=== PATIENT | male | born 1970 | race Caucasian/White ===

== ENCOUNTER 2018-02-09 10:01 | Emergency (ER) | payer OTHER, SELFPAY | END 2018-02-09 12:03 | disposition home or self-care (01) | PROVIDERS: Emergency Provider Emergency Medicine; Visit Provider Emergency Medicine | DX: H81.11 Benign paroxysmal vertigo, right ear (principal) | CPT/HCPCS: 36415; 80053; 85025; 93005; 93010; 99058; 99284 ==

== ENCOUNTER 2019-08-28 23:37 | Emergency (ER) | payer OTHER, SELFPAY ==
[2019-08-28 23:45] VITALS: BP 186/101; PULSE 84; RESP 19; TEMP 36.8; O2SAT 96; BMI 38.0
[2019-08-28] MEDS: PROPARACAINE 0.5% OPHTH SOL 1 DROPS EYE-BOTH (23:58)
--- NOTE | 2019-08-29 00:07 | ED.EYEPROB ---
HPI - Eye Problem General Chief complaint: Eye Problems Stated complaint: right eye swollen shut, left eye almost Time Seen by Provider: 08/28/19 23:43 Source: patient Mode of arrival: Ambulatory Limitations: no limitations History of Present Illness HPI Narrative: 49-year-old male here for evaluation of swelling to his right eye and redness and irritation to his left eye. Patient states that he woke up just prior to arrival with the symptoms. He states he went to bed with some swelling around his right eye. He states that he thought that he was bit by a bug above his right eye. He has no prior eye issues. No history of PRK or LASIK. Does not were contacts. No fevers. Has had some upper respiratory symptoms over the past couple days. Related Data Previous Rx's Medication Instructions Recorded erythromycin 0.5 inch EYE-BOTH TID 4 Days #3.5 08/29/19 gram polyvinyl alcohol-povidon(PF) 1 drop EYE-BOTH .as needed #30 each 08/29/19 [Refresh Classic (PF)] Allergies Allergy/AdvReac Type Severity Reaction Status Date / Time No Known Drug Allergies Allergy Verified 05/31/19 15:49 Review of Systems Constitutional Constitutional: Denies fever(s) Eyes Eyes: Reports blurry vision, Denies change in vision, Denies diplopia, Reports eye discharge, Denies floaters, Reports irritation, Reports itchy eyes, Denies loss of vision, Reports eye pain, Denies requires corrective lenses, Denies seeing flashes, Reports photophobia and Denies spots in vision ENT Ears, Nose, Mouth, and Throat: Reports nasal congestion, Denies sinus pressure, Denies sore throat and Denies throat swelling Respiratory Respiratory: Denies cough Integumentary/Breasts Comments: Redness around bilateral eyes Neurologic Neurologic: Denies behavioral changes and Denies loss of vision Psychiatric Psychiatric: Denies behavioral changes Hematologic/Lymphatic Hematologic/Lymphatic: Denies easy bleeding and Denies easy bruising Allergic/Immunologic Allergic/Immunologic: Reports itchy eyes and Denies throat swelling Patient History Medical History Foot pain (Chronic) Morbid obesity with body mass index (BMI) of 40.0 to 44.9 in adult (Resolved 11/21/17) Venous stasis ulcers of both lower extremities (Resolved 11/21/17) Social History Smoking Status: Current some day smoker alcohol intake frequency: a few times a week Alcohol type: beer and hard liquor Substance Use Type: does not use Exam Initial Vital Signs Initial Vital Signs: Vital Signs Temperature 98.2 F 08/28/19 23:45 Pulse Rate 84 08/28/19 23:45 Respiratory Rate 19 08/28/19 23:45 Blood Pressure 186/101 H 08/28/19 23:45 Pulse Oximetry 96 08/28/19 23:45 Const General: cooperative and healthy appearing Orientation: alert and awake HENMT Head: normal to inspection and normocephalic Ears: TM's normal bilaterally Nose: external nose normal Face and sinus: normal facial exam Mouth: oral mucosae normal Eyes Alignment and Position: alignment normal Eyelids: eyelid abnormality right upper eyelid swelling and tenderness Conjunctivae: conjunctival abnormality bilaterally discharge purulent; without subconjunctival hemorrhages Sclera: scleral abnormality bilaterally scleral injection Cornea: corneas normal and fluorescein used Pupils: PERRL EOM: EOM intact bilaterally Resp Effort & Inspection: normal respiratory effort Auscultation: clear to auscultation bilaterally Skin Other: Redness above the right upper eye Extrem General: normal to inspection and capillary refill normal Psych Appearance: grossly normal and well kempt Course Orders Ordered: Discontinued Medications Erythromycin (Erythromycin Ophth Oint) 1 applic EYE-RIGHT NOW ONE Stop: 08/29/19 00:09 Last Admin: 08/29/19 00:15 Dose: 1 applic Documented by: HFJOSHUA Proparacaine HCl (Parcaine 0.5% Ophth Nerissa) 1 drops EYE-BOTH NOW ONE Stop: 08/28/19 23:56 Last Admin: 08/28/19 23:58 Dose: 1 drop Documented by: HGJESSICA Vital Signs Vital signs: Vital Signs - 8 hr 08/28/19 23:45 08/29/19 00:20 Temperature 98.2 F Pulse Rate 84 87 Respiratory Rate 19 15 Blood Pressure 186/101 H 156/90 H Pulse Oximetry 96 96 MDM - Eye Problem MDM Narrative Medical decision making narrative: No foreign bodies noted on the exam. There is no uptake of the cornea is with the fluorescein stain. Patient had almost complete resolution of symptoms after the topical proparacaine. Does have some redness above the right thigh however I feel that this is inflammation and not infection. Does not appear to be preseptal cellulitis. He does have purulent drainage from bilateral eyes with the right being worse than the left. The rest of his HEENT exam is unremarkable. His symptoms most fit conjunctivitis. He was given erythromycin ointment here in the emergency department was sent home with a prescription for this. We discussed the expected course of treatment. We discussed return precautions and follow-up instructions. With he and his at bedside expressed understanding and agreement plan. Discharge Plan Departure Patient Disposition: Home Clinical Impression: Conjunctivitis Qualifiers: Conjunctivitis type: acute Acute conjunctivitis type: unspecified Laterality: bilateral Qualified Code(s): H10.33 - Unspecified acute conjunctivitis, bilateral Discharge Date/Time: 08/29/19 00:21 Instructions: Conjunctivitis Activity Restrictions/Additional Instructions: Be sure to wash your hands frequently. Do not share your towels. You can use a warm washcloth if your eyes become matted shut. Use the antibiotic ointment as directed. Return to the emergency department for any new or worsening symptoms Prescriptions: New erythromycin 5 mg/gram (0.5 %) ointment 0.5 inch EYE-BOTH TID 4 Days Qty: 3.5 RF: 1 Refresh Classic (PF) 1.4-0.6 % dropperette 1 drop EYE-BOTH .as needed Qty: 30 RF: 0 Referrals: Renato Garces MD [Primary Care Provider] -
[2019-08-29] MEDS: ERYTHROMYCIN OPHTH 1 GM OINT 1 APPLIC EYE-RIGHT (00:15)
[2019-08-29 00:20] VITALS: BP 156/90; PULSE 87; RESP 15; O2SAT 96
== END 2019-08-29 00:21 | disposition home or self-care (01) ==
PROVIDERS: Emergency Provider Emergency Medicine; PCP Internal Medicine
DX: H10.33 Unspecified acute conjunctivitis, bilateral (principal)
CPT/HCPCS: 99282; 99283

== ENCOUNTER 2020-03-10 05:57 | Emergency (ER) | payer OTHER, SELFPAY ==
--- NOTE | 2020-03-10 05:59 | ED_ITS ---
HPI - Back Pain/Injury General Chief Complaint: Back Pain/Injury Stated Complaint: thinks pinched nerve in back/sciatica x 1 week Time Seen by Provider: 03/10/20 05:59 Source: patient Mode of arrival: Wheelchair Limitations: no limitations History of Present Illness HPI Narrative: 49-year-old male smoker with history of chronic back trouble presents with a chief complaint of severe back pain over the past week. He states that it starts in his mid back and radiates down both legs. It is much worse with motion and improves with rest. He has got some associated numbness but denies any weakness or footdrop. He denies any loss of control of bowel or bladder. He denies any trauma, direct impact or heavy lifting, bending or twisting. He does not remember specific event that started this episode. He denies any fever chills. Denies any history of IV drug abuse MD Complaint: back pain and back injury Onset (ago): day(s) Duration: constant Similar Symptoms Previously: Yes Location: lumbar spine, right lower back and left lower back Severity: severe Quality: burning and sharp Radiation: left leg and right leg Severity scale (1-10): 9 Relieving factors: immobilization Exacerbating factors: movement Associated symptoms: numbness Related Data Previous Rx's Medication Instructions Recorded erythromycin 0.5 inch EYE-BOTH TID 4 Days #3.5 08/29/19 gram polyvinyl alcohol-povidon(PF) 1 drop EYE-BOTH .as needed #30 each 08/29/19 [Refresh Classic (PF)] diazepam [Valium] 5 mg PO BID-QID PRN #10 tab 03/10/20 hydrocodone-acetaminophen 1 tab PO Q4-6H PRN #10 tab 03/10/20 ketorolac 10 mg PO Q6H PRN #14 tab 03/10/20 lidocaine [Lidoderm] 1 patch TOP DAILY #15 each 03/10/20 prednisone 20 mg PO DAILY #5 tab 03/10/20 Allergies Allergy/AdvReac Type Severity Reaction Status Date / Time No Known Drug Allergies Allergy Verified 05/31/19 15:49 Review of Systems Constitutional Constitutional: Denies chills, Denies fatigue, Denies fever(s), Denies frequent falls, Denies lethargy and Denies weakness Eyes Eyes: Denies change in vision, Denies eye discharge, Denies irritation and Denies loss of vision ENT Ears, Nose, Mouth, and Throat: Denies change in voice, Denies dizziness, Denies neck pain, Denies sore throat and Denies throat swelling Cardiovascular Cardiovascular: Denies chest pain, Denies irregular heart rhythm, Denies lightheadedness, Denies palpitations, Denies dyspnea, Denies dyspnea on exertion and Denies orthopnea Respiratory Respiratory: Denies cough, Denies dyspnea, Denies dyspnea on exertion and Denies wheezing Gastrointestinal Gastrointestinal: Denies abdominal pain, Denies change in bowel habits, Denies diarrhea, Denies nausea and Denies vomiting Genitourinary Genitourinary: Denies hematuria, Denies flank pain, Denies urinary incontinence and Denies urinary urgency Musculoskeletal Musculoskeletal: Reports back pain, Denies muscle weakness, Denies neck pain, Denies numbness, Reports radiating pain into limb and Denies tingling Integumentary/Breasts Skin/Breast: Denies pruritus, Denies erythema, Denies rash and Denies wounds Neurologic Neurologic: Denies behavioral changes, Denies confusion, Denies dizziness, Denies frequent falls, Denies loss of vision, Denies numbness, Denies tingling and Denies weakness Psychiatric Psychiatric: Denies anxiety, Denies behavioral changes, Denies confusion, Denies depression, Denies homicidal ideation and Denies suicidal ideation Endocrine Endocrine: Denies fatigue, Denies flushing and Denies palpitations Hematologic/Lymphatic Hematologic/Lymphatic: Denies easy bruising Allergic/Immunologic Allergic/Immunologic: Denies urticaria, Denies throat swelling and Denies wheezing Patient History Medical History Foot pain (Chronic) Morbid obesity with body mass index (BMI) of 40.0 to 44.9 in adult (Resolved 11/21/17) Venous stasis ulcers of both lower extremities (Resolved 11/21/17) Family History Mother Cancer Lung cancer Social History Smoking Status: Current some day smoker Smoking Status: Current some day smoker alcohol intake frequency: a few times a week Alcohol type: beer and hard liquor Substance Use Type: does not use Exam Narrative Exam Narrative: GENERAL: [49] year old patient appears stated age. Well- nourished, well-developed patient, in obvious distress, rubbing his back, sitting in a wheelchair HEAD: Atraumatic. Normocephalic. EYES: Pupils equal round and reactive. Extraocular motions intact. No scleral icterus. No injection or drainage. ENT: Nose without bleeding, purulent drainage. Throat without erythema, tonsillar hypertrophy or exudate. Airway patent. NECK: Trachea midline. Non tender CARDIOVASCULAR: Regular rate and rhythm without murmurs, gallops, or rubs. RESPIRATORY: Clear to auscultation. Breath sounds equal bilaterally. No wheezes, rales, or rhonchi. GASTROINTESTINAL: Abdomen soft, non-tender, nondistended. EXTREMITIES: No edema or joint tenderness. BACK: filter press tender head but free of any obvious external abnormalities. Patient exam notes decreased range of motion and muscle spasm, but no CVA tenderness, or vertebral point tenderness. There are no symptoms of cauda equina such as saddle anesthesia, and decreased reflexes, decreased sensation or strength. NEURO: AOx3. SKIN: No rash or erythema of visible areas Initial Vital Signs Initial Vital Signs: Vital Signs Temperature 98.0 F 03/10/20 06:10 Pulse Rate 78 03/10/20 06:10 Respiratory Rate 22 03/10/20 06:10 Blood Pressure 168/68 H 03/10/20 06:10 Pulse Oximetry 96 03/10/20 06:10 Course Course Course Narrative: Patient feeling improvement after above-stated therapies. He is still having some pain with radiation but able to ambulate out under his own power. Return precautions given and questions answered to his apparent satisfaction. Multiple etiologies of back pain considered including; Epidural abscess, cauda equina, mass occupying lesion, and other considered Orders Ordered: Discontinued Medications Diazepam (Valium) 5 mg PO NOW ONE Stop: 03/10/20 06:21 Last Admin: 03/10/20 07:18 Dose: 5 mg Documented by: VALERIA Hydromorphone HCl (Dilaudid) 1 mg IM NOW ONE Stop: 03/10/20 06:21 Last Admin: 03/10/20 06:29 Dose: 1 mg Documented by: MERLENE Ibuprofen (Advil) 800 mg PO NOW ONE Stop: 03/10/20 06:21 Last Admin: 05/18/20 06:28 Dose: 800 mg Documented by: MERLENE Prednisone (Deltasone) 40 mg PO NOW ONE Stop: 03/10/20 06:22 Last Admin: 03/10/20 06:28 Dose: 40 mg Documented by: MERLENE Vital Signs Vital signs: Vital Signs - 8 hr 03/10/20 06:10 03/10/20 07:30 Temperature 98.0 F Pulse Rate 78 81 Respiratory Rate 22 19 Blood Pressure 168/68 H Blood Pressure [Right Arm] 152/89 H Pulse Oximetry 96 95 Discharge Plan Departure Patient Disposition: Home Clinical Impression: Bilateral lumbar radiculopathy Strain of lumbar region Qualifiers: Encounter type: initial encounter Qualified Code(s): S39.012A - Strain of muscle, fascia and tendon of lower back, initial encounter Discharge Date/Time: 03/10/20 07:35 Instructions: DI for Low Back Pain Activity Restrictions/Additional Instructions: *You have been diagnosed with [ acute on chronic lumbar pain with bilateral radiculopathy ] *What to do: *Take medications as directed *Follow up with your primary care provider in 2-3 days, call for an appointment. Let them know you were seen in the Emergency Department and that we ask that you be seen in follow up *Return to ER if you should have any new, worsening or concerning symptoms Prescriptions: New hydrocodone-acetaminophen 5-325 mg tablet 1 tab PO Q4-6H PRN (Reason: pain) Qty: 10 RF: 0 ketorolac 10 mg tablet 10 mg PO Q6H PRN (Reason: pain) Qty: 14 RF: 0 lidocaine [Lidoderm] 5 % adhesive patch,medicated 1 patch TOP DAILY Qty: 15 RF: 0 prednisone 20 mg tablet 20 mg PO DAILY Qty: 5 RF: 0 diazepam [Valium] 5 mg tablet 5 mg PO BID-QID PRN (Reason: muscle spasm) Qty: 10 RF: 0 No Action erythromycin 5 mg/gram (0.5 %) ointment 0.5 inch EYE-BOTH TID 4 Days Qty: 3.5 RF: 1 Refresh Classic (PF) 1.4-0.6 % dropperette 1 drop EYE-BOTH .as needed Qty: 30 RF: 0 Referrals: Renato Garces MD [Primary Care Provider] -
[2020-03-10 06:10] VITALS: BP 168/68; PULSE 78; RESP 22; TEMP 36.7; O2SAT 96; BMI 79.9
--- NOTE | 2020-03-10 06:18 | PC.NURSE ---
reports previous injury reoocured with no source. he states his back just started hurting like it did before. States he had to be carried off his boat. Patient drove self to ED. Denies loss of bowel or bladder. Denies trauma or injury to the area. States his will come and pick him up.
[2020-03-10] MEDS: IBUPROFEN 400 MG TABLET 800 MG PO (06:28)
[2020-03-10] MEDS: predniSONE 20 MG TABLET 40 MG PO (06:28)
[2020-03-10] MEDS: HYDROMORPHONE 1 MG INJ IM (06:29)
[2020-03-10] MEDS: diazePAM 5 MG TABLET PO (07:18)
[2020-03-10 07:30] VITALS: BP 152/89; PULSE 81; RESP 19; O2SAT 95
== END 2020-03-10 07:35 | disposition home or self-care (01) ==
LOC: ED 07:01
PROVIDERS: Emergency Provider Emergency Medicine; PCP Internal Medicine
DX: M54.16 Radiculopathy, lumbar region (principal); S39.012A Strain of muscle, fascia and tendon of lower back, initial encounter
CPT/HCPCS: 96372; 99283; J1170

== ENCOUNTER 2020-03-14 06:26 | Emergency (ER) | payer OTHER, SELFPAY ==
[2020-03-14 06:33] VITALS: BP 124/86; PULSE 111; RESP 25; TEMP 36.6; O2SAT 97; BMI 39.3
--- NOTE | 2020-03-14 06:35 | ED.BACK ---
HPI - Back Pain/Injury <Oswaldo Mayers, DO - Last Filed: 03/17/20 08:20> General Chief Complaint: Back Pain/Injury Stated Complaint: Lower Back pain. Time Seen by Provider: 03/14/20 06:30 Source: patient Mode of arrival: Ambulatory Limitations: no limitations History of Present Illness HPI Narrative: 49-year-old male smoker with history of chronic back pain presents for the 2nd time in as many days a chief complaint of significantly worsening lumbar pain with radiation into both legs. He describes a very intense sharp and stabbing pain which is much worse with any motion and extends into both legs with some tingling. He denies any weakness. He denies any trouble controlling bowel or bladder. He denies any fever or chills. He denies any numbness in his groin or foot drop. He denies any specifically heavy lifting, bending or twisting. He denies any history of IV drug abuse. When seen a few days ago he refused an IV and states the prescription medications have not helped. He denies access to a PCP. MD Complaint: back pain Onset (ago): day(s) Duration: constant Similar Symptoms Previously: Yes Location: lumbar spine Severity: severe Quality: burning and sharp Radiation: left leg and right leg Severity scale (1-10): 9 Relieving factors: none Exacerbating factors: movement Associated symptoms: numbness and difficulty walking Treatments prior to arrival: prescription analgesics Related Data Previous Rx's Medication Instructions Recorded erythromycin 0.5 inch EYE-BOTH TID 4 Days #3.5 08/29/19 gram polyvinyl alcohol-povidon(PF) 1 drop EYE-BOTH .as needed #30 each 08/29/19 [Refresh Classic (PF)] diazepam [Valium] 5 mg PO BID-QID PRN #10 tab 03/10/20 hydrocodone-acetaminophen 1 tab PO Q4-6H PRN #10 tab 03/10/20 ketorolac 10 mg PO Q6H PRN #14 tab 03/10/20 lidocaine [Lidoderm] 1 patch TOP DAILY #15 each 03/10/20 prednisone 20 mg PO DAILY #5 tab 03/10/20 cyclobenzaprine 10 mg PO TID PRN #21 tab 03/14/20 ketorolac 10 mg PO QID PRN 5 Days tab 03/14/20 oxycodone-acetaminophen 1 tab PO Q6H PRN #12 tab 03/14/20 prednisone 60 mg PO DAILY #15 tab 03/14/20 Allergies Allergy/AdvReac Type Severity Reaction Status Date / Time No Known Drug Allergies Allergy Verified 05/31/19 15:49 Review of Systems <Oswaldo Mayers DO - Last Filed: 03/17/20 08:20> Constitutional Constitutional: Denies chills, Denies fatigue, Denies fever(s), Denies frequent falls, Denies lethargy and Denies weakness Eyes Eyes: Denies change in vision, Denies eye discharge, Denies irritation and Denies loss of vision ENT Ears, Nose, Mouth, and Throat: Denies change in voice, Denies dizziness, Denies neck pain, Denies sore throat and Denies throat swelling Cardiovascular Cardiovascular: Denies chest pain, Denies irregular heart rhythm, Denies lightheadedness, Denies palpitations, Denies dyspnea, Denies dyspnea on exertion and Denies orthopnea Respiratory Respiratory: Denies cough, Denies dyspnea, Denies dyspnea on exertion and Denies wheezing Gastrointestinal Gastrointestinal: Denies abdominal pain, Denies change in bowel habits, Denies diarrhea, Denies nausea and Denies vomiting Genitourinary Genitourinary: Denies hematuria, Denies flank pain, Denies urinary incontinence and Denies urinary urgency Musculoskeletal Musculoskeletal: Reports back pain, Denies muscle weakness, Denies neck pain, Denies numbness and Reports tingling Integumentary/Breasts Skin/Breast: Denies pruritus, Denies erythema, Denies rash and Denies wounds Neurologic Neurologic: Denies behavioral changes, Denies confusion, Denies dizziness, Denies frequent falls, Denies loss of vision, Denies numbness, Reports tingling and Denies weakness Psychiatric Psychiatric: Denies anxiety, Denies behavioral changes, Denies confusion, Denies depression, Denies homicidal ideation and Denies suicidal ideation Endocrine Endocrine: Denies fatigue, Denies flushing and Denies palpitations Hematologic/Lymphatic Hematologic/Lymphatic: Denies easy bruising Allergic/Immunologic Allergic/Immunologic: Denies urticaria, Denies throat swelling and Denies wheezing <Renato Verdugo MD - Last Filed: 03/14/20 08:19> Constitutional Constitutional: Denies chills, Denies fatigue, Denies fever(s), Denies frequent falls, Denies lethargy and Denies weakness Eyes Eyes: Denies change in vision, Denies eye discharge, Denies irritation and Denies loss of vision ENT Ears, Nose, Mouth, and Throat: Denies change in voice, Denies dizziness, Denies neck pain, Denies sore throat and Denies throat swelling Cardiovascular Cardiovascular: Denies chest pain, Denies irregular heart rhythm, Denies lightheadedness, Denies palpitations, Denies dyspnea, Denies dyspnea on exertion and Denies orthopnea Respiratory Respiratory: Denies cough, Denies dyspnea, Denies dyspnea on exertion and Denies wheezing Gastrointestinal Gastrointestinal: Denies abdominal pain, Denies change in bowel habits, Denies diarrhea, Denies nausea and Denies vomiting Genitourinary Genitourinary: Denies hematuria, Denies flank pain, Denies urinary incontinence and Denies urinary urgency Musculoskeletal Musculoskeletal: Denies back pain, Denies muscle weakness, Denies neck pain, Denies numbness and Denies tingling Integumentary/Breasts Skin/Breast: Denies pruritus, Denies erythema, Denies rash and Denies wounds Neurologic Neurologic: Denies behavioral changes, Denies confusion, Denies dizziness, Denies frequent falls, Denies loss of vision, Denies numbness, Denies tingling and Denies weakness Psychiatric Psychiatric: Denies anxiety, Denies behavioral changes, Denies confusion, Denies depression, Denies homicidal ideation and Denies suicidal ideation Endocrine Endocrine: Denies fatigue, Denies flushing and Denies palpitations Hematologic/Lymphatic Hematologic/Lymphatic: Denies easy bruising Allergic/Immunologic Allergic/Immunologic: Denies urticaria, Denies throat swelling and Denies wheezing Patient History <Oswaldo Mayers DO - Last Filed: 03/17/20 08:20> Medical History Foot pain (Chronic) Morbid obesity with body mass index (BMI) of 40.0 to 44.9 in adult (Resolved 11/21/17) Venous stasis ulcers of both lower extremities (Resolved 11/21/17) Family History Mother Cancer Lung cancer Social History Smoking Status: Current some day smoker Smoking Status: Current some day smoker alcohol intake frequency: a few times a week Alcohol type: beer and hard liquor Substance Use Type: does not use Exam <Oswaldo Mayers DO - Last Filed: 03/17/20 08:20> Narrative Exam Narrative: GENERAL: [49] year old patient appears stated age. Well-nourished, well-developed patient, in notable distress. Obviously in pain, anxious HEAD: Atraumatic. Normocephalic. EYES: Pupils equal round and reactive. Extraocular motions intact. No scleral icterus. No injection or drainage. ENT: Nose without bleeding, purulent drainage. Throat without erythema, tonsillar hypertrophy or exudate. Airway patent. NECK: Trachea midline. Non tender CARDIOVASCULAR: Regular rate and rhythm without murmurs, gallops, or rubs. RESPIRATORY: Clear to auscultation. Breath sounds equal bilaterally. No wheezes, rales, or rhonchi. GASTROINTESTINAL: Abdomen soft, non-tender, nondistended. EXTREMITIES: No edema or joint tenderness. 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 Patient exam notes decreased range of motion and muscle spasm, but no CVA tenderness, or vertebral point tenderness. There are no symptoms of cauda equina such as saddle anesthesia, and decreased reflexes, decreased sensation or strength. NEURO: AOx3. SKIN: No rash or erythema of visible areas Initial Vital Signs Initial Vital Signs: Vital Signs Temperature 97.9 F 03/14/20 06:33 Pulse Rate 111 H 03/14/20 06:33 Respiratory Rate 25 H 03/14/20 06:33 Blood Pressure 124/86 03/14/20 06:33 Pulse Oximetry 97 03/14/20 06:33 <Renato Verdugo MD - Last Filed: 03/14/20 08:19> Initial Vital Signs Initial Vital Signs: Vital Signs Temperature 97.9 F 03/14/20 06:33 Pulse Rate 111 H 03/14/20 06:33 Respiratory Rate 25 H 03/14/20 06:33 Blood Pressure 124/86 03/14/20 06:33 Pulse Oximetry 97 03/14/20 06:33 Const General: cooperative and well developed Nutritional Appearance: well nourished HENVT Head: normocephalic and atraumatic Ears: external ears normal and TM's normal bilaterally Nose: external nose normal and No nasal discharge Face and sinus: sinuses nontender, face symmetric, no sinus tenderness and No dry mucous membranes Mouth: oral mucosae normal and moist mucous membranes Teeth and gingiva: dentition normal Throat: tonsils normal and uvula midline Eyes General: appearance normal, both eyes and all related structures Eyelids: eyelids normal Conjunctivae: conjunctivae normal Sclera: sclerae normal Pupils: PERRL EOM: EOM intact bilaterally Neck Neck: normal visual inspection, trachea midline, No lymphadenopathy, No midline deformity and No JVD Lymphatic: No lymphedema Chest Chest: normal inspection of the chest Resp Effort & Inspection: normal respiratory effort, able to speak in complete sentences, no respiratory distress and no use of accessory muscles Auscultation: clear to auscultation bilaterally, no rales, no rhonchi and no wheezes Cardio Rate: regular rate Rhythm: regular rhythm Heart Sounds: no click, no gallops, no murmurs and no rubs Pulses: normal peripheral pulses GI Inspection: non-distended Palpation: soft, no hepatosplenomegaly, No guarding, No pulsatile mass and No tender Auscultation: normal bowel sounds Back/Spine/Pelvis Back: No CVA tenderness Cervical Spine: cervical ROM normal and No pain with cervical ROM Thoracic/Lumbar Spine: thoracic and lumbar spine normal to inspection Skin General: no rashes or lesions noted, No jaundice and No petechiae Neuro General: alert, oriented x3, gait normal and no focal motor deficits Speech: speech normal Extrem General: full ROM, no clubbing, cyanosis or edema, no pedal edema and no calf tenderness Psych Appearance: well kempt Mental Status: mental status grossly normal Attitude: cooperative Thought Content: normal and suicidality Judgment: judgment good Course <Oswaldo Mayers DO - Last Filed: 03/17/20 08:20> Course Course Narrative: patient agreeable to an IV this time. Given his significantly worsening symptoms and lack of access to primary care MRI without contrast ordered to evaluate for suspected nerve impingement an intervertebral disc problem Patient signed out to Dr. Verdugo at 0700 for completion of evaluation and final disposition Orders Ordered: Discontinued Medications Dexamethasone (Decadron) 10 mg IV NOW ONE Stop: 03/14/20 06:36 Last Admin: 03/14/20 06:44 Dose: 10 mg Documented by: MMCFARL Hydromorphone HCl (Dilaudid) 1 mg IV NOW ONE Stop: 03/14/20 06:36 Last Admin: 03/14/20 06:43 Dose: 1 mg Documented by: MARTIN Ketorolac Tromethamine (Toradol) 15 mg IV NOW ONE Stop: 03/14/20 06:36 Last Admin: 03/14/20 06:44 Dose: 15 mg Documented by: MARTIN Vital Signs Vital signs: Vital Signs - 8 hr 03/14/20 06:33 Temperature 97.9 F Pulse Rate 111 H Respiratory Rate 25 H Blood Pressure 124/86 Pulse Oximetry 97 <Renato Verdugo MD - Last Filed: 03/14/20 08:19> Orders Ordered: Discontinued Medications Dexamethasone (Decadron) 10 mg IV NOW ONE Stop: 03/14/20 06:36 Last Admin: 03/14/20 06:44 Dose: 10 mg Documented by: MARTIN Hydromorphone HCl (Dilaudid) 1 mg IV NOW ONE Stop: 03/14/20 06:36 Last Admin: 03/14/20 06:43 Dose: 1 mg Documented by: MARTIN Ketorolac Tromethamine (Toradol) 15 mg IV NOW ONE Stop: 03/14/20 06:36 Last Admin: 03/14/20 06:44 Dose: 15 mg Documented by: MARTIN Vital Signs Vital signs: Vital Signs - 8 hr 03/14/20 06:33 Temperature 97.9 F Pulse Rate 111 H Respiratory Rate 25 H Blood Pressure 124/86 Pulse Oximetry 97 MDM - Back Pain/Injury <Oswaldo Mayers DO - Last Filed: 03/17/20 08:20> Lab Data Result diagrams: 03/14/20 06:45 03/14/20 06:45 Labs: Lab Results 03/14/20 03/14/20 Range/Units 06:45 06:45 WBC 11.9 H (4.5-11.0) X10^3/uL RBC 5.13 (4.5-5.9) X10^6/uL Hgb 16.8 (13.5-17.5) g/dL Hct 47.8 (41-53) % MCV 93.2 (80-100) fL MCH 32.7 (26-34) PG MCHC 35.1 (30-36) % RDW 13.4 (11.6-14.8) % Plt Count 251 (150-400) X10^3/uL Neut % (Auto) 68.1 (50-75) % Lymph % (Auto) 22.3 L (25-40) % Bell % (Auto) 8.8 (3-14) % Eos % (Auto) 0.4 L (2-4) % Baso % (Auto) 0.4 (0-2) % Neut # (Auto) 8100 H (6054-5564) /uL Lymph # (Auto) 2700 (9424-3271) /uL Bell # (Auto) 1000 H (0-900) /uL Eos # (Auto) 0 (0-450) /uL Baso # (Auto) 0 (0-100) /uL Sodium 139 (137-145) mmol/L Potassium 4.2 (3.4-5.1) mmol/L Chloride 104 (98-107) mmol/L Carbon Dioxide 26 (22-32) mmol/L BUN 26 H (9-20) mg/dL Creatinine 0.62 L (0.66-1.25) mg/dL Estimated GFR > 60.0 (>60) mL/min BUN/Creatinine Ratio 41.9 H (6-22) Glucose 112 H (70-100) mg/dL Calcium 10.0 (8.4-10.2) mg/dL <Renato Verdugo MD - Last Filed: 03/14/20 08:19> Lab Data Labs: Lab Results 03/14/20 03/14/20 Range/Units 06:45 06:45 WBC 11.9 H (4.5-11.0) X10^3/uL RBC 5.13 (4.5-5.9) X10^6/uL Hgb 16.8 (13.5-17.5) g/dL Hct 47.8 (41-53) % MCV 93.2 (80-100) fL MCH 32.7 (26-34) PG MCHC 35.1 (30-36) % RDW 13.4 (11.6-14.8) % Plt Count 251 (150-400) X10^3/uL Neut % (Auto) 68.1 (50-75) % Lymph % (Auto) 22.3 L (25-40) % Bell % (Auto) 8.8 (3-14) % Eos % (Auto) 0.4 L (2-4) % Baso % (Auto) 0.4 (0-2) % Neut # (Auto) 8100 H (6940-9165) /uL Lymph # (Auto) 2700 (7970-6569) /uL Bell # (Auto) 1000 H (0-900) /uL Eos # (Auto) 0 (0-450) /uL Baso # (Auto) 0 (0-100) /uL Sodium 139 (137-145) mmol/L Potassium 4.2 (3.4-5.1) mmol/L Chloride 104 (98-107) mmol/L Carbon Dioxide 26 (22-32) mmol/L BUN 26 H (9-20) mg/dL Creatinine 0.62 L (0.66-1.25) mg/dL Estimated GFR > 60.0 (>60) mL/min BUN/Creatinine Ratio 41.9 H (6-22) Glucose 112 H (70-100) mg/dL Calcium 10.0 (8.4-10.2) mg/dL Discharge Plan Departure Patient Disposition: Home Clinical Impression: Acute lumbar radiculopathy Low back pain Qualifiers: Chronicity: chronic Back pain laterality: midline Sciatica presence: with sciatica Sciatica laterality: bilateral sciatica Qualified Code(s): M54.41 - Lumbago with sciatica, right side Discharge Date/Time: 03/14/20 08:25 Instructions: DI for Low Back Pain, DI for Back Pain With Sciatica, DI for Back Spasm, DI for Back Strain or Sprain Activity Restrictions/Additional Instructions: 1. Follow-up with the orthopedic surgeons at [facility] who evaluate back pain and lumbar radiculopathy. Call their office and schedule an appointment that you can keep. Informed them that you were seen in the emergency department at [facility] and referred to them. If they are unable to see you and evaluate you you can call and schedule an appointment with the neurosurgeons at [facility]. You need to schedule an appointment for follow-up that you can keep. 2. Call the [facility] inside sales coordinator at [phone] to schedule an appointment with a family doctor who can schedule you for physical therapy to evaluate and help your back pain. 3. Take your pain as prescribed for your pain management. 4. 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 Prescriptions: New prednisone 20 mg tablet 60 mg PO DAILY Qty: 15 RF: 0 cyclobenzaprine 10 mg tablet 10 mg PO TID PRN (Reason: muscle spasm) Qty: 21 RF: 0 ketorolac 10 mg tablet 10 mg PO QID PRN (Reason: pain) 5 Days RF: 0 oxycodone-acetaminophen 10-325 mg tablet 1 tab PO Q6H PRN (Reason: pain) Qty: 12 RF: 0 No Action erythromycin 5 mg/gram (0.5 %) ointment 0.5 inch EYE-BOTH TID 4 Days Qty: 3.5 RF: 1 Refresh Classic (PF) 1.4-0.6 % dropperette 1 drop EYE-BOTH .as needed Qty: 30 RF: 0 hydrocodone-acetaminophen 5-325 mg tablet 1 tab PO Q4-6H PRN (Reason: pain) Qty: 10 RF: 0 ketorolac 10 mg tablet 10 mg PO Q6H PRN (Reason: pain) Qty: 14 RF: 0 lidocaine [Lidoderm] 5 % adhesive patch,medicated 1 patch TOP DAILY Qty: 15 RF: 0 prednisone 20 mg tablet 20 mg PO DAILY Qty: 5 RF: 0 diazepam [Valium] 5 mg tablet 5 mg PO BID-QID PRN (Reason: muscle spasm) Qty: 10 RF: 0 Referrals: Renato Garces MD [Primary Care Provider] - <Renato Verdugo MD - Last Filed: 03/14/20 08:19> [facility] ED Attending [facility] Attestation: 0745: The patient went down to MRI and refused the MRI. He refused to get onto the table refuse to remove his jewelry bracelets and take his boots off for the MRI. The patient return to the emergency department. The patient stated that he wanted to talk to me so that he could get going. 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 He is upset because he cannot always make appointments. The patient will be referred to [facility] for and to the orthopedic surgeon who evaluates backs. The patient states he cannot go in the MRI tube. He is claustrophobic and too big into tight for the MRI. It will need to be scheduled as an outpatient. He wants to leave at this time. The patient will be prescribed prednisone 60 mg per day for the next 5 days, Toradol 10 mg Q 6 hours for 5 days., Flexeril 10 mg 3 times a day for muscle spasms and Percocet 07/26/2025 every 8 hours for severe pain and discomfort. He was advised that he cannot captain his ship, drive an automobile or operate any dangerous machinery while on these medications. 0805: The patient is awake alert oriented, coherent and ambulatory.
[2020-03-14] MEDS: HYDROMORPHONE 1 MG INJ IV (06:43)
[2020-03-14] MEDS: DEXAMETHASONE 10 MG/ML VIAL IV (06:44)
[2020-03-14] MEDS: KETOROLAC 60 MG/2 ML VIAL 15 MG IV (06:44)
[2020-03-14 06:57] LABS: Add Manual Diff / Slide Review NO; Basophils Absolute Auto 0 /uL (0-100); Basophils Percent Auto 0.4 % (0-2); Eosinophils Absolute Auto 0 /uL (0-450); Eosinophils Percent Auto 0.4 % (2-4); Hematocrit 47.8 % (41-53); Hemoglobin 16.8 g/dL (13.5-17.5); Lymphocytes Absolute Auto 2700 /uL (1100-4500); Lymphocytes Percent Auto 22.3 % (25-40); Mean Corpuscular HGB Conc 35.1 % (30-36); Mean Corpuscular Hemoglobin 32.7 PG (26-34); Mean Corpuscular Volume 93.2 fL (80-100); Monocytes Absolute Auto 1000 /uL (0-900); Monocytes Percent Auto 8.8 % (3-14); Neutrophils Absolute Auto 8100 /uL (1500-7000); Neutrophils Percent Auto 68.1 % (50-75); Platelet Count 251 X10^3/uL (150-400); Red Blood Cell Count 5.13 X10^6/uL (4.5-5.9); Red Cell Distribution Width 13.4 % (11.6-14.8); White Blood Cell Count 11.9 X10^3/uL (4.5-11.0)
[2020-03-14 07:13] LABS: BUN Creatinine Ratio 41.9 (6-22); Blood Urea Nitrogen 26 mg/dL (9-20); Carbon Dioxide 26 mmol/L (22-32); Chloride 104 mmol/L (98-107); Estimated Glomerular Filt Rate > 60.0 mL/min (>60); Glucose 112 mg/dL (70-100); HEMOLYSIS < 15 (0-50); Potassium 4.2 mmol/L (3.4-5.1); Sodium 139 mmol/L (137-145)
== END 2020-03-14 08:25 | disposition home or self-care (01) ==
PROVIDERS: Emergency Medicine; Emergency Provider Emergency Medicine; PCP Internal Medicine
DX: M54.42 Lumbago with sciatica, left side (principal); M54.41 Lumbago with sciatica, right side; R20.2 Paresthesia of skin
CPT/HCPCS: 36415; 80048; 85025; 96374; 96375; 99284; J1100; J1170; J1885

== ENCOUNTER 2020-05-13 08:11 | Emergency (ER) | payer OTHER, SELFPAY ==
[2020-05-13 08:19] VITALS: BP 147/82; PULSE 88; RESP 20; TEMP 36.6; O2SAT 93
--- NOTE | 2020-05-13 08:31 | ED_ITS ---
HPI - Back Pain/Injury General Chief Complaint: Back Pain/Injury Stated Complaint: Back pain Time Seen by Provider: 05/13/20 08:29 Source: patient Mode of arrival: Ambulatory Limitations: no limitations History of Present Illness HPI Narrative: The patient arrives complaining of left mid back pain. The pain is there for 3-4 days, he is unsure. The pain is not located in the thoracic or lumbar spine. There is no radiation of pain to the abdomen. He denies dysuria or hematuria. He insisted there is no blood in his urine. He denies lumbar pain. He denies bowel or bladder incontinence. He has no pelvic anesthesia. He insists that there is numbness in his left leg. He is walking without deficits. He has prior visits to this ER with complaints of lumbar back pain. Upon prior visits he refused an IV. An MRI was arranged, he refused the MRI after arriving at the MRI suite. Since, he has apparently obtained the MRI elsewhere. He is unaware of any events that may have caused the pain. He is unaware of the MRI results. He is a poor historian, generally talking through my questions. He has been taking Tylenol and Vicodin. No further clinical details were obtained from the patient. Related Data Previous Rx's Medication Instructions Recorded erythromycin 0.5 inch EYE-BOTH TID 4 Days #3.5 08/29/19 gram polyvinyl alcohol-povidon(PF) 1 drop EYE-BOTH .as needed #30 each 08/29/19 [Refresh Classic (PF)] diazepam [Valium] 5 mg PO BID-QID PRN #10 tab 03/10/20 hydrocodone-acetaminophen 1 tab PO Q4-6H PRN #10 tab 03/10/20 ketorolac 10 mg PO Q6H PRN #14 tab 03/10/20 lidocaine [Lidoderm] 1 patch TOP DAILY #15 each 03/10/20 prednisone 20 mg PO DAILY #5 tab 03/10/20 cyclobenzaprine 10 mg PO TID PRN #21 tab 03/14/20 oxycodone-acetaminophen 1 tab PO Q6H PRN #12 tab 03/14/20 prednisone 60 mg PO DAILY #15 tab 03/14/20 Allergies Allergy/AdvReac Type Severity Reaction Status Date / Time No Known Drug Allergies Allergy Verified 05/31/19 15:49 Review of Systems Constitutional Constitutional: Denies fever(s) Cardiovascular Cardiovascular: Denies chest pain Respiratory Respiratory: Denies cough Gastrointestinal Gastrointestinal: Denies abdominal pain Comments: No GI incontinence Genitourinary Genitourinary: Denies hematuria and Denies dysuria Genitourinary: Denies hematuria and Denies dysuria Comments: No urinary incontinence Musculoskeletal Musculoskeletal: Reports as per HPI and Reports back pain Integumentary/Breasts Skin/Breast: Denies pruritus, Denies erythema, Denies rash and Denies wounds Neurologic Comments: Left leg numbness. Patient History Medical History (Updated 05/13/20 @ 09:06 by French Galdamez MD) Foot pain (Chronic) Morbid obesity with body mass index (BMI) of 40.0 to 44.9 in adult (Resolved 11/21/17) Recurrent low back pain (Acute) Venous stasis ulcers of both lower extremities (Resolved 11/21/17) Family History Mother Cancer Lung cancer Social History Smoking Status: Current some day smoker Smoking Status: Current some day smoker alcohol intake frequency: a few times a week Alcohol type: beer and hard liquor Substance Use Type: does not use Exam Initial Vital Signs Initial Vital Signs: Vital Signs Temperature 97.9 F 05/13/20 08:19 Pulse Rate 88 05/13/20 08:19 Respiratory Rate 20 05/13/20 08:19 Blood Pressure 147/82 H 05/13/20 08:19 Pulse Oximetry 93 05/13/20 08:19 Const General: healthy appearing and disheveled Nutritional Appearance: obese and other Other: Agitated. Difficult to communicate with, constantly talking through my questions with his complaint and not answering my questions. [facility] Head: normocephalic and atraumatic GI Other: Obese. Nontender. Back/Spine/Pelvis Other: No tenderness over the thoracic or lumbar spine. No sacral tenderness. No SI tenderness. Tenderness in the left lower thoracic area, perhaps over the left kidney. Slight increase in pain with pressure. Skin General: no rashes or lesions noted and No petechiae Neuro General: patient alert and patient oriented x3 Speech: speech normal Other: No motor sensory deficits of the lower extremities on exam. He walked out the door, concluding the exam. His gait was normal. Extrem General: full ROM (In both lower extremities), no pedal edema and no calf tenderness Course Course Course Narrative: The patient was not a cooperative historian, a limited exam was obtained. He has thoracic/mid back tenderness. There is no lumbosacral tenderness. One hundred 6:00 a.m. lower extremities is normal. He had normal my explanation why the left back pain should be evaluated separate from his complaints of left leg numbness. Toradol was offered. A UA was requested. He was anxious, not answering questions, and seemingly agitated at onset. With minutes he indicated he had other things to do, expressed his intent to depart immediately. Other than the exam, no care was given. Vital Signs Vital signs: Vital Signs - 8 hr 05/13/ 08:19 Temperature 97.9 F Pulse Rate 88 Respiratory Rate 20 Blood Pressure 147/82 H Pulse Oximetry 93 Discharge Plan Departure Patient Disposition: Left Against Medical Advice Clinical Impression: Agitation Back pain Qualifiers: Back pain location: back pain in other location Chronicity: unspecified Qualified Code(s): M54.89 - Other dorsalgia Prescriptions: No Action prednisone 20 mg tablet 60 mg PO DAILY Qty: 15 RF: 0 cyclobenzaprine 10 mg tablet 10 mg PO TID PRN (Reason: muscle spasm) Qty: 21 RF: 0 oxycodone-acetaminophen 10-325 mg tablet 1 tab PO Q6H PRN (Reason: pain) Qty: 12 RF: 0 erythromycin 5 mg/gram (0.5 %) ointment 0.5 inch EYE-BOTH TID 4 Days Qty: 3.5 RF: 1 Refresh Classic (PF) 1.4-0.6 % dropperette 1 drop EYE-BOTH .as needed Qty: 30 RF: 0 hydrocodone-acetaminophen 5-325 mg tablet 1 tab PO Q4-6H PRN (Reason: pain) Qty: 10 RF: 0 ketorolac 10 mg tablet 10 mg PO Q6H PRN (Reason: pain) Qty: 14 RF: 0 lidocaine [Lidoderm] 5 % adhesive patch,medicated 1 patch TOP DAILY Qty: 15 RF: 0 prednisone 20 mg tablet 20 mg PO DAILY Qty: 5 RF: 0 diazepam [Valium] 5 mg tablet 5 mg PO BID-QID PRN (Reason: muscle spasm) Qty: 10 RF: 0 Referrals: Renato Garces MD [Primary Care Provider] - Stand Alone Forms: Against Medical Advice
== END 2020-05-13 08:50 | disposition left against medical advice (07) ==
PROVIDERS: Emergency Provider Emergency Medicine; PCP Internal Medicine
DX: M54.89 Other dorsalgia (principal); R45.1 Restlessness and agitation; R20.0 Anesthesia of skin
CPT/HCPCS: 99281

== ENCOUNTER 2020-05-19 06:45 | Emergency (ER) | payer OTHER, SELFPAY ==
[2020-05-19 06:53] VITALS: BP 158/101; PULSE 95; RESP 24; TEMP 37; O2SAT 97; BMI 38.2
--- NOTE | 2020-05-19 07:25 | ED_ITS ---
HPI - Back Pain/Injury General Chief Complaint: Back Pain/Injury Stated Complaint: BACK PAIN Time Seen by Provider: 05/19/20 06:52 Source: patient Limitations: no limitations History of Present Illness HPI Narrative: Patient is a 49-year-old male who presents with left-sided back pain acute on chronic. He says he has had back pain for long time however over last 2 weeks it has gotten worse and especially over last few days. He thinks t hat he lifted something heavy and wrong. He says he does have considered for which he takes gabapentin for he also has Vicodin and lidocaine patches. He has been trying heat and ice last night he took a hot bath which he said did not help. He denies any changes in bowel or bladder he denies any fever. He has pain in his left thoracic area. He states none of his medications that he takes help MD Complaint: back pain Onset (ago): day(s) Duration: constant Similar Symptoms Previously: Yes Location: thoracic spine Severity: severe Quality: aching and spasming Associated symptoms: denies other symptoms Related Data Previous Rx's Medication Instructions Recorded erythromycin 0.5 inch EYE-BOTH TID 4 Days #3.5 08/29/19 gram polyvinyl alcohol-povidon(PF) 1 drop EYE-BOTH .as needed #30 each 08/29/19 [Refresh Classic (PF)] diazepam [Valium] 5 mg PO BID-QID PRN #10 tab 03/10/20 hydrocodone-acetaminophen 1 tab PO Q4-6H PRN #10 tab 03/10/20 ketorolac 10 mg PO Q6H PRN #14 tab 03/10/20 lidocaine [Lidoderm] 1 patch TOP DAILY #15 each 03/10/20 prednisone 20 mg PO DAILY #5 tab 03/10/20 cyclobenzaprine 10 mg PO TID PRN #21 tab 03/14/20 oxycodone-acetaminophen 1 tab PO Q6H PRN #12 tab 03/14/20 prednisone 60 mg PO DAILY #15 tab 03/14/20 Allergies Allergy/AdvReac Type Severity Reaction Status Date / Time No Known Drug Allergies Allergy Verified 05/19/20 06:52 Review of Systems Review of Systems Narrative: GENERAL: Denies chills, fatigue, malaise, fever, sweats, travel HEENT: Denies sinus pain, ear pain, sore throat, difficulty swallowing, neck pain RESPIRATORY: Denies dyspnea, cough, wheezing, hemoptysis, sputum. CARDIOVASCULAR: Denies chest pain, palpitations, orthopnea, edema GASTROINTESTINAL: Denies nausea, vomiting, abdominal pain, diarrhea, constipation, melena. : Denies dysuria, frequency, incontinence, hematuria, urinary retention, flank pain. MUSCULOSKELETAL: see HPI SKIN: No rash, no erythema, no pruritus NEUROLOGIC: Denies weakness, dizziness, headache, numbness, change in speech, confusion PSYCHIATRIC: No concerning psychosocial issues. 12 point review of systems is negative except for those stated above and HPI Patient History Medical History Foot pain (Chronic) Morbid obesity with body mass index (BMI) of 40.0 to 44.9 in adult (Resolved 11/21/17) Recurrent low back pain (Acute) Venous stasis ulcers of both lower extremities (Resolved 11/21/17) Family History Mother Cancer Lung cancer Social History Smoking Status: Current some day smoker Smoking Status: Current some day smoker alcohol intake frequency: a few times a week Alcohol type: beer and hard liquor Substance Use Type: does not use Exam Initial Vital Signs Initial Vital Signs: Vital Signs Temperature 98.6 F 05/19/20 06:53 Pulse Rate 95 H 05/19/20 06:53 Respiratory Rate 24 05/19/20 06:53 Blood Pressure 158/101 H 05/19/20 06:53 Pulse Oximetry 97 05/19/20 06:53 GENERAL: Overweight male patient appears in pain CARDIOVASCULAR: peripheral pulses in tact, cap refill <2 sec RESPIRATORY: No respiratory distress, speaks in full sentences without difficulty BACK: No midline tenderness or step offs, significant muscle spasm felt on the left thoracic side tender to touch EXTREMITIES: Normal range of motion, no clubbing or edema. Neurovascularly intact NEUROLOGICAL: Cranial nerves II through XII grossly intact. Normal gait and speech. SKIN: Warm, dry, no petechiae, no rashes or lesions. Course Orders Ordered: Discontinued Medications Diazepam (Valium) 10 mg PO NOW ONE Stop: 05/19/20 07:25 Last Admin: 05/19/20 07:35 Dose: 10 mg Documented by: IRVING Ketorolac Tromethamine (Toradol) 30 mg IM NOW ONE Stop: 05/19/20 07:25 Last Admin: 05/19/20 07:35 Dose: 30 mg Documented by: IRVING Vital Signs Vital signs: Vital Signs - 8 hr 05/19/20 06:53 05/19/20 08:24 Temperature 98.6 F Pulse Rate 95 H 79 Respiratory Rate 24 17 Blood Pressure 158/101 H 153/95 H Pulse Oximetry 97 98 MDM - Back Pain/Injury MDM Narrative Medical decision making narrative: Patient is able to lie down after Valium and Toradol. He does have significant palpable muscle spasm on the left side. I have tried to relieve it with some gentle massage it does seem a little bit better. I recommend heating pad and gentle stretching Discharge Plan Departure Patient Disposition: Home Clinical Impression: Spasm of thoracic back muscle Discharge Date/Time: 05/19/20 08:25 Instructions: DI for Back Spasm Activity Restrictions/Additional Instructions: *You have been diagnosed with back muscle spasm *What to do: Recommend heating pad for 30 minutes at a time hot baths and light stretching and or gentle massage. Do not lift anything heavy. *Continue to take medications as directed *Follow up with your primary care provider in 2-3 days *Return to ER if you should have a weakness numbness tingling of extremities, changes in bowel or bladder habits, fever or any new, worsening or concerning symptoms Prescriptions: No Action prednisone 20 mg tablet 60 mg PO DAILY Qty: 15 RF: 0 cyclobenzaprine 10 mg tablet 10 mg PO TID PRN (Reason: muscle spasm) Qty: 21 RF: 0 oxycodone-acetaminophen 10-325 mg tablet 1 tab PO Q6H PRN (Reason: pain) Qty: 12 RF: 0 erythromycin 5 mg/gram (0.5 %) ointment 0.5 inch EYE-BOTH TID 4 Days Qty: 3.5 RF: 1 Refresh Classic (PF) 1.4-0.6 % dropperette 1 drop EYE-BOTH .as needed Qty: 30 RF: 0 hydrocodone-acetaminophen 5-325 mg tablet 1 tab PO Q4-6H PRN (Reason: pain) Qty: 10 RF: 0 ketorolac 10 mg tablet 10 mg PO Q6H PRN (Reason: pain) Qty: 14 RF: 0 lidocaine [Lidoderm] 5 % adhesive patch,medicated 1 patch TOP DAILY Qty: 15 RF: 0 prednisone 20 mg tablet 20 mg PO DAILY Qty: 5 RF: 0 diazepam [Valium] 5 mg tablet 5 mg PO BID-QID PRN (Reason: muscle spasm) Qty: 10 RF: 0 Referrals: Renato Garces MD [Primary Care Provider] -
[2020-05-19] MEDS: diazePAM 5 MG TABLET 10 MG PO (07:35)
[2020-05-19] MEDS: KETOROLAC 60 MG/2 ML VIAL 30 MG IM (07:35)
[2020-05-19 08:24] VITALS: BP 153/95; PULSE 79; RESP 17; O2SAT 98
== END 2020-05-19 08:25 | disposition home or self-care (01) ==
PROVIDERS: Emergency Provider Emergency Medicine; PCP Internal Medicine
DX: M62.830 Muscle spasm of back (principal)
CPT/HCPCS: 96372; 99283; J1885

== ENCOUNTER → 2020-09-29 10:01 | Outpatient (CLI) | payer OTHER, SELFPAY ==
[2020-09-29 11:31] LABS: Hematocrit 46.4 % (41-53); Hemoglobin 15.6 g/dL (13.5-17.5); Mean Corpuscular HGB Conc 33.7 % (30-36); Mean Corpuscular Hemoglobin 31.4 PG (26-34); Mean Corpuscular Volume 93.1 fL (80-100); Platelet Count 213 X10^3/uL (150-400); Red Blood Cell Count 4.98 X10^6/uL (4.5-5.9); Red Cell Distribution Width 13.2 % (11.6-14.8); White Blood Cell Count 8.6 X10^3/uL (4.5-11.0)
[2020-09-29 11:58] LABS: Neutrophils Absolute Manual 6106 /uL (3000-5900); Total Cells Counted 100
[2020-09-29 11:59] LABS: RBC Morphology Normal Morphology
[2020-09-29 12:09] LABS: NT-proBNP (BNP-Adult 18+) 27 pg/mL (<125)
== END ==
PROVIDERS: Referring Provider Physician Assistant; Visit Provider Physician Assistant
DX: L03.90 Cellulitis, unspecified (principal)
CPT/HCPCS: 36415; 83880; 85025

== ENCOUNTER 2021-04-28 19:09 | Emergency (ER) | payer OTHER, SELFPAY | END 2021-04-28 19:15 | disposition left against medical advice (07) | PROVIDERS: Emergency Provider Emergency Medicine; PCP Registered Nurse ==

== ENCOUNTER 2021-04-29 15:23 | Emergency (ER) | payer SELFPAY ==
[2021-04-29 15:29] VITALS: BP 150/79; PULSE 65; RESP 22; TEMP 36.5; O2SAT 100
== END 2021-04-29 17:17 | disposition left against medical advice (07) ==
PROVIDERS: Emergency Provider Emergency Medicine; PCP Registered Nurse
DX: M79.89 Other specified soft tissue disorders (principal)
CPT/HCPCS: 99281

== ENCOUNTER 2021-05-01 13:47 | Emergency (ER) | payer BC, SELFPAY ==
[2021-05-01] VITALS (13 sets, daily range): BP systolic 120–160; BP diastolic 59–74; PULSE 70–89; RESP 10–28; TEMP 36.6; O2SAT 94–99; BMI 40.6
--- NOTE | 2021-05-01 14:03 | DI.RAD.S_ITS ---
PROCEDURE: XR CHEST 1V INDICATIONS: chest pain TECHNIQUE: One view of the chest was acquired. COMPARISON: None. FINDINGS: Surgical changes and devices: None. Lungs and pleura: Lungs are clear. No pleural effusions or pneumothorax. Mediastinum: Mediastinal contours appear normal. Heart size is normal. Bones and chest wall: No suspicious bony lesions. Overlying soft tissues appear unremarkable. IMPRESSION: No acute cardiopulmonary abnormality identified. Dictated by: Wil Rene M.D. on 05/01/2021 at 14:51 Approved by: Wil Rene M.D. on 05/01/2021 at 14:53
[2021-05-01 14:46] LABS: Magnesium 1.7 mg/dL (1.6-2.3)
[2021-05-01 14:47] LABS: Alanine Aminotransferase 91 IU/L (<50); Albumin 3.8 g/dL (3.5-5.0); Albumin Globulin Ratio 1.2 (1.0-2.8); Alkaline Phosphatase 83 U/L (38-126); Aspartate Aminotransferase 63 IU/L (17-59); BUN Creatinine Ratio 25.9 (6-22); Bilirubin Total 0.4 mg/dL (0.2-1.3); Blood Urea Nitrogen 15 mg/dL (9-20); Calcium 9.2 mg/dL (8.4-10.2); Carbon Dioxide 33 mmol/L (22-32); Chloride 101 mmol/L (98-107); Creatine Kinase 61 U/L (55-170); Estimated Glomerular Filt Rate > 60.0 mL/min (>60); Globulin 3.2 g/dL (1.7-4.1); Glucose 154 mg/dL (70-100); HEMOLYSIS < 15 (0-50); Lipase 29 U/L (23-300); Potassium 4.4 mmol/L (3.4-5.1); Sodium 138 mmol/L (137-145)
[2021-05-01 14:53] LABS: Add Manual Diff / Slide Review NO; Basophils Absolute Auto 0 /uL (0-100); Basophils Percent Auto 0.3 % (0-2); Eosinophils Absolute Auto 100 /uL (0-450); Eosinophils Percent Auto 0.6 % (2-4); Hematocrit 41.4 % (41-53); Hemoglobin 14.1 g/dL (13.5-17.5); Lymphocytes Absolute Auto 1500 /uL (1100-4500); Lymphocytes Percent Auto 17.8 % (25-40); Mean Corpuscular Hemoglobin 31.2 PG (26-34); Mean Corpuscular Volume 91.9 fL (80-100); Monocytes Absolute Auto 1000 /uL (0-900); Monocytes Percent Auto 11.5 % (3-14); Neutrophils Absolute Auto 6000 /uL (1500-7000); Neutrophils Percent Auto 69.8 % (50-75); Platelet Count 165 X10^3/uL (150-400); Red Cell Distribution Width 13.3 % (11.6-14.8); White Blood Cell Count 8.6 X10^3/uL (4.5-11.0)
[2021-05-01 14:55] LABS: NT-proBNP (BNP-Adult 18+) 155 pg/mL (<125)
[2021-05-01 14:59] LABS: Troponin I 0.016 ng/mL (0.01-0.034)
--- NOTE | 2021-05-01 15:47 | ED_ITS ---
HPI - Chest Pain General Chief Complaint: Chest Pain Stated Complaint: Sob, Chest Pain, Swollen/Red Feet Time Seen by Provider: 05/01/21 15:47 Source: patient and family Mode of arrival: Ambulatory Limitations: no limitations History of Present Illness HPI narrative: Patient is a 50-year-old male history of lower extremity swelling wrist bleeding worse over the last 2 weeks. He is having increasing shortness of breath with orthopnea as well. He says that he has a 2-3 pack-a-day smoker. He has occasional chest pain. Positive right leg is slightly erythematous this morning when warm to touch. He denies fever chills or weakness. Related Data Previous Rx's Medication Instructions Recorded cephalexin 500 mg capsule 500 mg PO TID 7 Days #21 cap 05/01/21 furosemide 20 mg tablet (Lasix) 20 mg PO DAILY #4 tab 05/01/21 Allergies Allergy/AdvReac Type Severity Reaction Status Date / Time No Known Drug Allergies Allergy Verified 05/01/21 14:13 Review of Systems Review of Systems ROS Unobtainable: All systems reviewed & are unremarkable except as noted in HPI and below Constitutional Constitutional: Denies body ache(s), Denies chills and Denies weakness Eyes Eyes: Denies blurry vision ENT Ears, Nose, Mouth, and Throat: Denies halitosis, Denies vertigo, Denies dizziness and Denies nasal congestion Cardiovascular Cardiovascular: Reports chest pain, Denies irregular heart rhythm, Reports leg ulcers, Reports leg edema, Denies lightheadedness, Reports orthopnea and Denies slow heart rate Respiratory Respiratory: Reports cough Gastrointestinal Gastrointestinal: Denies abdominal pain, Denies nausea and Denies vomiting Genitourinary Genitourinary: Denies urinary frequency and Denies urinary hesitancy Integumentary/Breasts Skin/Breast: Reports as per HPI Neurologic Neurologic: Denies confusion, Denies vertigo, Denies dizziness and Denies weakness Psychiatric Psychiatric: Denies confusion Patient History Medical History (Updated 05/01/21 @ 18:23 by Anna Echeverria DO) Foot pain Morbid obesity with body mass index (BMI) of 40.0 to 44.9 in adult (11/21/17) Recurrent low back pain Venous stasis ulcers of both lower extremities (11/21/17) Family History Mother Cancer Lung cancer Social History Smoking Status: Current every day smoker Smoking Status: Current every day smoker alcohol intake frequency: a few times a month Alcohol type: beer and hard liquor Substance Use Type: does not use Exam Initial Vital Signs Initial Vital Signs: Vital Signs Temperature 97.9 F 05/01/21 13:50 Pulse Rate 85 05/01/21 13:50 Respiratory Rate 20 05/01/21 13:50 Blood Pressure 141/69 H 05/01/21 13:50 Pulse Oximetry 94 05/01/21 13:50 GENERAL: Alert well-appearing male with BMI of 40 HEENT: Head atraumatic,EOMI, pupils reactive, face symmetric, [moist] mucous membrane CARDIOVASCULAR: Regular rate and rhythm without murmurs, rubs or gallops. RESPIRATORY: Breath sounds equal bilaterally, no wheezes rales or rhonchi. ABDOMEN: Soft, nontender. Normoactive bowel sounds all 4 quadrants. No guardin g or rebound. EXTREMITIES: Normal range of motion, no clubbing. +3 pitting edema. Neurovascularly intact NEUROLOGICAL: Alert and oriented x4.Normal gait and speech. SKIN: Chronic wounds noted on the right lower leg with mild erythema that is blanchable Course Orders Ordered: ED Orders 05/01/21 13:59 EKG-12 Lead Routine 05/01/21 14:03 XR chest 1V Stat 05/01/21 14:10 BNP [NT-proBNP (BNP-Adult 18+)] Stat Complete Blood Count AUTO DIFF Stat Comprehensive Metabolic Panel Stat Lipase Stat Magnesium Stat NT-proBNP (BNP-Adult 18+) Stat Procalcitonin Stat Troponin & CK Cardiac Panel Stat Discontinued Medications Furosemide (Furosemide 40 Mg/4 Ml Vial) 40 mg IV NOW ONE Stop: 05/01/21 15:54 Last Admin: 05/01/21 17:09 Dose: 40 mg Documented by: MAYRA Vital Signs Vital signs: Vital Signs - 8 hr 05/01/21 13:50 05/01/21 14:37 05/01/21 14:39 Temperature 97.9 F Pulse Rate 85 74 73 Respiratory Rate 20 15 16 Blood Pressure 141/69 H 122/59 L Pulse Oximetry 94 96 96 05/01/21 14:41 05/01/21 15:00 05/01/21 15:30 Temperature Pulse Rate 76 70 Respiratory Rate 19 13 Blood Pressure 122/59 L 120/70 133/63 Pulse Oximetry 99 94 05/01/21 16:00 05/01/21 16:01 05/01/21 16:30 Temperature Pulse Rate 82 79 76 Respiratory Rate 28 H 18 10 L Blood Pressure 160/72 H Pulse Oximetry 98 98 99 MDM - Chest Pain Lab Data Attestation: I reviewed the patient's lab results. Result diagrams: 05/01/21 14:10 05/01/21 14:10 Labs: Lab Results 05/01/21 05/01/21 05/01/21 Range/Units 14:10 14:10 14:10 WBC 8.6 (4.5-11.0) X10^3/uL RBC 4.50 (4.5-5.9) X10^6/uL Hgb 14.1 (13.5-17.5) g/dL Hct 41.4 (41-53) % MCV 91.9 (80-100) fL MCH 31.2 (26-34) PG MCHC 34.0 (30-36) % RDW 13.3 (11.6-14.8) % Plt Count 165 (150-400) X10^3/uL Neut % (Auto) 69.8 (50-75) % Lymph % (Auto) 17.8 L (25-40) % [place] % (Auto) 11.5 (3-14) % Eos % (Auto) 0.6 L (2-4) % Baso % (Auto) 0.3 (0-2) % Neut # (Auto) 6000 (7019-9516) /uL Lymph # (Auto) 1500 (3553-0304) /uL [place] # (Auto) 1000 H (0-900) /uL Eos # (Auto) 100 (0-450) /uL Baso # (Auto) 0 (0-100) /uL Sodium 138 (137-145) mmol/L Potassium 4.4 (3.4-5.1) mmol/L Chloride 101 (98-107) mmol/L Carbon Dioxide 33 H (22-32) mmol/L BUN 15 (9-20) mg/dL Creatinine 0.58 L (0.66-1.25) mg/dL Estimated GFR > 60.0 (>60) mL/min BUN/Creatinine Ratio 25.9 H (6-22) Glucose 154 H (70-100) mg/dL Calcium 9.2 (8.4-10.2) mg/dL Magnesium 1.7 (1.6-2.3) mg/dL Total Bilirubin 0.4 (0.2-1.3) mg/dL AST 63 H (17-59) IU/L ALT 91 H (<50) IU/L Alkaline Phosphatase 83 (38-126) U/L Total Creatine Kinase 61 (55-170) U/L CK-MB (CK-2) TNP CK-MB (CK-2) Rel Index TNP Troponin I 0.016 (0.01-0.034) ng/mL NT-Pro-B Natriuret Pep 155 H (<125) pg/mL Total Protein 7.0 (6.3-8.2) g/dL Albumin 3.8 (3.5-5.0) g/dL Globulin 3.2 (1.7-4.1) g/dL Albumin/Globulin Ratio 1.2 (1.0-2.8) Lipase 29 (23-300) U/L Procalcitonin (<0.5) ng/mL 05/01/21 05/01/21 Range/Units 14:10 14:10 WBC (4.5-11.0) X10^3/uL RBC (4.5-5.9) X10^6/uL Hgb (13.5-17.5) g/dL Hct (41-53) % MCV (80-100) fL MCH (26-34) PG MCHC (30-36) % RDW (11.6-14.8) % Plt Count (150-400) X10^3/uL Neut % (Auto) (50-75) % Lymph % (Auto) (25-40) % [place] % (Auto) (3-14) % Eos % (Auto) (2-4) % Baso % (Auto) (0-2) % Neut # (Auto) (2982-7058) /uL Lymph # (Auto) (8355-2522) /uL [place] # (Auto) (0-900) /uL Eos # (Auto) (0-450) /uL Baso # (Auto) (0-100) /uL Sodium (137-145) mmol/L Potassium (3.4-5.1) mmol/L Chloride (98-107) mmol/L Carbon Dioxide (22-32) mmol/L BUN (9-20) mg/dL Creatinine (0.66-1.25) mg/dL Estimated GFR (>60) mL/min BUN/Creatinine Ratio (6-22) Glucose (70-100) mg/dL Calcium (8.4-10.2) mg/dL Magnesium (1.6-2.3) mg/dL Total Bilirubin (0.2-1.3) mg/dL AST (17-59) IU/L ALT (<50) IU/L Alkaline Phosphatase (38-126) U/L Total Creatine Kinase (55-170) U/L CK-MB (CK-2) CK-MB (CK-2) Rel Index Troponin I (0.01-0.034) ng/mL NT-Pro-B Natriuret Pep 155 H (<125) pg/mL Total Protein (6.3-8.2) g/dL Albumin (3.5-5.0) g/dL Globulin (1.7-4.1) g/dL Albumin/Globulin Ratio (1.0-2.8) Lipase (23-300) U/L Procalcitonin 0.08 (<0.5) ng/mL Imaging Data Chest x-ray: Radiologist's Impression: PROCEDURE: XR CHEST 1V INDICATIONS: chest pain TECHNIQUE: One view of the chest was acquired. COMPARISON: None. FINDINGS: Surgical changes and devices: None. Lungs and pleura: Lungs are clear. No pleural effusions or pneumothorax. Mediastinum: Mediastinal contours appear normal. Heart size is normal. Bones and chest wall: No suspicious bony lesions. Overlying soft tissues appear unremarkable. IMPRESSION: No acute cardiopulmonary abnormality identified. Dictated by: Wil Rene M.D. on 05/01/2021 at 14:51 ECG Data Attestation: I personally reviewed and interpreted this ECG as follows: Prior ECG tracings: available for review Interpretation: Normal sinus rhythm rate 83 p.r. interval 148 QRS [address] changes or T-wave inversions similar to previous EKG in 2018 MDM Narrative Medical decision making narrative: Patient is overweight with chronic lower extremity wounds. He has obvious bilateral pitting edema in the right leg is significantly more red. He overall did he has no. No prior history of congestive heart failure BMP is within normal limits chest x-ray is clear. At this time will put him on Lasix and antibiotics to see if he has improved Discharge Plan Departure Patient Disposition: Home Clinical Impression: Cellulitis of leg, right, Bilateral edema of lower extremity Instructions: DI for Cellulitis -- Adult, Edema Activity Restrictions/Additional Instructions: *You have been diagnosed with lower extremity edema and cellulitis *What to do: Recommend that you stop smoking. Blood work is overall reassuring. However your leg does look infected. Let us try a course of antibiotics to see if it helps. Will also put you on a water pill to see if it helps with the swelling. *Continue to take medications as directed--> SENT TO [facility] Lasix 20 mg once a day for 4 days Keflex 500 mg 3 times a day for 7 days *Follow up with your primary care provider in 2-3 days *Return to ER if you should have increasing confusion, increasing shortness of breath, chest pain or any new, worsening or concerning symptoms Prescriptions: New furosemide [Lasix] 20 mg tablet 20 mg PO DAILY Qty: 4 RF: 0 cephalexin 500 mg capsule 500 mg PO TID 7 Days Qty: 21 RF: 0 Referrals: Hayley Cochran ARNP [Primary Care Provider] -
[2021-05-01 16:16] LABS: NT-proBNP (BNP-Adult 18+) 155 pg/mL (<125)
[2021-05-01 16:25] LABS: Procalcitonin 0.08 ng/mL (<0.5)
[2021-05-01] MEDS: FUROSEMIDE 40 MG/4 ML VIAL IV (17:09)
== END 2021-05-01 18:47 | disposition home or self-care (01) ==
PROVIDERS: Emergency Provider Emergency Medicine; PCP Registered Nurse
DX: L03.115 Cellulitis of right lower limb (principal); R60.0 Localized edema; R06.01 Orthopnea; R06.02 Shortness of breath
CPT/HCPCS: 36415; 71045; 80053; 82550; 83690; 83735; 83880; 84145; 84484; 85025; 93005; 96374; 99284; J1940

== ENCOUNTER 2021-06-14 03:43 | Emergency (ER) | payer BC, SELFPAY ==
[2021-06-14] VITALS (7 sets, daily range): BP systolic 144–184; BP diastolic 67–86; PULSE 75–94; RESP 15–20; TEMP 36.8; O2SAT 87–97; BMI 40.6
--- NOTE | 2021-06-14 03:55 | DI.RAD.S_ITS ---
PROCEDURE: XR CHEST 1V INDICATIONS: Short of breath TECHNIQUE: One view of the chest was acquired. COMPARISON: [facility], CR, XR CHEST 1V, 05/01/2021, 14:22. FINDINGS: Surgical changes and devices: None. Lungs and pleura: On this semiupright portable chest examination, no large pneumothorax or large pleural effusions are seen. No focal infiltrates are seen. Mild generalized interstitial prominence can be seen. Mediastinum: The aorta is mildly prominent and tortuous. Heart size is mildly enlarged. Bones and chest wall: No suspicious bony lesions. Age-appropriate bony degenerative changes are seen. Overlying soft tissues appear unremarkable. IMPRESSION: Mild cardiomegaly and mild interstitial prominence. Please consider early CHF. Note: No significant discrepancy from the preliminary report. Dictated by: Rafa Alanis M.D. on 06/14/2021 at 8:04 Approved by: Rafa Alanis M.D. on 06/14/2021 at 8:05
--- NOTE | 2021-06-14 03:58 | ED.CHESTPAIN ---
HPI - Chest Pain General Chief Complaint: Chest Pain Stated Complaint: legs/arms swollen/pain x4 days Time Seen by Provider: 06/14/21 03:45 History of Present Illness HPI narrative: Patient is a 50-year-old male who presents with bilateral lower extremity swelling and upper extremity swelling along with chest pain. It has been ongoing for about 1 week progressively getting worse. Now states that his hands and arms are swollen as well. He denies any orthopnea or shortness of breath with exertion. He occasionally has chest pain which has sharp stabbing and non radiating. Episodes last for seconds at a time and then go away. He is most concerned today with the swelling in his arms. He denies any fever or cough. Previously seen for lower extremity cellulitis and was given Keflex and Lasix 81 states the Lasix did not seem to help much. Does not appear that he has had echocardiogram Related Data Previous Rx's Medication Instructions Recorded furosemide 40 mg tablet (Lasix) 40 mg PO BID #8 tab 06/14/21 Allergies Allergy/AdvReac Type Severity Reaction Status Date / Time No Known Drug Allergies Allergy Verified 05/01/21 14:13 Review of Systems Review of Systems Narrative: GENERAL: Denies chills, fatigue, malaise, fever, sweats, travel HEENT: Denies sinus pain, ear pain, sore throat, difficulty swallowing, neck pain RESPIRATORY: Denies dyspnea, cough, wheezing, hemoptysis, sputum. CARDIOVASCULAR: See HPI GASTROINTESTINAL: Denies nausea, vomiting, abdominal pain, diarrhea, constipation, melena. : Denies dysuria, frequency, incontinence, hematuria, urinary retention, flank pain. MUSCULOSKELETAL: All extremity edema SKIN: Chronic lower extremity wounds NEUROLOGIC: Denies weakness, dizziness, headache, numbness, change in speech, confusion PSYCHIATRIC: No concerning psychosocial issues. 12 point review of systems is negative except for those stated above and HPI Patient History Medical History (Updated 06/14/21 @ 06:05 by Anna Echeverria DO) Foot pain Morbid obesity with body mass index (BMI) of 40.0 to 44.9 in adult (11/21/17) Recurrent low back pain Venous stasis ulcers of both lower extremities (11/21/17) Family History Mother Cancer Lung cancer Social History (Reviewed 05/19/20 @ 07:30 by ALAINA Melchor Smoking Status: Current every day smoker Smoking Status: Current every day smoker alcohol intake frequency: a few times a month Alcohol type: beer and hard liquor Substance Use Type: does not use Exam Initial Vital Signs Initial Vital Signs: Vital Signs Temperature 98.3 F 06/14/21 03:50 Pulse Rate 94 H 06/14/21 03:50 Respiratory Rate 18 06/14/21 03:50 Blood Pressure 184/86 H 06/14/21 03:50 Pulse Oximetry 95 06/14/21 03:50 GENERAL: Well-appearing, well-nourished and in no acute distress. HEENT: Head atraumatic,EOMI, pupils reactive, face symmetric, moist mucous membranes CARDIOVASCULAR: Regular rate and rhythm without murmurs, rubs or gallops. RESPIRATORY: Breath sounds equal bilaterally, no wheezes rales or rhonchi. ABDOMEN: Soft, nontender. Normoactive bowel sounds all 4 quadrants. No guarding or rebound EXTREMITIES: Normal range of motion, no clubbing. Liver extremities are significantly tight and swollen, upper extremities also appears swollen mostly in the fingers. He has hard time with dexterity. Neurovascularly intact NEUROLOGICAL: Alert and oriented x4.Normal gait and speech. SKIN: Lower extremity wounds chronic no erythema Course Orders Ordered: ED Orders 06/14/21 03:55 XR chest 1V Stat EKG-12 Lead Stat 06/14/21 04:08 Complete Blood Count AUTO DIFF Stat Comprehensive Metabolic Panel Stat Lipase Stat NT-proBNP (BNP-Adult 18+) Stat Troponin & CK Cardiac Panel Stat Discontinued Medications Aspirin (Aspirin 81 Mg Chew Tab) 324 mg PO NOW ONE Stop: 06/14/21 03:56 Last Admin: 06/14/21 04:04 Dose: 324 mg Documented by: DOTTIE Furosemide (Furosemide 40 Mg/4 Ml Vial) 40 mg IV NOW ONE Stop: 06/14/21 04:55 Last Admin: 06/14/21 05:00 Dose: 40 mg Documented by: DOTTIE Vital Signs Vital signs: Vital Signs - 8 hr 06/14/21 03:50 06/14/21 04:07 06/14/21 04:25 Temperature 98.3 F Pulse Rate 94 H 87 Respiratory Rate 18 20 Blood Pressure 184/86 H 159/80 H Pulse Oximetry 95 94 87 L 06/14/21 04:30 08/22/21 05:00 06/14/21 05:30 Temperature Pulse Rate 82 79 75 Respiratory Rate 15 18 Blood Pressure 148/71 H 144/67 H 156/79 H Pulse Oximetry 95 96 97 06/14/21 06:00 Temperature Pulse Rate 78 Respiratory Rate Blood Pressure 156/79 H Pulse Oximetry 94 MDM - Chest Pain Lab Data Result diagrams: 06/14/21 04:08 06/14/21 04:08 Labs: Lab Results 06/14/21 06/14/21 Range/Units 04:08 04:08 WBC 8.7 (4.5-11.0) X10^3/uL RBC 4.65 (4.5-5.9) X10^6/uL Hgb 14.2 (13.5-17.5) g/dL Hct 41.9 (41-53) % MCV 90.2 (80-100) fL MCH 30.6 (26-34) PG MCHC 33.9 (30-36) % RDW 13.8 (11.6-14.8) % Plt Count 190 (150-400) X10^3/uL Neut % (Auto) 64.5 (50-75) % Lymph % (Auto) 25.4 (25-40) % [place] % (Auto) 6.9 (3-14) % Eos % (Auto) 3.0 (2-4) % Baso % (Auto) 0.2 (0-2) % Neut # (Auto) 5600 (5434-5877) /uL Lymph # (Auto) 2200 (1835-3436) /uL [place] # (Auto) 600 (0-900) /uL Eos # (Auto) 300 (0-450) /uL Baso # (Auto) 0 (0-100) /uL Sodium 137 (137-145) mmol/L Potassium 4.1 (3.4-5.1) mmol/L Chloride 101 (98-107) mmol/L Carbon Dioxide 34 H (22-32) mmol/L BUN 17 (9-20) mg/dL Creatinine 0.60 L (0.66-1.25) mg/dL Estimated GFR > 60.0 (>60) mL/min BUN/Creatinine Ratio 28.3 H (6-22) Glucose 126 H (70-100) mg/dL Calcium 9.1 (8.4-10.2) mg/dL Total Bilirubin 0.4 (0.2-1.3) mg/dL AST 29 (17-59) IU/L ALT 28 (<50) IU/L Alkaline Phosphatase 75 (38-126) U/L Total Creatine Kinase 91 (55-170) U/L CK-MB (CK-2) TNP CK-MB (CK-2) Rel Index TNP Troponin I < 0.012 (0.01-0.034) ng/mL NT-Pro-B Natriuret Pep 53 (<125) pg/mL Total Protein 7.4 (6.3-8.2) g/dL Albumin 4.1 (3.5-5.0) g/dL Globulin 3.3 (1.7-4.1) g/dL Albumin/Globulin Ratio 1.2 (1.0-2.8) Lipase 30 (23-300) U/L Imaging Data Chest x-ray: Radiologist's Impression: Preliminary report borderline cardiomegaly with vascular congestion ECG Data Interpretation: Sinus rhythm rate 85 WA interval 150 QRS 94 QTC 433 similar to previous EKG in April of 2021 MDM Narrative Medical decision making narrative: Patient does have some peripheral edema. He previously had lower extremity edema and was placed on Lasix he said the pills did not seem to help him much. He was followed up primary care provider no echocardiogram was ever. Patient does have BMI of 40 is he is found to have low oxygen levels while sleeping. He for that reason he is placed on 2 L of O2. He is given 40 mg of Lasix IV. BNP is low at 55, however his chest x-ray does show vascular congestion, possible diastolic failure. Patient is ambulatory in the ED without significant shortness of breath O2 remains well above 90%. I discussed with him limiting his water and salt intake and monitoring his daily weights at this time does not need admission to the hospital however definitely needs an outpatient echocardiogram. Discharge Plan Departure Patient Disposition: Home Clinical Impression: Peripheral edema Instructions: DI for Heart Failure Activity Restrictions/Additional Instructions: *You have been diagnosed with peripheral edema *What to do: You do need to follow-up with her primary care provider and have a echocardiogram scheduled to look at your heart. I am worried that it might not be functioning as it is supposed to causing your legs and arms to swell. I do recommend weighing yourself daily to see if you are retaining or losing weight Limit water intake to 2 L daily Eating a high salt diet will also make You retain water *Continue to take medications as directed Lasix 40 mg twice a day for 4 days, 1 in the morning and 1 in the early afternoon. --> sent to [facility] *Follow up with your primary care provider in 2-3 days *Return to ER if you should have increasing swelling, chest pain, shortness of breath or any new, worsening or concerning symptoms Prescriptions: New furosemide [Lasix] 40 mg tablet 40 mg PO BID Qty: 8 RF: 0 Referrals: Hayley Cochran ARNP [Primary Care Provider] -
[2021-06-14] MEDS: ASPIRIN 81 MG CHEW TAB 324 MG PO (04:04)
[2021-06-14 04:13] LABS: Add Manual Diff / Slide Review NO; Basophils Absolute Auto 0 /uL (0-100); Basophils Percent Auto 0.2 % (0-2); Eosinophils Absolute Auto 300 /uL (0-450); Hematocrit 41.9 % (41-53); Hemoglobin 14.2 g/dL (13.5-17.5); Lymphocytes Absolute Auto 2200 /uL (1100-4500); Lymphocytes Percent Auto 25.4 % (25-40); Mean Corpuscular HGB Conc 33.9 % (30-36); Mean Corpuscular Hemoglobin 30.6 PG (26-34); Mean Corpuscular Volume 90.2 fL (80-100); Monocytes Absolute Auto 600 /uL (0-900); Monocytes Percent Auto 6.9 % (3-14); Neutrophils Absolute Auto 5600 /uL (1500-7000); Neutrophils Percent Auto 64.5 % (50-75); Platelet Count 190 X10^3/uL (150-400); Red Blood Cell Count 4.65 X10^6/uL (4.5-5.9); Red Cell Distribution Width 13.8 % (11.6-14.8); White Blood Cell Count 8.7 X10^3/uL (4.5-11.0)
[2021-06-14 04:25] LABS: Alanine Aminotransferase 28 IU/L (<50); Albumin 4.1 g/dL (3.5-5.0); Albumin Globulin Ratio 1.2 (1.0-2.8); Alkaline Phosphatase 75 U/L (38-126); Aspartate Aminotransferase 29 IU/L (17-59); BUN Creatinine Ratio 28.3 (6-22); Bilirubin Total 0.4 mg/dL (0.2-1.3); Blood Urea Nitrogen 17 mg/dL (9-20); Calcium 9.1 mg/dL (8.4-10.2); Carbon Dioxide 34 mmol/L (22-32); Chloride 101 mmol/L (98-107); Creatine Kinase 91 U/L (55-170); Estimated Glomerular Filt Rate > 60.0 mL/min (>60); Globulin 3.3 g/dL (1.7-4.1); Glucose 126 mg/dL (70-100); HEMOLYSIS < 15 (0-50); Lipase 30 U/L (23-300); Potassium 4.1 mmol/L (3.4-5.1); Sodium 137 mmol/L (137-145); Total Protein 7.4 g/dL (6.3-8.2)
[2021-06-14 04:37] LABS: NT-proBNP (BNP-Adult 18+) 53 pg/mL (<125); Troponin I < 0.012 ng/mL (0.01-0.034)
[2021-06-14] MEDS: FUROSEMIDE 40 MG/4 ML VIAL IV (05:00)
== END 2021-06-14 06:16 | disposition home or self-care (01) ==
PROVIDERS: Emergency Provider Emergency Medicine; PCP Registered Nurse
DX: R60.9 Edema, unspecified (principal); R07.9 Chest pain, unspecified; R06.02 Shortness of breath
CPT/HCPCS: 36415; 71045; 80053; 82550; 83690; 83880; 84484; 85025; 93005; 93010; 96374; 99285; J1940

== ENCOUNTER 2021-06-22 04:00 | Emergency (ER) | payer BC, SELFPAY ==
[2021-06-22 04:05] VITALS: BP 145/78; PULSE 97; O2SAT 96
[2021-06-22 04:10] VITALS: BP 145/78; PULSE 96; RESP 21; TEMP 36.4; O2SAT 96; BMI 40.6
--- NOTE | 2021-06-22 04:16 | ED.EXTPRO ---
HPI - Extremity Problem General Chief complaint: Extremity Problem,Nontraumatic Stated complaint: LEGS ARE SWOLLEN Time Seen by Provider: 06/22/21 04:03 Source: patient Mode of arrival: Ambulatory Limitations: no limitations History of Present Illness HPI Narrative: 50-year-old male heavy smoker with history of obesity and bilateral lower extremity edema presents with a chief complaint of increased swelling in his legs, fatigue, shortness of breath with exertion and gaining a few lb of water weight over the past few days. He states that he has been seen under similar circumstances in the past and there is no significant finding diagnostically he seems to respond well to Lasix. He had been doing well after receiving Lasix last time until he stopped taking the medications at which point the symptoms started again. He is not dizzy or lightheaded. He denies any chest pain or palpitations. He has had no nausea, vomiting or diarrhea. He denies any history of blood clot. Related Data Previous Rx's Medication Instructions Recorded furosemide 40 mg tablet (Lasix) 40 mg PO BID #8 tab 06/14/21 furosemide 40 mg tablet 40 mg PO BID #30 tab 06/22/21 Allergies Allergy/AdvReac Type Severity Reaction Status Date / Time No Known Drug Allergies Allergy Verified 05/01/21 14:13 Review of Systems Review of Systems Narrative: GENERAL: Denies chills, fatigue, malaise, fever, sweats. HEENT: Denies sinus pain, ear pain, sore throat, difficulty swallowing, dizziness. RESPIRATORY: See HPI CARDIOVASCULAR: See HPI GASTROINTESTINAL: Denies nausea, vomiting, abdominal pain, diarrhea, constipation, melena. : Denies dysuria, frequency, incontinence, hematuria, urinary retention. MUSCULOSKELETAL: denies weakness, joint pain, or bony pain SKIN: Denies rash, skin lesions, or other NEUROLOGIC: Denies weakness, headache, numbness, change in speech, confusion, seizures, incoordination. PSYCHIATRIC: No concerning psychosocial issues. 12 point review of systems is negative except for those stated above Patient History Medical History (Updated 06/22/21 @ 05:03 by Oswaldo Mayers DO) Foot pain Morbid obesity with body mass index (BMI) of 40.0 to 44.9 in adult (11/21/17) Recurrent low back pain Venous stasis ulcers of both lower extremities (11/21/17) Family History Mother Cancer Lung cancer Social History Smoking Status: Current every day smoker Smoking Status: Current every day smoker alcohol intake frequency: a few times a week Alcohol type: beer and hard liquor Substance Use Type: does not use Exam Narrative Exam Narrative: GENERAL: [50] year old patient appears stated age. Well-developed patient, in mild distress. HEAD: Atraumatic. Normocephalic. EYES: Pupils equal round and reactive. Extraocular motions intact. No scleral icterus. No injection or drainage. ENT: Nose without bleeding, purulent drainage. Throat without erythema, tonsillar hypertrophy or exudate. Airway patent. NECK: Trachea midline. Non tender CARDIOVASCULAR: Regular rate and rhythm without murmurs, gallops, or rubs. RESPIRATORY: Decreased breath sounds bilaterally with prolonged expiratory phase. No rales or rhonchi GASTROINTESTINAL: Abdomen soft, non-tender, nondistended. EXTREMITIES: Bilateral lower extremity edema with minimal erythema BACK: Nontender without deformity or crepitance. No flank tenderness. NEURO: AOx3. SKIN: No rash or erythema of visible areas Initial Vital Signs Initial Vital Signs: Vital Signs Pulse Rate 97 H 06/22/21 04:05 Blood Pressure 145/78 H 06/22/21 04:05 Pulse Oximetry 96 06/22/21 04:05 Scores PERC Score Age greater than or equal to 50 years: No Heart rate greater than or equal to 100 bpm: No Room Air O2 Sat less than 95%: No Unilateral leg swelling: No Recent trauma or surgery: No Hemoptysis: No Prior PE or DVT: No Hormone Use: No Total PERC Score: 0 Wells' Criteria for PE Clinical signs and symptoms of DVT: No PE is #1 Dx or equally likely: No Heart rate > 100: No Immobilization at least 3 days or surg in previous 4 weeks: No History of PE or DVT: No Hemoptysis: No Malignancy w/Treatment within 6 months or palliative: No Wells' PE Score total: 0 Course Orders Ordered: ED Orders 06/22/21 04:25 Complete Blood Count AUTO DIFF Stat Comprehensive Metabolic Panel Stat Magnesium Stat NT-proBNP (BNP-Adult 18+) Stat Troponin & CK Cardiac Panel Stat Discontinued Medications Furosemide (Furosemide 40 Mg/4 Ml Vial) 40 mg IV NOW ONE Stop: 06/22/21 04:13 Last Admin: 06/22/21 04:24 Dose: 40 mg Documented by: Vital Signs Vital signs: Vital Signs - 8 hr 06/22/21 04:05 06/22/21 04:10 06/22/21 04:32 Temperature 97.6 F Pulse Rate 97 H 96 H 92 H Respiratory Rate 21 Blood Pressure 145/78 H 145/78 H Pulse Oximetry 96 96 95 06/22/21 05:00 06/22/21 05:16 06/22/21 05:17 Temperature Pulse Rate 88 88 Respiratory Rate Blood Pressure 125/73 Pulse Oximetry 96 96 MDM - Extremity (Nontraumatic) Lab Data Result diagrams: 06/22/21 04:25 06/22/21 04:25 Labs: Lab Results 06/22/21 06/22/21 Range/Units 04:25 04:25 WBC 7.6 (4.5-11.0) X10^3/uL RBC 4.61 (4.5-5.9) X10^6/uL Hgb 13.9 (13.5-17.5) g/dL Hct 42.2 (41-53) % MCV 91.4 (80-100) fL MCH 30.2 (26-34) PG MCHC 33.1 (30-36) % RDW 14.3 (11.6-14.8) % Plt Count 192 (150-400) X10^3/uL Neut % (Auto) 59.7 (50-75) % Lymph % (Auto) 29.0 (25-40) % [place] % (Auto) 8.0 (3-14) % Eos % (Auto) 2.9 (2-4) % Baso % (Auto) 0.4 (0-2) % Neut # (Auto) 4500 (6881-8465) /uL Lymph # (Auto) 2200 (5903-4670) /uL [place] # (Auto) 600 (0-900) /uL Eos # (Auto) 200 (0-450) /uL Baso # (Auto) 0 (0-100) /uL Sodium 139 (137-145) mmol/L Potassium 4.1 (3.4-5.1) mmol/L Chloride 103 (98-107) mmol/L Carbon Dioxide 32 (22-32) mmol/L BUN 21 H (9-20) mg/dL Creatinine 0.60 L (0.66-1.25) mg/dL Estimated GFR > 60.0 (>60) mL/min BUN/Creatinine Ratio 35.0 H (6-22) Glucose 108 H (70-100) mg/dL Calcium 9.4 (8.4-10.2) mg/dL Magnesium 1.7 (1.6-2.3) mg/dL Total Bilirubin 0.4 (0.2-1.3) mg/dL AST 31 (17-59) IU/L ALT 29 (<50) IU/L Alkaline Phosphatase 80 (38-126) U/L Total Creatine Kinase 154 (55-170) U/L CK-MB (CK-2) 2.18 (<2.37) ng/mL CK-MB (CK-2) Rel Index 1.4 L (1.5-5.0) % Troponin I < 0.012 (0.01-0.034) ng/mL NT-Pro-B Natriuret Pep 53 (<125) pg/mL Total Protein 7.3 (6.3-8.2) g/dL Albumin 4.0 (3.5-5.0) g/dL Globulin 3.3 (1.7-4.1) g/dL Albumin/Globulin Ratio 1.2 (1.0-2.8) MDM Narrative Medical decision making narrative: Patient with a recurrence of bilateral lower extremity edema and the feeling of fatigue but no signs of significant respiratory distress or need for supplemental oxygen. Labs are very reassuring. No indication for hospitalization. Return precautions given questions answered to his apparent satisfaction Discharge Plan Departure Patient Disposition: Home Clinical Impression: Peripheral edema Instructions: Edema Activity Restrictions/Additional Instructions: *You have been diagnosed with [lower extremity edema] *What to do: *Please continue to take your regular medications as directed. [x ] New medication prescriptions sent to your pharmacy: [[facility] ] [ ] New medication written as a paper prescription [ ] No new medications given *Please follow up with your primary care provider in 2-3 days, call for an appointment. Let them know you were seen in the Emergency Department and that we ask that you be seen in follow up. We will electronically transmit a record of today's note if your PCP is in our system *If you do not have a primary care provider please contact the [facility] Resource line at [phone]. They will ask some questions about your medical history and help get you set up with a doctor in the community. *Return to Emergency Department if you should have any new, worsening or concerning symptoms, such as [fever greater than 101 F, shaking chills, worsening pain, persistent vomiting or other bothersome symptoms] Prescriptions: New furosemide 40 mg tablet 40 mg PO BID Qty: 30 RF: 0 No Action furosemide [Lasix] 40 mg tablet 40 mg PO BID Qty: 8 RF: 0 Referrals: Hayley Cochran ARNP [Primary Care Provider] -
[2021-06-22] MEDS: FUROSEMIDE 40 MG/4 ML VIAL IV (04:24)
[2021-06-22 04:32] VITALS: PULSE 92; O2SAT 95
[2021-06-22 04:40] LABS: Add Manual Diff / Slide Review NO; Basophils Absolute Auto 0 /uL (0-100); Basophils Percent Auto 0.4 % (0-2); Eosinophils Absolute Auto 200 /uL (0-450); Eosinophils Percent Auto 2.9 % (2-4); Hematocrit 42.2 % (41-53); Hemoglobin 13.9 g/dL (13.5-17.5); Lymphocytes Absolute Auto 2200 /uL (1100-4500); Mean Corpuscular HGB Conc 33.1 % (30-36); Mean Corpuscular Hemoglobin 30.2 PG (26-34); Mean Corpuscular Volume 91.4 fL (80-100); Monocytes Absolute Auto 600 /uL (0-900); Neutrophils Absolute Auto 4500 /uL (1500-7000); Neutrophils Percent Auto 59.7 % (50-75); Platelet Count 192 X10^3/uL (150-400); Red Blood Cell Count 4.61 X10^6/uL (4.5-5.9); Red Cell Distribution Width 14.3 % (11.6-14.8); White Blood Cell Count 7.6 X10^3/uL (4.5-11.0)
[2021-06-22 04:56] LABS: Alanine Aminotransferase 29 IU/L (<50); Albumin Globulin Ratio 1.2 (1.0-2.8); Alkaline Phosphatase 80 U/L (38-126); Aspartate Aminotransferase 31 IU/L (17-59); Bilirubin Total 0.4 mg/dL (0.2-1.3); Blood Urea Nitrogen 21 mg/dL (9-20); Calcium 9.4 mg/dL (8.4-10.2); Carbon Dioxide 32 mmol/L (22-32); Chloride 103 mmol/L (98-107); Creatine Kinase 154 U/L (55-170); Estimated Glomerular Filt Rate > 60.0 mL/min (>60); Globulin 3.3 g/dL (1.7-4.1); Glucose 108 mg/dL (70-100); HEMOLYSIS < 15 (0-50); Magnesium 1.7 mg/dL (1.6-2.3); Potassium 4.1 mmol/L (3.4-5.1); Sodium 139 mmol/L (137-145); Total Protein 7.3 g/dL (6.3-8.2)
[2021-06-22 05:00] VITALS: PULSE 88; O2SAT 96
[2021-06-22 05:06] LABS: NT-proBNP (BNP-Adult 18+) 53 pg/mL (<125); Troponin I < 0.012 ng/mL (0.01-0.034)
[2021-06-22 05:11] LABS: CKMB % Relative Index 1.4 % (1.5-5.0); Creatine Kinase MB 2.18 ng/mL (<2.37)
[2021-06-22 05:16] VITALS: PULSE 88; O2SAT 96
[2021-06-22 05:17] VITALS: BP 125/73
== END 2021-06-22 05:20 | disposition home or self-care (01) ==
PROVIDERS: Emergency Provider Emergency Medicine; PCP Registered Nurse
DX: R60.9 Edema, unspecified (principal)
CPT/HCPCS: 36415; 80053; 82550; 82553; 83735; 83880; 84484; 85025; 96374; 99284; J1940

== ENCOUNTER 2021-07-03 01:27 | Emergency (ER) | payer BC, SELFPAY ==
[2021-07-03] VITALS (17 sets, daily range): BP systolic 76–167; BP diastolic 51–114; PULSE 80–99; RESP 11–26; TEMP 36.3; O2SAT 92–99; BMI 39.5
--- NOTE | 2021-07-03 02:23 | DI.US.S_ITS ---
PROCEDURE: US PERIPH VENOUS LOW EXTREM BI INDICATIONS: PAIN AND SWELLING TECHNIQUE: Real-time imaging, as well as color and pulse Doppler interrogation, were performed of the deep veins of both legs from the inguinal ligament to the popliteal fossa. COMPARISON: None. FINDINGS: Right: The common femoral, femoral and popliteal veins are normally compressible, and free of intraluminal thrombus. Color and pulse Doppler demonstrate normal phasic intravascular flow. There is normal augmentation response to distal compression maneuver. Left: The common femoral, femoral and popliteal veins are normally compressible, and free of intraluminal thrombus. Color and pulse Doppler demonstrate normal phasic intravascular flow. There is normal augmentation response to distal compression maneuver. IMPRESSION: No deep venous thrombosis. Dictated by: Rachel Caceres M.D. on 07/03/2021 at 7:50 Approved by: Rachel Caceres M.D. on 07/03/2021 at 7:50
--- NOTE | 2021-07-03 02:24 | ED.EXTPRO ---
HPI - Extremity Problem General Chief complaint: Extremity Problem,Nontraumatic Stated complaint: swelling of legs Time Seen by Provider: 07/03/21 02:09 Source: patient and family Mode of arrival: Ambulatory Limitations: no limitations History of Present Illness HPI Narrative: Patient complains of bilateral leg and swelling. No chest pain. Continues to have complaint of dyspnea. However not requiring supplemental oxygen. 95% room air. Patient seen here 9 days ago for the same complaint. Also 2 prior visits well for the same complaint. Has appointment with his family doctor today at 1:00 p.m.. Patient was prescribed Lasix 40 mg daily from this department 9 days ago. No chest pain. No recent illness. Had EKG heart enzymes and blood work last visit here. No prior history of blood clots in legs or lungs. Does not recall having Dopplers of the legs in the past. Related Data Previous Rx's Medication Instructions Recorded furosemide 20 mg tablet (Lasix) 20 mg PO DAILY #30 tab 07/03/21 losartan 25 mg tablet 25 mg PO DAILY #30 tab 07/03/21 Allergies Allergy/AdvReac Type Severity Reaction Status Date / Time No Known Drug Allergies Allergy Verified 07/03/21 13:39 Review of Systems Review of Systems Narrative: GENERAL: Denies chills, fatigue, malaise, fever, sweats. HEENT: Denies sinus pain, ear pain, sore throat RESPIRATORY: Complaint dyspnea, cough CARDIOVASCULAR: Denies chest pain, palpitations GASTROINTESTINAL: Denies nausea, vomiting, abdominal pain : Denies dysuria, frequency, hematuria MUSCULOSKELETAL: denies muscle or bony pain, complaints of extremity edema SKIN: Denies rash, skin lesions NEUROLOGIC: Denies weakness, numbness ROS Unobtainable: All systems reviewed & are unremarkable except as noted in HPI and below Patient History Medical History Foot pain Morbid obesity with body mass index (BMI) of 40.0 to 44.9 in adult (11/21/17) Recurrent low back pain Venous stasis ulcers of both lower extremities (11/21/17) Family History Mother Cancer Lung cancer Social History Smoking Status: Current every day smoker Smoking Status: Current every day smoker alcohol intake frequency: a few times a week Alcohol type: beer and hard liquor Substance Use Type: does not use Exam Narrative Exam Narrative: GENERAL: in no distress, not toxic not dyspneic HEAD: Normocephalic. CARDIOVASCULAR: Regular rate and rhythm without murmurs RESPIRATORY: Clear to auscultation. Breath sounds equal bilaterally. No wheezes, rales, or rhonchi. Speaks full sentences. No distress. Not distended. GASTROINTESTINAL: Abdomen soft, non-tender EXTREMITIES: No gross deformities.. Circumferential symmetric bilateral peripheral edema of the calves ankles and feet. Feet are warm soft and pink. Strong pedal pulses. No cellulitis. Pants removed NEURO: AOx4. SKIN: Warm and dry PSYCH: Not anxious, is cooperative Initial Vital Signs Initial Vital Signs: Vital Signs Temperature 97.3 F L 07/03/21 01:43 Pulse Rate 99 H 07/03/21 01:43 Respiratory Rate 20 07/03/21 01:43 Blood Pressure 134/64 07/03/21 01:43 Pulse Oximetry 95 07/03/21 01:43 Course Course Course Narrative: No new issues during course of stay. No hypoxia. No tachypnea Orders Ordered: Discontinued Medications Furosemide (Furosemide 40 Mg/4 Ml Vial) 40 mg IV NOW ONE Stop: 07/03/21 02:28 Last Admin: 07/03/21 02:44 Dose: 40 mg Documented by: DEMETRICE Reevaluation(s) Reevaluation #1: Patient had 1.6 L of urine voided after Lasix given here. Reviewed results with patient. Labs at baseline. He understands to be careful with salt in his diet. It will cause fluid retention. He does have office appointment today at 1:00 p.m. with his family doctor. Time: 05:06 Vital Signs Vital signs: Vital Signs - 8 hr 07/03/21 01:43 Temperature 97.3 F L Pulse Rate 99 H Respiratory Rate 20 Blood Pressure 134/64 Pulse Oximetry 95 MDM - Extremity (Nontraumatic) Differential Diagnosis Differential diagnosis: Likely cellulitis, superficial thrombophlebitis, lower extremity edema, deep vein thrombosis of lower extremity and other (Chronic edema) Lab Data Result diagrams: 07/03/21 02:35 07/03/21 02:35 Labs: Lab Results 07/03/21 07/03/21 Range/Units 02:35 02:35 WBC 9.1 (4.5-11.0) X10^3/uL RBC 4.60 (4.5-5.9) X10^6/uL Hgb 14.0 (13.5-17.5) g/dL Hct 41.9 (41-53) % MCV 91.2 (80-100) fL MCH 30.4 (26-34) PG MCHC 33.3 (30-36) % RDW 14.1 (11.6-14.8) % Plt Count 169 (150-400) X10^3/uL Neut % (Auto) 60.8 (50-75) % Lymph % (Auto) 28.0 (25-40) % [place] % (Auto) 8.6 (3-14) % Eos % (Auto) 2.4 (2-4) % Baso % (Auto) 0.2 (0-2) % Neut # (Auto) 5500 (7632-3038) /uL Lymph # (Auto) 2600 (2028-3308) /uL [place] # (Auto) 800 (0-900) /uL Eos # (Auto) 200 (0-450) /uL Baso # (Auto) 0 (0-100) /uL Sodium 139 (137-145) mmol/L Potassium 4.4 (3.4-5.1) mmol/L Chloride 100 (98-107) mmol/L Carbon Dioxide 36 H (22-32) mmol/L BUN 22 H (9-20) mg/dL Creatinine 0.64 L (0.66-1.25) mg/dL Estimated GFR > 60.0 (>60) mL/min BUN/Creatinine Ratio 34.4 H (6-22) Glucose 128 H (70-100) mg/dL Calcium 9.0 (8.4-10.2) mg/dL Total Bilirubin 0.4 (0.2-1.3) mg/dL AST 40 (17-59) IU/L ALT 67 H (<50) IU/L Alkaline Phosphatase 76 (38-126) U/L Total Protein 7.3 (6.3-8.2) g/dL Albumin 4.0 (3.5-5.0) g/dL Globulin 3.3 (1.7-4.1) g/dL Albumin/Globulin Ratio 1.2 (1.0-2.8) Imaging Data US - DVT: Radiologist's Impression: Negative for bilateral lower extremity deep vein thrombosis MDM Narrative Medical decision making narrative: Appropriate for discharge home. Laboratory studies reassuring. 95% room air. No required supplemental oxygen. Patient has appointment with his primary care at 1:00 p.m. today. Discharge Plan Departure Patient Disposition: Home Clinical Impression: Lower extremity edema Instructions: Edema Activity Restrictions/Additional Instructions: See family doctor today at 1:00 p.m. as scheduled. Be sure to be careful about your salt content in food and drinks as it will cause water retention in your body. Continue home medications. Return if worse if any questions or concerns. Prescriptions: No Action furosemide [Lasix] 20 mg tablet 20 mg PO DAILY Qty: 30 RF: 0 losartan 25 mg tablet 25 mg PO DAILY Qty: 30 RF: 3 Referrals: Hayley Cochran ARNP [Primary Care Provider] -
[2021-07-03] MEDS: FUROSEMIDE 40 MG/4 ML VIAL IV (02:44)
[2021-07-03 02:58] LABS: Alanine Aminotransferase 67 IU/L (<50); Albumin Globulin Ratio 1.2 (1.0-2.8); Alkaline Phosphatase 76 U/L (38-126); Aspartate Aminotransferase 40 IU/L (17-59); BUN Creatinine Ratio 34.4 (6-22); Bilirubin Total 0.4 mg/dL (0.2-1.3); Blood Urea Nitrogen 22 mg/dL (9-20); Carbon Dioxide 36 mmol/L (22-32); Chloride 100 mmol/L (98-107); Estimated Glomerular Filt Rate > 60.0 mL/min (>60); Globulin 3.3 g/dL (1.7-4.1); Glucose 128 mg/dL (70-100); HEMOLYSIS < 15 (0-50); Potassium 4.4 mmol/L (3.4-5.1); Sodium 139 mmol/L (137-145); Total Protein 7.3 g/dL (6.3-8.2)
[2021-07-03 03:09] LABS: Add Manual Diff / Slide Review NO; Basophils Absolute Auto 0 /uL (0-100); Basophils Percent Auto 0.2 % (0-2); Eosinophils Absolute Auto 200 /uL (0-450); Eosinophils Percent Auto 2.4 % (2-4); Hematocrit 41.9 % (41-53); Lymphocytes Absolute Auto 2600 /uL (1100-4500); Mean Corpuscular HGB Conc 33.3 % (30-36); Mean Corpuscular Hemoglobin 30.4 PG (26-34); Mean Corpuscular Volume 91.2 fL (80-100); Monocytes Absolute Auto 800 /uL (0-900); Monocytes Percent Auto 8.6 % (3-14); Neutrophils Absolute Auto 5500 /uL (1500-7000); Neutrophils Percent Auto 60.8 % (50-75); Platelet Count 169 X10^3/uL (150-400); Red Cell Distribution Width 14.1 % (11.6-14.8); White Blood Cell Count 9.1 X10^3/uL (4.5-11.0)
== END 2021-07-03 05:17 | disposition home or self-care (01) ==
PROVIDERS: Emergency Provider Emergency Medicine; PCP Registered Nurse
DX: R60.0 Localized edema (principal); R06.00 Dyspnea, unspecified
CPT/HCPCS: 36415; 80053; 85025; 93970; 99284; J1940

== ENCOUNTER 2021-08-13 02:32 | Inpatient (IN) | payer BC, SELFPAY ==
[2021-08-13] VITALS (33 sets, daily range): BP systolic 119–155; BP diastolic 56–106; PULSE 81–103; RESP 6–29; TEMP 31–38.3; O2SAT 80–99; BMI 47.7
--- NOTE | 2021-08-13 02:43 | ED.GENADULT ---
HPI - General Adult <Meryl Castaneda MD - Last Filed: 08/13/21 23:40> General Chief complaint: Chest Pain Stated complaint: chest pain/sob Time Seen by Provider: 08/13/21 02:42 History of Present Illness HPI narrative: 51-year-old [employer] with a history of hypertension and congestive heart failure comes in with anasarca and significant dyspnea. He states he has been taking his Lasix but ran out of the losartan and had not refilled it. He complains of dyspnea but no orthopnea. Increasing swelling all the way of his torso. He complains of cough productive of clear phlegm, no fevers, headaches, abdominal pain. It does note some constipation no diarrhea. He does not have any scrotal edema and simply complains that he can not breathe. On further questioning regarding recreational drug use he denies alcohol and stimulants states that he is regularly drug tested. Eventually notes that he is significantly addicted to opioids and will smoke 30-50 of the ?perc 30s? which are fentanyl. Fentanyl does not show up on routine opioid drug screen unless specifically tested for. He notes that he has 0s of thousands of dollars in debt. He states that he did use just prior to arrival in the ER to prevent himself from going into withdrawal during his ER evaluation. He states that he is willing to stay participate in treatment and repeatedly asks for help in dealing with his opioid addiction. At this time he has nobody who is aware of his addiction. Related Data Previous Rx's Medication Instructions Recorded losartan 25 mg tablet 25 mg PO DAILY #30 tab 07/03/21 furosemide 40 mg tablet 40 mg PO BID #60 tab 08/10/21 Allergies Allergy/AdvReac Type Severity Reaction Status Date / Time No Known Drug Allergies Allergy Verified 07/03/21 13:39 Review of Systems <Meryl Castaneda MD - Last Filed: 08/13/21 23:40> Review of Systems Narrative: Remainder of complete review of systems is otherwise unremarkable except for that included in the HPI. Patient History <Meryl Castaneda MD - Last Filed: 08/13/21 23:40> Medical History Cardiomegaly Congestive heart failure Foot pain Morbid obesity with body mass index (BMI) of 40.0 to 44.9 in adult (11/21/17) Opioid use disorder Recurrent low back pain Venous stasis ulcers of both lower extremities (11/21/17) Family History Mother Cancer Lung cancer Social History household members: spouse Smoking Status: Current every day smoker Smoking Status: Current every day smoker alcohol intake frequency: a few times a week Alcohol type: beer and hard liquor Substance Use Type: does not use Exam <Meryl Castaneda MD - Last Filed: 08/13/21 23:40> Narrative Exam Narrative: General: Chronically ill-appearing, morbidly obese gentleman with anasarca, course, tachypnea HEENT: Moist mucous membranes, normal sclera with reactive pupils, Neck: + JVD, supple Respiratory: Lungs with diminished air movement due to body habitus, decreased lung noise is due to dermal edema/anasarca crackles in all lung chaudhari without rhonchi. Minimal scattered wheeze Cardiac: Tachycardic with Regular rate and rhythm no murmurs no bruits Abdomen: Obese, Soft, nontender, dermal edema no flank pain Skin: Anasarca to the level of the shoulder blades. Chronic venous stasis changes of lower extremities. Neurologic: Globally weak, Grossly neurologically intact with no obvious asymmetries or abnormalities Extremities: No trauma, difficult to assess perfusion due to edema. Psych: Cooperative, anxious and tearful Initial Vital Signs Initial Vital Signs: Vital Signs Temperature 98.3 F 08/13/21 02:40 Pulse Rate 85 08/13/21 02:40 Respiratory Rate 27 H 08/13/21 02:40 Blood Pressure 135/104 H 08/13/21 02:40 Pulse Oximetry 95 08/13/21 02:40 <Brant Roman MD - Last Filed: 08/13/21 18:24> Initial Vital Signs Initial Vital Signs: Vital Signs Temperature 98.3 F 08/13/21 02:40 Pulse Rate 85 08/13/21 02:40 Respiratory Rate 27 H 08/13/21 02:40 Blood Pressure 135/104 H 08/13/21 02:40 Pulse Oximetry 95 08/13/21 02:40 Course <Meryl Castaneda MD - Last Filed: 08/13/21 23:40> Orders Ordered: Acetaminophen (Acetaminophen 325 Mg Tablet) 650 mg PO Q6HR PRN PRN Reason: Fever/Mild Pain (1-3) Last Admin: 08/13/21 14:48 Dose: 650 mg Documented by: MAGNUS Baclofen (Baclofen 10 Mg Tablet) 5 mg PO TID PRN PRN Reason: Muscle Spasm Clonidine HCl (Clonidine 0.1 Mg Tablet) 0.1 mg PO Q4H PRN PRN Reason: COWS 8-12 Last Admin: 08/13/21 14:42 Dose: 0.1 mg Documented by: MAGNUS Clonidine HCl (Clonidine 0.1 Mg Tablet) 0.2 mg PO Q4H PRN PRN Reason: COWS >12 Last Admin: 08/13/21 19:47 Dose: 0.2 mg Documented by: BO Dicyclomine HCl (Dicyclomine 10 Mg Capsule) 10 mg PO Q6HR PRN PRN Reason: Cramping Enoxaparin Sodium (Enoxaparin 40 Mg/0.4 Ml Syringe) 40 mg SUBCUT BID [facility] Last Admin: 08/13/21 20:58 Dose: 40 mg Documented by: BO Furosemide (Furosemide 40 Mg/4 Ml Vial) 40 mg IV DAILY [facility] Ceftriaxone Sodium 1,000 mg/ (Sodium Chloride) 100 mls @ 200 mls/hr IV Q24H [facility] Last Infusion: 08/13/21 19:00 Dose: 0 mls/hr Documented by: Admin: 08/13/21 16:20 Dose: 200 mls/hr Documented by: BO Azithromycin 500 mg/ Dextrose 250 mls @ 250 mls/hr IV Q24H [facility] Last Infusion: 08/13/21 22:23 Dose: 0 mls/hr Documented by: Admin: 08/13/21 18:44 Dose: 250 mls/hr Documented by: BO Loperamide HCl (Loperamide 2 Mg Capsule) 2 mg PO QID PRN PRN Reason: Diarrhea Lorazepam (Lorazepam 1 Mg Tablet) 1 mg PO Q4HR PRN PRN Reason: Anxiety Last Admin: 08/13/21 14:42 Dose: 1 mg Documented by: Admin: 08/13/21 10:28 Dose: 1 mg Documented by: MAGNUS Lorazepam (Lorazepam 2 Mg/Ml Inj) 1 mg IV Q4HR PRN PRN Reason: Anxiety Last Admin: 08/13/21 19:47 Dose: 1 mg Documented by: BO Naloxone HCl (Naloxone 0.4 Mg/Ml Vial) 0.2 mg IV Q2MIN PRN PRN Reason: Opiate Reversal Ondansetron HCl (Ondansetron 4 Mg/2 Ml Inj) 4 mg IV Q8HR PRN PRN Reason: Nausea And Vomiting Oxycodone HCl (Oxycodone Ir 5 Mg Tablet) 5 mg PO Q6HR PRN PRN Reason: Pain, Moderate (4-6) Trazodone HCl (Trazodone 50 Mg Tablet) 25 mg PO BEDTIME PRN PRN Reason: insomnia Last Admin: 08/13/21 20:55 Dose: 25 mg Documented by: BO Discontinued Medications Clonidine HCl (Clonidine 0.1 Mg Tablet) 0.1 mg PO NOW ONE Stop: 08/13/21 10:16 Last Admin: 08/13/21 10:28 Dose: 0.1 mg Documented by: MAGNUS Clonidine HCl (Clonidine 0.1 Mg Tablet) 0.1 mg PO NOW ONE Stop: 08/13/21 16:46 Last Admin: 08/13/21 17:01 Dose: 0.1 mg Documented by: BO Furosemide (Furosemide 40 Mg/4 Ml Vial) 40 mg IV Q12H [facility] Last Admin: 08/13/21 11:47 Dose: 40 mg Documented by: MAGNUS Furosemide 120 mg/ Sodium (Chloride) 62 mls @ 124 mls/hr IV NOW ONE Stop: 08/13/21 04:06 Last Infusion: 08/13/21 04:48 Dose: 0 mls/hr Documented by: Admin: 08/13/21 04:14 Dose: 124 mls/hr Documented by: DEMETRICE Lorazepam (Lorazepam 2 Mg/Ml Inj) 1 mg IV NOW ONE Stop: 08/13/21 04:32 Last Admin: 08/13/21 04:35 Dose: 1 mg Documented by: DEMETRICE Lorazepam (Lorazepam 2 Mg/Ml Inj) 1 mg IV NOW ONE Stop: 08/13/21 09:03 Last Admin: 08/13/21 09:07 Dose: 1 mg Documented by: RICHARD Lorazepam (Lorazepam 2 Mg/Ml Inj) 0.5 mg IV NOW ONE Stop: 08/13/21 16:46 Last Admin: 08/13/21 16:59 Dose: 0.5 mg Documented by: BO Nitroglycerin (Nitroglycerin Oint 1 Inch/Gm Oint...G.) 1 inch TOP NOW ONE Stop: 08/13/21 04:20 Last Admin: 08/13/21 04:26 Dose: 1 inch Documented by: DEMETRICE Oxycodone HCl (Oxycodone Ir 5 Mg Tablet) 5 mg PO Q3HR PRN PRN Reason: Pain, Moderate (4-6) Vital Signs Vital signs: Vital Signs - 8 hr 08/13/21 02:40 08/13/21 03:17 08/13/21 03:30 Temperature 98.3 F Pulse Rate 85 82 81 Respiratory Rate 27 H 17 14 Blood Pressure 135/104 H 123/56 L Pulse Oximetry 95 80 L 93 08/13/21 04:00 08/13/21 04:04 08/13/21 04:06 Temperature Pulse Rate 97 H 95 H Respiratory Rate 19 12 Blood Pressure 134/72 134/72 Pulse Oximetry 98 98 08/13/21 04:26 08/13/21 04:30 08/13/21 04:31 Temperature Pulse Rate 96 H 90 91 H Respiratory Rate 29 H 22 Blood Pressure 134/72 131/72 Pulse Oximetry 97 98 08/13/21 05:00 08/13/21 05:30 08/13/21 06:00 Temperature Pulse Rate 95 H 90 96 H Respiratory Rate 14 19 19 Blood Pressure 138/97 H 146/88 H Pulse Oximetry 96 95 96 08/13/21 06:01 08/13/21 06:12 08/13/21 06:30 Temperature Pulse Rate 93 H 95 H Respiratory Rate 18 16 Blood Pressure 145/67 H 145/67 H 153/68 H Pulse Oximetry 95 94 08/13/21 07:00 08/13/21 07:30 08/13/21 07:31 Temperature Pulse Rate 91 H 97 H 92 H Respiratory Rate 17 17 15 Blood Pressure 149/89 H 153/106 H Pulse Oximetry 92 93 98 <Brant Roman MD - Last Filed: 08/13/21 18:24> Course Course Narrative: Sign out at 7:[address] Castaneda. Awaiting echocardiogram has been ordered for this department. Waiting for ICU bed as patient is on BiPAP. Has been doing well. 2 L urine output. Is being diuresed. Patient does have history of opiate abuse Percocet/fentanyl combination. However would not likely do right now very well with methadone given cardiac status. Would likely need to wean for withdrawals with oxycodone and then eventually taper to Suboxone. We may have ICU bed here at this facility otherwise will need transfer. I saw patient. Doing well at this time on BiPAP. Understands awaiting for bed placement. Review of labs imaging as well. Orders Ordered: Acetaminophen (Acetaminophen 325 Mg Tablet) 650 mg PO Q6HR PRN PRN Reason: Fever/Mild Pain (1-3) Last Admin: 08/13/21 14:48 Dose: 650 mg Documented by: MAGNUS Baclofen (Baclofen 10 Mg Tablet) 5 mg PO TID PRN PRN Reason: Muscle Spasm Clonidine HCl (Clonidine 0.1 Mg Tablet) 0.1 mg PO Q4H PRN PRN Reason: COWS 8-12 Last Admin: 08/13/21 14:42 Dose: 0.1 mg Documented by: MAGNUS Clonidine HCl (Clonidine 0.1 Mg Tablet) 0.2 mg PO Q4H PRN PRN Reason: COWS >12 Last Admin: 08/13/21 19:47 Dose: 0.2 mg Documented by: BO Dicyclomine HCl (Dicyclomine 10 Mg Capsule) 10 mg PO Q6HR PRN PRN Reason: Cramping Enoxaparin Sodium (Enoxaparin 40 Mg/0.4 Ml Syringe) 40 mg SUBCUT BID [facility] Last Admin: 08/13/21 20:58 Dose: 40 mg Documented by: BO Furosemide (Furosemide 40 Mg/4 Ml Vial) 40 mg IV DAILY [facility] Ceftriaxone Sodium 1,000 mg/ (Sodium Chloride) 100 mls @ 200 mls/hr IV Q24H [facility] Last Infusion: 08/13/21 19:00 Dose: 0 mls/hr Documented by: Admin: 08/13/21 16:20 Dose: 200 mls/hr Documented by: BO Azithromycin 500 mg/ Dextrose 250 mls @ 250 mls/hr IV Q24H [facility] Last Infusion: 08/13/21 22:23 Dose: 0 mls/hr Documented by: Admin: 08/13/21 18:44 Dose: 250 mls/hr Documented by: BO Loperamide HCl (Loperamide 2 Mg Capsule) 2 mg PO QID PRN PRN Reason: Diarrhea Lorazepam (Lorazepam 1 Mg Tablet) 1 mg PO Q4HR PRN PRN Reason: Anxiety Last Admin: 08/13/21 14:42 Dose: 1 mg Documented by: Admin: 08/13/21 10:28 Dose: 1 mg Documented by: MAGNUS Lorazepam (Lorazepam 2 Mg/Ml Inj) 1 mg IV Q4HR PRN PRN Reason: Anxiety Last Admin: 08/13/21 19:47 Dose: 1 mg Documented by: BO Naloxone HCl (Naloxone 0.4 Mg/Ml Vial) 0.2 mg IV Q2MIN PRN PRN Reason: Opiate Reversal Ondansetron HCl (Ondansetron 4 Mg/2 Ml Inj) 4 mg IV Q8HR PRN PRN Reason: Nausea And Vomiting Oxycodone HCl (Oxycodone Ir 5 Mg Tablet) 5 mg PO Q6HR PRN PRN Reason: Pain, Moderate (4-6) Trazodone HCl (Trazodone 50 Mg Tablet) 25 mg PO BEDTIME PRN PRN Reason: insomnia Last Admin: 08/13/21 20:55 Dose: 25 mg Documented by: BO Discontinued Medications Clonidine HCl (Clonidine 0.1 Mg Tablet) 0.1 mg PO NOW ONE Stop: 08/13/21 10:16 Last Admin: 08/13/21 10:28 Dose: 0.1 mg Documented by: MAGNUS Clonidine HCl (Clonidine 0.1 Mg Tablet) 0.1 mg PO NOW ONE Stop: 08/13/21 16:46 Last Admin: 08/13/21 17:01 Dose: 0.1 mg Documented by: BO Furosemide (Furosemide 40 Mg/4 Ml Vial) 40 mg IV Q12H [facility] Last Admin: 08/13/21 11:47 Dose: 40 mg Documented by: MAGNUS Furosemide 120 mg/ Sodium (Chloride) 62 mls @ 124 mls/hr IV NOW ONE Stop: 08/13/21 04:06 Last Infusion: 08/13/21 04:48 Dose: 0 mls/hr Documented by: Admin: 08/13/21 04:14 Dose: 124 mls/hr Documented by: DEMETRICE Lorazepam (Lorazepam 2 Mg/Ml Inj) 1 mg IV NOW ONE Stop: 08/13/21 04:32 Last Admin: 08/13/21 04:35 Dose: 1 mg Documented by: DEMETRICE Lorazepam (Lorazepam 2 Mg/Ml Inj) 1 mg IV NOW ONE Stop: 08/13/21 09:03 Last Admin: 08/13/21 09:07 Dose: 1 mg Documented by: RICHARD Lorazepam (Lorazepam 2 Mg/Ml Inj) 0.5 mg IV NOW ONE Stop: 08/13/21 16:46 Last Admin: 08/13/21 16:59 Dose: 0.5 mg Documented by: BO Nitroglycerin (Nitroglycerin Oint 1 Inch/Gm Oint...G.) 1 inch TOP NOW ONE Stop: 08/13/21 04:20 Last Admin: 08/13/21 04:26 Dose: 1 inch Documented by: DEMETRICE Oxycodone HCl (Oxycodone Ir 5 Mg Tablet) 5 mg PO Q3HR PRN PRN Reason: Pain, Moderate (4-6) Reevaluation(s) Reevaluation #1: Patient has been able to be removed off of BiPAP. On room air. No respiratory distress. No hypoxia. No tachypnea. Time: 08:05 Consultations Consultation #1: Spoke with hospitalist Dr Gregory, patient will be able to go to non ICU bed. Not requiring BiPAP at this time. Medications withdrawals can be managed outside the ICU. We do have ICU bed available if need to transition over. Vital Signs Vital signs: Vital Signs - 8 hr 08/13/21 02:40 08/13/21 03:17 08/13/21 03:30 Temperature 98.3 F Pulse Rate 85 82 81 Respiratory Rate 27 H 17 14 Blood Pressure 135/104 H 123/56 L Pulse Oximetry 95 80 L 93 08/13/21 04:00 08/13/21 04:04 08/13/21 04:06 Temperature Pulse Rate 97 H 95 H Respiratory Rate 19 12 Blood Pressure 134/72 134/72 Pulse Oximetry 98 98 08/13/21 04:26 08/13/21 04:30 08/13/21 04:31 Temperature Pulse Rate 96 H 90 91 H Respiratory Rate 29 H 22 Blood Pressure 134/72 131/72 Pulse Oximetry 97 98 08/13/21 05:00 08/13/21 05:30 08/13/21 06:00 Temperature Pulse Rate 95 H 90 96 H Respiratory Rate 14 19 19 Blood Pressure 138/97 H 146/88 H Pulse Oximetry 96 95 96 08/13/21 06:01 08/13/21 06:12 08/13/21 06:30 Temperature Pulse Rate 93 H 95 H Respiratory Rate 18 16 Blood Pressure 145/67 H 145/67 H 153/68 H Pulse Oximetry 95 94 08/13/21 07:00 08/13/21 07:30 08/13/21 07:31 Temperature Pulse Rate 91 H 97 H 92 H Respiratory Rate 17 17 15 Blood Pressure 149/89 H 153/106 H Pulse Oximetry 92 93 98 Medical Decision Making <Meryl Castaneda MD - Last Filed: 08/13/21 23:40> Lab Data Result diagrams: 08/13/21 03:07 08/13/21 15:10 Labs: Lab Results 08/13/21 08/13/21 08/13/21 Range/Units 02:45 03:07 03:07 WBC 8.9 (4.5-11.0) X10^3/uL RBC 4.41 L (4.5-5.9) X10^6/uL Hgb 13.2 L (13.5-17.5) g/dL Hct 40.1 L (41-53) % MCV 90.8 (80-100) fL MCH 30.0 (26-34) PG MCHC 33.0 (30-36) % RDW 13.9 (11.6-14.8) % Plt Count 189 (150-400) X10^3/uL Neut % (Auto) 67.9 (50-75) % Lymph % (Auto) 21.9 L (25-40) % [place] % (Auto) 7.5 (3-14) % Eos % (Auto) 2.4 (2-4) % Baso % (Auto) 0.3 (0-2) % Neut # (Auto) 6100 (7124-8711) /uL Lymph # (Auto) 2000 (5634-5136) /uL [place] # (Auto) 700 (0-900) /uL Eos # (Auto) 200 (0-450) /uL Baso # (Auto) 0 (0-100) /uL D-Dimer 369 H (<230) ng/mL Sodium (137-145) mmol/L Potassium (3.4-5.1) mmol/L Chloride (98-107) mmol/L Carbon Dioxide (22-32) mmol/L BUN (9-20) mg/dL Creatinine (0.66-1.25) mg/dL Estimated GFR (>60) mL/min BUN/Creatinine Ratio (6-22) Glucose (70-100) mg/dL Calcium (8.4-10.2) mg/dL Magnesium (1.6-2.3) mg/dL Total Bilirubin (0.2-1.3) mg/dL AST (17-59) IU/L ALT (<50) IU/L Alkaline Phosphatase (38-126) U/L Troponin I (0.01-0.034) ng/mL NT-Pro-B Natriuret Pep (<125) pg/mL Total Protein (6.3-8.2) g/dL Albumin (3.5-5.0) g/dL Globulin (1.7-4.1) g/dL Albumin/Globulin Ratio (1.0-2.8) Lipase (23-300) U/L Urine Color Urine Appearance Urine pH (4.5-8.0) Ur Specific [place] (1.000-1.035) Urine Protein (Negative) Urine Glucose (UA) (Negative) g/dL Urine Ketones (NEGATIVE) Urine Occult Blood (Negative) Urine Nitrate (Negative) Urine Bilirubin (NEGATIVE) Urine Urobilinogen (0.2) E.U./dL Ur Leukocyte Esterase (NEGATIVE) Urine RBC (0-5/HPF) Urine WBC (0-5/HPF) Urine Bacteria (None) Ur Culture Indicated? Micro UA Comment Chlamy pneumoniae PCR (Not Detect) Adenovirus (PCR) (Not Detect) B. pertussis DNA (PCR) (Not Detecte) B.parapertussis DNA PCR Coronavirus OC43 (PCR) (Not Detect) Coronavirus HKU1 (PCR) (Not Detect) Coronavirus 229E (PCR) (Not Detect) SARS-CoV-2 (PCR) Negative (Negative) Coronavirus NL63 (PCR) (Not Detect) Human Metapneumovir PCR (Not Detect) Influenza Type A (PCR) (Not Detect) Influenza Type B (PCR) (Not Detect) M. pneumoniae (PCR) (Not Detect) Parainfluenza 1 (PCR) (Not Detect) Parainfluenza 2 (PCR) (Not Detect) Parainfluenza 3 (PCR) (Not Detect) Parainfluenza 4 (PCR) (Not Detect) RSV (PCR) (Not Detect) Entero/Rhino (PCR) (Not Detect) 08/13/21 08/13/21 08/13/21 Range/Units 03:07 03:55 03:55 WBC (4.5-11.0) X10^3/uL RBC (4.5-5.9) X10^6/uL Hgb (13.5-17.5) g/dL Hct (41-53) % MCV (80-100) fL MCH (26-34) PG MCHC (30-36) % RDW (11.6-14.8) % Plt Count (150-400) X10^3/uL Neut % (Auto) (50-75) % Lymph % (Auto) (25-40) % [place] % (Auto) (3-14) % Eos % (Auto) (2-4) % Baso % (Auto) (0-2) % Neut # (Auto) (2508-5901) /uL Lymph # (Auto) (4789-4394) /uL [place] # (Auto) (0-900) /uL Eos # (Auto) (0-450) /uL Baso # (Auto) (0-100) /uL D-Dimer (<230) ng/mL Sodium 137 (137-145) mmol/L Potassium 4.1 (3.4-5.1) mmol/L Chloride 98 (98-107) mmol/L Carbon Dioxide 32 (22-32) mmol/L BUN 21 H (9-20) mg/dL Creatinine 0.67 (0.66-1.25) mg/dL Estimated GFR > 60.0 (>60) mL/min BUN/Creatinine Ratio 31.3 H (6-22) Glucose 214 H (70-100) mg/dL Calcium 9.0 (8.4-10.2) mg/dL Magnesium 1.6 (1.6-2.3) mg/dL Total Bilirubin 0.4 (0.2-1.3) mg/dL AST 24 (17-59) IU/L ALT 24 (<50) IU/L Alkaline Phosphatase 72 (38-126) U/L Troponin I < 0.012 (0.01-0.034) ng/mL NT-Pro-B Natriuret Pep 25 (<125) pg/mL Total Protein 7.0 (6.3-8.2) g/dL Albumin 3.8 (3.5-5.0) g/dL Globulin 3.2 (1.7-4.1) g/dL Albumin/Globulin Ratio 1.2 (1.0-2.8) Lipase 28 (23-300) U/L Urine Color Urine Appearance Urine pH (4.5-8.0) Ur Specific [place] (1.000-1.035) Urine Protein (Negative) Urine Glucose (UA) (Negative) g/dL Urine Ketones (NEGATIVE) Urine Occult Blood (Negative) Urine Nitrate (Negative) Urine Bilirubin (NEGATIVE) Urine Urobilinogen (0.2) E.U./dL Ur Leukocyte Esterase (NEGATIVE) Urine RBC (0-5/HPF) Urine WBC (0-5/HPF) Urine Bacteria (None) Ur Culture Indicated? Micro UA Comment Chlamy pneumoniae PCR Not detected (Not Detect) Adenovirus (PCR) Not detected (Not Detect) B. pertussis DNA (PCR) Not detected (Not Detecte) B.parapertussis DNA PCR Not Reportable Coronavirus OC43 (PCR) Not detected (Not Detect) Coronavirus HKU1 (PCR) Not detected (Not Detect) Coronavirus 229E (PCR) Not detected (Not Detect) SARS-CoV-2 (PCR) Negative Not Reportable (Negative) Coronavirus NL63 (PCR) Not detected (Not Detect) Human Metapneumovir PCR Not detected (Not Detect) Influenza Type A (PCR) Not detected (Not Detect) Influenza Type B (PCR) Not detected (Not Detect) M. pneumoniae (PCR) Not detected (Not Detect) Parainfluenza 1 (PCR) Not detected (Not Detect) Parainfluenza 2 (PCR) Not detected (Not Detect) Parainfluenza 3 (PCR) Not detected (Not Detect) Parainfluenza 4 (PCR) Not detected (Not Detect) RSV (PCR) Not detected (Not Detect) Entero/Rhino (PCR) Not detected (Not Detect) 08/13/21 Range/Units 05:04 WBC (4.5-11.0) X10^3/uL RBC (4.5-5.9) X10^6/uL Hgb (13.5-17.5) g/dL Hct (41-53) % MCV (80-100) fL MCH (26-34) PG MCHC (30-36) % RDW (11.6-14.8) % Plt Count (150-400) X10^3/uL Neut % (Auto) (50-75) % Lymph % (Auto) (25-40) % [place] % (Auto) (3-14) % Eos % (Auto) (2-4) % Baso % (Auto) (0-2) % Neut # (Auto) (0377-6986) /uL Lymph # (Auto) (1027-8855) /uL [place] # (Auto) (0-900) /uL Eos # (Auto) (0-450) /uL Baso # (Auto) (0-100) /uL D-Dimer (<230) ng/mL Sodium (137-145) mmol/L Potassium (3.4-5.1) mmol/L Chloride (98-107) mmol/L Carbon Dioxide (22-32) mmol/L BUN (9-20) mg/dL Creatinine (0.66-1.25) mg/dL Estimated GFR (>60) mL/min BUN/Creatinine Ratio (6-22) Glucose (70-100) mg/dL Calcium (8.4-10.2) mg/dL Magnesium (1.6-2.3) mg/dL Total Bilirubin (0.2-1.3) mg/dL AST (17-59) IU/L ALT (<50) IU/L Alkaline Phosphatase (38-126) U/L Troponin I (0.01-0.034) ng/mL NT-Pro-B Natriuret Pep (<125) pg/mL Total Protein (6.3-8.2) g/dL Albumin (3.5-5.0) g/dL Globulin (1.7-4.1) g/dL Albumin/Globulin Ratio (1.0-2.8) Lipase (23-300) U/L Urine Color Yellow Urine Appearance Clear Urine pH 7.0 (4.5-8.0) Ur Specific [place] 1.015 (1.000-1.035) Urine Protein Negative (Negative) Urine Glucose (UA) Negative (Negative) g/dL Urine Ketones Negative (NEGATIVE) Urine Occult Blood Negative (Negative) Urine Nitrate Negative (Negative) Urine Bilirubin Negative (NEGATIVE) Urine Urobilinogen 0.2 (0.2) E.U./dL Ur Leukocyte Esterase Negative (NEGATIVE) Urine RBC None seen (0-5/HPF) Urine WBC None seen (0-5/HPF) Urine Bacteria None seen (None) Ur Culture Indicated? Cult not indicated Micro UA Comment Microscopic normal Chlamy pneumoniae PCR (Not Detect) Adenovirus (PCR) (Not Detect) B. pertussis DNA (PCR) (Not Detecte) B.parapertussis DNA PCR Coronavirus OC43 (PCR) (Not Detect) Coronavirus HKU1 (PCR) (Not Detect) Coronavirus 229E (PCR) (Not Detect) SARS-CoV-2 (PCR) (Negative) Coronavirus NL63 (PCR) (Not Detect) Human Metapneumovir PCR (Not Detect) Influenza Type A (PCR) (Not Detect) Influenza Type B (PCR) (Not Detect) M. pneumoniae (PCR) (Not Detect) Parainfluenza 1 (PCR) (Not Detect) Parainfluenza 2 (PCR) (Not Detect) Parainfluenza 3 (PCR) (Not Detect) Parainfluenza 4 (PCR) (Not Detect) RSV (PCR) (Not Detect) Entero/Rhino (PCR) (Not Detect) Imaging Data Chest x-ray: Radiologist's Impression: The heart is enlarged. Vascular pulmonary congestion without pulmonary edema, patchy airspace dizziness in the right lung base, no pleural effusion. CT scan - chest: Radiologist's Impression: No pulmonary embolus Heart size within normal limits with RV/LV ratio normal No focal consolidation or pleural effusion 5 mm ground-glass opacity nodule right lower lobe No acute intrathoracic abnormality Minh Guillaume ECG Data Interpretation: . Sinus rhythm at a rate of 98 Normal axis, normal intervals No acute ischemic changes MDM Narrative Medical decision making narrative: 51-year-old gentleman with recurrent presentation of increasing edema now to the point of anasarca, dyspnea on and signs consistent with congestive heart failure. He has been taking Lasix has not been taking his losartan is scheduled for an outpatient echocardiogram in the next couple of weeks. He finally admits today that he is addicted to fentanyl and has been using very large doses smoked. He has significant withdrawal symptoms typically starting with abdominal cramping. He has been hiding this from friends family and physicians. Clearly is contributing to all of his overall symptoms. He is started on BiPAP and given IV Lasix. D-dimer slightly elevated so a CT PE study is ordered. Labs do not suggest infection, significant anemia, no renal failure or liver failure. Blood sugar is elevated today. Troponin is within normal limits as is proBNP. 540am patient is doing well with BiPAP in place and 1 in of nitro paste on. Blood pressure is stable he has put out 2 L of fluid is breathing a bit more comfortably. Currently working on bed availability of [facility] in [facility]. Deborah escalante [phone], please update with changes Recommendations for dealing with his narcotic withdrawal: Given his very high dose fentanyl use he is going to need relatively high doses of narcotics to avoid withdrawal. Methadone might actually be an ideal option but is not going to be safe for appropriate with his congestive heart failure and cardiac issues. May do well with scheduled oxycodone until his heart failure is improved and then allow him a brief period of withdrawal (12 hours likely would be adequate) and then begin Suboxone. And fentanyl washout period with oxycodone replacement or a couple of days will likely be very beneficial getting him transitioned to Suboxone and succeeding in post hospital rehabilitation care. <Brant Roman MD - Last Filed: 08/13/21 18:24> Lab Data Labs: Lab Results 08/13/21 08/13/21 08/13/21 Range/Units 02:45 03:07 03:07 WBC 8.9 (4.5-11.0) X10^3/uL RBC 4.41 L (4.5-5.9) X10^6/uL Hgb 13.2 L (13.5-17.5) g/dL Hct 40.1 L (41-53) % MCV 90.8 (80-100) fL MCH 30.0 (26-34) PG MCHC 33.0 (30-36) % RDW 13.9 (11.6-14.8) % Plt Count 189 (150-400) X10^3/uL Neut % (Auto) 67.9 (50-75) % Lymph % (Auto) 21.9 L (25-40) % [place] % (Auto) 7.5 (3-14) % Eos % (Auto) 2.4 (2-4) % Baso % (Auto) 0.3 (0-2) % Neut # (Auto) 6100 (7402-0786) /uL Lymph # (Auto) 2000 (1888-8834) /uL [place] # (Auto) 700 (0-900) /uL Eos # (Auto) 200 (0-450) /uL Baso # (Auto) 0 (0-100) /uL D-Dimer 369 H (<230) ng/mL Sodium (137-145) mmol/L Potassium (3.4-5.1) mmol/L Chloride (98-107) mmol/L Carbon Dioxide (22-32) mmol/L BUN (9-20) mg/dL Creatinine (0.66-1.25) mg/dL Estimated GFR (>60) mL/min BUN/Creatinine Ratio (6-22) Glucose (70-100) mg/dL Calcium (8.4-10.2) mg/dL Magnesium (1.6-2.3) mg/dL Total Bilirubin (0.2-1.3) mg/dL AST (17-59) IU/L ALT (<50) IU/L Alkaline Phosphatase (38-126) U/L Troponin I (0.01-0.034) ng/mL NT-Pro-B Natriuret Pep (<125) pg/mL Total Protein (6.3-8.2) g/dL Albumin (3.5-5.0) g/dL Globulin (1.7-4.1) g/dL Albumin/Globulin Ratio (1.0-2.8) Lipase (23-300) U/L Urine Color Urine Appearance Urine pH (4.5-8.0) Ur Specific [place] (1.000-1.035) Urine Protein (Negative) Urine Glucose (UA) (Negative) g/dL Urine Ketones (NEGATIVE) Urine Occult Blood (Negative) Urine Nitrate (Negative) Urine Bilirubin (NEGATIVE) Urine Urobilinogen (0.2) E.U./dL Ur Leukocyte Esterase (NEGATIVE) Urine RBC (0-5/HPF) Urine WBC (0-5/HPF) Urine Bacteria (None) Ur Culture Indicated? Micro UA Comment Chlamy pneumoniae PCR (Not Detect) Adenovirus (PCR) (Not Detect) B. pertussis DNA (PCR) (Not Detecte) B.parapertussis DNA PCR Coronavirus OC43 (PCR) (Not Detect) Coronavirus HKU1 (PCR) (Not Detect) Coronavirus 229E (PCR) (Not Detect) SARS-CoV-2 (PCR) Negative (Negative) Coronavirus NL63 (PCR) (Not Detect) Human Metapneumovir PCR (Not Detect) Influenza Type A (PCR) (Not Detect) Influenza Type B (PCR) (Not Detect) M. pneumoniae (PCR) (Not Detect) Parainfluenza 1 (PCR) (Not Detect) Parainfluenza 2 (PCR) (Not Detect) Parainfluenza 3 (PCR) (Not Detect) Parainfluenza 4 (PCR) (Not Detect) RSV (PCR) (Not Detect) Entero/Rhino (PCR) (Not Detect) 08/13/21 08/13/21 08/13/21 Range/Units 03:07 03:55 03:55 WBC (4.5-11.0) X10^3/uL RBC (4.5-5.9) X10^6/uL Hgb (13.5-17.5) g/dL Hct (41-53) % MCV (80-100) fL MCH (26-34) PG MCHC (30-36) % RDW (11.6-14.8) % Plt Count (150-400) X10^3/uL Neut % (Auto) (50-75) % Lymph % (Auto) (25-40) % [place] % (Auto) (3-14) % Eos % (Auto) (2-4) % Baso % (Auto) (0-2) % Neut # (Auto) (7183-4726) /uL Lymph # (Auto) (6066-7322) /uL [place] # (Auto) (0-900) /uL Eos # (Auto) (0-450) /uL Baso # (Auto) (0-100) /uL D-Dimer (<230) ng/mL Sodium 137 (137-145) mmol/L Potassium 4.1 (3.4-5.1) mmol/L Chloride 98 (98-107) mmol/L Carbon Dioxide 32 (22-32) mmol/L BUN 21 H (9-20) mg/dL Creatinine 0.67 (0.66-1.25) mg/dL Estimated GFR > 60.0 (>60) mL/min BUN/Creatinine Ratio 31.3 H (6-22) Glucose 214 H (70-100) mg/dL Calcium 9.0 (8.4-10.2) mg/dL Magnesium 1.6 (1.6-2.3) mg/dL Total Bilirubin 0.4 (0.2-1.3) mg/dL AST 24 (17-59) IU/L ALT 24 (<50) IU/L Alkaline Phosphatase 72 (38-126) U/L Troponin I < 0.012 (0.01-0.034) ng/mL NT-Pro-B Natriuret Pep 25 (<125) pg/mL Total Protein 7.0 (6.3-8.2) g/dL Albumin 3.8 (3.5-5.0) g/dL Globulin 3.2 (1.7-4.1) g/dL Albumin/Globulin Ratio 1.2 (1.0-2.8) Lipase 28 (23-300) U/L Urine Color Urine Appearance Urine pH (4.5-8.0) Ur Specific [place] (1.000-1.035) Urine Protein (Negative) Urine Glucose (UA) (Negative) g/dL Urine Ketones (NEGATIVE) Urine Occult Blood (Negative) Urine Nitrate (Negative) Urine Bilirubin (NEGATIVE) Urine Urobilinogen (0.2) E.U./dL Ur Leukocyte Esterase (NEGATIVE) Urine RBC (0-5/HPF) Urine WBC (0-5/HPF) Urine Bacteria (None) Ur Culture Indicated? Micro UA Comment Chlamy pneumoniae PCR Not detected (Not Detect) Adenovirus (PCR) Not detected (Not Detect) B. pertussis DNA (PCR) Not detected (Not Detecte) B.parapertussis DNA PCR Not Reportable Coronavirus OC43 (PCR) Not detected (Not Detect) Coronavirus HKU1 (PCR) Not detected (Not Detect) Coronavirus 229E (PCR) Not detected (Not Detect) SARS-CoV-2 (PCR) Negative Not Reportable (Negative) Coronavirus NL63 (PCR) Not detected (Not Detect) Human Metapneumovir PCR Not detected (Not Detect) Influenza Type A (PCR) Not detected (Not Detect) Influenza Type B (PCR) Not detected (Not Detect) M. pneumoniae (PCR) Not detected (Not Detect) Parainfluenza 1 (PCR) Not detected (Not Detect) Parainfluenza 2 (PCR) Not detected (Not Detect) Parainfluenza 3 (PCR) Not detected (Not Detect) Parainfluenza 4 (PCR) Not detected (Not Detect) RSV (PCR) Not detected (Not Detect) Entero/Rhino (PCR) Not detected (Not Detect) 08/13/21 Range/Units 05:04 WBC (4.5-11.0) X10^3/uL RBC (4.5-5.9) X10^6/uL Hgb (13.5-17.5) g/dL Hct (41-53) % MCV (80-100) fL MCH (26-34) PG MCHC (30-36) % RDW (11.6-14.8) % Plt Count (150-400) X10^3/uL Neut % (Auto) (50-75) % Lymph % (Auto) (25-40) % [place] % (Auto) (3-14) % Eos % (Auto) (2-4) % Baso % (Auto) (0-2) % Neut # (Auto) (2564-4586) /uL Lymph # (Auto) (1818-7514) /uL [place] # (Auto) (0-900) /uL Eos # (Auto) (0-450) /uL Baso # (Auto) (0-100) /uL D-Dimer (<230) ng/mL Sodium (137-145) mmol/L Potassium (3.4-5.1) mmol/L Chloride (98-107) mmol/L Carbon Dioxide (22-32) mmol/L BUN (9-20) mg/dL Creatinine (0.66-1.25) mg/dL Estimated GFR (>60) mL/min BUN/Creatinine Ratio (6-22) Glucose (70-100) mg/dL Calcium (8.4-10.2) mg/dL Magnesium (1.6-2.3) mg/dL Total Bilirubin (0.2-1.3) mg/dL AST (17-59) IU/L ALT (<50) IU/L Alkaline Phosphatase (38-126) U/L Troponin I (0.01-0.034) ng/mL NT-Pro-B Natriuret Pep (<125) pg/mL Total Protein (6.3-8.2) g/dL Albumin (3.5-5.0) g/dL Globulin (1.7-4.1) g/dL Albumin/Globulin Ratio (1.0-2.8) Lipase (23-300) U/L Urine Color Yellow Urine Appearance Clear Urine pH 7.0 (4.5-8.0) Ur Specific [place] 1.015 (1.000-1.035) Urine Protein Negative (Negative) Urine Glucose (UA) Negative (Negative) g/dL Urine Ketones Negative (NEGATIVE) Urine Occult Blood Negative (Negative) Urine Nitrate Negative (Negative) Urine Bilirubin Negative (NEGATIVE) Urine Urobilinogen 0.2 (0.2) E.U./dL Ur Leukocyte Esterase Negative (NEGATIVE) Urine RBC None seen (0-5/HPF) Urine WBC None seen (0-5/HPF) Urine Bacteria None seen (None) Ur Culture Indicated? Cult not indicated Micro UA Comment Microscopic normal Chlamy pneumoniae PCR (Not Detect) Adenovirus (PCR) (Not Detect) B. pertussis DNA (PCR) (Not Detecte) B.parapertussis DNA PCR Coronavirus OC43 (PCR) (Not Detect) Coronavirus HKU1 (PCR) (Not Detect) Coronavirus 229E (PCR) (Not Detect) SARS-CoV-2 (PCR) (Negative) Coronavirus NL63 (PCR) (Not Detect) Human Metapneumovir PCR (Not Detect) Influenza Type A (PCR) (Not Detect) Influenza Type B (PCR) (Not Detect) M. pneumoniae (PCR) (Not Detect) Parainfluenza 1 (PCR) (Not Detect) Parainfluenza 2 (PCR) (Not Detect) Parainfluenza 3 (PCR) (Not Detect) Parainfluenza 4 (PCR) (Not Detect) RSV (PCR) (Not Detect) Entero/Rhino (PCR) (Not Detect) Critical Care Time <Meryl Castaneda MD - Last Filed: 08/13/21 23:40> Critical Care Time Critical Care Time: Yes Total Critical Care Time: 33 Attestation: Critical care time is separate from other billable procedures. There is a high probability of a significant, sudden or life-threatening deterioration that requires my full and direct attention, intervention and personal management. This critical care time includes consultation with family and other consulting doctors, review of records, and interpretation of data from labs, EKGs and imaging as well as managements of acute congestive heart failure with respiratory distress and significant volume overload. Discharge Plan Departure Patient Disposition: Admitted As Inpatient Clinical Impression: Opioid use disorder, Anasarca Congestive heart failure Qualifiers: Heart failure type: unspecified Heart failure chronicity: acute Qualified Code(s): I50.9 - Heart failure, unspecified Admit Date/Time: 08/13/21 08:15 Admit Provider: Robert Gregory
--- NOTE | 2021-08-13 02:45 | DI.RAD.S_ITS ---
PROCEDURE: XR CHEST 1V INDICATIONS: dyspnea TECHNIQUE: One view of the chest was acquired. COMPARISON: [facility], CR, XR CHEST 1V, 06/14/2021, 3:57. FINDINGS: Surgical changes and devices: None. Lungs and pleura: There is pulmonary vascular prominence suggestive of edema. No focal consolidation. No pleural effusions or pneumothorax. Mediastinum: Mediastinal contours appear normal. Heart size is enlarged. Bones and chest wall: No suspicious bony lesions. Overlying soft tissues appear unremarkable. IMPRESSION: 1. Pulmonary vascular prominence suggestive of edema with cardiomegaly suggestive of congestive heart failure. Dictated by: Brandon Llanos M.D. on 08/13/2021 at 8:03 Approved by: Brandon Llanos M.D. on 08/13/2021 at 8:05
[2021-08-13 03:04] LABS: COVID19 -Nasal RAPID Negative (Negative)
[2021-08-13 03:24] LABS: Add Manual Diff / Slide Review NO; Basophils Absolute Auto 0 /uL (0-100); Basophils Percent Auto 0.3 % (0-2); Eosinophils Absolute Auto 200 /uL (0-450); Eosinophils Percent Auto 2.4 % (2-4); Hematocrit 40.1 % (41-53); Hemoglobin 13.2 g/dL (13.5-17.5); Lymphocytes Absolute Auto 2000 /uL (1100-4500); Lymphocytes Percent Auto 21.9 % (25-40); Mean Corpuscular Volume 90.8 fL (80-100); Monocytes Absolute Auto 700 /uL (0-900); Monocytes Percent Auto 7.5 % (3-14); Neutrophils Absolute Auto 6100 /uL (1500-7000); Neutrophils Percent Auto 67.9 % (50-75); Platelet Count 189 X10^3/uL (150-400); Red Blood Cell Count 4.41 X10^6/uL (4.5-5.9); Red Cell Distribution Width 13.9 % (11.6-14.8); White Blood Cell Count 8.9 X10^3/uL (4.5-11.0)
[2021-08-13 03:30] LABS: Alanine Aminotransferase 24 IU/L (<50); Albumin 3.8 g/dL (3.5-5.0); Albumin Globulin Ratio 1.2 (1.0-2.8); Alkaline Phosphatase 72 U/L (38-126); Aspartate Aminotransferase 24 IU/L (17-59); BUN Creatinine Ratio 31.3 (6-22); Bilirubin Total 0.4 mg/dL (0.2-1.3); Blood Urea Nitrogen 21 mg/dL (9-20); Carbon Dioxide 32 mmol/L (22-32); Chloride 98 mmol/L (98-107); Estimated Glomerular Filt Rate > 60.0 mL/min (>60); Globulin 3.2 g/dL (1.7-4.1); Glucose 214 mg/dL (70-100); HEMOLYSIS < 15 (0-50); Lipase 28 U/L (23-300); Magnesium 1.6 mg/dL (1.6-2.3); Potassium 4.1 mmol/L (3.4-5.1); Sodium 137 mmol/L (137-145)
[2021-08-13 03:32] LABS: D Dimer 369 ng/mL (<230)
[2021-08-13 03:42] LABS: NT-proBNP (BNP-Adult 18+) 25 pg/mL (<125); Troponin I < 0.012 ng/mL (0.01-0.034)
--- NOTE | 2021-08-13 04:04 | DI.CT.S_ITS ---
PROCEDURE: CT ANGIO CHEST PE PROTOCOL INDICATIONS: dyspnea, elevated d dimer TECHNIQUE: After the administration of intravenous contrast, 2 mm thick sections acquired from the pulmonary apices to the posterior costophrenic angles. 3-dimensional maximum intensity projection (MIP) coronal and sagittal reformats were then acquired through the thorax. For radiation dose reduction, the following was used: automated exposure control, adjustment of mA and/or kV according to patient size. COMPARISON: None. FINDINGS: Image quality: Excellent. Pulmonary arteries: Pulmonary arteries are normal in size, and demonstrate no intraluminal filling defects to suggest central pulmonary embolism. Lungs and pleura: Lungs are clear. 5 mm subsolid pulmonary nodule, image 167/5, right lower lobe. No other nodular opacities. No pleural effusions or pneumothorax. Central and peripheral airways are patent. Mediastinum: Heart size is normal, without pericardial effusion. No mediastinal or hilar adenopathy. Thoracic aorta is normal in caliber and enhancement. Esophagus is normal in caliber, without hiatal hernia. Bones and chest wall: No suspicious bony lesions. Incomplete bony ankylosis of the thoracic spine. Mild chronic anterior vertebral body height loss of multiple contiguous midthoracic vertebral bodies results in increased thoracic kyphosis. Ribs and thoracic spine appear intact throughout. Thyroid gland is unremarkable as visualized. No axillary or supraclavicular adenopathy. Abdomen: Visualized upper abdominal solid organs appear normal in the early arterial phase of enhancement. IMPRESSION: 1. No evidence of acute pulmonary emboli. 2. No evidence of acute pulmonary process. 3. 5 mm subsolid pulmonary nodule, right lower lobe. As per chart below, there is no required follow-up. Comment: Final report is concordant with preliminary interpretation provided by [facility]. Fleischner Society criteria for SOLID lung nodule followup. Nodule size (mm)Low-risk patientHigh-risk patient<6 (single or multiple)No routine followup.Optional CT at 12 months. 6-8 (single or multiple)CT at 6-12 months, then optional CT at 18-24 mo.CT at 6-12 months, then CT at 18-24 months. >8 (single)CT at 3 months, PET-CT, or biopsy. Same as for low-risk pts. >8 (multiple)CT at 3-6 months, then optional CT at 18-24 mo.CT at 3-6 months, then CT at 18-24 months. Fleischner Society criteria for SUB-SOLID lung nodule followup. Solitary pure ground-glass nodules<6 mm (ground glass or part solid)No followup needed. 6 mm or larger (ground glass)CT at 6-12 months to confirm persistence, then CT every 2 years until 5 years.6 mm or larger (part solid)CT at 3-6 months to confirm persistence, then annual CT until 5 years if unchanged and solid component remains <6 mm. Multiple sub-solid nodules<6 mmCT at 3-6 months, then CT consider at 2 & 4 years for high risk patients. [address] at 3-6 months. Subsequent management based on most suspicious lesions. Recommendations do not apply to lung cancer screening, patients with immunosuppression, or patients with known primary cancer. Dictated by: Ramy Mccann M.D. on 08/13/2021 at 7:16 Approved by: Ramy Mccann M.D. on 08/13/2021 at 7:21
[2021-08-13] MEDS: FUROSEMIDE 120 MG in SODIUM CHLORIDE 0.9% 50 ML 124 ML IV (04:14)
[2021-08-13] MEDS: NITROGLYCERIN OINT 1 INCH/GM OINT...G. TOP (04:26)
[2021-08-13] MEDS: LORazepam 2 MG/ML INJ 1 MG IV ×3 (04:35→19:47)
[2021-08-13 04:52] LABS: COVID19 - ADMIT (NP swab/PCR) Negative (Negative)
[2021-08-13 05:06] LABS: Appearance Urine UA CLEAR; Bilirubin Urine UA NEGATIVE (NEGATIVE); Color Urine UA YELLOW; Glucose Urine UA NEGATIVE (Negative); Ketones Urine UA NEGATIVE (NEGATIVE); Leukocyte Esterase Urine UA NEGATIVE (NEGATIVE); Nitrite Urine UA NEGATIVE (Negative); Occult Blood Urine UA NEGATIVE (Negative); Protein Urine UA NEGATIVE (Negative); Specific Gravity Urine UA 1.015 (1.000-1.035); Urobilinogen Urine UA 0.2 E.U./dL (0.2)
[2021-08-13 05:12] LABS: Bacteria Urine None Seen; RBC Urine None Seen (0-5/HPF); Urine Comments Microscopic Normal; WBC Urine None Seen (0-5/HPF)
[2021-08-13 05:13] LABS: Culture Indicated Urine Cult Not Indicated
--- NOTE | 2021-08-13 05:47 | PC.NURSE ---
Patients , Deborah Mason has requested that she be notified/updated with any changes, she is unable to remain with patient. Her cell phone number is [phone], she states that this is the best number to use when reaching her.
--- NOTE | 2021-08-13 06:20 | DI.ECHO.S_ITS ---
[facility]---------+ [facility] +---------+ : : [address] [place] : : : : [id number] : : : : Phone: [phone]---------+ Echocardiogram Report + + :Name: MARIKA ABREU Study Date: 08/14/2021 Height: 73 in : :[facility] ReadingLocation: Weight: 362 lb: : Gender: Male BSA: 2.8 m2 : :: 1970 Age: 51 yrs : :Reason For Study: Chest pain, SOB : : Performed By: SEVEN ALANIS : :Referring: MORGAN JOHNSON L : + + Interpretation Summary This is a technically difficult study enhanced with definity echocontrast Normal sinus rhythm. Normal LV size and wall thickness. Low normal EF estimated at 50-55%. The caveat is that it is a technically difficult study. Subtle wall motion abnormalities may not be readily apparent despite Definity echocontrast. Grossly normal chamber sizes. No significant valvular abnormalities. No prior study available for comparison. Procedure: A two-dimensional transthoracic echocardiogram with color flow and Doppler was performed. The study quality was technically difficult. Images from the parasternal window were difficult to obtain and are suboptimal in quality. There is no prior echocardiogram noted for this patient. A contrast injection of Definity was performed to improve assessment of LV function. Patient being uncooperative, body habitus and breathing made the exam very difficult. The patient was in normal sinus rhythm during the exam. Left Ventricle: Left ventricular systolic function visually appears normal. Right Ventricle: The right ventricle is mildly dilated. The right ventricular systolic function is normal. Atria: The left atrium is not well visualized. Right atrium not well visualized secondary to technical limitations. Mitral Valve: The mitral valve is grossly normal. Aortic Valve: The aortic valve is trileaflet. The aortic valve opens well. Tricuspid Valve: The tricuspid valve is not well visualized, but is grossly normal. There is a trace or physiologic amount of tricuspid regurgitation. Pulmonary artery pressures cannot be estimated because of the lack of a measurable TR jet velocity. Pulmonic Valve: The pulmonic valve is not well visualized. Great Vessels: The aortic root is not well visualized. The ascending aorta could not be visualized. The aortic arch could not be visualized. The inferior vena cava was not well visualized. Pericardium/ Pleura There is no pericardial effusion. There is no pleural effusion. MMode/2D Measurements & Calculations LA A2 area: 27.8 cm2 RA long axis: 4.9 cm LA A4 area: 19.2 cm2 RA area: 20.6 cm2 LA length (vol): 5.7 cm RA vol: 73.6 ml LA vol: 79.4 ml RA : 26.6 ml/m2 LA vol index: 28.7 ml/m2 RVD1 (basal): 5.2 cm TAPSE: 2.6 cm Doppler Measurements & Calculations Ao V2 max: 118.5 cm/sec LVOT Max Robert: 110.8 cm/sec Ao V2 mean: 82.5 cm/sec LV V1 max P.9 mmHg Ao max P.6 mmHg LV V1 VTI: 18.8 cm Ao mean P.0 mmHg sev ratio: 1.1 Ao V2 VTI: 17.8 cm MV E max robert: 53.9 cm/sec MV A max robert: 80.0 cm/sec MV E/A: 0.67 Med Peak E' Robert: 8.1 cm/sec E/E' med: 6.7 Lat Peak E' Robert: 14.3 cm/sec E/E' lat: 3.8 E/e' average: 5.2 MV dec time: 0.22 sec Electronically signed by: Kirsten Forman M.D. on Reading Physician:08/14/2021 01:13 PM
--- NOTE | 2021-08-13 07:15 | PC.NURSE ---
Assumed care of pt at shift change. He is sleeping on his back with HOB elevated and BiPap on. Appears comfortable, with deep, even, unlabored respirations. Muscle tone is relaxed and still. Hypertensive and tachy, though stable. Call light and urinal within reach. Per nightshift report, pt has eliminated 2 liters since initiating BiPap and after lasix.
--- NOTE | 2021-08-13 08:16 | PC.NURSE ---
BiPap DC'd by RT. Pt tolerating well thus far.
--- NOTE | 2021-08-13 09:21 | PC.NURSE ---
Deborah updated with admit details and room.
[2021-08-13] MEDS: cloNIDine 0.1 MG TABLET PO ×3 (10:28→17:01)
[2021-08-13] MEDS: LORazepam 1 MG TABLET PO ×2 (10:28→14:42)
--- NOTE | 2021-08-13 11:24 | PC.NURSE ---
Addendum entered by Ciarra Ramirez R.N. 08/13/21 15:41: Patient anxious around 1430, given clonidine 0.1mg with 1mg of po ativan. This has helped patient stay comfortable and calm for a few hours at a time. He does have a temperature of 100.9, given tylenol and for comfort. Blood Pressure with dyastolic of 170s. Dr. Gregory aware. Patient also had a bowel movement and is voiding per urinal. Original Note: Patient is alert and oriented x3, he is anxious and worried that he is going to go through withdrawal from his fentanyl use and he is afraid that he is going to pass away. Reassured that we are going to take good care of him and give him the proper medications for this. Patient given ativan 1mg for anxiety and this has been helpful to him, he has been able to rest. Patient has some skin issues that can be seen under skin assessment. He states that he smokes fentanyl and his is aware of this, patient is a [employer] and states that he also works with [employer]. He will get iv lasix soon, lung sounds are clear and heart rate regular. Patient resting on his right side. He also has a rotund abdomen that is red and warm to touch, lower extremities bilaterally are red with 3+ pitting edema. Blood pressure is 140s/105, with temp of 100.0. Dr. Gregory is aware.
[2021-08-13] MEDS: FUROSEMIDE 40 MG/4 ML VIAL IV (11:47)
[2021-08-13] MEDS: ACETAMINOPHEN 325 MG TABLET 650 MG PO (14:48)
[2021-08-13 15:40] LABS: BUN Creatinine Ratio 28.8 (6-22); Blood Urea Nitrogen 17 mg/dL (9-20); Calcium 9.6 mg/dL (8.4-10.2); Carbon Dioxide 35 mmol/L (22-32); Chloride 97 mmol/L (98-107); Estimated Glomerular Filt Rate > 60.0 mL/min (>60); Glucose 119 mg/dL (70-100); HEMOLYSIS < 15 (0-50); Potassium 3.7 mmol/L (3.4-5.1); Sodium 137 mmol/L (137-145)
[2021-08-13 15:56] LABS: Magnesium 1.6 mg/dL (1.6-2.3)
[2021-08-13 16:13] LABS: Procalcitonin 0.05 ng/mL (<0.5)
[2021-08-13] MEDS: cefTRIAXone 1,000 MG in SODIUM CHLORIDE 0.9% 100 ML 200 ML IV (16:20)
[2021-08-13] MEDS: LORazepam 2 MG/ML INJ 0.5 MG IV (16:59)
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
[2021-08-13 18:05] LABS: Troponin I < 0.012 ng/mL (0.01-0.034)
[2021-08-13] MEDS: AZITHROMYCIN 500 MG in DEXTROSE 5% IN WATER 250 ML IV (18:44)
[2021-08-13] MEDS: cloNIDine 0.1 MG TABLET 0.2 MG PO (19:47)
[2021-08-13] MEDS: TRAZODONE 50 MG TABLET 25 MG PO (20:55)
[2021-08-13] MEDS: ENOXAPARIN 40 MG/0.4 ML SYRINGE SUBCUT (20:58)
[2021-08-13 21:59] LABS: Coronavirus 229E Not Detected (Not Detect); Coronavirus HKU1 Not Detected (Not Detect); Coronavirus NL 63 Not Detected (Not Detect)
[2021-08-13 22:00] LABS: Adenovirus Not Detected (Not Detect); Bordetella pertussis Not Detected (Not Detecte); Chlamydophila pneumoniae Not Detected (Not Detect); Coronavirus OC43 Not Detected (Not Detect); Human Metapneumovirus Not Detected (Not Detect); Human Rhinovirus/Enterovirus Not Detected (Not Detect); Influenza A Not Detected (Not Detect); Influenza B Not Detected (Not Detect); Mycoplasma pneumoniae Not Detected (Not Detect); Parainfluenza Virus 1 Not Detected (Not Detect); Parainfluenza Virus 2 Not Detected (Not Detect); Parainfluenza Virus 3 Not Detected (Not Detect); Parainfluenza Virus 4 Not Detected (Not Detect); Respiratory Syncytial Virus Not Detected (Not Detect)
[2021-08-14] VITALS (8 sets, daily range): BP systolic 130–167; BP diastolic 63–106; PULSE 90–94; RESP 16–24; TEMP 36.9–37; O2SAT 93–98
[2021-08-14] MEDS: cloNIDine 0.1 MG TABLET PO (01:18)
[2021-08-14] MEDS: LORazepam 2 MG/ML INJ 1 MG IV ×4 (02:56→15:53)
[2021-08-14 07:25] LABS: Add Manual Diff / Slide Review NO; Basophils Absolute Auto 0 /uL (0-100); Basophils Percent Auto 0.2 % (0-2); Eosinophils Absolute Auto 100 /uL (0-450); Eosinophils Percent Auto 0.9 % (2-4); Lymphocytes Absolute Auto 1600 /uL (1100-4500); Lymphocytes Percent Auto 13.9 % (25-40); Mean Corpuscular HGB Conc 33.4 % (30-36); Mean Corpuscular Volume 89.6 fL (80-100); Monocytes Absolute Auto 700 /uL (0-900); Monocytes Percent Auto 6.1 % (3-14); Neutrophils Absolute Auto 8900 /uL (1500-7000); Neutrophils Percent Auto 78.9 % (50-75); Platelet Count 209 X10^3/uL (150-400); Red Blood Cell Count 4.69 X10^6/uL (4.5-5.9); White Blood Cell Count 11.3 X10^3/uL (4.5-11.0)
[2021-08-14 07:32] LABS: Blood Urea Nitrogen 14 mg/dL (9-20); Calcium 9.5 mg/dL (8.4-10.2); Carbon Dioxide 32 mmol/L (22-32); Chloride 101 mmol/L (98-107); Estimated Glomerular Filt Rate > 60.0 mL/min (>60); Glucose 134 mg/dL (70-100); HEMOLYSIS < 15 (0-50); Potassium 3.7 mmol/L (3.4-5.1); Sodium 138 mmol/L (137-145)
--- NOTE | 2021-08-14 08:20 | PC.NURSE ---
Addendum entered by Ciarra Ramirez R.N. 08/14/21 12:47: At 1125, patient had a clinical opiate withdrawal scale of 4. BP remains high but has been running consistant since yesterday at 167/105, p94. Addendum entered by Ciarra Ramirez R.N. 08/14/21 11:46: Patient started on suboxone, he has tolerated thus far. He is restless at times but doing decent after ativan given. Addendum entered by Ciarra Ramirez R.N. 08/14/21 10:46: Patient is in mild withdrawal, given 1mg of iv ativan around 1000. This has been effective for this, patient had a resting pulse rate in the 90s. He is sweating, restless, pupils are mildly dilated, and he does have some anxiety. He has calmed after iv ativan given, patient is getting his echo now. Original Note: Patient is eating his breakfast now. He denies pain and is calm. Patient needs to shower and we have encouraged this. His is rubbing lotion on his feet now and has agreed to help him shower when she gets off of work. Patients edema to his lower legs is 2+, although his ankles and feet and lower calfs are less swollen. He is getting ativan and clonidine for his withdrawal from Fentanyl. This has been helpful for him. Patient has multiple skin issues that can be seen under physical assessment.
[2021-08-14 09:55] LABS: Magnesium 1.8 mg/dL (1.6-2.3)
[2021-08-14] MEDS: FUROSEMIDE 40 MG/4 ML VIAL IV (09:57)
[2021-08-14] MEDS: ENOXAPARIN 40 MG/0.4 ML SYRINGE SUBCUT (09:57)
--- NOTE | 2021-08-14 10:07 | P.DS_ITS ---
History of Present Illness History of Present Illness Chief complaint: chest pain/sob Narrative: Mr. Mason is a 51M with PMH CHF, morbid obesity, substance abuse of opiates who presents with shortness of breath. Patient states that he has noted increased lower extremity swelling. He has a cough that has mild clear phlegm. No fevers/chills. No chest pain. He does not he has a significant opiate use disorder where he will smoke 30-50 of fentanyl perc 30s daily. He states he has been using for approximately two years. Last used yesterday per the patient prior to coming to the ED. Never been to a facility for substance abuse. He states he is hundreds of thousands of dollars in debt due to his addiction. When talking to him he states he feels terrible, he is anxious, withdrawing, diaphoretic, nausea, and states he feels like he is going to . In the ED workup was done, vitals were notable for temp of 98.3, hr 85, rr 27, he did desat to 80% on room air. He was in respiratory distress and placed on B IPAP. Labs notable for WBC 8.9, hgb 13.2, creatinine 0.67, troponin negative. Urine negative. He was ordered for lasix, ativan, and admitted for further treatment. 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 Acute hypoxemic respiratory failure from acute diastolic CHF exacerbation 2. Acute opiate withdrawal 3. Morbid obesity 4. Hypertension 5. Fever, resolved Hospital Course: Mr. Mason came in to the hospital with respiratory failure with acute CHF exacerbation. ECHO showed EF 50-55%. He was diuresed and began to feel improve. He has a significant opiate abuse history. He began withdrawing in the hospital. He was given suboxone, along with symptomatic relief. He was recommended to continue to stay in the hospital but left against medical advice. Exam Vital Signs (past 8 hours): Fraction of Inspired Oxygen 30 Oxygen Delivery Method Room Air Oxygen Flow Rate 0 Narrative Exam Narrative: General:? Anxious appearing male with elevated respiratory rate Lungs:? Clear to auscultation Heart:? Regular rhythm Abdomen:? Obese, nontender Extremities:? Chronic venous stasis changes with nonpitting edema Neurological:? Anxious, cooperative and not confused Objective Labs Result Diagrams: 08/14/21 06:53 08/14/21 06:53 [facility] Medical History Cardiomegaly Congestive heart failure Foot pain Morbid obesity with body mass index (BMI) of 40.0 to 44.9 in adult (11/21/17) Opioid use disorder Recurrent low back pain Venous stasis ulcers of both lower extremities (11/21/17) Family History Mother Cancer Lung cancer Social History household members: spouse Smoking Status: Current every day smoker Discharge Plan Discharge Plan Patient Disposition: Left Against Medical Advice Discharge orders & Medications Prescriptions: Continued furosemide 40 mg tablet 40 mg PO BID Qty: 60 RF: 0 losartan 25 mg tablet 25 mg PO DAILY Qty: 30 RF: 3 Follow up/Referrals: Hayley Cochran ARNP [Primary Care Provider] - Discharge Data Primary Care Provider: Hayley Cochran Quality VTE Deep Vein Thrombosis/Pulmonary Embolism Present on Admission: No
--- NOTE | 2021-08-14 10:47 | P.PN_ITS ---
Subjective Subjective Date Patient Seen: 08/14/21 Time Patient Seen: 10:00 Interval history: 51M [employer] with PMH CHF, morbid obesity, substance abuse of opiates?presented with dyspnea and increased swelling in lower extremities. He is being treated for CHF exacerbation. He notes some improvement in dyspnea and lower extremity swelling although still feels out of breath. He feels very weak as well. Additionally he appears anxious and going through significant opioid withdrawal. Exam Vital Signs (past 8 hours): - 08/14/21 02:50 08/14/21 03:00 08/14/21 04:45 Temperature 98.5 F Pulse Rate 91 H 90 Respiratory Rate 19 Blood Pressure 130/70 149/63 H Pulse Oximetry 95 97 98 08/14/21 06:46 08/14/21 08:57 Temperature 98.6 F Pulse Rate 90 94 H Respiratory Rate 24 20 Blood Pressure 139/99 H 155/106 H Pulse Oximetry 95 93 Fraction of Inspired Oxygen 30 Oxygen Delivery Method Room Air Oxygen Flow Rate 0 Narrative Exam Narrative: General: Anxious appearing male with elevated respiratory rate Lungs: Clear to auscultation Heart: Regular rhythm Abdomen: Obese, nontender Extremities: Chronic venous stasis changes with nonpitting edema Neurological: Anxious, cooperative and not confused Objective Labs Result Diagrams: 08/14/21 06:53 08/14/21 06:53 Labs: Laboratory Results - last 24 hr 08/13/21 08/13/21 08/13/21 03:55 15:10 15:10 WBC RBC Hgb Hct MCV MCH MCHC RDW Plt Count Neut % (Auto) Lymph % (Auto) [place] % (Auto) Eos % (Auto) Baso % (Auto) Neut # (Auto) Lymph # (Auto) [place] # (Auto) Eos # (Auto) Baso # (Auto) Sodium 137 Potassium 3.7 Chloride 97 L Carbon Dioxide 35 H BUN 17 Creatinine 0.59 L Estimated GFR > 60.0 BUN/Creatinine Ratio 28.8 H Glucose 119 H Calcium 9.6 Magnesium Troponin I Procalcitonin 0.05 Nasal Screen MRSA (PCR) Chlamy pneumoniae PCR Not detected Adenovirus (PCR) Not detected B. pertussis DNA (PCR) Not detected B.parapertussis DNA PCR Not Reportable Coronavirus OC43 (PCR) Not detected Coronavirus HKU1 (PCR) Not detected Coronavirus 229E (PCR) Not detected SARS-CoV-2 (PCR) Not Reportable Coronavirus NL63 (PCR) Not detected Human Metapneumovir PCR Not detected Influenza Type A (PCR) Not detected Influenza Type B (PCR) Not detected M. pneumoniae (PCR) Not detected Parainfluenza 1 (PCR) Not detected Parainfluenza 2 (PCR) Not detected Parainfluenza 3 (PCR) Not detected Parainfluenza 4 (PCR) Not detected RSV (PCR) Not detected Entero/Rhino (PCR) Not detected 08/13/21 08/13/21 08/13/21 15:10 15:10 20:00 WBC RBC Hgb Hct MCV MCH MCHC RDW Plt Count Neut % (Auto) Lymph % (Auto) [place] % (Auto) Eos % (Auto) Baso % (Auto) Neut # (Auto) Lymph # (Auto) [place] # (Auto) Eos # (Auto) Baso # (Auto) Sodium Potassium Chloride Carbon Dioxide BUN Creatinine Estimated GFR BUN/Creatinine Ratio Glucose Calcium Magnesium 1.6 Troponin I < 0.012 Procalcitonin Nasal Screen MRSA (PCR) Negative for mrsa Chlamy pneumoniae PCR Adenovirus (PCR) B. pertussis DNA (PCR) B.parapertussis DNA PCR Coronavirus OC43 (PCR) Coronavirus HKU1 (PCR) Coronavirus 229E (PCR) SARS-CoV-2 (PCR) Coronavirus NL63 (PCR) Human Metapneumovir PCR Influenza Type A (PCR) Influenza Type B (PCR) M. pneumoniae (PCR) Parainfluenza 1 (PCR) Parainfluenza 2 (PCR) Parainfluenza 3 (PCR) Parainfluenza 4 (PCR) RSV (PCR) Entero/Rhino (PCR) 08/14/21 08/14/21 08/14/21 06:53 06:53 06:53 WBC 11.3 H RBC 4.69 Hgb 14.0 Hct 42.0 MCV 89.6 MCH 30.0 MCHC 33.4 RDW 14.0 Plt Count 209 Neut % (Auto) 78.9 H Lymph % (Auto) 13.9 L [place] % (Auto) 6.1 Eos % (Auto) 0.9 L Baso % (Auto) 0.2 Neut # (Auto) 8900 H Lymph # (Auto) 1600 [place] # (Auto) 700 Eos # (Auto) 100 Baso # (Auto) 0 Sodium 138 Potassium 3.7 Chloride 101 Carbon Dioxide 32 BUN 14 Creatinine 0.56 L Estimated GFR > 60.0 BUN/Creatinine Ratio 25.0 H Glucose 134 H Calcium 9.5 Magnesium 1.8 Troponin I Procalcitonin Nasal Screen MRSA (PCR) Chlamy pneumoniae PCR Adenovirus (PCR) B. pertussis DNA (PCR) B.parapertussis DNA PCR Coronavirus OC43 (PCR) Coronavirus HKU1 (PCR) Coronavirus 229E (PCR) SARS-CoV-2 (PCR) Coronavirus NL63 (PCR) Human Metapneumovir PCR Influenza Type A (PCR) Influenza Type B (PCR) M. pneumoniae (PCR) Parainfluenza 1 (PCR) Parainfluenza 2 (PCR) Parainfluenza 3 (PCR) Parainfluenza 4 (PCR) RSV (PCR) Entero/Rhino (PCR) [facility] Medical History Cardiomegaly Congestive heart failure Foot pain Morbid obesity with body mass index (BMI) of 40.0 to 44.9 in adult (11/21/17) Opioid use disorder Recurrent low back pain Venous stasis ulcers of both lower extremities (11/21/17) Family History Mother Cancer Lung cancer Social History household members: spouse Smoking Status: Current every day smoker Assessment & Plan Assessment & Plan narrative: Mr. Mason is a 51M [employer] with H opiate abuse, CHF who presents with acute CHF exacerbation. 1. Acute hypoxemic respiratory failure from acute CHF exacerbation -he has noted volume overload with pulmonary edema on xray, initially sats in 80s -improved with lasix with good diuresis -continue with IV lasix 40 mg q.d. -KCL 40 mEq x 1 then 20 mEq b.i.d. cc while on IV Lasix -low salt diet, fluid restriction ordered -ECHO pending 2. Acute opiate withdrawal -treat symptomatically -clonidine per COWS is ordered, follow blood pressure closely -ordered ativan PRN for anxiety, dicyclomine prn for abdominal cramps, loperamide PRN for diarrhea, trazodone prn for insomnia, baclofen prn for muscle spasms -social work consult -Suboxone 8/2 mg q.a.m. for severe withdrawal 3. Morbid obesity -rec outpatient follow up with PCP -recommend outpatient sleep study rule out sleep apnea 4. Hypertension -hold losartan for now as will be giving clonidine for opiate withdrawal 5. Fever, resolved -probable from opiate withdrawal -WBC repeat slightly elevated but procalcitonin normal -UA negative, chest xray appears more likely to be fluid -lower extremities appear more like fluid overload than cellulitis -discontinued antibiotics on 08/14 CODE: Full Proxy: Deborah Canada, spouse Time Spent With Patient Critical Care time: I spent a total of [] minutes of critical care time on this patient's care today; this time is exclusive of procedural time. Quality VTE Deep Vein Thrombosis/Pulmonary Embolism Present on Admission: No
[2021-08-14] MEDS: BUPRENORPHINE/NALOXONE 8MG/2MG 1 TAB SL (11:25)
[2021-08-14] MEDS: POTASSIUM CHLORIDE 20 MEQ TAB 40 MEQ PO (11:25)
--- NOTE | 2021-08-14 13:13 | PC.NURSE ---
Addendum entered by Ciarra Ramirez R.N. 08/14/21 14:33: Patients in room, he is doing well at this time. His blood pressure is 140s/103. He is stable and voiding per urinal. Addendum entered by Ciarra Ramirez R.N. 08/14/21 13:19: Patient has a mild withdrawal after given suboxone, his blood pressure was 167/105 and this has been consistant for the last 24 hours. Patient also given iv lasix and he is putting out clear yellow urine. Addendum entered by Ciarra Ramirez R.N. 08/14/21 13:18: 1146- Patient started on suboxone, he has tolerated thus far. He is restless at times but has been naping after meds given. Addendum entered by Ciarra Ramirez R.N. 08/14/21 13:16: 1046- Patient is in mild withdrawal, given 1mg of iv ativan around 1000. This has been effective for patient, he has a resting pulse rate in the 90s. He is sweating, restless, pupils are mildly dilated, and he does have some anxiety. He has calmed after the 1mg of iv ativan given and is getting his echo now. Original Note: Updated note-[id number]- Patient is eating his breakfast now. He denies pain and is calm. Patient needs to shower and we have encouraged this. His is going to come this afternoon and help him shower. His is rubbing lotion on his feet now. Patient has edema to his bilateral lower legs and feet that is 2+ and his legs are calloused and hard. They do look better than yesterday. He is getting ativan and clonidine for his fentanyl withdrawal from fentanyl. This has been helpful for him. Patient has multipe skin issues that can be seen under physical assessment.
--- NOTE | 2021-08-14 15:36 | CM.SWNOTE ---
TISSUE SPECIALIST Note TISSUE SPECIALIST consult received to assess needs of this 51 yo male and complete KAL assessment d/t reported opiate dependence. ED TISSUE SPECIALIST Elsie Villagran kindly agreed to see this patient today to complete KAL assessment. 1535: according to Dr Gregory, patient wants to leave AMA Updated TISSUE SPECIALIST Elsie PUGH
--- NOTE | 2021-08-14 16:49 | PC.NURSE ---
Patient left AMA at 16:50, he was transported downstairs by wheelchair.
== END 2021-08-14 16:48 | disposition left against medical advice (07) | DRG 291 ==
LOC: ED 07:05 → AC 08:16
PROVIDERS: Emergency Medicine; Admitting Provider Internal Medicine; Emergency Provider Emergency Medicine; PCP Registered Nurse; Referring Provider Emergency Medicine; Visit Provider Internal Medicine
DX: I50.31 Acute diastolic (congestive) heart failure (principal); J96.01 Acute respiratory failure with hypoxia; Z68.42 Body mass index [BMI] 45.0-49.9, adult; F11.23 Opioid dependence with withdrawal; E66.01 Morbid (severe) obesity due to excess calories; R50.9 Fever, unspecified; I10 Essential (primary) hypertension; F17.210 Nicotine dependence, cigarettes, uncomplicated; Z20.822 Contact with and (suspected) exposure to COVID-19
CPT/HCPCS: 36415; 71045; 71275; 80048; 80053; 81001; 83690; 83735; 83880; 84145; 84484; 85025; 85379; 87633; 87635; 87797; 93005; 93010; 93306; 94660; 94760; 96365; 96375; 96376; 99284; 99291; 99406; C9803; J0696; J1650; J1940; J2060; Q9957; Q9967

== ENCOUNTER → 2021-09-04 11:28 | Outpatient (CLI) | payer BC, SELFPAY ==
[2021-08-13 06:12] VITALS: PULSE 98; RESP 14; O2SAT 97
[2021-08-13 09:34] VITALS: BMI 47.7
[2021-09-04 14:21] LABS: BUN Creatinine Ratio 24.3 (6-22); Blood Urea Nitrogen 18 mg/dL (9-20); Calcium 9.2 mg/dL (8.4-10.2); Carbon Dioxide 37 mmol/L (22-32); Chloride 92 mmol/L (98-107); Estimated Glomerular Filt Rate > 60.0 mL/min (>60); Glucose 135 mg/dL (70-100); HEMOLYSIS < 15 (0-50); Magnesium 1.6 mg/dL (1.6-2.3); Potassium 3.6 mmol/L (3.4-5.1); Sodium 139 mmol/L (137-145)
[2021-09-04 14:28] LABS: NT-proBNP (BNP-Adult 18+) 34 pg/mL (<125)
[2021-09-04 18:15] LABS: Creatinine Urine Random 85.9 mg/dL
[2021-09-04 18:21] LABS: Protein (Total) Urine Random < 5 mg/dL (0-12); Protein Creatinine Ratio Urine 0.05 GRAM/24H
== END ==
PROVIDERS: Internal Medicine; PCP Registered Nurse; Referring Provider Internal Medicine Cardiovascular Disease; Visit Provider Internal Medicine Cardiovascular Disease
DX: I50.9 Heart failure, unspecified (principal); I51.7 Cardiomegaly; E66.01 Morbid (severe) obesity due to excess calories
CPT/HCPCS: 36415; 80048; 82570; 83735; 83880; 84156

== ENCOUNTER → 2021-12-15 12:55 | Outpatient (CLI) | payer BC, SELFPAY ==
[2021-08-13 06:12] VITALS: PULSE 98; RESP 14; O2SAT 97
[2021-08-13 09:34] VITALS: BMI 47.7
[2021-12-15 14:10] LABS: Alanine Aminotransferase 26 IU/L (<50); Albumin 4.3 g/dL (3.5-5.0); Albumin Globulin Ratio 1.1 (1.0-2.8); Alkaline Phosphatase 85 U/L (38-126); Aspartate Aminotransferase 26 IU/L (17-59); BUN Creatinine Ratio 27.4 (6-22); Bilirubin Total 0.6 mg/dL (0.2-1.3); Blood Urea Nitrogen 17 mg/dL (9-20); Calcium 9.2 mg/dL (8.4-10.2); Chloride 95 mmol/L (98-107); Estimated Glomerular Filt Rate > 60.0 mL/min (>60); Globulin 3.9 g/dL (1.7-4.1); Glucose 128 mg/dL (70-100); HEMOLYSIS < 15 (0-50); Sodium 139 mmol/L (137-145); Total Protein 8.2 g/dL (6.3-8.2)
[2021-12-15 14:16] LABS: Carbon Dioxide 39 mmol/L (22-32)
== END ==
LOC: LAB 12:57
PROVIDERS: PCP Registered Nurse; Referring Provider Registered Nurse; Visit Provider Registered Nurse
DX: I50.9 Heart failure, unspecified (principal)
CPT/HCPCS: 36415; 80053

== ENCOUNTER 2022-04-02 06:32 | Emergency (ER) | payer BC, SELFPAY ==
[2021-08-13 06:12] VITALS: PULSE 98; RESP 14; O2SAT 97
[2021-08-13 09:34] VITALS: BMI 47.7
[2022-04-02] VITALS (23 sets, daily range): BP systolic 109–142; BP diastolic 58–101; PULSE 80–112; RESP 26; O2SAT 89–97; BMI 47.5
--- NOTE | 2022-04-02 07:06 | DI.RAD.S_ITS ---
PROCEDURE: XR CHEST 1V INDICATIONS: short of breath TECHNIQUE: One view of the chest was acquired. COMPARISON: [facility], CR, XR CHEST 1V, 08/13/2021, 2:46. FINDINGS: Surgical changes and devices: None. Lungs and pleura: Central pulmonary vascular prominence. Lungs are clear. No pleural effusions or pneumothorax. Mediastinum: Mediastinal contours appear normal. Heart is mildly enlarged Bones and chest wall: No suspicious bony lesions. Overlying soft tissues appear unremarkable. IMPRESSION: Mild cardiomegaly with central pulmonary vascular prominence concerning for CHF/fluid overload. Dictated by: Cristina Barry MD, PhD on 04/02/2022 at 7:38 Approved by: Cristina Barry MD, PhD on 04/02/2022 at 7:39
--- NOTE | 2022-04-02 07:07 | ED_ITS ---
HPI - SOB/Dyspnea General Chief Complaint: Shortness of Breath/Dyspnea Stated Complaint: whole body swollen/chest pain Time Seen by Provider: 04/02/22 06:56 Source: patient Mode of arrival: Ambulatory Limitations: no limitations History of Present Illness HPI Narrative: Patient is a 51-year-old male history of hypertension hyperlipidemia presenting today with increasing shortness of breath. He states that he has been her breath for while but probably more so over the last 1 week. His was sick and he feels like he may be sick as well. He denies fever or chills. He is having a productive cough. He is short of breath with exertion any also experiences chest pain with exertion but he feels like his chest pain may be constant as well. It is nonradiating. He admits to smoking fentanyl prior to arrival, something he does regularly. He says he has been taking Lasix but still cannot breathe. Related Data Previous Rx's Medication Instructions Recorded albuterol sulfate 90 mcg/actuation 2 puff inhalation Q4-6H PRN 12/03/21 aerosol inhaler shortness of breath or wheezing #8.5 grams losartan 25 mg tablet 25 mg PO DAILY CHF #60 tabs 12/15/21 furosemide 80 mg tablet See Rx Instructions .Route 02/23/22 .COMPLEX #90 tabs furosemide 80 mg tablet 80 mg PO BID #60 tabs 04/02/22 Allergies Allergy/AdvReac Type Severity Reaction Status Date / Time No Known Drug Allergies Allergy Verified 12/03/21 08:05 Review of Systems Review of Systems Narrative: GENERAL: Denies chills, fatigue, malaise, fever, sweats, travel HEENT: Denies sinus pain, ear pain, sore throat, difficulty swallowing, neck pain RESPIRATORY: See HPI CARDIOVASCULAR: See HPI GASTROINTESTINAL: Denies nausea, vomiting, abdominal pain, diarrhea, constipation, melena. : Denies dysuria, frequency, incontinence, hematuria, urinary retention, flank pain. MUSCULOSKELETAL: Denies weakness, joint pain, or bony pain SKIN: No rash, no erythema, no pruritus NEUROLOGIC: Denies weakness, dizziness, headache, numbness, change in speech, confusion PSYCHIATRIC: No concerning psychosocial issues. 12 point review of systems is negative except for those stated above and HPI Patient History Medical History Cardiomegaly Congestive heart failure Foot pain Morbid obesity with body mass index (BMI) of 40.0 to 44.9 in adult (11/21/17) Obesity, morbid, BMI 40.0-49.9 Opioid use disorder Recreational drug use Recurrent low back pain SOB (shortness of breath) Venous stasis ulcers of both lower extremities (11/21/17) Family History Mother Cancer Lung cancer Social History household members: spouse Smoking Status: Current every day smoker Smoking Status: Current every day smoker alcohol intake frequency: a few times a week Alcohol type: beer and hard liquor Substance Use Type: painkillers Exam Initial Vital Signs Initial Vital Signs: Vital Signs Pulse Rate 106 H 04/02/22 06:35 Respiratory Rate 26 H 04/02/22 06:35 Blood Pressure 136/65 04/02/22 06:35 Pulse Oximetry 95 04/02/22 06:35 Oxygen Delivery Method 04/02/22 06:35 GENERAL: Sleepy but arousable 51-year-old male discharge goals and in no acute distress. HEENT: Head atraumatic,EOMI, pupils reactive, face symmetric, moist mucous me mbranes CARDIOVASCULAR: Regular rate and rhythm without murmurs, rubs or gallops. RESPIRATORY: Breath sounds equal bilaterally, no wheezes rales or rhonchi. ABDOMEN: Soft, nontender. Normoactive bowel sounds all 4 quadrants. No guarding or rebound. EXTREMITIES: Normal range of motion, no clubbing. +3 pitting edema Neurovascularly intact NEUROLOGICAL: Alert and oriented x4.Normal gait and speech. SKIN: Warm, dry, no laceration, no petechiae, no rashes or lesions. Course Orders Ordered: ED Orders 04/02/22 06:55 Complete Blood Count AUTO DIFF Stat Comprehensive Metabolic Panel Stat D Dimer Stat Lactate (Lactic Acid) Stat Lipase Stat NT-proBNP (BNP-Adult 18+) Stat Partial Thromboplastin Time Stat Procalcitonin Stat Prothrombin Time INR Stat Troponin & CK Cardiac Panel Stat 04/02/22 07:06 XR chest 1V Stat EKG-12 Lead Stat 04/02/22 07:46 COVID19 -Nasal RAPID/Pre-Proc Stat 04/02/22 08:10 Blood Culture Stat 04/02/22 08:31 CT angio chest PE protocol Stat 04/02/22 10:20 Urine Drug Screen, Rapid Stat 04/02/22 10:52 ABG [Arterial Blood Gas] Stat 04/02/22 11:48 Consult to OUT OF TOWN COLLECTION CLERK - Interior Design Professional Stat 04/02/22 11:55 Consult to [facility] [place] [facility] [place] Interior Design Professional Stat Discontinued Medications Clonidine HCl (Clonidine 0.1 Mg Tablet) 0.1 mg PO NOW ONE Stop: 04/02/22 10:39 Last Admin: 04/02/22 11:34 Dose: 0.1 mg Documented By: LANE Furosemide (Furosemide 100 Mg/10 Ml Vial) 80 mg IV NOW ONE Stop: 04/02/22 07:56 Last Admin: 04/02/22 08:11 Dose: 80 mg Documented By: ABBI Lorazepam (Lorazepam 2 Mg/Ml Inj) 1 mg IV NOW ONE Stop: 04/02/22 09:07 Last Admin: 04/02/22 09:31 Dose: 1 mg Documented By: LANE Vital Signs Vital signs: Vital Signs - 8 hr 04/02/22 07:08 04/02/22 07:00 04/02/22 07:01 Pulse Rate 101 H Blood Pressure 134/58 L Pulse Oximetry 93 90 L Oxygen Delivery Method Nasal Cannula Oxygen Flow Rate 2 04/02/22 07:01 04/02/22 07:30 04/02/22 07:30 Pulse Rate 102 H 93 H Blood Pressure 117/66 Pulse Oximetry 90 L 95 Oxygen Delivery Method Nasal Cannula Oxygen Flow Rate 3 04/02/22 08:00 04/02/22 08:02 04/02/22 08:02 Pulse Rate 93 H 91 H Blood Pressure 134/67 Pulse Oximetry 92 Oxygen Delivery Method Nasal Cannula Nasal Cannula Oxygen Flow Rate 3 3 04/02/22 08:30 04/02/22 08:31 04/02/22 08:31 Pulse Rate 84 89 Blood Pressure 142/101 H Pulse Oximetry Oxygen Delivery Method Oxygen Flow Rate 04/02/22 09:03 04/02/22 09:04 04/02/22 09:04 Pulse Rate 88 85 Blood Pressure 109/71 Pulse Oximetry 97 96 Oxygen Delivery Method Nasal Cannula Nasal Cannula Oxygen Flow Rate 3 3 04/02/22 09:30 04/02/22 10:00 04/02/22 10:30 Pulse Rate 86 83 86 Blood Pressure Pulse Oximetry 97 94 95 Oxygen Delivery Method Nasal Cannula Nasal Cannula Nasal Cannula Oxygen Flow Rate 3 3 3 04/02/22 11:00 04/02/22 11:30 04/02/22 11:54 Pulse Rate 84 80 97 H Blood Pressure Pulse Oximetry 93 93 89 L Oxygen Delivery Method Room Air Room Air Oxygen Flow Rate 04/02/22 12:00 04/02/22 12:30 04/02/22 13:00 Pulse Rate 86 89 87 Blood Pressure Pulse Oximetry 93 93 96 Oxygen Delivery Method Oxygen Flow Rate 04/02/22 13:27 04/02/22 13:27 Pulse Rate 86 Blood Pressure 109/63 Pulse Oximetry 95 Oxygen Delivery Method Oxygen Flow Rate MDM - SOB/Dyspnea Lab Data Result diagrams: 04/02/22 06:55 04/02/22 06:55 Labs: Lab Results 04/02/22 04/02/22 04/02/22 Range/Units 06:55 06:55 06:55 WBC 8.8 (4.5-11.0) X10^3/uL RBC 4.31 L (4.5-5.9) X10^6/uL Hgb 12.6 L (13.5-17.5) g/dL Hct 37.9 L (41-53) % MCV 87.9 (80-100) fL MCH 29.1 (26-34) PG MCHC 33.2 (30-36) % RDW 14.2 (11.6-14.8) % Plt Count 203 (150-400) X10^3/uL Neut % (Auto) 64.0 (50-75) % Lymph % (Auto) 26.3 (25-40) % [place] % (Auto) 7.0 (3-14) % Eos % (Auto) 2.5 (2-4) % Baso % (Auto) 0.2 (0-2) % Neut # (Auto) 5600 (4593-7193) /uL Lymph # (Auto) 2300 (9789-9884) /uL [place] # (Auto) 600 (0-900) /uL Eos # (Auto) 200 (0-450) /uL Baso # (Auto) 0 (0-100) /uL PT 12.1 (10.1-12.7) SECONDS INR 1.1 (0.9-1.3) APTT 35 (26.4-36.2) SECONDS D-Dimer (<230) ng/mL Sodium (137-145) mmol/L Potassium (3.4-5.1) mmol/L Chloride (98-107) mmol/L Carbon Dioxide (22-32) mmol/L BUN (9-20) mg/dL Creatinine (0.66-1.25) mg/dL Estimated GFR (>60) mL/min BUN/Creatinine Ratio (6-22) Glucose (70-100) mg/dL Lactate (0.7-2.1) mmol/L Calcium (8.4-10.2) mg/dL Total Bilirubin (0.2-1.3) mg/dL AST (17-59) IU/L ALT (<50) IU/L Alkaline Phosphatase (38-126) U/L Total Creatine Kinase (55-170) U/L CK-MB (CK-2) CK-MB (CK-2) Rel Index Troponin I (0.01-0.034) ng/mL NT-Pro-B Natriuret Pep 48 (<125) pg/mL Total Protein (6.3-8.2) g/dL Albumin (3.5-5.0) g/dL Globulin (1.7-4.1) g/dL Albumin/Globulin Ratio (1.0-2.8) Lipase (23-300) U/L Procalcitonin 0.05 (<0.5) ng/mL U Opiates 300ng/mL cut (Negative) Ur Oxycodone Screen (Negative) Urine Methadone Screen (Negative) Ur Barbiturates Screen (Negative) U Tricyclic Antidepress (Negative) Ur Phencyclidine Scrn (Negative) Ur Amphetamines Screen (Negative) U Methamphetamines Scrn (Negative) Ur MDMA Scrn (Ecstasy) (Negative) U Benzodiazepines Scrn (Negative) Urine Cocaine Screen (Negative) U Marijuana (THC) Screen (Negative) SARS-CoV-2 (PCR) (Negative) 04/02/22 04/02/22 04/02/22 Range/Units 06:55 06:55 06:55 WBC (4.5-11.0) X10^3/uL RBC (4.5-5.9) X10^6/uL Hgb (13.5-17.5) g/dL Hct (41-53) % MCV (80-100) fL MCH (26-34) PG MCHC (30-36) % RDW (11.6-14.8) % Plt Count (150-400) X10^3/uL Neut % (Auto) (50-75) % Lymph % (Auto) (25-40) % [place] % (Auto) (3-14) % Eos % (Auto) (2-4) % Baso % (Auto) (0-2) % Neut # (Auto) (2031-9859) /uL Lymph # (Auto) (6848-9999) /uL [place] # (Auto) (0-900) /uL Eos # (Auto) (0-450) /uL Baso # (Auto) (0-100) /uL PT (10.1-12.7) SECONDS INR (0.9-1.3) APTT (26.4-36.2) SECONDS D-Dimer 324 H (<230) ng/mL Sodium 139 (137-145) mmol/L Potassium 3.3 L (3.4-5.1) mmol/L Chloride 97 L (98-107) mmol/L Carbon Dioxide 35 H (22-32) mmol/L BUN 14 (9-20) mg/dL Creatinine 0.61 L (0.66-1.25) mg/dL Estimated GFR > 60 (>60) mL/min BUN/Creatinine Ratio 23.0 H (6-22) Glucose 214 H (70-100) mg/dL Lactate 2.2 H (0.7-2.1) mmol/L Calcium 8.5 (8.4-10.2) mg/dL Total Bilirubin 0.3 (0.2-1.3) mg/dL AST 24 (17-59) IU/L ALT 26 (<50) IU/L Alkaline Phosphatase 98 (38-126) U/L Total Creatine Kinase 64 (55-170) U/L CK-MB (CK-2) TNP CK-MB (CK-2) Rel Index TNP Troponin I < 0.012 (0.01-0.034) ng/mL NT-Pro-B Natriuret Pep (<125) pg/mL Total Protein 6.9 (6.3-8.2) g/dL Albumin 3.6 (3.5-5.0) g/dL Globulin 3.3 (1.7-4.1) g/dL Albumin/Globulin Ratio 1.1 (1.0-2.8) Lipase 23 (23-300) U/L Procalcitonin (<0.5) ng/mL U Opiates 300ng/mL cut (Negative) Ur Oxycodone Screen (Negative) Urine Methadone Screen (Negative) Ur Barbiturates Screen (Negative) U Tricyclic Antidepress (Negative) Ur Phencyclidine Scrn (Negative) Ur Amphetamines Screen (Negative) U Methamphetamines Scrn (Negative) Ur MDMA Scrn (Ecstasy) (Negative) U Benzodiazepines Scrn (Negative) Urine Cocaine Screen (Negative) U Marijuana (THC) Screen (Negative) SARS-CoV-2 (PCR) (Negative) 04/02/22 04/02/22 04/02/22 Range/Units 07:46 10:15 10:20 WBC (4.5-11.0) X10^3/uL RBC (4.5-5.9) X10^6/uL Hgb (13.5-17.5) g/dL Hct (41-53) % MCV (80-100) fL MCH (26-34) PG MCHC (30-36) % RDW (11.6-14.8) % Plt Count (150-400) X10^3/uL Neut % (Auto) (50-75) % Lymph % (Auto) (25-40) % [place] % (Auto) (3-14) % Eos % (Auto) (2-4) % Baso % (Auto) (0-2) % Neut # (Auto) (2458-7285) /uL Lymph # (Auto) (8779-4808) /uL [place] # (Auto) (0-900) /uL Eos # (Auto) (0-450) /uL Baso # (Auto) (0-100) /uL PT (10.1-12.7) SECONDS INR (0.9-1.3) APTT (26.4-36.2) SECONDS D-Dimer (<230) ng/mL Sodium (137-145) mmol/L Potassium (3.4-5.1) mmol/L Chloride (98-107) mmol/L Carbon Dioxide (22-32) mmol/L BUN (9-20) mg/dL Creatinine (0.66-1.25) mg/dL Estimated GFR (>60) mL/min BUN/Creatinine Ratio (6-22) Glucose (70-100) mg/dL Lactate 1.3 (0.7-2.1) mmol/L Calcium (8.4-10.2) mg/dL Total Bilirubin (0.2-1.3) mg/dL AST (17-59) IU/L ALT (<50) IU/L Alkaline Phosphatase (38-126) U/L Total Creatine Kinase (55-170) U/L CK-MB (CK-2) CK-MB (CK-2) Rel Index Troponin I (0.01-0.034) ng/mL NT-Pro-B Natriuret Pep (<125) pg/mL Total Protein (6.3-8.2) g/dL Albumin (3.5-5.0) g/dL Globulin (1.7-4.1) g/dL Albumin/Globulin Ratio (1.0-2.8) Lipase (23-300) U/L Procalcitonin (<0.5) ng/mL U Opiates 300ng/mL cut Positive H (Negative) Ur Oxycodone Screen Negative (Negative) Urine Methadone Screen Negative (Negative) Ur Barbiturates Screen Negative (Negative) U Tricyclic Antidepress Negative (Negative) Ur Phencyclidine Scrn Negative (Negative) Ur Amphetamines Screen Negative (Negative) U Methamphetamines Scrn Negative (Negative) Ur MDMA Scrn (Ecstasy) Negative (Negative) U Benzodiazepines Scrn Negative (Negative) Urine Cocaine Screen Negative (Negative) U Marijuana (THC) Screen Negative (Negative) SARS-CoV-2 (PCR) Negative (Negative) Imaging Data Chest x-ray: Radiologist's Impression: SUSAN [place] [id number] XRay Report Signed Patient: Amador Mason MR#: [id number] : 1970 Acct:[id number] Age/Sex: 51 / M Date of Service: 04/02/22 Loc: ED Accession Number: [id number] ?? Procedure: XR chest 1V Ordering Provider: Anna Echeverria D.O. PROCEDURE:? XR CHEST 1V ? INDICATIONS:? short of breath ? TECHNIQUE:? One view of the chest was acquired.? ? COMPARISON:? [facility], CR, XR CHEST 1V, 08/13/2021, 2:46. ? FINDINGS:? ? Surgical changes and devices:? None.? ? Lungs and pleura:? Central pulmonary vascular prominence.? Lungs are clear.? No pleural effusions or pneumothorax.? ? Mediastinum:? Mediastinal contours appear normal.? Heart is mildly enlarged ? Bones and chest wall:? No suspicious bony lesions.? Overlying soft tissues appear unremarkable.? ? IMPRESSION:? Mild cardiomegaly with central pulmonary vascular prominence concerning for CHF/fluid overload. ? ? Dictated by: Cristina Barry MD, PhD on 04/02/2022 at 7:38 ? ? CT scan - chest: Radiologist's Impression: SUSAN [place] [id number] CT Scan Report Signed Patient: Amador Mason MR#: [id number] : 1970 Acct:[id number] Age/Sex: 51 / M Date of Service: 04/02/22 Loc: ED Accession Number: [id number] ?? Procedure: CT angio chest PE protocol Ordering Provider: Anna Echeverria D.O. PROCEDURE:? CT ANGIO CHEST PE PROTOCOL ? INDICATIONS:? hypoxia ? TECHNIQUE:? After the administration of intravenous contrast, 2 mm thick sections acquired from the pulmonary apices to the posterior costophrenic angles.? 3-dimensional maximum in tensity projection (MIP) coronal and sagittal reformats were then acquired through the thorax.? For radiation dose reduction, the following was used:? automated exposure control, adjustment of mA and/or kV according to patient size.? ? COMPARISON:? [facility], CT, CT ANGIO CHEST PE PROTOCOL, 08/13/2021, 4:16.? [facility], CR, XR CHEST 1V, 04/02/2022, 7:15. ? FINDINGS:? Image quality:? Excellent.? ? Pulmonary arteries:? Pulmonary arteries are normal in size, and demonstrate no intraluminal filling defects to suggest central pulmonary embolism.? ? Lungs and pleura:? Within the right lower lobe, there is again seen a 5 mm pulmonary nodule, which is similar to the prior examination.? No focal infiltrates are seen.? No pleural effusions or pneumothorax.? Central and peripheral airways are patent.? ? Mediastinum:? Heart size is normal, without pericardial effusion.? No frankly enlarged mediastinal lymph nodes are seen, although several borderline prominent lymph nodes are seen.? At least moderate coronary artery calcification is seen.? Thoracic aorta is normal in caliber and enhancement.? Esophagus is normal in caliber, without hiatal hernia.? ? Bones and chest wall:? No suspicious bony lesions.? Ribs and thoracic spine appear intact throughout.? Accentuated thoracic kyphosis is seen.? Age-appropriate bony degenerative changes are seen. ? Thyroid gland demonstrates no significant abnormality.? No axillary or supraclavicular adenopathy.? ? Abdomen:? An enlarged, fatty liver can be seen.? Dense, benign-appearing calcification can be seen within the right posterior liver, as on series 4 image 137. The visualized portions of the upper abdominal structures are otherwise unremarkable for imaging technique. ? IMPRESSION:? Negative for pulmonary embolism. ? No focal infiltrates are seen. ? Stable 5 mm right lower lobe pulmonary nodule.? Although no specific imaging f ollow-up is recommended, attention should be paid to this focus on any future studies. ? ? ? Incidental note is made of: At least moderate coronary artery calcification Borderline prominent mediastinal lymph nodes Enlarged, fatty liver Benign appearing liver calcification ? Dictated by: Rafa Alanis M.D. on 04/02/2022 at 8:33 ? ? Approved by: Rafa Alanis M.D. on 04/02/2022 at 8:37 ? ECG Data Interpretation: Normal sinus rhythm rate 103 LA interval 170 QRS [address] changes Q- wave noted in lead 3 only similar to previous MDM Narrative Medical decision making narrative: Patient's O2 all fluctuates quite a bit slightly poor waveform at times. He does appear quite swollen with anasarca. However blood work is overall totally reassuring BNP is negative it was negative last time as well. Patient is given 80 mg of Lasix IV that is what he is on at home he urinated multiple times including all over the floor. Apparently he is not able to do his ADLs like his past to help him get dressed. He is very much wanting detox from fentanyl. Ambulation trial O2 goes from 89-91% he is not tachycardic he is not significantly short of breath. Discussed briefly with hospitalist admission however at this time does not meet admission criteria. Patient states that he is taking Lasix 80 mg 3 times a day he does not feel like it is helping. Social work has been in to evaluate him as well. He is given clonidine here in the em ergency department to help with some withdrawal symptoms. CT angio was negative for PE. Discharge Plan Departure Patient Disposition: Home Clinical Impression: Congestive heart failure, Opioid use disorder Instructions: Heart Failure, Opioid Use Disorder Activity Restrictions/Additional Instructions: *You have been diagnosed with CHF, opiate disorder *What to do: Please try to get in to detox. *Continue to take medications as directed--> SENT TO [facility] Lasix 80 mg twice a day as perscribed *Follow up with your primary care provider in 2-3 days or call [phone] *Return to ER if you should have increasing shortness of breath, chest pain or any new, worsening or concerning symptoms Prescriptions: New furosemide 80 mg tablet 80 mg PO BID Qty: 60 0RF No Action losartan 25 mg tablet 25 mg PO DAILY Qty: 60 3RF furosemide 80 mg tablet See Rx Instructions .ROUTE .COMPLEX Qty: 90 0RF Dose Instruction: TAKE 1 TABLET BY MOUTH TWICE DAILY Rx Instructions: TAKE 1 TABLET BY MOUTH TWICE DAILY albuterol sulfate 90 mcg/actuation HFA aerosol inhaler 2 puff inhalation Q4-6H PRN (Reason: shortness of breath or wheezing) Qty: 8.5 3RF Referrals: Hayley Cochran ARNP [Primary Care Provider] - Visit Report Forms: Patient Portal/API
--- NOTE | 2022-04-02 07:09 | PC.NURSE ---
Pt placed on 2L O2 via NC while lying back at 60 degrees HOB. Pt endorses having sleep apnea.
[2022-04-02 07:15] LABS: Add Manual Diff / Slide Review NO; Basophils Absolute Auto 0 /uL (0-100); Basophils Percent Auto 0.2 % (0-2); Eosinophils Absolute Auto 200 /uL (0-450); Eosinophils Percent Auto 2.5 % (2-4); Hematocrit 37.9 % (41-53); Hemoglobin 12.6 g/dL (13.5-17.5); Lymphocytes Absolute Auto 2300 /uL (1100-4500); Lymphocytes Percent Auto 26.3 % (25-40); Mean Corpuscular HGB Conc 33.2 % (30-36); Mean Corpuscular Hemoglobin 29.1 PG (26-34); Mean Corpuscular Volume 87.9 fL (80-100); Monocytes Absolute Auto 600 /uL (0-900); Neutrophils Absolute Auto 5600 /uL (1500-7000); Platelet Count 203 X10^3/uL (150-400); Red Blood Cell Count 4.31 X10^6/uL (4.5-5.9); Red Cell Distribution Width 14.2 % (11.6-14.8); White Blood Cell Count 8.8 X10^3/uL (4.5-11.0)
[2022-04-02 07:16] LABS: INR 1.1 (0.9-1.3); Prothrombin Time 12.1 SECONDS (10.1-12.7)
[2022-04-02 07:18] LABS: PTT Partial Thromboplastin Tim 35 SECONDS (26.4-36.2)
[2022-04-02 07:27] LABS: Alanine Aminotransferase 26 IU/L (<50); Albumin 3.6 g/dL (3.5-5.0); Albumin Globulin Ratio 1.1 (1.0-2.8); Alkaline Phosphatase 98 U/L (38-126); Aspartate Aminotransferase 24 IU/L (17-59); Bilirubin Total 0.3 mg/dL (0.2-1.3); Blood Urea Nitrogen 14 mg/dL (9-20); Calcium 8.5 mg/dL (8.4-10.2); Carbon Dioxide 35 mmol/L (22-32); Chloride 97 mmol/L (98-107); Creatine Kinase 64 U/L (55-170); Estimated Glomerular Filt Rate > 60 mL/min (>60); Globulin 3.3 g/dL (1.7-4.1); Glucose 214 mg/dL (70-100); HEMOLYSIS < 15 (0-50); Lactate (Lactic Acid) 2.2 mmol/L (0.7-2.1); Lipase 23 U/L (23-300); Potassium 3.3 mmol/L (3.4-5.1); Sodium 139 mmol/L (137-145); Total Protein 6.9 g/dL (6.3-8.2)
[2022-04-02 07:35] LABS: NT-proBNP (BNP-Adult 18+) 48 pg/mL (<125)
[2022-04-02 07:38] LABS: Troponin I < 0.012 ng/mL (0.01-0.034)
[2022-04-02 07:43] LABS: Procalcitonin 0.05 ng/mL (<0.5)
[2022-04-02 08:05] LABS: COVID19 -Nasal RAPID Negative (Negative)
[2022-04-02] MEDS: FUROSEMIDE 100 MG/10 ML VIAL 80 MG IV (08:11)
[2022-04-02 08:13] LABS: D Dimer 324 ng/mL (<230)
--- NOTE | 2022-04-02 08:31 | DI.CT.S_ITS ---
PROCEDURE: CT ANGIO CHEST PE PROTOCOL INDICATIONS: hypoxia TECHNIQUE: After the administration of intravenous contrast, 2 mm thick sections acquired from the pulmonary apices to the posterior costophrenic angles. 3-dimensional maximum intensity projection (MIP) coronal and sagittal reformats were then acquired through the thorax. For radiation dose reduction, the following was used: automated exposure control, adjustment of mA and/or kV according to patient size. COMPARISON: [facility], CT, CT ANGIO CHEST PE PROTOCOL, 08/13/2021, 4:16. [facility], CR, XR CHEST 1V, 04/02/2022, 7:15. FINDINGS: Image quality: Excellent. Pulmonary arteries: Pulmonary arteries are normal in size, and demonstrate no intraluminal filling defects to suggest central pulmonary embolism. Lungs and pleura: Within the right lower lobe, there is again seen a 5 mm pulmonary nodule, which is similar to the prior examination. No focal infiltrates are seen. No pleural effusions or pneumothorax. Central and peripheral airways are patent. Mediastinum: Heart size is normal, without pericardial effusion. No frankly enlarged mediastinal lymph nodes are seen, although several borderline prominent lymph nodes are seen. At least moderate coronary artery calcification is seen. Thoracic aorta is normal in caliber and enhancement. Esophagus is normal in caliber, without hiatal hernia. Bones and chest wall: No suspicious bony lesions. Ribs and thoracic spine appear intact throughout. Accentuated thoracic kyphosis is seen. Age-appropriate bony degenerative changes are seen. Thyroid gland demonstrates no significant abnormality. No axillary or supraclavicular adenopathy. Abdomen: An enlarged, fatty liver can be seen. Dense, benign-appearing calcification can be seen within the right posterior liver, as on series 4 image 137. The visualized portions of the upper abdominal structures are otherwise unremarkable for imaging technique. IMPRESSION: Negative for pulmonary embolism. No focal infiltrates are seen. Stable 5 mm right lower lobe pulmonary nodule. Although no specific imaging follow-up is recommended, attention should be paid to this focus on any future studies. Incidental note is made of: At least moderate coronary artery calcification Borderline prominent mediastinal lymph nodes Enlarged, fatty liver Benign appearing liver calcification Dictated by: Rafa Alanis M.D. on 04/02/2022 at 8:33 Approved by: Rafa Alanis M.D. on 04/02/2022 at 8:37
[2022-04-02 09:10] LABS: Reflexed Lactate in 2 Hours Y
[2022-04-02] MEDS: LORazepam 2 MG/ML INJ 1 MG IV (09:31)
[2022-04-02 10:39] LABS: Lactate 2HR (Lactic Acid Rflx) 1.3 mmol/L (0.7-2.1)
[2022-04-02 10:40] LABS: UR Morphine/Opiate cutoff 300 Positive (Negative); Ur Creatinine Normal (Normal); Ur Specific Gravity Normal (Normal); Urine Amphetamines Negative (Negative); Urine Barbiturates Negative (Negative); Urine Benzodiazepines Negative (Negative); Urine Cocaine Negative (Negative); Urine MDMA Negative (Negative); Urine Methadone Negative (Negative); Urine Methamphetamines Negative (Negative); Urine Oxycodone Negative (Negative); Urine Phencyclidine Negative (Negative); Urine Tetrahydrocannabinol Negative (Negative); Urine Tricyclic Antidepressant Negative (Negative); Urine pH Normal (Normal)
[2022-04-02] MEDS: cloNIDine 0.1 MG TABLET PO (11:34)
--- NOTE | 2022-04-02 12:02 | PC.NURSE ---
Patient ambulated with pulse oximetry and desatted to 89%. Provider notified.
--- NOTE | 2022-04-02 14:41 | CM.SWNOTE ---
WAD PRINTING MACHINE OPERATOR Assessment WAD PRINTING MACHINE OPERATOR - Bulk Plant Operator Assessment WAD PRINTING MACHINE OPERATOR/Bulk Plant Operator Assessment Time Spent with Patient Start date 04/02/22 Visit Start Time 12:15 End date 04/02/22 Visit End Time 12:40 Total time Care Management spent on 25 minutes patient visit-in minutes Substance Abuse Screening Include Onset, Duration, Intensity Presenting Problem Patient presents to the ED due to concern for respiratory distress and concerns for his whole body swelling. Patient endorses concern for his regular Fentanyl use and states that he wants to detox from the substance. Patient endorses concern that he is currently withdrawing, he states that he last used at 6 am this morning and typically smokes Fentanyl every 4 hours. Precipitating Event(s) Patient endorses his Fentanyl use started due to his back pain. Patient Strengths Patient endorses a supportive and coworkers. Current Behavioral Health Provider(s) None reported Include Facility, Provider, Ph. # Family Hx of Behavioral Abuse None reported Rehab Facilities? ((Date(s), Location(s) No hx reported ) History of Withdrawal? Seizures? Anxiety, diaphoretic, & nausea Longest Period of Sobriety 1 month Psychosocial information & Support Patient is 51 y/o male who Systems resides in [place] with . Patient endorses and coworkers as supports. 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 Legal Concerns Legal Matters - Outstanding Issues None reported Mental Status Orientation (Person/Place/Time) A/Ox4 Stated Mood starting to have withdrawals Affect (Congruent with Mood?) Anxious, tearful at times, congruent with mood, full range Thought Content - Specify/Describe None reported Obsessions, Delusions, Hallucinations Thought Processes (Wamqvme-Rkbytgem-Thea logical, repetitive Bclabgks-Favabnfs-Amqqqyhdvl- Shlsjyljllywjn-Htqkquh-Zxmvdiijwvta- Thought Blocking) Speech (Gsswor-Ibpw-Fkxedgg-Rapid-Soft- slurred/normal Loud-Pressured) Motor (Tcbecg-Xelvgqgnw-Wzyi-Other) slow, limited Insight (Imkt-Mqee-Ytew/Limited) fair Judgement (Rsdj-Dhld-Htjj/Limited) fair Impulse Control (Adequate-Impaired) adequate during assessment Memory (Frfgnvotr-Mqccmm-Vzmrlm, intact, not formally assessed Impaired-Intact) Concentration (Intact-Impaired) intact Attention (Intact-Impaired) intact Behavior (Appropriate-Inappropriate) appropriate Risk Assessment Comment Patient denies SI and HI at triage Intervention Intervention WAD PRINTING MACHINE OPERATOR enters room to meet with patient. Patient endorses concern with health due to ongoing Fentanyl use. Patient endorses he uses Fentanyl every 4 hours each day and would like to get off of the substance. WAD PRINTING MACHINE OPERATOR discusses going to detox, but patient explains that he is not independent with ADLs and relies on his to help him get dressed and meet his needs. Patient endorses that he has spend over $500,000 in the last few years on Fentanyl. Patient endorses he detoxed from the substance at in Fall 2020 during his last stay but recognizes that he left AMA. Patient endorses he started using Fentanyl shortly after his d/c. Patient endorses difficulty at work and concern that he will be able to take time off work. WAD PRINTING MACHINE OPERATOR discusses the importance of taking time to care for self to be able to function efficiently and get back to health. ED provider Dr. Echeverria speaks with hospitalist Dr. Montez and patient is not accepted to acute care. WAD PRINTING MACHINE OPERATOR prints out opioid detox resources to provide to patient but patient discharges prior to WAD PRINTING MACHINE OPERATOR's ability to provide hand outs to patient. Patient indicates he knows about [facility] detox center in [place]. WAD PRINTING MACHINE OPERATOR calls [facility] and it is reported that they are at capacity and confirms that patients need to be 100% independent with ADLs at facility. Patient is medically clear for d/c and it is the opinion of this WAD PRINTING MACHINE OPERATOR that patient is safe to d/c. Plan RA Plan Patient discharged to home when medically clear. JADON Pineda
== END 2022-04-02 13:37 | disposition home or self-care (01) ==
PROVIDERS: Emergency Provider Emergency Medicine; PCP Registered Nurse
DX: I50.9 Heart failure, unspecified (principal); R09.02 Hypoxemia; F11.90 Opioid use, unspecified, uncomplicated; R06.02 Shortness of breath; Z20.822 Contact with and (suspected) exposure to COVID-19
CPT/HCPCS: 36415; 71045; 71275; 80053; 80305; 82550; 83605; 83690; 83880; 84145; 84484; 85025; 85379; 85610; 85730; 87040; 87635; 93005; 93010; 96374; 96375; 99285; C9803; J1940; J2060; Q9967

== ENCOUNTER 2022-07-13 08:38 | Emergency (ER) | payer BC, SELFPAY ==
[2021-08-13 06:12] VITALS: PULSE 98; RESP 14; O2SAT 97
[2021-08-13 09:34] VITALS: BMI 47.7
[2022-07-13] VITALS (13 sets, daily range): BP systolic 129–191; BP diastolic 60–105; PULSE 79–107; RESP 12–30; TEMP 36.8; O2SAT 91–98; BMI 50.1
--- NOTE | 2022-07-13 08:51 | DI.RAD.S_ITS ---
PROCEDURE: XR CHEST 1V INDICATIONS: Chest pain TECHNIQUE: One view of the chest was acquired. COMPARISON: [facility], CR, XR CHEST 1V, 04/02/2022, 7:15. FINDINGS: Cardiomegaly with pulmonary vascular congestion and cephalization of pulmonary vessels as well as diffusely increased interstitial markings as well as some developing patchy airspace opacity. No pleural effusion or pneumothorax. IMPRESSION: Moderate cardiogenic pulmonary edema and cardiomegaly. Dictated by: Chung Reid M.D. on 07/13/2022 at 9:09 Approved by: Chung Reid M.D. on 07/13/2022 at 9:09
--- NOTE | 2022-07-13 08:51 | ED.SOB ---
HPI - SOB/Dyspnea General Chief Complaint: Chest Pain Stated Complaint: Sent from [facility], chest pain, swelling Time Seen by Provider: 07/13/22 08:51 History of Present Illness HPI Narrative: Patient is a 52-year-old male history of hypertension congestive heart failure, fentanyl abuse, presenting today with shortness of breath. States that he has had trouble breathing worsening over last 1 week. He is having some chest heaviness as well. He has positive orthopnea obesity in anasarca. He is quite anxious tearful stating that he does not want to . Denies fever or chills. He is now having a cough was not having cough previously. He is only taking a medication once a day he is not sure what it is. Record what he is supposed to take 80 mg twice a day. He is not sure who his doctor is. He had an echocardiogram July 2021 which did show an EF of 50-55%. Feels like abdomen is bloated and swollen Related Data Previous Rx's Medication Instructions Recorded losartan 25 mg tablet 25 mg PO DAILY CHF #60 tabs 12/15/21 Ventolin HFA 90 mcg/actuation 2 puff inhalation Q4-6H PRN 04/23/22 aerosol inhaler (albuterol sulfate) shortness of breath or wheezing #18 grams furosemide 80 mg tablet 80 mg PO BID #180 tabs 04/27/22 bumetanide 2 mg tablet 2 mg PO DAILY #60 tabs 07/13/22 Allergies Allergy/AdvReac Type Severity Reaction Status Date / Time No Known Drug Allergies Allergy Verified 07/13/22 10:19 Review of Systems Review of Systems Narrative: GENERAL: Denies chills, fatigue, malaise, fever, sweats, travel HEENT: Denies sinus pain, ear pain, sore throat, difficulty swallowing, neck pain RESPIRATORY: See HPI. CARDIOVASCULAR: See HPI GASTROINTESTINAL: Denies nausea, vomiting, abdominal pain, diarrhea, constipation, melena. : Denies dysuria, frequency, incontinence, hematuria, urinary retention, flank pain. MUSCULOSKELETAL: Denies weakness, joint pain, or bony pain SKIN: No rash, no erythema, no pruritus NEUROLOGIC: Denies weakness, dizziness, headache, numbness, change in speech, confusion PSYCHIATRIC: No concerning psychosocial issues. 12 point review of systems is negative except for those stated above and HPI Patient History Medical History Cardiomegaly Congestive heart failure Foot pain Morbid obesity with body mass index (BMI) of 40.0 to 44.9 in adult (11/21/17) Obesity, morbid, BMI 40.0-49.9 Opioid use disorder Recreational drug use Recurrent low back pain SOB (shortness of breath) Venous stasis ulcers of both lower extremities (11/21/17) Family History Mother Cancer Lung cancer Social History household members: spouse Smoking Status: Current every day smoker alcohol intake: former (Quit 2017) substance use type: other (fentanyl ) Smoking Status: Current every day smoker alcohol intake frequency: a few times a week Alcohol type: beer and hard liquor Substance Use Type: painkillers Exam Initial Vital Signs Initial Vital Signs: Vital Signs Temperature 98.3 F 07/13/22 08:40 Pulse Rate 99 H 07/13/22 08:40 Respiratory Rate 30 H 07/13/22 08:40 Blood Pressure 191/105 H 07/13/22 08:40 Pulse Oximetry 98 07/13/22 08:40 Oxygen Delivery Method 07/13/22 08:40 GENERAL: Anxious tearful tachypneic 52-year-old male with BMI of 50 HEENT: Head atraumatic,EOMI, pupils reactive, face symmetric, [moist] mucous membranes CARDIOVASCULAR: Regular rate and rhythm without murmurs, rubs or gallops. RESPIRATORY: Breath sounds equal bilaterally, no wheezes rales or rhonchi. ABDOMEN: Soft, nontender. Normoactive bowel sounds all 4 quadrants. No guarding or rebound. EXTREMITIES: Normal range of motion, no clubbing or edema. Neurovascularly intact NEUROLOGICAL: Alert and oriented x4. SKIN: Chronic venous stasis changes Course Orders Ordered: ED Orders 07/13/22 10:25 Urine Drug Screen, Rapid Stat 07/13/22 10:55 Trop I [Troponin I] Stat 07/13/22 11:04 CT angio chest PE protocol Stat Discontinued Medications Furosemide (Furosemide 40 Mg/4 Ml Vial) 40 mg IV NOW ONE Stop: 07/13/22 08:52 Last Admin: 07/13/22 09:50 Dose: 40 mg Documented By: [facility] Lorazepam (Lorazepam 2 Mg/Ml Inj) 1 mg IV NOW ONE Stop: 07/13/22 10:55 Last Admin: 07/13/22 11:08 Dose: 1 mg Documented By: [facility]U Vital Signs Vital signs: Vital Signs - 8 hr 07/13/22 11:57 07/13/22 11:30 07/13/22 11:30 Pulse Rate 102 H 81 Respiratory Rate 14 Blood Pressure 133/83 Pulse Oximetry 92 91 07/13/22 12:32 07/13/22 12:32 Pulse Rate 96 H Respiratory Rate Blood Pressure 169/82 H Pulse Oximetry 94 MDM - SOB/Dyspnea Lab Data Result diagrams: 07/13/22 08:45 07/13/22 08:45 Labs: Lab Results 07/13/22 07/13/22 07/13/22 Range/Units 08:45 08:45 08:45 WBC 9.3 (4.5-11.0) X10^3/uL RBC 4.70 (4.5-5.9) X10^6/uL Hgb 13.6 (13.5-17.5) g/dL Hct 40.3 L (41-53) % MCV 85.7 (80-100) fL MCH 29.0 (26-34) PG MCHC 33.8 (30-36) % RDW 14.8 (11.6-14.8) % Plt Count 200 (150-400) X10^3/uL Neut % (Auto) 74.5 (50-75) % Lymph % (Auto) 17.5 L (25-40) % [place] % (Auto) 6.5 (3-14) % Eos % (Auto) 1.4 L (2-4) % Baso % (Auto) 0.1 (0-2) % Neut # (Auto) 7000 (4229-6914) /uL Lymph # (Auto) 1600 (7174-6588) /uL [place] # (Auto) 600 (0-900) /uL Eos # (Auto) 100 (0-450) /uL Baso # (Auto) 0 (0-100) /uL PT 14.3 H (10.1-12.7) SECONDS INR 1.2 (0.9-1.3) APTT 37 H (26-36) SECONDS D-Dimer 761 H (<500) ng/ml Sodium 138 (137-145) mmol/L Potassium 4.1 (3.4-5.1) mmol/L Chloride 97 L (98-107) mmol/L Carbon Dioxide 36 H (22-32) mmol/L BUN 14 (9-20) mg/dL Creatinine 0.63 L (0.66-1.25) mg/dL Estimated GFR > 60 (>60) mL/min BUN/Creatinine Ratio 22.2 H (6-22) Glucose 135 H (70-100) mg/dL Calcium 9.1 (8.4-10.2) mg/dL Total Bilirubin 0.7 (0.2-1.3) mg/dL AST 25 (17-59) IU/L ALT 28 (<50) IU/L Alkaline Phosphatase 88 (38-126) U/L Total Creatine Kinase 80 (55-170) U/L CK-MB (CK-2) TNP CK-MB (CK-2) Rel Index TNP Troponin I < 0.012 (0.01-0.034) ng/mL NT-Pro-B Natriuret Pep (<125) pg/mL Total Protein 8.2 (6.3-8.2) g/dL Albumin 4.0 (3.5-5.0) g/dL Globulin 4.2 H (1.7-4.1) g/dL Albumin/Globulin Ratio 1.0 (1.0-2.8) Lipase 35 (23-300) U/L U Opiates 300ng/mL cut (Negative) Ur Oxycodone Screen (Negative) Urine Methadone Screen (Negative) Ur Barbiturates Screen (Negative) U Tricyclic Antidepress (Negative) Ur Phencyclidine Scrn (Negative) Ur Amphetamines Screen (Negative) U Methamphetamines Scrn (Negative) Ur MDMA Scrn (Ecstasy) (Negative) U Benzodiazepines Scrn (Negative) Urine Cocaine Screen (Negative) U Marijuana (THC) Screen (Negative) SARS-CoV-2 (PCR) (Negative) 07/13/22 07/13/22 07/13/22 Range/Units 08:45 08:48 10:25 WBC (4.5-11.0) X10^3/uL RBC (4.5-5.9) X10^6/uL Hgb (13.5-17.5) g/dL Hct (41-53) % MCV (80-100) fL MCH (26-34) PG MCHC (30-36) % RDW (11.6-14.8) % Plt Count (150-400) X10^3/uL Neut % (Auto) (50-75) % Lymph % (Auto) (25-40) % [place] % (Auto) (3-14) % Eos % (Auto) (2-4) % Baso % (Auto) (0-2) % Neut # (Auto) (9567-1523) /uL Lymph # (Auto) (8538-5451) /uL [place] # (Auto) (0-900) /uL Eos # (Auto) (0-450) /uL Baso # (Auto) (0-100) /uL PT (10.1-12.7) SECONDS INR (0.9-1.3) APTT (26-36) SECONDS D-Dimer (<500) ng/ml Sodium (137-145) mmol/L Potassium (3.4-5.1) mmol/L Chloride (98-107) mmol/L Carbon Dioxide (22-32) mmol/L BUN (9-20) mg/dL Creatinine (0.66-1.25) mg/dL Estimated GFR (>60) mL/min BUN/Creatinine Ratio (6-22) Glucose (70-100) mg/dL Calcium (8.4-10.2) mg/dL Total Bilirubin (0.2-1.3) mg/dL AST (17-59) IU/L ALT (<50) IU/L Alkaline Phosphatase (38-126) U/L Total Creatine Kinase (55-170) U/L CK-MB (CK-2) CK-MB (CK-2) Rel Index Troponin I (0.01-0.034) ng/mL NT-Pro-B Natriuret Pep 58 (<125) pg/mL Total Protein (6.3-8.2) g/dL Albumin (3.5-5.0) g/dL Globulin (1.7-4.1) g/dL Albumin/Globulin Ratio (1.0-2.8) Lipase (23-300) U/L U Opiates 300ng/mL cut Negative (Negative) Ur Oxycodone Screen Negative (Negative) Urine Methadone Screen Negative (Negative) Ur Barbiturates Screen Negative (Negative) U Tricyclic Antidepress Negative (Negative) Ur Phencyclidine Scrn Negative (Negative) Ur Amphetamines Screen Negative (Negative) U Methamphetamines Scrn Negative (Negative) Ur MDMA Scrn (Ecstasy) Negative (Negative) U Benzodiazepines Scrn Negative (Negative) Urine Cocaine Screen Negative (Negative) U Marijuana (THC) Screen Negative (Negative) SARS-CoV-2 (PCR) Negative (Negative) 07/13/22 Range/Units 10:55 WBC (4.5-11.0) X10^3/uL RBC (4.5-5.9) X10^6/uL Hgb (13.5-17.5) g/dL Hct (41-53) % MCV (80-100) fL MCH (26-34) PG MCHC (30-36) % RDW (11.6-14.8) % Plt Count (150-400) X10^3/uL Neut % (Auto) (50-75) % Lymph % (Auto) (25-40) % [place] % (Auto) (3-14) % Eos % (Auto) (2-4) % Baso % (Auto) (0-2) % Neut # (Auto) (9632-1098) /uL Lymph # (Auto) (7702-9357) /uL [place] # (Auto) (0-900) /uL Eos # (Auto) (0-450) /uL Baso # (Auto) (0-100) /uL PT (10.1-12.7) SECONDS INR (0.9-1.3) APTT (26-36) SECONDS D-Dimer (<500) ng/ml Sodium (137-145) mmol/L Potassium (3.4-5.1) mmol/L Chloride (98-107) mmol/L Carbon Dioxide (22-32) mmol/L BUN (9-20) mg/dL Creatinine (0.66-1.25) mg/dL Estimated GFR (>60) mL/min BUN/Creatinine Ratio (6-22) Glucose (70-100) mg/dL Calcium (8.4-10.2) mg/dL Total Bilirubin (0.2-1.3) mg/dL AST (17-59) IU/L ALT (<50) IU/L Alkaline Phosphatase (38-126) U/L Total Creatine Kinase (55-170) U/L CK-MB (CK-2) CK-MB (CK-2) Rel Index Troponin I < 0.012 (0.01-0.034) ng/mL NT-Pro-B Natriuret Pep (<125) pg/mL Total Protein (6.3-8.2) g/dL Albumin (3.5-5.0) g/dL Globulin (1.7-4.1) g/dL Albumin/Globulin Ratio (1.0-2.8) Lipase (23-300) U/L U Opiates 300ng/mL cut (Negative) Ur Oxycodone Screen (Negative) Urine Methadone Screen (Negative) Ur Barbiturates Screen (Negative) U Tricyclic Antidepress (Negative) Ur Phencyclidine Scrn (Negative) Ur Amphetamines Screen (Negative) U Methamphetamines Scrn (Negative) Ur MDMA Scrn (Ecstasy) (Negative) U Benzodiazepines Scrn (Negative) Urine Cocaine Screen (Negative) U Marijuana (THC) Screen (Negative) SARS-CoV-2 (PCR) (Negative) Imaging Data CT scan - chest: Radiologist's Impression: Amador tovar MR#: [id number] : 1970 Acct:[id number] Age/Sex: 52 / M Date of Service: 07/13/22 Loc: ED Accession Number: [id number] ?? Procedure: CT angio chest PE protocol Ordering Provider: Anna Echeverria D.O. PROCEDURE:? CT ANGIO CHEST PE PROTOCOL ? INDICATIONS:? hi dimer sob ? TECHNIQUE:? After the administration of intravenous contrast, 2 mm thick sections acquired from the pulmonary apices to the posterior costophrenic angles.? 3-dimensional maximum intensity projection (MIP) coronal and sagittal reformats were then acquired through the thorax.? For radiation dose reduction, the following was used:? automated exposure control, adjustment of mA and/or kV according to patient size.? ? COMPARISON:? None. ? FINDINGS:? Image quality:? Excellent.? ? Pulmonary arteries:? Pulmonary arterial opacification is suboptimal.? Only central/saddle and lobar pulmonary embolism can be excluded.? Segmental and subsegmental pulmonary emboli cannot be strictly excluded. ? Lungs and pleura:? No acute airspace opacity.? No significant pleural abnormality. ? Mediastinum:? Normal heart size.? No pericardial effusion.? Left main and left anterior descending coronary calcification.? Nonaneurysmal abdominal aorta.? No mediastinal lymphadenopathy. ? Bones and chest wall:? No acute or suspicious osseous chest wall lesion.? Normal thoracic vertebral body height and alignment. ? Abdomen:? No acute finding in the partially visualized upper abdomen. ? IMPRESSION:? No pulmonary embolism or other acute finding in the chest. ? ? Dictated by: Chung Reid M.D. on 07/13/2022 at 11:42 ? ? Approved by: Chung Reid M.D. on 07/13/2022 at 11:45 ? Chest x-ray: Radiologist's Impression: Signed Patient: Amador Mason MR#: [id number] : 1970 Acct:[id number] Age/Sex: 52 / M Date of Service: 07/13/22 Loc: ED Accession Number: [id number] ?? Procedure: XR chest 1V Ordering Provider: Anna Echeverria D.O. PROCEDURE:? XR CHEST 1V ? INDICATIONS:? Chest pain ? TECHNIQUE:? One view of the chest was acquired.? ? COMPARISON:? [facility], , XR CHEST 1V, 04/02/2022, 7:15. ? FINDINGS:? ? Cardiomegaly with pulmonary vascular congestion and cephalization of pulmonary vessels as well as diffusely increased interstitial markings as well as some developing patchy airspace opacity.? No pleural effusion or pneumothorax. ? IMPRESSION:? Moderate cardiogenic pulmonary edema and cardiomegaly. ? ? Dictated by: Chung Reid M.D. on 07/13/2022 at 9:09 ? ? ECG Data Interpretation: Sinus rhythm rate 104 MD interval 142 QRS 92 QTC 449 Q-wave noted lead [address] changes similar to previous EKG MDM Narrative Medical decision making narrative: Patient morbidly obese has known cardiomyopathy. He says that he is taking furosemide like 60 mg 3 times a day. He although he is not entirely sure what he is prescribed. Her records report that he has 80 mg twice daily. He says he is more short of breath with exertion. He was given Lasix 40 mg IV here and urinated and responded well. So I am not sure I believe of his compliance. 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 He ambulated in the ED no hypoxia overall feeling significantly better. EKG blood work overall reassuring. No need for admission at this time. Discharge Plan Departure Patient Disposition: Home Clinical Impression: Congestive heart failure Instructions: DI for Heart Failure Activity Restrictions/Additional Instructions: *You have been diagnosed with congestive heart failure *What to do: At this time less change your medication see if you start feeling better. I encourage you to seek out rehab for your fentanyl use *Continue to take medications as directed Stop furosemide/Lasix Start Bumex 2 mg twice a day for 3 days then Bumex 2 mg once daily --> SENT TO [facility] *Follow up with your primary care provider in 2-3 days or call [phone] You must follow-up with a primary care provider or licensed practical vocational nurse *Return to ER if you should have any chest pain shortness of breath or any new, worsening or concerning symptoms Prescriptions: New bumetanide 2 mg tablet 2 mg PO DAILY Qty: 60 0RF Rx Instructions: twice a day for 3 days then once daily No Action losartan 25 mg tablet 25 mg PO DAILY Qty: 60 3RF furosemide 80 mg tablet 80 mg PO BID Qty: 180 1RF albuterol sulfate [Ventolin HFA] 90 mcg/actuation HFA aerosol inhaler 2 puff inhalation Q4-6H PRN (Reason: shortness of breath or wheezing) Qty: 18 6RF Referrals: Con Shahid MD [Primary Care Provider] - Visit Report Forms: Patient Portal/API
[2022-07-13 09:00] LABS: Add Manual Diff / Slide Review NO; Basophils Absolute Auto 0 /uL (0-100); Basophils Percent Auto 0.1 % (0-2); Eosinophils Absolute Auto 100 /uL (0-450); Eosinophils Percent Auto 1.4 % (2-4); Hematocrit 40.3 % (41-53); Hemoglobin 13.6 g/dL (13.5-17.5); Lymphocytes Absolute Auto 1600 /uL (1100-4500); Lymphocytes Percent Auto 17.5 % (25-40); Mean Corpuscular HGB Conc 33.8 % (30-36); Mean Corpuscular Volume 85.7 fL (80-100); Monocytes Absolute Auto 600 /uL (0-900); Monocytes Percent Auto 6.5 % (3-14); Neutrophils Absolute Auto 7000 /uL (1500-7000); Neutrophils Percent Auto 74.5 % (50-75); Platelet Count 200 X10^3/uL (150-400); Red Cell Distribution Width 14.8 % (11.6-14.8); White Blood Cell Count 9.3 X10^3/uL (4.5-11.0)
[2022-07-13 09:06] LABS: INR 1.2 (0.9-1.3); Prothrombin Time 14.3 SECONDS (10.1-12.7)
[2022-07-13 09:08] LABS: D Dimer 761 ng/ml (<500)
[2022-07-13 09:09] LABS: PTT Partial Thromboplastin Tim 37 SECONDS (26-36)
[2022-07-13 09:15] LABS: Alanine Aminotransferase 28 IU/L (<50); Alkaline Phosphatase 88 U/L (38-126); Aspartate Aminotransferase 25 IU/L (17-59); BUN Creatinine Ratio 22.2 (6-22); Bilirubin Total 0.7 mg/dL (0.2-1.3); Blood Urea Nitrogen 14 mg/dL (9-20); Calcium 9.1 mg/dL (8.4-10.2); Carbon Dioxide 36 mmol/L (22-32); Chloride 97 mmol/L (98-107); Creatine Kinase 80 U/L (55-170); Estimated Glomerular Filt Rate > 60 mL/min (>60); Globulin 4.2 g/dL (1.7-4.1); Glucose 135 mg/dL (70-100); HEMOLYSIS < 15 (0-50); Lipase 35 U/L (23-300); Potassium 4.1 mmol/L (3.4-5.1); Sodium 138 mmol/L (137-145); Total Protein 8.2 g/dL (6.3-8.2)
[2022-07-13 09:24] LABS: NT-proBNP (BNP-Adult 18+) 58 pg/mL (<125)
[2022-07-13 09:27] LABS: Troponin I < 0.012 ng/mL (0.01-0.034)
[2022-07-13] MEDS: FUROSEMIDE 40 MG/4 ML VIAL IV (09:50)
[2022-07-13 10:56] LABS: Ur Creatinine Normal (Normal); Ur Specific Gravity Normal (Normal); Urine pH Normal (Normal)
[2022-07-13 10:57] LABS: UR Morphine/Opiate cutoff 300 Negative (Negative); Urine Amphetamines Negative (Negative); Urine Barbiturates Negative (Negative); Urine Benzodiazepines Negative (Negative); Urine Cocaine Negative (Negative); Urine MDMA Negative (Negative); Urine Methadone Negative (Negative); Urine Methamphetamines Negative (Negative); Urine Oxycodone Negative (Negative); Urine Phencyclidine Negative (Negative); Urine Tetrahydrocannabinol Negative (Negative); Urine Tricyclic Antidepressant Negative (Negative)
[2022-07-13 11:02] LABS: COVID19 -Nasal RAPID Negative (Negative)
--- NOTE | 2022-07-13 11:04 | DI.CT.S_ITS ---
PROCEDURE: CT ANGIO CHEST PE PROTOCOL INDICATIONS: hi dimer sob TECHNIQUE: After the administration of intravenous contrast, 2 mm thick sections acquired from the pulmonary apices to the posterior costophrenic angles. 3-dimensional maximum intensity projection (MIP) coronal and sagittal reformats were then acquired through the thorax. For radiation dose reduction, the following was used: automated exposure control, adjustment of mA and/or kV according to patient size. COMPARISON: None. FINDINGS: Image quality: Excellent. Pulmonary arteries: Pulmonary arterial opacification is suboptimal. Only central/saddle and lobar pulmonary embolism can be excluded. Segmental and subsegmental pulmonary emboli cannot be strictly excluded. Lungs and pleura: No acute airspace opacity. No significant pleural abnormality. Mediastinum: Normal heart size. No pericardial effusion. Left main and left anterior descending coronary calcification. Nonaneurysmal abdominal aorta. No mediastinal lymphadenopathy. Bones and chest wall: No acute or suspicious osseous chest wall lesion. Normal thoracic vertebral body height and alignment. Abdomen: No acute finding in the partially visualized upper abdomen. IMPRESSION: No pulmonary embolism or other acute finding in the chest. Dictated by: Chung Reid M.D. on 07/13/2022 at 11:42 Approved by: Chung Reid M.D. on 07/13/2022 at 11:45
[2022-07-13] MEDS: LORazepam 2 MG/ML INJ 1 MG IV (11:08)
[2022-07-13 11:28] LABS: Troponin I < 0.012 ng/mL (0.01-0.034)
== END 2022-07-13 13:00 | disposition home or self-care (01) ==
PROVIDERS: Emergency Provider Emergency Medicine; PCP Pediatrics
DX: I50.9 Heart failure, unspecified (principal); R06.02 Shortness of breath; Z20.822 Contact with and (suspected) exposure to COVID-19
CPT/HCPCS: 36415; 71045; 71275; 80053; 80305; 82550; 83690; 83880; 84484; 85025; 85379; 85610; 85730; 87635; 93005; 93010; 96374; 96375; 99284; C9803; J1940; J2060

== ENCOUNTER 2022-08-02 04:31 | Emergency (ER) | payer BC, SELFPAY ==
[2021-08-13 06:12] VITALS: PULSE 98; RESP 14; O2SAT 97
[2021-08-13 09:34] VITALS: BMI 47.7
--- NOTE | 2022-08-02 04:45 | PC.NURSE ---
EKG performed by RT - given to
[2022-08-02 04:46] VITALS: BP 157/79; PULSE 86; RESP 26; TEMP 37.1; O2SAT 95; BMI 50.1
--- NOTE | 2022-08-02 04:56 | DI.RAD.S_ITS ---
PROCEDURE: XR CHEST 1V INDICATIONS: dyspnea TECHNIQUE: One view of the chest was acquired. COMPARISON: [facility], CT, CT ANGIO CHEST PE PROTOCOL, 07/13/2022, 11:11. [facility], CR, XR CHEST 1V, 04/02/2022, 7:15. [facility], CR, XR CHEST 1V, 07/13/2022, 8:52. FINDINGS: There are respiratory motion artifacts. Surgical changes and devices: None. Lungs and pleura: Chronic distal prominent. No pleural effusions or pneumothorax. Mediastinum: Mediastinal contours appear normal. Heart size is normal. Bones and chest wall: No suspicious bony lesions. Overlying soft tissues appear unremarkable. IMPRESSION: Respiratory motion artifact and chronic interstitial prominence, not significant changed. No significant discrepancy with the maintenance supervisor 2nd shift radiology preliminary report. Dictated by: Rafa Gallo M.D. on 08/02/2022 at 8:19 Approved by: Rafa Gallo M.D. on 08/02/2022 at 8:21
--- NOTE | 2022-08-02 05:15 | PC.NURSE ---
MD at bedside to perform a digital block for his dental pain - tolerated well
[2022-08-02 05:16] VITALS: PULSE 88; O2SAT 93
[2022-08-02] MEDS: FUROSEMIDE 120 MG in SODIUM CHLORIDE 0.9% 50 ML 124 MG IV (05:20)
[2022-08-02] MEDS: KETOROLAC 30 MG/ML VIAL 15 MG IV (05:21)
--- NOTE | 2022-08-02 05:25 | PC.NURSE ---
COVID swab performed at this time - tolerated well
--- NOTE | 2022-08-02 05:26 | ED_ITS ---
HPI - General Adult General Chief complaint: Dental/Oral Stated complaint: congestive heart failure, toothache Time Seen by Provider: 08/02/22 04:40 Source: patient Mode of arrival: Ambulatory History of Present Illness HPI narrative: 52-year-old gentleman with a history of diastolic congestive heart failure, morbid obesity, mild asthma, opioid use disorder presents with severe dental pain with a broken left 1st molar and complaints that he has been retaining fluid and is acutely uncomfortable and short of breath. He has trouble even walking due to the fluid accumulation in his baseline morbid obesity. He states that he has been doing significantly better with his opioid use disorder as down from upwards of 20-30 blues (fentanyl) daily down to 1 if he is able to find some. 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 States that he saw at an interim doctor recently and medications are supposed to be filled however that reportedl y did not happen. He took his last pills yesterday. He is not entirely sure which those would be but likely Lasix potassium losartan possibly Bumex. He notes that his tooth has been increasingly tender he has been able unable to sleep for the last 24 hours was hoping to see a dentist today but between the dental pain and the dyspnea did not feel he could wait. He reports no chest pain or palpitations. No fevers. He has had a slight dry cough, significant weight increase, exertional dyspnea, orthopnea, increased lower extremity edema. No vomiting or diarrhea. Related Data Previous Rx's Medication Instructions Recorded Ventolin HFA 90 mcg/actuation 2 puff inhalation Q4-6H PRN 04/23/22 aerosol inhaler (albuterol sulfate) shortness of breath or wheezing #18 grams bumetanide 2 mg tablet 2 mg PO BID #60 tabs 07/26/22 losartan 50 mg tablet 50 mg PO DAILY #90 tabs 07/26/22 sertraline 50 mg tablet 50 mg PO DAILY #90 tabs 07/26/22 bumetanide 2 mg tablet 2 mg PO BID #37 tabs 08/02/22 losartan 50 mg tablet 50 mg PO DAILY #30 tabs 08/02/22 Allergies Allergy/AdvReac Type Severity Reaction Status Date / Time No Known Drug Allergies Allergy Verified 08/04/22 09:05 Review of Systems Review of Systems Narrative: Remainder of complete review of systems is otherwise unremarkable except for that included in the HPI. Patient History Medical History Cardiomegaly Congestive heart failure Depression, major Essential hypertension Foot pain Generalized anxiety disorder Morbid obesity with body mass index (BMI) of 40.0 to 44.9 in adult (11/21/17) Obesity, morbid, BMI 40.0-49.9 Opioid use disorder Recreational drug use Recurrent low back pain SOB (shortness of breath) Stasis dermatitis Venous (peripheral) insufficiency Venous stasis ulcers of both lower extremities (11/21/17) Family History Mother Cancer Lung cancer Social History household members: spouse Smoking Status: Current every day smoker alcohol intake: former (Quit 2016) substance use type: other (fentanyl ) Smoking Status: Current every day smoker alcohol intake frequency: a few times a week Alcohol type: beer and hard liquor Substance Use Type: painkillers Exam Initial Vital Signs Initial Vital Signs: Vital Signs Temperature 98.8 F 08/02/22 04:46 Pulse Rate 86 08/02/22 04:46 Respiratory Rate 26 H 08/02/22 04:46 Blood Pressure 157/79 H 08/02/22 04:46 Pulse Oximetry 95 08/02/22 04:46 Oxygen Delivery Method 08/02/22 04:46 General: Morbidly obese, chronically ill-appearing, acute dental pain but able to speak in full sentences. HEENT: Moist mucous membranes, normal sclera with reactive pupils, poor overall dentition and his only tooth in the left upper quadrant, the 1st molar has a large amalgam filling through the center and is cracked into the root without obvious abscess formation. Neck: JVD is difficult to assess due to body habitus Respiratory: Lung Sounds are difficult to hear through body habitus. He has some audible wheeze while talking but is able to speak in full sentences no accessory muscle use Cardiac: Regular rate and rhythm no murmurs with limitations secondary to size. Abdomen: Morbidly obese, significant dependent edema no tenderness on exam Skin: Warm and dry, fingers are hyperemic. Chronic venous stasis changes and lymphedema of the lower extremities without obvious cellulitis Neurologic: Grossly neurologically intact with no obvious asymmetries or abnormalities Extremities: No trauma, [place] edema to bilateral lower extremities and to hands as well Psych: Cooperative, poor overall inside Course Orders Ordered: Discontinued Medications Furosemide 120 mg/ Sodium (Chloride) 62 mls @ 124 mls/hr IV NOW ONE Stop: 08/02/22 04:53 Last Infusion: 08/02/22 06:06 Dose: 0 mls/hr Documented By: Admin: 08/02/22 05:20 Dose: 124 mls/hr Documented By: HARESH Ketorolac Tromethamine (Ketorolac 30 Mg/Ml Vial) 15 mg IV NOW ONE Stop: 08/02/22 04:53 Last Admin: 08/02/22 05:21 Dose: 15 mg Documented By: HARESH Vital Signs Vital signs: Vital Signs - 8 hr 08/02/22 04:46 08/02/22 05:16 08/02/22 05:30 Temperature 98.8 F Pulse Rate 86 88 Respiratory Rate 26 H Blood Pressure 157/79 H 126/67 Pulse Oximetry 95 93 Oxygen Delivery Method Room Air 08/02/22 05:30 08/02/22 06:00 08/02/22 06:00 Temperature Pulse Rate 82 94 H Respiratory Rate 16 14 Blood Pressure 130/80 Pulse Oximetry 90 L 93 Oxygen Delivery Method Medical Decision Making Medical Records Medical records narrative: 52-year-old gentleman with dental pain and a fractured left 1st molar. Increasing fluid retention in the setting of morbid obesity and known congestive heart failure uncertain use of his prescription medications as well as nonprescription medications. Last echocardiogram was July of 2021 with an ejection fraction in the 50-55% range and technically challenging due to his overall size. Lab work is pending, he is given 120 mg of Lasix IV and 3 mg of a 0.5% bu pivacaine with epinephrine injected in an alveolar block for the dental pain, left upper 1st molar. Lab Data Result diagrams: 08/02/22 05:15 08/02/22 05:15 Labs: Lab Results 08/02/22 08/02/22 08/02/22 Range/Units 05:15 05:15 05:25 WBC 11.5 H (4.5-11.0) X10^3/uL RBC 4.68 (4.5-5.9) X10^6/uL Hgb 13.2 L (13.5-17.5) g/dL Hct 40.1 L (41-53) % MCV 85.7 (80-100) fL MCH 28.3 (26-34) PG MCHC 33.0 (30-36) % RDW 14.7 (11.6-14.8) % Plt Count 222 (150-400) X10^3/uL Neut % (Auto) 78.4 H (50-75) % Lymph % (Auto) 12.7 L (25-40) % Glynn % (Auto) 7.3 (3-14) % Eos % (Auto) 1.4 L (2-4) % Baso % (Auto) 0.2 (0-2) % Neut # (Auto) 9000 H (5896-4196) /uL Lymph # (Auto) 1500 (0857-2962) /uL Glynn # (Auto) 800 (0-900) /uL Eos # (Auto) 200 (0-450) /uL Baso # (Auto) 0 (0-100) /uL Sodium 136 L (137-145) mmol/L Potassium 3.6 (3.4-5.1) mmol/L Chloride 89 L (98-107) mmol/L Carbon Dioxide 38 H (22-32) mmol/L BUN 21 H (9-20) mg/dL Creatinine 0.73 (0.66-1.25) mg/dL Estimated GFR > 60 (>60) mL/min BUN/Creatinine Ratio 28.8 H (6-22) Glucose 150 H (70-100) mg/dL Calcium 8.7 (8.4-10.2) mg/dL Total Bilirubin 0.6 (0.2-1.3) mg/dL AST 30 (17-59) IU/L ALT 28 (<50) IU/L Alkaline Phosphatase 86 (38-126) U/L Troponin I < 0.012 (0.01-0.034) ng/mL NT-Pro-B Natriuret Pep 39 (<125) pg/mL Total Protein 8.2 (6.3-8.2) g/dL Albumin 3.9 (3.5-5.0) g/dL Globulin 4.3 H (1.7-4.1) g/dL Albumin/Globulin Ratio 0.9 L (1.0-2.8) SARS-CoV-2 (PCR) Negative (Negative) Imaging Data Chest x-ray: My Impression: Mild cardiomegaly with vascular congestion and no obvious infiltrates or consolidated findings ECG Data Interpretation: Sinus rhythm at a rate of 91 Normal intervals, normal axis No acute ischemic changes MDM Narrative Medical decision making narrative: 52-year-old gentleman presents with acute dental pain and complaining of volume overload notes that he is out of medications with doses taken yesterday. Currently is on Bumex 2 mg b.i.d. and losartan 50 mg daily. Will go ahead and fill these for the next month. I have asked him to follow-up with his primary care doctor as well as see if he can get in to see a dentist within the next couple of days. I am not currently seeing any evidence of dental infection I do not think antibiotics are going to be required. Regarding his volume overload I suspect that there is more to his drug use history and social situation then he is allowing me to fully understand that is contributing to his fluid retention. Labs have been obtained as apparently his primary care physician wanted. Patient is very amenable to increasing his Bumex to 2 mg a total of 3 pills daily for the next number of days and then decreasing back to 2 pills daily to encourage additional diuresis. At this point there is no evidence of the infection, acute coronary syndrome, dramatically worsening congestive heart failure. He is safe for home discharge Discharge Plan Departure Patient Disposition: Home Clinical Impression: Body fluid retention, Chronic hypertension Fracture of tooth Qualifiers: Encounter type: initial encounter Chronic CHF (congestive heart failure) Qualifiers: Heart failure type: diastolic Qualified Code(s): I50.32 - Chronic diastolic (congestive) heart failure Instructions: DI for Heart Failure, DI for Dental Pain Activity Restrictions/Additional Instructions: Thank you for coming in today You did fracture your upper left 1st molar. This tooth is likely going to need to be pulled. There is not evidence of infection. I did anesthetize it and that anesthetic should last for a couple of hours. Please do your able to to get in to see a dentist today. Regarding your fluid retention, you definitely do have quite a bit of fluid overload however there is no evidence of severe worsening of congestive heart failure, pneumonia, heart attack or heart attack like syndrome, kidney failure or liver failure. You were given 120 mg of IV Lasix in the emergency department. I have refilled your prescription for 50 mg of losartan until your able to your primary care physician. I have refilled your bumetanide 2 mg tablets, this is the water pill. Your usual dose should be 1 pill in the morning and 1 pill in the afternoon. For the next week I want you to take 2 pills in the morning and 1 pill in the afternoon to encourage a bit of extra fluid loss. The blood work likely requested by your primary care physician has already been completed. After changes in diuretics like this it is important to follow-up with your primary care doctor. Please call the office later today to schedule an appointment for follow-up from your ER visit today. The prescriptions have been electronically transmitted to [facility] to be picked up later today If you find that you are getting worse or develop any new symptoms, please feel free to return to the emergency department for further evaluation. Prescriptions: New losartan 50 mg tablet 50 mg PO DAILY Qty: 30 1RF bumetanide 2 mg tablet 2 mg PO BID Qty: 37 0RF Rx Instructions: 4mg qam and 2mg late afternoon for 7 days then return to BID dosing No Action bumetanide 2 mg tablet 2 mg PO BID Qty: 60 2RF Rx Instructions: or as directed sertraline 50 mg tablet 50 mg PO DAILY Qty: 90 0RF losartan 50 mg tablet 50 mg PO DAILY Qty: 90 0RF albuterol sulfate [Ventolin HFA] 90 mcg/actuation HFA aerosol inhaler 2 puff inhalation Q4-6H PRN (Reason: shortness of breath or wheezing) Qty: 18 6RF Referrals: Yarelis Gallagher DO [Primary Care Provider] - Visit Report Forms: Patient Portal/API
[2022-08-02 05:30] VITALS: BP 126/67; PULSE 82; RESP 16; O2SAT 90
[2022-08-02 05:45] LABS: Add Manual Diff / Slide Review NO; Basophils Absolute Auto 0 /uL (0-100); Basophils Percent Auto 0.2 % (0-2); Eosinophils Absolute Auto 200 /uL (0-450); Eosinophils Percent Auto 1.4 % (2-4); Hematocrit 40.1 % (41-53); Hemoglobin 13.2 g/dL (13.5-17.5); Lymphocytes Absolute Auto 1500 /uL (1100-4500); Lymphocytes Percent Auto 12.7 % (25-40); Mean Corpuscular Hemoglobin 28.3 PG (26-34); Mean Corpuscular Volume 85.7 fL (80-100); Monocytes Absolute Auto 800 /uL (0-900); Monocytes Percent Auto 7.3 % (3-14); Neutrophils Absolute Auto 9000 /uL (1500-7000); Neutrophils Percent Auto 78.4 % (50-75); Platelet Count 222 X10^3/uL (150-400); Red Blood Cell Count 4.68 X10^6/uL (4.5-5.9); Red Cell Distribution Width 14.7 % (11.6-14.8); White Blood Cell Count 11.5 X10^3/uL (4.5-11.0)
[2022-08-02 05:46] LABS: Alanine Aminotransferase 28 IU/L (<50); Albumin 3.9 g/dL (3.5-5.0); Albumin Globulin Ratio 0.9 (1.0-2.8); Alkaline Phosphatase 86 U/L (38-126); Aspartate Aminotransferase 30 IU/L (17-59); BUN Creatinine Ratio 28.8 (6-22); Bilirubin Total 0.6 mg/dL (0.2-1.3); Blood Urea Nitrogen 21 mg/dL (9-20); Calcium 8.7 mg/dL (8.4-10.2); Chloride 89 mmol/L (98-107); Estimated Glomerular Filt Rate > 60 mL/min (>60); Globulin 4.3 g/dL (1.7-4.1); Glucose 150 mg/dL (70-100); HEMOLYSIS 37 (0-50); Potassium 3.6 mmol/L (3.4-5.1); Sodium 136 mmol/L (137-145); Total Protein 8.2 g/dL (6.3-8.2)
[2022-08-02 05:53] LABS: Carbon Dioxide 38 mmol/L (22-32)
[2022-08-02 05:57] LABS: NT-proBNP (BNP-Adult 18+) 39 pg/mL (<125); Troponin I < 0.012 ng/mL (0.01-0.034)
[2022-08-02 06:00] VITALS: BP 130/80; PULSE 94; RESP 14; O2SAT 93
[2022-08-02 06:01] LABS: COVID19 -Nasal RAPID Negative (Negative)
--- NOTE | 2022-08-02 06:26 | PC.NURSE ---
Using urinal at this time
[2022-08-02 06:30] VITALS: BP 112/70; PULSE 83; RESP 13; O2SAT 91
== END 2022-08-02 06:47 | disposition home or self-care (01) ==
PROVIDERS: Emergency Provider Emergency Medicine; PCP Family Medicine
DX: S02.5XXA Fracture of tooth (traumatic), initial encounter for closed fracture (principal); I50.9 Heart failure, unspecified; R06.02 Shortness of breath; R60.9 Edema, unspecified; I10 Essential (primary) hypertension; Z20.822 Contact with and (suspected) exposure to COVID-19
CPT/HCPCS: 36415; 71045; 80053; 83880; 84484; 85025; 87635; 93005; 93010; 96365; 96375; 99284; C9803; J1885; J1940

== ENCOUNTER → 2022-08-04 15:24 | Outpatient (CLI) | payer BC, SELFPAY ==
[2021-08-13 06:12] VITALS: PULSE 98; RESP 14; O2SAT 97
[2021-08-13 09:34] VITALS: BMI 47.7
--- NOTE | 2022-08-04 15:25 | DI.US.S_ITS ---
PROCEDURE: US SCROTUM INDICATIONS: Left scrotal swelling/ testicular pain TECHNIQUE: Real-time scanning was performed of the scrotum and testicles, with image documentation. Color and pulse Doppler interrogation was performed of both testicles. COMPARISON: None. FINDINGS: Right: Testicle is normal in size at 4.5 x 2.8 x 2.8 cm, and homogenous in echotexture. Epididymis is normal in overall size and morphology. No varicoceles. Overlying scrotal skin is normal in thickness. Small hydrocele present with debris. Left: Testicle is normal in size at 4.1 x 2.9 x 3.2 cm, and homogeneous in echotexture. Probable 7 mm appendix testis. Epididymis is normal in overall size and morphology. No varicoceles. Overlying scrotal skin appears thickened. moderate hydrocele is present. Doppler: Color and pulse Doppler demonstrate normal and symmetric arterial flow in both testicles. IMPRESSION: 1. No evidence of testicular torsion. 2. Left scrotal skin thickening is present, nonspecific. A moderate left hydrocele is also present. Findings raise the possibility of an acute non-specific infectious or inflammatory process. No definitive evidence of left epididymo-orchitis however. 3. Small right hydrocele containing debris, nonspecific. Dictated by: Davidson Sutton M.D. on 08/04/2022 at 16:34 Approved by: Davidson Sutton M.D. on 08/04/2022 at 16:41
== END ==
PROVIDERS: PCP Family Medicine; Referring Provider Registered Nurse; Visit Provider Registered Nurse
DX: N43.3 Hydrocele, unspecified (principal); N50.89 Other specified disorders of the male genital organs
CPT/HCPCS: 76870; 93976

== ENCOUNTER 2022-08-12 10:19 | Observation (INO) | payer BC, SELFPAY ==
[2021-08-13 06:12] VITALS: PULSE 98; RESP 14; O2SAT 97
[2021-08-13 09:34] VITALS: BMI 47.7
[2022-08-12] VITALS (21 sets, daily range): BP systolic 100–170; BP diastolic 55–91; PULSE 83–106; RESP 18–24; TEMP 36.5–36.6; O2SAT 91–97; BMI 46.1; BMI 51.5
--- NOTE | 2022-08-12 12:10 | DI.RAD.S_ITS ---
PROCEDURE: XR CHEST 1V INDICATIONS: chest pain TECHNIQUE: One view of the chest was acquired. COMPARISON: [facility], CR, XR CHEST 1V, 08/02/2022, 5:00. [facility], CR, XR CHEST 1V, 07/13/2022, 8:52. FINDINGS: Surgical changes and devices: None. Lungs and pleura: No consolidation. Lungs are unchanged. No pleural effusions or pneumothorax. Mediastinum: Mediastinal contours appear unchanged. Heart size is normal. Bones and chest wall: No suspicious bony lesions. Overlying soft tissues appear unremarkable. IMPRESSION: No acute cardiopulmonary abnormality identified. Dictated by: Wil Rene M.D. on 08/12/2022 at 13:45 Approved by: Wil Rene M.D. on 08/12/2022 at 13:47
[2022-08-12 12:24] LABS: Add Manual Diff / Slide Review NO; Basophils Absolute Auto 0 /uL (0-100); Basophils Percent Auto 0.4 % (0-2); Eosinophils Absolute Auto 200 /uL (0-450); Eosinophils Percent Auto 1.7 % (2-4); Hemoglobin 13.1 g/dL (13.5-17.5); Lymphocytes Absolute Auto 1600 /uL (1100-4500); Lymphocytes Percent Auto 15.8 % (25-40); Mean Corpuscular HGB Conc 32.8 % (30-36); Mean Corpuscular Hemoglobin 28.2 PG (26-34); Mean Corpuscular Volume 86.2 fL (80-100); Monocytes Absolute Auto 600 /uL (0-900); Monocytes Percent Auto 6.3 % (3-14); Neutrophils Absolute Auto 7600 /uL (1500-7000); Neutrophils Percent Auto 75.8 % (50-75); Platelet Count 237 X10^3/uL (150-400); Red Blood Cell Count 4.64 X10^6/uL (4.5-5.9)
[2022-08-12 12:30] LABS: Alanine Aminotransferase 30 IU/L (<50); Albumin Globulin Ratio 0.8 (1.0-2.8); Alkaline Phosphatase 95 U/L (38-126); Aspartate Aminotransferase 30 IU/L (17-59); BUN Creatinine Ratio 26.7 (6-22); Bilirubin Total 0.6 mg/dL (0.2-1.3); Blood Urea Nitrogen 16 mg/dL (9-20); Calcium 9.1 mg/dL (8.4-10.2); Chloride 91 mmol/L (98-107); Creatine Kinase 50 U/L (55-170); Estimated Glomerular Filt Rate > 60 mL/min (>60); Globulin 4.9 g/dL (1.7-4.1); Glucose 141 mg/dL (70-100); HEMOLYSIS 25 (0-50); Lactate (Lactic Acid) 1.4 mmol/L (0.7-2.1); Lipase 18 U/L (23-300); Potassium 3.7 mmol/L (3.4-5.1); Sodium 139 mmol/L (137-145); Total Protein 8.9 g/dL (6.3-8.2)
[2022-08-12 12:36] LABS: Carbon Dioxide 37 mmol/L (22-32)
[2022-08-12 12:39] LABS: NT-proBNP (BNP-Adult 18+) 32 pg/mL (<125)
[2022-08-12 12:41] LABS: Troponin I < 0.012 ng/mL (0.01-0.034)
--- NOTE | 2022-08-12 12:42 | ED_ITS ---
HPI - Male Genitourinary General Chief complaint: Urogenital-Male Stated complaint: gentials are swollen Time Seen by Provider: 08/12/22 12:03 Source: patient Mode of arrival: Ambulatory History of Present Illness HPI Narrative: Patient is a 52-year-old male with history of fentanyl abuse, diastolic congestive heart failure, morbid obesity, mild asthma presenting today with enlarged scrotum. He was seen and evaluated here on August 02 for dental pain him congestive heart failure. Today he presents with enlarged scrotum. He says it has been enlarged for about 1 week. He was actually seen at the walk-in clinic where he had an ultrasound on August 04 which showed moderate left hydrocele. In thickened skin possible on infectious versus inflammatory process. No evidence of testicular torsion. He states over last couple of days his scrotum has gotten much larger. He is still able to urinate no fever or chills. He denies any chest pain orthopnea shortness of breath with exertion fever chills. He states that he has been drinking a lot of fluid. He has been drinking vitamin water eats a full watermelon every night and last night he had 2, says he drinks a lot of juice as well. Related Data Previous Rx's Medication Instructions Recorded Ventolin HFA 90 mcg/actuation 2 puff inhalation Q4-6H PRN 04/23/22 aerosol inhaler (albuterol sulfate) shortness of breath or wheezing #18 grams sertraline 50 mg tablet 50 mg PO DAILY #90 tabs 07/26/22 bumetanide 2 mg tablet 2 mg PO BID #37 tabs 08/02/22 losartan 50 mg tablet 50 mg PO DAILY #30 tabs 08/02/22 Allergies Allergy/AdvReac Type Severity Reaction Status Date / Time No Known Drug Allergies Allergy Verified 08/12/22 10:34 Review of Systems Review of Systems Narrative: GENERAL: Denies chills, fatigue, malaise, fever, sweats, travel HEENT: Denies sinus pain, ear pain, sore throat, difficulty swallowing, neck pain RESPIRATORY: Denies dyspnea, cough, wheezing, hemoptysis, sputum. CARDIOVASCULAR: Denies chest pain, palpitations, orthopnea, edema GASTROINTESTINAL: Denies nausea, vomiting, abdominal pain, diarrhea, constipation, melena. : See HPI MUSCULOSKELETAL: Denies weakness, joint pain, or bony pain SKIN: No rash, no erythema, no pruritus NEUROLOGIC: Denies weakness, dizziness, headache, numbness, change in speech, confusion PSYCHIATRIC: No concerning psychosocial issues. 12 point review of systems is negative except for those stated above and HPI Patient History Medical History Cardiomegaly Congestive heart failure Depression, major Essential hypertension Foot pain Generalized anxiety disorder Morbid obesity with body mass index (BMI) of 40.0 to 44.9 in adult (11/21/17) Obesity, morbid, BMI 40.0-49.9 Opioid use disorder Recreational drug use Recurrent low back pain SOB (shortness of breath) Stasis dermatitis Venous (peripheral) insufficiency Venous stasis ulcers of both lower extremities (11/21/17) Family History Mother Cancer Lung cancer Social History household members: spouse Smoking Status: Current every day smoker alcohol intake: former substance use type: other (fentanyl ) Smoking Status: Current every day smoker alcohol intake frequency: holidays/special occasions only Alcohol type: beer and hard liquor Substance Use Type: painkillers Exam Initial Vital Signs Initial Vital Signs: Vital Signs Temperature 97.9 F 08/12/22 10:34 Pulse Rate 101 H 08/12/22 10:34 Respiratory Rate 20 08/12/22 10:34 Blood Pressure 170/81 H 08/12/22 10:34 Pulse Oximetry 92 08/12/22 10:34 Oxygen Delivery Method 08/12/22 10:34 Oxygen Flow Rate 97.9 08/12/22 10:34 GENERAL: Alert tearful 52-year-old male chronically ill morbidly obese HEENT: Head atraumatic,EOMI, pupils reactive, face symmetric, moist mucous membranes CARDIOVASCULAR: Regular rate and rhythm without murmurs, rubs or gallops. RESPIRATORY: Breath sounds equal bilaterally, no wheezes rales or rhonchi. ABDOMEN: Soft, nontender. Normoactive bowel sounds all 4 quadrants. No guarding or rebound. : Nurse Yeimy in room, Very large scrotum, mildly erythematous tender to touch EXTREMITIES: Normal range of motion, no clubbing. Bilateral swelling pitting edema SKIN: Chronic venous stasis chronic sore is no gross drainage Course Orders Ordered: ED Orders 08/12/22 11:52 Complete Blood Count AUTO DIFF Stat Comprehensive Metabolic Panel Stat Lactate (Lactic Acid) Stat Lipase Stat NT-proBNP (BNP-Adult 18+) Stat Procalcitonin Stat Troponin & CK Cardiac Panel Stat 08/12/22 12:10 XR chest 1V Stat 08/12/22 12:47 EKG-12 Lead Stat 08/12/22 13:00 Blood Culture Stat 08/12/22 13:15 US scrotum Stat 08/12/22 14:09 COVID19 -Nasal RAPID/Pre-Proc Stat Acetaminophen (Acetaminophen 325 Mg Tablet) 650 mg PO Q6H PRN PRN Reason: Fever/Mild Pain (1-3) Buprenorphine/Naloxone (Buprenorphine/Naloxone 8mg/2mg 1 Tab) 1 tab SL DAILY NNAMDI Clonidine HCl (Clonidine 0.1 Mg Tablet) 0.1 mg PO Q6H PRN PRN Reason: opiate withdrawal Enoxaparin Sodium (Enoxaparin 40 Mg/0.4 Ml Syringe) 40 mg SUBCUT DAILY NNAMDI Furosemide (Furosemide 100 Mg/10 Ml Vial) 80 mg IV Q12H NNAMDI Ondansetron HCl (Ondansetron 4 Mg/2 Ml Inj) 4 mg IV Q8HR PRN PRN Reason: Nausea And Vomiting Sodium Chloride (Sodium Chloride 0.9% Flush) 10 ml IV BID NNAMDI Sodium Chloride (Sodium Chloride 0.9% Flush) 10 ml IV PRN PRN PRN Reason: Flush Discontinued Medications Acetaminophen (Acetaminophen 325 Mg Tablet) 975 mg PO NOW ONE Stop: 08/12/22 15:10 Last Admin: 08/12/22 15:32 Dose: 975 mg Documented By: ABBI Bumetanide (Bumetanide 1 Mg/4 Ml Vial) 2 mg IV NOW ONE Stop: 08/12/22 13:16 Last Admin: 08/12/22 13:34 Dose: 2 mg Documented By: ABBI Lorazepam (Lorazepam 2 Mg/Ml Inj) 1 mg IV NOW ONE Stop: 08/12/22 13:25 Last Admin: 08/12/22 13:31 Dose: 1 mg Documented By: ABBI Lorazepam (Lorazepam 2 Mg/Ml Inj) 1 mg IV NOW ONE Stop: 08/12/22 15:11 Last Admin: 08/12/22 15:28 Dose: 1 mg Documented By: ABBI Lorazepam (Lorazepam 2 Mg/Ml Inj) 1 mg IV NOW ONE Stop: 08/12/22 15:20 Last Admin: 08/12/22 15:29 Dose: 1 mg Documented By: ABBI Vital Signs Vital signs: Vital Signs - 8 hr 08/12/22 11:54 08/12/22 11:56 08/12/22 11:56 Pulse Rate 92 H 94 H Respiratory Rate Blood Pressure 154/70 H Pulse Oximetry 94 95 08/12/22 12:00 08/12/22 12:00 08/12/22 12:20 Pulse Rate 92 H Respiratory Rate Blood Pressure 155/81 H 129/55 L Pulse Oximetry 95 08/12/22 12:20 08/12/22 12:30 08/12/22 12:40 Pulse Rate 91 H 91 H 86 Respiratory Rate Blood Pressure Pulse Oximetry 94 94 08/12/22 12:40 08/12/22 13:00 08/12/22 13:00 Pulse Rate 91 H Respiratory Rate Blood Pressure 100/57 L 102/67 Pulse Oximetry 08/12/22 13:20 08/12/22 13:20 08/12/22 13:30 Pulse Rate 88 91 H Respiratory Rate 22 21 Blood Pressure 112/55 L Pulse Oximetry 94 08/12/22 14:00 08/12/22 14:01 08/12/22 14:01 Pulse Rate 89 90 Respiratory Rate 20 Blood Pressure 145/66 H Pulse Oximetry 91 92 08/12/22 14:20 08/12/22 14:20 08/12/22 14:30 Pulse Rate 91 H 105 H Respiratory Rate Blood Pressure 128/61 Pulse Oximetry 94 92 08/12/22 15:00 Pulse Rate 95 H Respiratory Rate 18 Blood Pressure Pulse Oximetry 91 MDM - Male Genitourinary Lab Data Result diagrams: 08/12/22 11:52 08/12/22 11:52 Labs: Lab Results 08/12/22 08/12/22 08/12/22 Range/Units 11:52 11:52 11:52 WBC 10.0 (4.5-11.0) X10^3/uL RBC 4.64 (4.5-5.9) X10^6/uL Hgb 13.1 L (13.5-17.5) g/dL Hct 40.0 L (41-53) % MCV 86.2 (80-100) fL MCH 28.2 (26-34) PG MCHC 32.8 (30-36) % RDW 15.0 H (11.6-14.8) % Plt Count 237 (150-400) X10^3/uL Neut % (Auto) 75.8 H (50-75) % Lymph % (Auto) 15.8 L (25-40) % [place] % (Auto) 6.3 (3-14) % Eos % (Auto) 1.7 L (2-4) % Baso % (Auto) 0.4 (0-2) % Neut # (Auto) 7600 H (6771-5456) /uL Lymph # (Auto) 1600 (9418-9503) /uL [place] # (Auto) 600 (0-900) /uL Eos # (Auto) 200 (0-450) /uL Baso # (Auto) 0 (0-100) /uL Sodium (137-145) mmol/L Potassium (3.4-5.1) mmol/L Chloride (98-107) mmol/L Carbon Dioxide (22-32) mmol/L BUN (9-20) mg/dL Creatinine (0.66-1.25) mg/dL Estimated GFR (>60) mL/min BUN/Creatinine Ratio (6-22) Glucose (70-100) mg/dL Lactate 1.4 (0.7-2.1) mmol/L Calcium (8.4-10.2) mg/dL Total Bilirubin (0.2-1.3) mg/dL AST (17-59) IU/L ALT (<50) IU/L Alkaline Phosphatase (38-126) U/L Total Creatine Kinase (55-170) U/L CK-MB (CK-2) CK-MB (CK-2) Rel Index Troponin I (0.01-0.034) ng/mL NT-Pro-B Natriuret Pep (<125) pg/mL Total Protein (6.3-8.2) g/dL Albumin (3.5-5.0) g/dL Globulin (1.7-4.1) g/dL Albumin/Globulin Ratio (1.0-2.8) Lipase (23-300) U/L Procalcitonin 0.06 (<0.5) ng/mL SARS-CoV-2 (PCR) (Negative) 08/12/22 08/12/22 08/12/22 Range/Units 11:52 11:52 14:09 WBC (4.5-11.0) X10^3/uL RBC (4.5-5.9) X10^6/uL Hgb (13.5-17.5) g/dL Hct (41-53) % MCV (80-100) fL MCH (26-34) PG MCHC (30-36) % RDW (11.6-14.8) % Plt Count (150-400) X10^3/uL Neut % (Auto) (50-75) % Lymph % (Auto) (25-40) % [place] % (Auto) (3-14) % Eos % (Auto) (2-4) % Baso % (Auto) (0-2) % Neut # (Auto) (7830-7409) /uL Lymph # (Auto) (3748-8080) /uL [place] # (Auto) (0-900) /uL Eos # (Auto) (0-450) /uL Baso # (Auto) (0-100) /uL Sodium 139 (137-145) mmol/L Potassium 3.7 (3.4-5.1) mmol/L Chloride 91 L (98-107) mmol/L Carbon Dioxide 37 H (22-32) mmol/L BUN 16 (9-20) mg/dL Creatinine 0.60 L (0.66-1.25) mg/dL Estimated GFR > 60 (>60) mL/min BUN/Creatinine Ratio 26.7 H (6-22) Glucose 141 H (70-100) mg/dL Lactate (0.7-2.1) mmol/L Calcium 9.1 (8.4-10.2) mg/dL Total Bilirubin 0.6 (0.2-1.3) mg/dL AST 30 (17-59) IU/L ALT 30 (<50) IU/L Alkaline Phosphatase 95 (38-126) U/L Total Creatine Kinase 50 L (55-170) U/L CK-MB (CK-2) TNP CK-MB (CK-2) Rel Index TNP Troponin I < 0.012 (0.01-0.034) ng/mL NT-Pro-B Natriuret Pep 32 (<125) pg/mL Total Protein 8.9 H (6.3-8.2) g/dL Albumin 4.0 (3.5-5.0) g/dL Globulin 4.9 H (1.7-4.1) g/dL Albumin/Globulin Ratio 0.8 L (1.0-2.8) Lipase 18 L (23-300) U/L Procalcitonin (<0.5) ng/mL SARS-CoV-2 (PCR) Negative (Negative) Imaging Data US scrotum: Radiologist's Impression: Signed Patient: Amador Mason MR#: [id number] : 1970 Acct:[id number] Age/Sex: 52 / M Date of Service: 08/12/22 Loc: 214-1 Accession Number: [id number] ?? Procedure: US scrotum Ordering Provider: Anna Echeverria D.O. PROCEDURE:? US SCROTUM ? INDICATIONS:? ENLARGED SCROTUM ? TECHNIQUE:? Real-time scanning was performed of the scrotum and testicles, with image documentation.? Color and pulse Doppler interrogation was performed of both testicles.? ? COMPARISON:[facility], , US SCROTUM, 08/04/2022, 15:38. ? FINDINGS:? ? Right:? Testicle is normal in size at 4.2 x 2.9 x 2.8 cm, and homogenous in echotexture.? Epididymis is normal in overall size and morphology.? No varicoceles.? Small hydrocele.? Thickened scrotal wall with prominent blood flow.? No loculated fluid collection. ? Left:? Testicle is normal in size at 4.2 x 2.8 x 2.7 cm, and homogeneous in echotexture.? Epididymis is normal in overall size and morphology.? No varicoceles.? Small hydrocele.? Thickened scrotal wall with prominent blood flow.? No loculated fluid collection. ? Doppler:? Color and pulse Doppler demonstrate normal and symmetric arterial flow in both testicles.? ? IMPRESSION:? 1. Scrotal wall thickening is increased compared to 08/04/2022.? This could be due to cellulitis or other infectious/inflammatory etiology. ? 2. Blood flow in the testicles is within normal limits and similar. ? 3. Small bilateral hydroceles. ? ? Dictated by: Wil Rene M.D. on 08/12/2022 at 15:44 ? ? Approved by: Wil Rene M.D. on 08/12/2022 at 15:48 ? ECG Data Interpretation: Normal sinus rhythm rate 83 CT interval 156 QRS [address] changes similar to previous EKG MDM Narrative Medical decision making narrative: The patient is quite edematous. It is obvious that he is open is not fluid restricting. He has a very large scrotum and abdomen. He has no chest pain or shortness of breath. He does respond better to Bumex and Lasix. He will need to come in for obvious diuresis. His scrotum is quite large with small hydroceles. No sign of sepsis or infection at this time. His legs do appear chronic. Patient is very emotional. He is also worried about withdrawing from his fentanyl. But frequently asked when he can start his Suboxone which she has at home. He is given Ativan which does seem to help. He has not given any opiates here in the ED and Tylenol for pain. Dr. Hudson updated patient's symptoms test results accepts patient Discharge Plan Departure Patient Disposition: Admitted As Inpatient Clinical Impression: Ольга Admit Date/Time: 08/12/22 15:13 Admit Provider: Pennie Pham
[2022-08-12 12:47] LABS: Procalcitonin 0.06 ng/mL (<0.5)
--- NOTE | 2022-08-12 13:15 | DI.US.S_ITS ---
PROCEDURE: US SCROTUM INDICATIONS: ENLARGED SCROTUM TECHNIQUE: Real-time scanning was performed of the scrotum and testicles, with image documentation. Color and pulse Doppler interrogation was performed of both testicles. COMPARISON: [facility], US SCROTUM, 08/04/2022, 15:38. FINDINGS: Right: Testicle is normal in size at 4.2 x 2.9 x 2.8 cm, and homogenous in echotexture. Epididymis is normal in overall size and morphology. No varicoceles. Small hydrocele. Thickened scrotal wall with prominent blood flow. No loculated fluid collection. Left: Testicle is normal in size at 4.2 x 2.8 x 2.7 cm, and homogeneous in echotexture. Epididymis is normal in overall size and morphology. No varicoceles. Small hydrocele. Thickened scrotal wall with prominent blood flow. No loculated fluid collection. Doppler: Color and pulse Doppler demonstrate normal and symmetric arterial flow in both testicles. IMPRESSION: 1. Scrotal wall thickening is increased compared to 08/04/2022. This could be due to cellulitis or other infectious/inflammatory etiology. 2. Blood flow in the testicles is within normal limits and similar. 3. Small bilateral hydroceles. Dictated by: Wil Rene M.D. on 08/12/2022 at 15:44 Approved by: Wil Rene M.D. on 08/12/2022 at 15:48
[2022-08-12] MEDS: LORazepam 2 MG/ML INJ 1 MG IV ×4 (13:31→20:23)
[2022-08-12] MEDS: BUMETANIDE 1 MG/4 ML VIAL 2 MG IV (13:34)
--- NOTE | 2022-08-12 13:47 | PC.NURSE ---
Pt states he uses street fentanyl many times a day, states he smokes it and snorts it.
--- NOTE | 2022-08-12 14:15 | PC.NURSE ---
Pt has sleep apnea, O's drop when napping. On 2L when napping only.
[2022-08-12 14:25] LABS: COVID19 -Nasal RAPID Negative (Negative)
[2022-08-12] MEDS: ACETAMINOPHEN 325 MG TABLET 975 MG PO (15:32)
--- NOTE | 2022-08-12 19:49 | DI.ECHO.S_ITS ---
[place] [facility]---------+ [facility] +---------+ : : [address] : : : : [id number] : : : : Phone: [phone] Echocardiogram Report + + :Name: MARIKA ABREU Study Date: 08/13/2022 Height: 73 in : :[facility] ReadingLocation: Weight: 390 lb : : Gender: Male BSA: 2.9 m2 : :: 1970 Age: 52 yrs BP: 161/83 mmHg: :Reason For Study: Congestive Heart Failure : :Ordering Physician: WESLY, : :LUPE Performed By: Parag Ayers : :Referring: LUPE JARRELL : + + Interpretation Summary Hypertensive during exam The left ventricle is normal in size and wall thickness. The ejection fraction is estimated to be 55-60%. There are no focal wall motion abnormalities. Diastolic parameters suggest probable normal left ventricular diastolic function and normal filling pressures. The IVC is dilated (diameter is greater than 2.1 cm) and it collapses less than 50% with a sniff. This suggests a high right atrial pressure of 15 mm Hg. Similar to 08/14/2021 Procedure: A two-dimensional transthoracic echocardiogram with color flow and Doppler was performed. The study quality was technically difficult. Comparison is made with the echocardiogram of 08/14/2021. A contrast injection of Definity was performed to improve assessment of LV function. The patient was in normal sinus rhythm during the exam. Hypertensive during exam. Left Ventricle: The left ventricle is normal in size and wall thickness. Left ventricular systolic function is normal. The ejection fraction is estimated to be 55-60%. There are no focal wall motion abnormalities. Diastolic parameters suggest probable normal left ventricular diastolic function and normal filling pressures. Right Ventricle: The right ventricle grossly appears normal in size with probable normal systolic function. Atria: Both atria are normal in size. The interatrial septum grossly appears intact with no obvious evidence for an atrial septal defect. Mitral Valve: The mitral valve is normal in structure and function. There is no mitral regurgitation noted. Aortic Valve: The aortic valve is not well visualized. There is no aortic valve stenosis. No aortic regurgitation is present. Tricuspid Valve: The tricuspid valve is normal in structure and function. No tricuspid regurgitation. Pulmonary artery pressures cannot be estimated because of the lack of a measurable TR jet velocity. Pulmonic Valve: The pulmonic valve is not well visualized. Great Vessels: The aortic root is not well visualized. The ascending aorta could not be visualized. The IVC is dilated (diameter is greater than 2.1 cm) and it collapses less than 50% with a sniff. This suggests a high right atrial pressure of 15 mm Hg. Pericardium/ Pleura There is no pericardial effusion. There is no pleural effusion. MMode/2D Measurements & Calculations LVIDd: 5.4 cm LA A2 area: 24.1 cm2 LVIDs: 3.5 cm LA A4 area: 23.2 cm2 FS: 34.6 % LA length (vol): 5.3 cm IVSd: 1.0 cm LA vol: 89.0 ml LVPWd: 0.98 cm LA vol index: 31.2 ml/m2 LV tamez. diameter/BSA (cm/m^2): 1.9 LV sys. diameter/BSA (cm/m^2): 1.2 RA long axis: 4.9 cm RVD1 (basal): 3.9 cm RA area: 16.5 cm2 TAPSE: 3.6 cm RA vol: 47.3 ml RA : 16.5 ml/m2 IVC diam: 3.5 cm Doppler Measurements & Calculations Ao V2 max: 150.5 cm/sec LVOT Max Robert: 135.6 cm/sec Ao V2 mean: 102.5 cm/sec LV V1 max P.4 mmHg Ao max P.1 mmHg LV V1 VTI: 27.8 cm Ao mean P.7 mmHg sev ratio: 1.0 Ao V2 VTI: 26.7 cm MV E max robert: 82.8 cm/sec MV A max robert: 86.3 cm/sec MV E/A: 0.96 Med Peak E' Robert: 11.8 cm/sec E/E' med: 7.0 Lat Peak E' Robert: 11.4 cm/sec E/E' lat: 7.3 E/e' average: 7.2 MV dec time: 0.32 sec Reading Physician:SERGEI
[2022-08-12] MEDS: FUROSEMIDE 100 MG/10 ML VIAL 80 MG IV (20:09)
[2022-08-12] MEDS: SODIUM CHLORIDE 0.9% FLUSH 10 ML IV ×4 (20:10→21:59)
[2022-08-12] MEDS: BUPRENORPHINE/NALOXONE 8MG/2MG 1 TAB SL (20:10)
[2022-08-12 21:37] LABS: UR Morphine/Opiate cutoff 300 Negative (Negative); Ur Creatinine Normal (Normal); Ur Specific Gravity Normal (Normal); Urine Amphetamines Negative (Negative); Urine Barbiturates Negative (Negative); Urine Cocaine Negative (Negative); Urine MDMA Negative (Negative); Urine Methamphetamines Negative (Negative); Urine Phencyclidine Negative (Negative); Urine Tetrahydrocannabinol Negative (Negative); Urine pH Normal (Normal)
[2022-08-12 21:38] LABS: Urine Benzodiazepines Positive (Negative); Urine Methadone Negative (Negative); Urine Oxycodone Negative (Negative); Urine Tricyclic Antidepressant Negative (Negative)
[2022-08-12] MEDS: diphenhydrAMINE 50 MG/ML VIAL IV (21:52)
[2022-08-12] MEDS: ONDANSETRON 4 MG/2 ML INJ IV (21:59)
[2022-08-12] MEDS: cloNIDine 0.1 MG TABLET PO ×2 (22:08→23:29)
--- NOTE | 2022-08-12 22:14 | PC.NURSE ---
Pt. very anxious slept for a little while after medicated with 1 mg. Lorazepam IVP. Then he woke up more anxious, threatening to go AMA if not medicated with his anxiety. 50 mg. of Benadryl IVP admin. C/O nausea, states I'm sick in my stomach, spitting up white phlegm 4 mg. of Zofran IVP admin. Also medicated with 0.1 mg of PO Catapres as indicated for opiates withdrawal B/P 150/83 & HR 103. Will cont. POC & monitor.
--- NOTE | 2022-08-12 23:17 | PC.NURSE ---
Dr. Gregory notified that patient still very anxious, after medicated with all his anti anxiety medications. No new order receive, states i'll look into it. Will monitor & cont. POC.
--- NOTE | 2022-08-12 23:22 | P.HP_ITS ---
History of Present Illness History of Present Illness Date Patient Seen: 08/12/22 Time Patient Seen: 20:00 Chief complaint: gentials are swollen Narrative: Mr. Mason is a 51M with PMH CHF, morbid obesity, substance abuse of opiates who presents with anasarca. Patient notes he has a history of CHF. He is not adherent to low fluid intake. He ran out of his bumex a few days ago. He has no shortness of breath, no fevers/chills, no chest pain. He noted over the last week he has had significantly swollen genitals. He was seen in clinic where he had an ultrasound on August 04 which showed moderate left hydrocele. No evidence of torsion. He notes his scrotum has gotten larger since. He has a significant opiate abuse addiction. He uses significant amount of f entanyl pills and pure powder daily. He last used this morning and he states he is anxious and feeling in significant withdrawal. In the ED workup was done, vitals were notable for temp of 97.9, hr 101, rr 20, he did desat to low 90s% on room air. Labs notable for WBC 10.0, hgb 13.1, creatinine 0.60, troponin negative. Procal 0.06. Lactate 1.4. He was ordered for lasix, ativan, and admitted for further treatment. Patient History Medical History Cardiomegaly Congestive heart failure Depression, major Essential hypertension Foot pain Generalized anxiety disorder Morbid obesity with body mass index (BMI) of 40.0 to 44.9 in adult (11/21/17) Obesity, morbid, BMI 40.0-49.9 Opioid use disorder Recreational drug use Recurrent low back pain SOB (shortness of breath) Stasis dermatitis Venous (peripheral) insufficiency Venous stasis ulcers of both lower extremities (11/21/17) Family & Social History Family History Mother Cancer Lung cancer Social History: household members spouse Prior Living Arrangements Apartment/Condo Safety & Behavioral: Feels Safe in Current Yes Environment Been Physically Hurt or No Threatened By a Person Tobacco & Substance use: Tobacco type cigarettes Smoking Status Current every day smoker alcohol intake former alcohol intake frequency holiday/special occasion Substance Use Type opiates,painkillers,other Meds Home Medications and Allergies Home Medications Medication Instructions Recorded Confirmed Type Ventolin HFA 90 mcg/actuation 2 puff inhalation Q4-6H PRN 04/23/22 08/12/22 Rx aerosol inhaler (albuterol sulfate) shortness of breath or wheezing #18 grams sertraline 50 mg tablet 50 mg PO DAILY #90 tabs 07/26/22 08/12/22 Rx bumetanide 2 mg tablet 2 mg PO BID #37 tabs 08/02/22 08/12/22 Rx losartan 50 mg tablet 50 mg PO DAILY #30 tabs 08/02/22 08/12/22 Rx Allergies Allergy/AdvReac Type Severity Reaction Status Date / Time No Known Drug Allergies Allergy Verified 08/12/22 10:34 Review of Systems Review of Systems Narrative: 14 systems reviewed and negative aside from what is noted in HPI Exam Vital Signs (past 8 hours): - 08/12/22 15:30 08/12/22 15:30 08/12/22 15:40 Temperature Pulse Rate 90 86 Respiratory Rate 18 24 Blood Pressure 130/65 146/91 H Pulse Oximetry 91 92 Oxygen Delivery Method Nasal Cannula Oxygen Flow Rate 4 08/12/22 17:14 08/12/22 18:34 08/12/22 15:55 Temperature 97.7 F Pulse Rate 83 106 H Respiratory Rate 18 Blood Pressure 102/63 Pulse Oximetry 97 95 Oxygen Delivery Method High Flow Nasal Cannula High Flow Nasal Cannula Oxygen Flow Rate 4 08/12/22 22:08 Temperature Pulse Rate 103 H Respiratory Rate Blood Pressure 150/83 H Pulse Oximetry Oxygen Delivery Method Oxygen Flow Rate Oxygen Delivery Method High Flow Nasal Cannula Oxygen Flow Rate 4 Narrative Exam Narrative: GEN: anxious, emotionally labile HEENT: moist mucous membranes, PERRL NECK: trachea midline, no JVD PULM: clear bilaterally, no wheezes, rhonchi, rales ABD: distended, obese, soft, nontender, normal bowel sounds EXT: chronic venous stasis changes with brawny skin, significant bilaterally pitting edema : swollen scrotum, mildly erythematous, mildly tender, normal temperature to touch, no fluctuance NEURO: awake, alert, oriented, no focal deficits Objective Labs Result Diagrams: 08/12/22 11:52 08/12/22 11:52 Labs: Laboratory Results - last 24 hr 08/12/22 08/12/2208/12/22 11:52 11:52 11:52 WBC 10.0 RBC 4.64 Hgb 13.1 L Hct 40.0 L MCV 86.2 MCH 28.2 MCHC 32.8 RDW 15.0 H Plt Count 237 Neut % (Auto) 75.8 H Lymph % (Auto) 15.8 L [place] % (Auto) 6.3 Eos % (Auto) 1.7 L Baso % (Auto) 0.4 Neut # (Auto) 7600 H Lymph # (Auto) 1600 [place] # (Auto) 600 Eos # (Auto) 200 Baso # (Auto) 0 Sodium Potassium Chloride Carbon Dioxide BUN Creatinine Estimated GFR BUN/Creatinine Ratio Glucose Lactate 1.4 Calcium Total Bilirubin AST ALT Alkaline Phosphatase Total Creatine Kinase CK-MB (CK-2) CK-MB (CK-2) Rel Index Troponin I NT-Pro-B Natriuret Pep Total Protein Albumin Globulin Albumin/Globulin Ratio Lipase Procalcitonin 0.06 U Opiates 300ng/mL cut Ur Oxycodone Screen Urine Methadone Screen Ur Barbiturates Screen U Tricyclic Antidepress Ur Phencyclidine Scrn Ur Amphetamines Screen U Methamphetamines Scrn Ur MDMA Scrn (Ecstasy) U Benzodiazepines Scrn Urine Cocaine Screen U Marijuana (THC) Screen SARS-CoV-2 (PCR) 08/12/22 08/12/22 08/12/22 11:52 11:52 14:09 WBC RBC Hgb Hct MCV MCH MCHC RDW Plt Count Neut % (Auto) Lymph % (Auto) [place] % (Auto) Eos % (Auto) Baso % (Auto) Neut # (Auto) Lymph # (Auto) [place] # (Auto) Eos # (Auto) Baso # (Auto) Sodium 139 Potassium 3.7 Chloride 91 L Carbon Dioxide 37 H BUN 16 Creatinine 0.60 L Estimated GFR > 60 BUN/Creatinine Ratio 26.7 H Glucose 141 H Lactate Calcium 9.1 Total Bilirubin 0.6 AST 30 ALT 30 Alkaline Phosphatase 95 Total Creatine Kinase 50 L CK-MB (CK-2) TNP CK-MB (CK-2) Rel Index TNP Troponin I < 0.012 NT-Pro-B Natriuret Pep 32 Total Protein 8.9 H Albumin 4.0 Globulin 4.9 H Albumin/Globulin Ratio 0.8 L Lipase 18 L Procalcitonin U Opiates 300ng/mL cut Ur Oxycodone Screen Urine Methadone Screen Ur Barbiturates Screen U Tricyclic Antidepress Ur Phencyclidine Scrn Ur Amphetamines Screen U Methamphetamines Scrn Ur MDMA Scrn (Ecstasy) U Benzodiazepines Scrn Urine Cocaine Screen U Marijuana (THC) Screen SARS-CoV-2 (PCR) Negative 08/12/22 20:35 WBC RBC Hgb Hct MCV MCH MCHC RDW Plt Count Neut % (Auto) Lymph % (Auto) [place] % (Auto) Eos % (Auto) Baso % (Auto) Neut # (Auto) Lymph # (Auto) [place] # (Auto) Eos # (Auto) Baso # (Auto) Sodium Potassium Chloride Carbon Dioxide BUN Creatinine Estimated GFR BUN/Creatinine Ratio Glucose Lactate Calcium Total Bilirubin AST ALT Alkaline Phosphatase Total Creatine Kinase CK-MB (CK-2) CK-MB (CK-2) Rel Index Troponin I NT-Pro-B Natriuret Pep Total Protein Albumin Globulin Albumin/Globulin Ratio Lipase Procalcitonin U Opiates 300ng/mL cut Negative Ur Oxycodone Screen Negative Urine Methadone Screen Negative Ur Barbiturates Screen Negative U Tricyclic Antidepress Negative Ur Phencyclidine Scrn Negative Ur Amphetamines Screen Negative U Methamphetamines Scrn Negative Ur MDMA Scrn (Ecstasy) Negative U Benzodiazepines Scrn Positive H Urine Cocaine Screen Negative U Marijuana (THC) Screen Negative SARS-CoV-2 (PCR) Assessment & Plan Assessment & Plan narrative: 1. Anasarca with probable acute diastolic CHF excacerbation -presents with low O2 sats in low 90s -BNP normal, but can be falsely low in obese patients -patient clinically in significant volume overload, will order IV lasix, goal 2- 3L net negative daily, place on fluid restriction, low salt diet -normal LFTs -will order UA to check for proteinuria as cause of anasarca -order ECHO to evaluate EF and valvular function -suspect patient has component of NELSON contributing to overall picture, and substance abuse is certainly causing 2. Opiate abuse and opiate withdrawal -has significant abuse of perc 30s and powdered fentanyl -last used approximately 12 hours prior to presentation and in significant withdrawal -will start suboxone -for adjunctive treatment have ordered clonidine, ativan, benadryl, tylenol -check urine drug screen 3. Generalized anxiety disorder -continue sertraline 4. Hypertension -hold losartan while giving clonidine for now Mr. Mason presents in severe anasarca with weight dozens of kilos suspected above dry weight. In addition has significant swelling in his scrotum. Will need prolonged diuresis given dramatic volume overload. In addition given extremely high amounts of fentanyl used suspect he will have significant challenges with withdrawal and suspect length of stay greater than two midnights. CODE: Full Proxy: Proxy: Deborah [place], spouse I have utilized all available resources to review update, and confirm his current medications Time Spent With Patient Critical Care time: I spent a total of [] minutes of critical care time on this patient's care today; this time is exclusive of procedural time. Quality VTE Deep Vein Thrombosis/Pulmonary Embolism Present on Admission: No
[2022-08-12 23:26] LABS: Appearance Urine UA CLEAR; Bilirubin Urine UA NEGATIVE (NEGATIVE); Color Urine UA YELLOW; Glucose Urine UA NEGATIVE (Negative); Ketones Urine UA NEGATIVE (NEGATIVE); Leukocyte Esterase Urine UA NEGATIVE (NEGATIVE); Nitrite Urine UA NEGATIVE (Negative); Occult Blood Urine UA NEGATIVE (Negative); Protein Urine UA NEGATIVE (Negative); Urobilinogen Urine UA 0.2 E.U./dL (0.2); pH Urine UA 6.5 (4.5-8.0)
[2022-08-12 23:36] LABS: Bacteria Urine None Seen; Culture Indicated Urine Cult Not Indicated; RBC Urine None Seen (0-5/HPF); WBC Urine None Seen (0-5/HPF)
[2022-08-13] VITALS (7 sets, daily range): BP systolic 153–161; BP diastolic 83–96; PULSE 90–95; RESP 18–22; TEMP 36.6; O2SAT 92–96
[2022-08-13] MEDS: LORazepam 2 MG/ML INJ 1 MG IV ×5 (00:59→20:37)
[2022-08-13] MEDS: SODIUM CHLORIDE 0.9% FLUSH 10 ML IV ×4 (00:59→20:39)
--- NOTE | 2022-08-13 01:17 | PC.NURSE ---
Pt. got up OOB to the sink & was drinking some water from the faucet. Reminded he is on fluid restriction only 400 cc this shift. Still very anxious requesting something for sleep. 1 mg. of Lorazepam administered & he commented it does not helped, after medication was already administered. Will monitor.
--- NOTE | 2022-08-13 03:01 | PC.NURSE ---
C/O insomnia even after medicated with 1 mg. Ativan IV notified. Trazadone ordered awaiting for night Pharmacist verification.
[2022-08-13] MEDS: TRAZODONE 100 MG TABLET PO ×2 (03:11→20:37)
--- NOTE | 2022-08-13 05:53 | PC.NURSE ---
Patient was able to rest & sleep around 0440 this morning. Spouse was here & brought him underwear & shirt. Will cont. POC & monitor.
[2022-08-13] MEDS: SERTRALINE 50 MG TABLET PO (08:30)
[2022-08-13] MEDS: FUROSEMIDE 100 MG/10 ML VIAL 80 MG IV ×2 (08:31→19:41)
[2022-08-13] MEDS: ENOXAPARIN 40 MG/0.4 ML SYRINGE SUBCUT (08:34)
[2022-08-13] MEDS: BUPRENORPHINE/NALOXONE 8MG/2MG 1 TAB SL (08:41)
[2022-08-13 08:53] LABS: Add Manual Diff / Slide Review NO; Basophils Absolute Auto 0 /uL (0-100); Basophils Percent Auto 0.2 % (0-2); Eosinophils Absolute Auto 0 /uL (0-450); Hematocrit 36.6 % (41-53); Hemoglobin 12.2 g/dL (13.5-17.5); Lymphocytes Absolute Auto 1100 /uL (1100-4500); Lymphocytes Percent Auto 8.8 % (25-40); Mean Corpuscular HGB Conc 33.4 % (30-36); Mean Corpuscular Hemoglobin 28.3 PG (26-34); Monocytes Absolute Auto 400 /uL (0-900); Monocytes Percent Auto 3.1 % (3-14); Neutrophils Absolute Auto 10600 /uL (1500-7000); Neutrophils Percent Auto 87.9 % (50-75); Platelet Count 205 X10^3/uL (150-400); Red Cell Distribution Width 14.5 % (11.6-14.8)
[2022-08-13 09:21] LABS: BUN Creatinine Ratio 27.6 (6-22); Blood Urea Nitrogen 16 mg/dL (9-20); Calcium 8.9 mg/dL (8.4-10.2); Carbon Dioxide 37 mmol/L (22-32); Chloride 93 mmol/L (98-107); Estimated Glomerular Filt Rate > 60 mL/min (>60); Glucose 186 mg/dL (70-100); HEMOLYSIS < 15 (0-50); Magnesium 1.7 mg/dL (1.6-2.3); Potassium 3.6 mmol/L (3.4-5.1); Sodium 138 mmol/L (137-145)
--- NOTE | 2022-08-13 10:25 | CM.DANOTE ---
Patient is a 52 yo male who was admitted on 08/12/22 for Anascara. Pt has [employer] for insurance and his PCP is Yarelis Gallagher. EMR was reviewed. Per MD, pt has a hx of opiate abuse and CHF and admitted for fluid overload and will need aggressive diuresis and actively withdrawing from Fentanyl abuse and now on Suboxone and treated with withdrawal. Per RN, pt medicated and drowsy. Had difficult night due to anxiety from withdrawal but sleeping now. SW met bedside with pt and woke him up and spouse had been bedside briefly this morning but left and pt struggling to keep his eyes open but confirms he lives in [place] with spouse and is working some and denies any hx of KAL tx. SW inquired if he was interested in continuing Suboxone or Medication Assisted Tx (MAT) at d/c and pt states he feels one he is done with his withdrawals here in the hospital he will not need tx or MAT as I will just be done with using Fentanyl etc. Pt states he does not want to swap one med for another and SW briefly discussed the benefit to managed MAT treatment vs just using Fentanyl on his own as he smokes and snorts it. Pt agreeable with receiving the KAL tx resources sheet with local treatment facilities that provide MAT. Per Fitting Room Supervisor, to consult with pt due to high risk for diabetes and obesity during his admission. Plan: SW to follow up with pt tomorrow when more medically appropriate to discuss d/c planning needs. JADON Starr Discharge Planning/Care Management CM Discharge Assessment Start: 08/13/22 09:37 Freq: Status: Active Protocol: Document 08/13/22 09:37 BF (Rec: 08/13/22 09:39 [id number]) Discharge Planning Assessment Assigned Key Account Coordinator JADON Hassan DPOA/Assigned Designee Name informally spouse Deborah Contact Information [phone] Advance Directives? No Advance Directives on File No History Provided By Patient,Medical Record Has Patient been admitted in last 30 No days? Prior Living Arrangements Apartment/Condo Household Members spouse Type of transporation used prior to Drives own vehicle admit Independent with ADL's Yes Is patient alert and oriented? Yes Caregiver for Another No Comment Could benefit from KAL tx but declines at this time Barriers to Discharge No Comment Fentanyl abuse at baseline Discharge Plan Drug Rehabilitation Transportation Arrangement Spouse likely to provide transport at d/c Additional Comment Provided KAL/MAT tx resources to pt but currently he declines the need at d/c Whiteboard Updated in Patient Room with Yes name and ext. # of Key Account Coordinator Review Status In Process Please Provide Date Initial DC 08/13/22 Assessment Was Performed Next Review Type Continued Stay Review
[2022-08-13] MEDS: cloNIDine 0.1 MG TABLET PO ×2 (10:38→20:38)
[2022-08-13] MEDS: MAGNESIUM CHLORIDE 64 MG TABLET 128 MG PO (12:28)
[2022-08-13] MEDS: ONDANSETRON 4 MG/2 ML INJ IV (12:28)
[2022-08-13] MEDS: FUROSEMIDE 40 MG/4 ML VIAL IV (14:06)
[2022-08-13] MEDS: SPIRONOLACTONE 25 MG TABLET PO (14:10)
--- NOTE | 2022-08-13 16:42 | P.PN_ITS ---
Subjective Subjective Interval history: Mr. Mason is a 51M with PMH CHF, morbid obesity, substance abuse of opiates who presents with anasarca. Patient notes he has a history of CHF. He is not adherent to low fluid intake. He ran out of his bumex a few days ago. He has no shortness of breath, no fevers/chills, no chest pain. He noted over the last week he has had significantly swollen genitals. He was seen in clinic where he had an ultrasound on August 04 which showed moderate left hydrocele. No evidence of torsion. He notes his scrotum has gotten larger since. He has a significant opiate abuse addiction. He uses significant amount of fentanyl pills and pure powder daily. He last used this morning and he states he is anxious and feeling in significant withdrawal. Interestingly however his drug screen was only positive for benzodiazepines. Main complaint currently is not withdrawal symptoms but pain of his abdomen with distention. Not producing much gas and has what feels like to him significant gas in his intestines. Will assess with a portable x-ray to evaluate further. Exam Vital Signs (past 8 hours): - 08/13/22 10:15 08/13/22 10:38 Pulse Rate 90 Blood Pressure 153/96 H Pulse Oximetry 92 Oxygen Delivery Method Room Air Oxygen Delivery Method Room Air Oxygen Flow Rate 5 Narrative Exam Narrative: GEN: anxious, in apparent pain but does not appear in acute medical distress. HEENT: moist mucous membranes, PERRL NECK: trachea midline, no JVD PULM: clear bilaterally, no wheezes, rhonchi, rales ABD: distended, obese, soft, generalized tenderness, normal bowel sounds EXT: chronic venous stasis changes with brawny skin, significant bilaterally pitting edema : swollen scrotum, mildly erythematous, mildly tender, normal temperature to touch, no fluctuance NEURO: awake, alert, oriented, no focal deficits Objective Labs Result Diagrams: 08/13/22 08:35 08/13/22 08:35 Labs: Laboratory Results - last 24 hr 08/12/22 08/12/22 08/13/22 20:35 20:39 08:35 WBC 12.0 H RBC 4.30 L Hgb 12.2 L Hct 36.6 L MCV 85.0 MCH 28.3 MCHC 33.4 RDW 14.5 Plt Count 205 Neut % (Auto) 87.9 H Lymph % (Auto) 8.8 L [place] % (Auto) 3.1 Eos % (Auto) 0.0 L Baso % (Auto) 0.2 Neut # (Auto) 47660 H Lymph # (Auto) 1100 [place] # (Auto) 400 Eos # (Auto) 0 Baso # (Auto) 0 Sodium Potassium Chloride Carbon Dioxide BUN Creatinine Estimated GFR BUN/Creatinine Ratio Glucose Calcium Magnesium Urine Color Yellow Urine Appearance Clear Urine pH 6.5 Ur Specific [place] 1.010 Urine Protein Negative Urine Glucose (UA) Negative Urine Ketones Negative Urine Occult Blood Negative Urine Nitrate Negative Urine Bilirubin Negative Urine Urobilinogen 0.2 Ur Leukocyte Esterase Negative Urine RBC None seen Urine WBC None seen Urine Bacteria None seen Ur Culture Indicated? Cult not indicated U Opiates 300ng/mL cut Negative Ur Oxycodone Screen Negative Urine Methadone Screen Negative Ur Barbiturates Screen Negative U Tricyclic Antidepress Negative Ur Phencyclidine Scrn Negative Ur Amphetamines Screen Negative U Methamphetamines Scrn Negative Ur MDMA Scrn (Ecstasy) Negative U Benzodiazepines Scrn Positive H Urine Cocaine Screen Negative U Marijuana (THC) Screen Negative 08/13/22 08:35 WBC RBC Hgb Hct MCV MCH MCHC RDW Plt Count Neut % (Auto) Lymph % (Auto) [place] % (Auto) Eos % (Auto) Baso % (Auto) Neut # (Auto) Lymph # (Auto) [place] # (Auto) Eos # (Auto) Baso # (Auto) Sodium 138 Potassium 3.6 Chloride 93 L Carbon Dioxide 37 H BUN 16 Creatinine 0.58 L Estimated GFR > 60 BUN/Creatinine Ratio 27.6 H Glucose 186 H Calcium 8.9 Magnesium 1.7 Urine Color Urine Appearance Urine pH Ur Specific [place] Urine Protein Urine Glucose (UA) Urine Ketones Urine Occult Blood Urine Nitrate Urine Bilirubin Urine Urobilinogen Ur Leukocyte Esterase Urine RBC Urine WBC Urine Bacteria Ur Culture Indicated? U Opiates 300ng/mL cut Ur Oxycodone Screen Urine Methadone Screen Ur Barbiturates Screen U Tricyclic Antidepress Ur Phencyclidine Scrn Ur Amphetamines Screen U Methamphetamines Scrn Ur MDMA Scrn (Ecstasy) U Benzodiazepines Scrn Urine Cocaine Screen U Marijuana (THC) Screen PFSH Medical History Cardiomegaly Congestive heart failure Depression, major Essential hypertension Foot pain Generalized anxiety disorder Morbid obesity with body mass index (BMI) of 40.0 to 44.9 in adult (11/21/17) Obesity, morbid, BMI 40.0-49.9 Opioid use disorder Recreational drug use Recurrent low back pain SOB (shortness of breath) Stasis dermatitis Venous (peripheral) insufficiency Venous stasis ulcers of both lower extremities (11/21/17) Family History Mother Cancer Lung cancer Social History household members: spouse Smoking Status: Current every day smoker alcohol intake: former substance use type: other (fentanyl ) Assessment & Plan Assessment & Plan narrative: 1. Anasarca with probable acute diastolic CHF excacerbation -presents with low O2 sats in low 90s -BNP normal, but can be falsely low in obese patients -patient clinically in significant volume overload, will order IV lasix, goal 2- 3L net negative daily, place on fluid restriction, low salt diet -normal LFTs -urinalysis essentially normal -order ECHO to evaluate EF and valvular function -this was canceled today unclear why. -suspect patient has component of NELSON contributing to overall picture 2. Opiate abuse and opiate withdrawal -has significant abuse of perc 30s and powdered fentanyl -last used approximately 12 hours prior to presentation and in significant withdrawal -will start Suboxone, tolerating Suboxone and not complaining of withdrawal as his main complaint -for adjunctive treatment have ordered clonidine, ativan, benadryl, tylenol -check urine drug screen -interestingly only has benzodiazepines present 3. Generalized anxiety disorder -continue sertraline 4. Hypertension -hold losartan while giving clonidine for now 5. Distended abdomen. Most likely trapped intestinal gas. Main complaint is pain of the abdomen. Will do portable x-ray to assess and start ketorolac 30 mg IV every 6 hours for pain control. Hold enoxaparin while using ketorolac. Follow labs and clinically. CODE: Full Proxy: Proxy: Deborah [place], spouse Time Spent With Patient Critical Care time: I spent a total of [] minutes of critical care time on this patient's care today; this time is exclusive of procedural time. Quality VTE Deep Vein Thrombosis/Pulmonary Embolism Present on Admission: No
[2022-08-13] MEDS: KETOROLAC 30 MG/ML VIAL IV (16:44)
--- NOTE | 2022-08-13 16:49 | DI.RAD.S_ITS ---
PROCEDURE: XR ACUTE ABDOMEN SERIES INDICATIONS: Assess for ileus. TECHNIQUE: One view chest and two views of the abdomen were acquired. COMPARISON: [facility], MR, MR LUMBAR SPINE WITHOUT CONTRAST, 04/19/2020, 9:50. [facility], CT, CT ANGIO CHEST PE PROTOCOL, 07/13/2022, 11:11. FINDINGS: Surgical changes and devices: None. Chest: Lungs are clear. Heart size is normal. No pleural effusions. No pneumoperitoneum. Abdomen: Bowel gas pattern is normal. No suspicious calcifications. Visualized solid organ contours appear normal. Bones: No suspicious bony lesions. IMPRESSION: No dilated loops of bowel are seen to suggest ileus or small-bowel obstruction. If clinically appropriate, please consider a repeat plain film study or a dedicated CT of the abdomen and pelvis, if the patient's symptoms persist or worsen. Dictated by: Rafa Alanis M.D. on 08/13/2022 at 16:51 Approved by: Rafa Alanis M.D. on 08/13/2022 at 16:52
--- NOTE | 2022-08-13 18:43 | PC.NURSE ---
Pt report received at bedside. Pt is arousable but lethargic after receiving ativan from hotel night auditor RN. He awakens mid morning and complains of being anxious stating I dont want to and asking How long does this take? referring to withdraw symptoms. Echo completed at bedside this a.m. He states he should have delt with fluid problem before going through detox feeling like he should go home and get high to get out of this torture. He is given prn medications as able for withdrawl and anxiety. He gets out of bed to walk to the bathroom sometimes missing the toilet. He denies much appetite feeling nauseated today, PRN zofran given with some improvement. He is given magnesium replacement. He reports its painful to walk with +3 edema to scrotum and not making it to the bathroom this morning, resulting in incontinent stool on the floor. this afternoon through the evening he complains of increasing pain to his abdomen feeling tight, extremely painful and bloated + BS, +flatus. MD notified and given lasix as well as spiranolactone. He has a large amount of urine out put this shift. He reports no relief to abdomen, and is given toradol IV with good effect. Xray of abdomen completed without evidence of ileus. Continuous monitoring.
[2022-08-13] MEDS: ACETAMINOPHEN 325 MG TABLET 650 MG PO (18:53)
--- NOTE | 2022-08-13 19:36 | DI.CT.S_ITS ---
PROCEDURE: CT ABDOMEN PELVIS W CON INDICATIONS: abdominal pain TECHNIQUE: After the administration of intravenous contrast, axial sections acquired from the lung bases to the pubic symphysis. Coronal and sagittal reformats were performed. For radiation dose reduction, the following was used: automated exposure control, adjustment of mA and/or kV according to patient size. COMPARISON: [facility], CR, XR ACUTE ABDOMEN SERIES, 08/13/2022, 16:58. [facility], US, US SCROTUM, 08/12/2022, 14:37. FINDINGS: Image quality: Excellent. Lung bases: Mild bibasilar dependent atelectasis are seen posteriorly.. Heart: No significant findings. ABDOMEN: Liver: There is hepatomegaly and moderate hepatic steatosis, no discrete hepatic lesion is seen. Tiny calcified granuloma is noted in posterior segment of right hepatic lobe and measures 6 mm in size series 2, image 21. Gallbladder: Within normal limits. Biliary ducts: Unremarkable. Pancreas: Unremarkable. Spleen: Unremarkable. Adrenal Glands: Unremarkable. Kidneys and Ureters: No stones or hydronephrosis. No hydroureter. Stomach and Bowel: Stomach, small bowel loops, and colon are unremarkable. Appendix is visualized and is within normal limits. Moderate sigmoid diverticulosis is seen, no sigmoid colon wall thickening or mesenteric fat stranding is seen. No abscess collection. Peritoneum: No abnormal intraperitoneal fluid. No free air. Ventral Wall: Small umbilical hernia containing fat only. Abdominal Nodes: No mesenteric lymphadenopathy by size criteria. Mildly prominent left periaortic nodes are seen measures up to 1.2 cm in short axis diameter series 2, image 44. Vessels: Aorta and inferior vena cava are normal in size. PELVIS: Pelvic Organs: Unremarkable. Bladder: Unremarkable. Pelvic Nodes: Enlarged bilateral inguinal nodes are seen measures up to 1.9 x 2.8 cm in size in right inguinal region series 2, image 99 and 1.7 x 3.4 cm in size in left inguinal region series 2, image 99. Miscellaneous: No hernias are seen. Bones: No suspicious bony lesion. No acute vertebral body compression fracture IMPRESSION: 1. Mildly enlarged left periaortic lymph nodes and bilateral inguinal lymph nodes as described above likely represent reactive inflammatory nodes. 2. No bowel obstruction or abnormal bowel wall thickening. No abscess collection. No free fluid or free air. Sigmoid diverticulosis without evidence of acute diverticulitis. 3. Hepatomegaly and hepatic steatosis, no discrete hepatic lesion. Dictated by: Alexandru Jovel M.D. on 08/13/2022 at 20:41 Approved by: Alexandru Jovel M.D. on 08/13/2022 at 20:45
[2022-08-13] MEDS: diphenhydrAMINE 50 MG/ML VIAL IV (20:37)
[2022-08-13] MEDS: OXYCODONE IR 5 MG TABLET PO (20:38)
[2022-08-13 22:30] LABS: Enterococcus species Not Detected (Not Detect); Listeria monocytogenes Not Detected (Not Detect)
[2022-08-13 22:31] LABS: Acinetobacter baumannii Not Detected (Not Detect); Enterobacteriaceae species Not Detected (Not Detect); Staphylococcus species Not Detected (Not Detect); Streptococcus agalactiae (Gr B Not Detected (Not Detect); Streptococcus pneumonia Not Detected (Not Detect); Streptococcus pyogenes (Gr A) Not Detected (Not Detect)
[2022-08-13 22:32] LABS: Candida albicans Not Detected (Not Detect); Candida glabrata Not Detected (Not Detect); Candida krusei Not Detected (Not Detect); Candida parapsilosis Not Detected (Not Detect); Candida tropicalis Not Detected (Not Detect); E. coli Not Detected (Not Detect); Enterobacter cloacae complex Not Detected (Not Detect); Haemophilus influenzae Not Detected (Not Detect); Neisseria meningitidis Not Detected (Not Detect); Proteus species Not Detected (Not Detect); Pseudomonas aeruginosa Not Detected (Not Detect); Serratia marcescens Not Detected (Not Detect)
--- NOTE | 2022-08-13 23:15 | PC.NURSE ---
NOC Shift Note- Patient left AMA at 2114. Patient complaining of abdominal pain ands that you guys are doing nothing to help me. Patient had been given everything available that had been ordered. This RN also spoke with hospitalist about patients pain and did recieved new orders and an order for CT Scan. Patient took out his own IV line and got dressed and stated he was going where he had stuff to help the pain. Patient signed AMA paper work and walked out at 2114.
[2022-08-13 23:23] LABS: Streptococcus species Detected (Not Detect)
--- NOTE | 2022-08-14 08:01 | CM.DPC ---
DCP AMA Per MD and RN from last night 08/13/22 that pt left AMA around 2100 and signed AMA pwk. JADON Starr
== END 2022-08-13 21:15 | disposition left against medical advice (07) | DRG 291 ==
LOC: ED 15:09 → AC 08-13 07:30
PROVIDERS: Internal Medicine; Admitting Provider Neuromusculoskeletal Medicine, Sports Medicine; Emergency Provider Emergency Medicine; PCP Family Medicine; Referring Provider Emergency Medicine; Visit Provider Neuromusculoskeletal Medicine, Sports Medicine
DX: I11.0 Hypertensive heart disease with heart failure (principal); N43.3 Hydrocele, unspecified; F11.13 Opioid abuse with withdrawal; F41.1 Generalized anxiety disorder; Z68.43 Body mass index [BMI] 50.0-59.9, adult; E66.01 Morbid (severe) obesity due to excess calories; R14.0 Abdominal distension (gaseous); F17.210 Nicotine dependence, cigarettes, uncomplicated; Z20.822 Contact with and (suspected) exposure to COVID-19; Z53.29 Procedure and treatment not carried out because of patient's decision for other reasons
CPT/HCPCS: 36415; 71045; 74022; 74177; 76870; 80048; 80053; 80305; 81001; 82550; 83605; 83690; 83735; 83880; 84145; 84484; 85025; 87040; 87150; 87205; 87635; 93005; 93010; 96374; 96375; 96376; 99284; C9803; G0378; C8929; J1200; J1650; J1885; J1940; J2060; J2405; Q9957; Q9967

== ENCOUNTER → 2023-02-24 07:40 | Outpatient (CLI) | payer BC, SELFPAY ==
[2021-08-13 06:12] VITALS: PULSE 98; RESP 14; O2SAT 97
[2022-08-12 16:02] VITALS: BMI 51.5
--- NOTE | 2023-02-24 07:42 | DI.RAD.S_ITS ---
PROCEDURE: XR KNEE RT 3V INDICATIONS: right knee pain TECHNIQUE: 3 views of the knee were acquired. COMPARISON: None. FINDINGS: Bones: No fractures or dislocations. No suspicious bony lesions. Tricompartmental knee joint space narrowing with periarticular osteophyte formation, most notably and moderate involving the medial femorotibial joint. Soft tissues: Small joint effusion. No suspicious soft tissue calcifications. IMPRESSION: 1. Tricompartmental knee joint degeneration, most notably and moderate involving the medial femorotibial joint. Dictated by: Vinicio Ramirez [facility] Interpreted: Rachel Caceres MD on 02/24/2023 at 9:14 Transcribed by: VELIA on 02/24/2023 at 9:14 Approved by: Rachel Caceres M.D. on 02/24/2023 at 16:56
[2023-02-24 09:36] LABS: Hematocrit 41.6 % (41-53); Mean Corpuscular HGB Conc 33.8 % (30-36); Mean Corpuscular Hemoglobin 29.4 PG (26-34); Platelet Count 194 X10^3/uL (150-400); Red Blood Cell Count 4.78 X10^6/uL (4.5-5.9); Red Cell Distribution Width 15.1 % (11.6-14.8); White Blood Cell Count 6.5 X10^3/uL (4.5-11.0)
[2023-02-24 10:02] LABS: Blood Urea Nitrogen 14 mg/dL (9-20); Calcium 8.7 mg/dL (8.4-10.2); Carbon Dioxide 39 mmol/L (22-32); Chloride 92 mmol/L (98-107); Cholesterol 164 mg/dL (140-199); Estimated Glomerular Filt Rate > 60 mL/min (>60); Glucose 148 mg/dL (70-100); HDL Cholesterol 30 mg/dL (40-60); HEMOLYSIS < 15 (0-50); LDL Cholesterol Calculated 119 mg/dL (<100); Potassium 3.6 mmol/L (3.4-5.1); Sodium 137 mmol/L (137-145); Triglycerides 74 mg/dL (35-150)
[2023-02-24 10:07] LABS: NT-proBNP (BNP-Adult 18+) 30 pg/mL (<125)
[2023-02-25 05:14] LABS: x Labcorp Estim. Avg Glu (eAG) 154 mg/dL (.)
== END ==
PROVIDERS: PCP Family Medicine; Referring Provider Family Medicine; Visit Provider Family Medicine
DX: M25.561 Pain in right knee (principal); I50.9 Heart failure, unspecified; I11.0 Hypertensive heart disease with heart failure; I51.7 Cardiomegaly; M17.11 Unilateral primary osteoarthritis, right knee; I87.2 Venous insufficiency (chronic) (peripheral); R60.1 Generalized edema; R73.9 Hyperglycemia, unspecified
CPT/HCPCS: 36415; 73562; 80048; 80061; 83036; 83880; 85027

== ENCOUNTER 2023-07-10 14:09 | Emergency (ER) | payer SELFPAY ==
[2021-08-13 06:12] VITALS: PULSE 98; RESP 14; O2SAT 97
[2022-08-12 16:02] VITALS: BMI 51.5
[2023-07-10] VITALS (14 sets, daily range): BP systolic 131–160; BP diastolic 58–92; PULSE 86–101; RESP 16–26; TEMP 36.8; O2SAT 80–99; BMI 51.2
--- NOTE | 2023-07-10 14:32 | DI.RAD.S_ITS ---
PROCEDURE: XR CHEST 1V INDICATIONS: chest pain TECHNIQUE: One view of the chest was acquired. COMPARISON: [facility], CR, XR CHEST 1V, 08/12/2022, 12:09. FINDINGS: Surgical changes and devices: None. Lungs and pleura: Lungs are clear. No pleural effusions or pneumothorax. Mediastinum: Mediastinal contours appear normal. Heart size is normal. Bones and chest wall: No suspicious bony lesions. Overlying soft tissues appear unremarkable. IMPRESSION: No acute process. Dictated by: Johnson Bright M.D. on 07/10/2023 at 14:52 Approved by: Johnson Bright M.D. on 07/10/2023 at 14:52
[2023-07-10] MEDS: ONDANSETRON 4 MG/2 ML INJ IV (14:35)
[2023-07-10 14:45] LABS: INR 1.3 (0.9-1.3); Prothrombin Time 15.5 SECONDS (10.1-12.7)
[2023-07-10 14:48] LABS: Add Manual Diff / Slide Review NO; Basophils Absolute Auto 0 /uL (0-100); Basophils Percent Auto 0.4 % (0-2); Eosinophils Absolute Auto 0 /uL (0-450); Eosinophils Percent Auto 0.1 % (2-4); Hematocrit 43.5 % (41-53); Hemoglobin 14.9 g/dL (13.5-17.5); Lymphocytes Absolute Auto 1200 /uL (1100-4500); Lymphocytes Percent Auto 11.3 % (25-40); Mean Corpuscular HGB Conc 34.3 % (30-36); Mean Corpuscular Hemoglobin 29.4 PG (26-34); Mean Corpuscular Volume 85.8 fL (80-100); Monocytes Absolute Auto 400 /uL (0-900); Monocytes Percent Auto 3.9 % (3-14); Neutrophils Absolute Auto 9200 /uL (1500-7000); Neutrophils Percent Auto 84.3 % (50-75); PTT Partial Thromboplastin Tim 39 SECONDS (26-36); Platelet Count 244 X10^3/uL (150-400); Red Blood Cell Count 5.07 X10^6/uL (4.5-5.9); Red Cell Distribution Width 14.4 % (11.6-14.8); White Blood Cell Count 10.9 X10^3/uL (4.5-11.0)
[2023-07-10 14:49] LABS: Alanine Aminotransferase 31 IU/L (<50); Albumin 4.5 g/dL (3.5-5.0); Alkaline Phosphatase 94 U/L (38-126); Aspartate Aminotransferase 29 IU/L (17-59); BUN Creatinine Ratio 26.4 (6-22); Bilirubin Total 0.9 mg/dL (0.2-1.3); Blood Urea Nitrogen 14 mg/dL (9-20); Calcium 9.9 mg/dL (8.4-10.2); Carbon Dioxide 31 mmol/L (22-32); Chloride 95 mmol/L (98-107); Estimated Glomerular Filt Rate > 60 mL/min (>60); Globulin 4.4 g/dL (1.7-4.1); Glucose 148 mg/dL (70-100); HEMOLYSIS < 15 (0-50); Lipase 135 U/L (23-300); Potassium 3.5 mmol/L (3.4-5.1); Sodium 135 mmol/L (137-145); Total Protein 8.9 g/dL (6.3-8.2)
[2023-07-10 14:50] LABS: Creatine Kinase 55 U/L (55-170); Estimated Glomerular Filt Rate > 60 mL/min (>60); Magnesium 1.7 mg/dL (1.6-2.3)
--- NOTE | 2023-07-10 14:51 | PC.NURSE ---
last used Fentanyl today size of a needle and less than a quarter of a pill, I snorted. states he took 3 suboxone, yellow pills today.
--- NOTE | 2023-07-10 14:53 | PC.NURSE ---
states he took himself off Fentanyl 2 days ago. reports he has been awake for 3 days with some snacking
[2023-07-10 14:58] LABS: NT-proBNP (BNP-Adult 18+) < 20 pg/mL (<125)
[2023-07-10 15:01] LABS: Troponin I < 0.012 ng/mL (0.01-0.034)
[2023-07-10 15:29] LABS: Appearance Urine UA CLEAR; Bilirubin Urine UA NEGATIVE (NEGATIVE); Color Urine UA YELLOW; Glucose Urine UA NEGATIVE (Negative); Ketones Urine UA NEGATIVE (NEGATIVE); Leukocyte Esterase Urine UA NEGATIVE (NEGATIVE); Nitrite Urine UA NEGATIVE (Negative); Occult Blood Urine UA NEGATIVE (Negative); Protein Urine UA NEGATIVE (Negative); Specific Gravity Urine UA 1.015 (1.000-1.035)
--- NOTE | 2023-07-10 15:31 | ED.GENADULT ---
HPI - General Adult General Chief complaint: Abdominal Pain Stated complaint: states heart failure Time Seen by Provider: 07/10/23 15:25 Source: patient Mode of arrival: Wheelchair History of Present Illness HPI narrative: Patient is a 53-year-old male. Is a chronic fentanyl user. He states that he tried to quit using fentanyl 2 days ago. He went to days and then had very extreme abdominal pain and he did smoke at earlier today. He states that he feels like he is retaining fluid. He has a history of CHF. He states he feels like his abdomen is very distended. He feels like his belly button has ?popped out? he feels like his abdomen is going to explode. He has been taking his diuretics at home. He does have lower extremity swelling. Denies chest pain. Related Data Previous Rx's Medication Instructions Recorded losartan 50 mg tablet 50 mg PO DAILY #90 tabs 02/16/23 Ventolin HFA 90 mcg/actuation 2 puff inhalation Q4-6H PRN 06/10/23 aerosol inhaler (albuterol sulfate) shortness of breath or wheezing #18 grams bumetanide 2 mg tablet 2 mg PO BID #180 tabs 06/10/23 bumetanide 1 mg tablet 1 mg PO BID #30 tabs 07/10/23 Allergies Allergy/AdvReac Type Severity Reaction Status Date / Time No Known Drug Allergies Allergy Verified 07/10/23 14:30 Review of Systems Constitutional Constitutional: Reports system reviewed and no additional complaints, except as documented Cardiovascular Cardiovascular: Reports system reviewed and no additional complaints, except as documented Respiratory Respiratory: Reports system reviewed and no additional complaints, except as documented Gastrointestinal Gastrointestinal: Reports system reviewed and no additional complaints, except as documented Genitourinary Genitourinary: Reports system reviewed and no additional complaints, except as documented Integumentary/Breasts Skin/Breast: Reports system reviewed and no additional complaints, except as documented Neurologic Neurologic: Reports system reviewed and no additional complaints, except as documented Hematologic/Lymphatic On Anticoagulants: No Patient History Medical History Cardiomegaly Congestive heart failure Depression, major Essential hypertension Foot pain Generalized anxiety disorder Morbid obesity with body mass index (BMI) of 40.0 to 44.9 in adult (11/21/17) Obesity, morbid, BMI 40.0-49.9 Opioid use disorder Recreational drug use Recurrent low back pain SOB (shortness of breath) Stasis dermatitis Venous (peripheral) insufficiency Venous stasis ulcers of both lower extremities (11/21/17) Family History Mother Cancer Lung cancer Social History household members: spouse Smoking Status: Current every day smoker alcohol intake: former substance use type: other (fentanyl ) Smoking Status: Current every day smoker alcohol intake frequency: holidays/special occasions only Alcohol type: beer and hard liquor Substance Use Type: opiates, painkillers and other Exam Initial Vital Signs Initial Vital Signs: Vital Signs Temperature 98.3 F 07/10/23 14:18 Pulse Rate 100 H 07/10/23 14:18 Respiratory Rate 20 07/10/23 14:18 Blood Pressure 134/77 07/10/23 14:18 Pulse Oximetry 95 07/10/23 14:18 Oxygen Delivery Method Room Air 07/10/23 14:18 Const General: cooperative Other: Chronically ill-appearing HENOK Head: normal to inspection and normocephalic Resp Effort & Inspection: normal respiratory effort Auscultation: clear to auscultation bilaterally Cardio Rate: regular rate Rhythm: regular rhythm GI Inspection: distended Palpation: soft and tender Other: Diffusely tender, reducible umbilical hernia Neuro General: patient alert, patient awake and moves all extremities Extrem Other: Swollen bilateral lower extremities Course Orders Ordered: ED Orders 07/10/23 14:24 BNP [NT-proBNP (BNP-Adult 18+)] Stat Complete Blood Count AUTO DIFF Stat Comprehensive Metabolic Panel Stat Creatinine & eGFR Stat Lactate (Lactic Acid) Stat Lipase Stat Magnesium Stat PTT Partial Thromboplastin [place] Stat Prothrombin Time INR Stat Troponin & CK Cardiac Panel Stat 07/10/23 14:29 EKG-12 Lead Stat 07/10/23 14:32 XR chest 1V Stat 07/10/23 15:15 Urinalysis and Microscopic Stat Urine Drug Screen, Rapid Stat 07/10/23 16:09 CT abdomen pelvis w con Stat Bumetanide (Bumetanide 1 Mg/4 Ml Vial) 2 mg IV NOW ONE Stop: 07/10/23 17:56 Hydromorphone HCl (Hydromorphone 1 Mg Inj) 1 mg IV NOW ONE Stop: 07/10/23 17:56 Ondansetron HCl (Ondansetron 4 Mg Odt) 4 mg PO NOW PRN PRN Reason: Nausea And Vomiting Ondansetron HCl (Ondansetron 4 Mg/2 Ml Inj) 4 mg IV NOW PRN PRN Reason: Nausea And Vomiting Last Admin: 07/10/23 14:35 Dose: 4 mg Documented By: FLIP Discontinued Medications Hydromorphone HCl (Hydromorphone 1 Mg Inj) 1 mg IV NOW ONE Stop: 07/10/23 15:33 Last Admin: 07/10/23 15:44 Dose: 1 mg Documented By: FLIP Furosemide 60 mg/ Sodium (Chloride) 56 mls @ 112 mls/hr IV NOW ONE Stop: 07/10/23 15:33 Last Infusion: 07/10/23 16:15 Dose: 0 mls/hr Documented By: Admin: 07/10/23 15:45 Dose: 112 mls/hr Documented By: FLIP Vital Signs Vital signs: Vital Signs - 8 hr 07/10/23 14:18 07/10/23 14:23 07/10/23 14:28 Temperature 98.3 F Pulse Rate 100 H 101 H Respiratory Rate 20 24 Blood Pressure 134/77 134/77 Pulse Oximetry 95 95 Oxygen Delivery Method Room Air Oxygen Flow Rate 07/10/23 14:28 07/10/23 14:30 07/10/23 15:00 Temperature Pulse Rate 100 H 100 H Respiratory Rate 24 26 H Blood Pressure 138/81 Pulse Oximetry 96 Oxygen Delivery Method Room Air Oxygen Flow Rate 07/10/23 15:00 07/10/23 15:30 07/10/23 15:55 Temperature Pulse Rate 96 H 92 H 98 H Respiratory Rate 18 18 Blood Pressure Pulse Oximetry 96 97 96 Oxygen Delivery Method Room Air Oxygen Flow Rate 07/10/23 15:55 07/10/23 16:00 07/10/23 16:00 Temperature Pulse Rate 93 H Respiratory Rate 16 Blood Pressure 131/73 142/87 H Pulse Oximetry 94 Oxygen Delivery Method Oxygen Flow Rate 07/10/23 16:15 07/10/23 16:15 07/10/23 16:29 Temperature Pulse Rate 94 H 93 H Respiratory Rate 19 17 Blood Pressure 157/84 H Pulse Oximetry 80 L 93 99 Oxygen Delivery Method Room Air Nasal Cannula Oxygen Flow Rate 2 07/10/23 16:30 07/10/23 16:30 07/10/23 17:00 Temperature Pulse Rate 93 H Respiratory Rate 17 Blood Pressure 160/92 H 143/77 H Pulse Oximetry 98 Oxygen Delivery Method Oxygen Flow Rate 07/10/23 17:00 Temperature Pulse Rate 87 Respiratory Rate 16 Blood Pressure Pulse Oximetry 94 Oxygen Delivery Method Nasal Cannula Oxygen Flow Rate Medical Decision Making Lab Data Lab results reviewed: Yes I reviewed the patient's lab results. 07/10/23 14:24 07/10/23 14:24 Labs: Lab Results 07/10/23 07/10/23 07/10/23 Range/Units 14:24 14:24 14:24 WBC 10.9 (4.5-11.0) X10^3/uL RBC 5.07 (4.5-5.9) X10^6/uL Hgb 14.9 (13.5-17.5) g/dL Hct 43.5 (41-53) % MCV 85.8 (80-100) fL MCH 29.4 (26-34) PG MCHC 34.3 (30-36) % RDW 14.4 (11.6-14.8) % Plt Count 244 (150-400) X10^3/uL Neut % (Auto) 84.3 H (50-75) % Lymph % (Auto) 11.3 L (25-40) % [place] % (Auto) 3.9 (3-14) % Eos % (Auto) 0.1 L (2-4) % Baso % (Auto) 0.4 (0-2) % Neut # (Auto) 9200 H (0343-9917) /uL Lymph # (Auto) 1200 (4851-5072) /uL [place] # (Auto) 400 (0-900) /uL Eos # (Auto) 0 (0-450) /uL Baso # (Auto) 0 (0-100) /uL PT 15.5 H (10.1-12.7) SECONDS INR 1.3 (0.9-1.3) APTT 39 H (26-36) SECONDS Sodium 135 L (137-145) mmol/L Potassium 3.5 (3.4-5.1) mmol/L Chloride 95 L (98-107) mmol/L Carbon Dioxide 31 (22-32) mmol/L BUN 14 (9-20) mg/dL Creatinine 0.53 L (0.66-1.25) mg/dL Estimated GFR > 60 (>60) mL/min BUN/Creatinine Ratio 26.4 H (6-22) Glucose 148 H (70-100) mg/dL Lactate (0.7-2.1) mmol/L Calcium 9.9 (8.4-10.2) mg/dL Magnesium (1.6-2.3) mg/dL Total Bilirubin 0.9 (0.2-1.3) mg/dL AST 29 (17-59) IU/L ALT 31 (<50) IU/L Alkaline Phosphatase 94 (38-126) U/L Total Creatine Kinase (55-170) U/L Troponin I (0.01-0.034) ng/mL NT-Pro-B Natriuret Pep (<125) pg/mL Total Protein 8.9 H (6.3-8.2) g/dL Albumin 4.5 (3.5-5.0) g/dL Globulin 4.4 H (1.7-4.1) g/dL Albumin/Globulin Ratio 1.0 (1.0-2.8) Lipase 135 (23-300) U/L Urine Color Urine Appearance Urine pH (4.5-8.0) Ur Specific [place] (1.000-1.035) Urine Protein (Negative) Urine Glucose (UA) (Negative) g/dL Urine Ketones (NEGATIVE) Urine Occult Blood (Negative) Urine Nitrate (Negative) Urine Bilirubin (NEGATIVE) Urine Urobilinogen (0.2) E.U./dL Ur Leukocyte Esterase (NEGATIVE) Urine RBC (0-5/HPF) Urine WBC (0-5/HPF) Ur Squamous Epith Cells (0-5/HPF) Urine Bacteria (None) Ur Culture Indicated? U Opiates 300ng/mL cut (Negative) Ur Oxycodone Screen (Negative) Urine Methadone Screen (Negative) Ur Barbiturates Screen (Negative) U Tricyclic Antidepress (Negative) Ur Phencyclidine Scrn (Negative) Ur Amphetamines Screen (Negative) U Methamphetamines Scrn (Negative) Ur MDMA Scrn (Ecstasy) (Negative) U Benzodiazepines Scrn (Negative) Urine Cocaine Screen (Negative) U Marijuana (THC) Screen (Negative) 07/10/23 07/10/23 07/10/23 Range/Units 14:24 14:24 14:24 WBC (4.5-11.0) X10^3/uL RBC (4.5-5.9) X10^6/uL Hgb (13.5-17.5) g/dL Hct (41-53) % MCV (80-100) fL MCH (26-34) PG MCHC (30-36) % RDW (11.6-14.8) % Plt Count (150-400) X10^3/uL Neut % (Auto) (50-75) % Lymph % (Auto) (25-40) % [place] % (Auto) (3-14) % Eos % (Auto) (2-4) % Baso % (Auto) (0-2) % Neut # (Auto) (9570-4666) /uL Lymph # (Auto) (9337-6544) /uL [place] # (Auto) (0-900) /uL Eos # (Auto) (0-450) /uL Baso # (Auto) (0-100) /uL PT (10.1-12.7) SECONDS INR (0.9-1.3) APTT (26-36) SECONDS Sodium (137-145) mmol/L Potassium (3.4-5.1) mmol/L Chloride (98-107) mmol/L Carbon Dioxide (22-32) mmol/L BUN (9-20) mg/dL Creatinine 0.53 L (0.66-1.25) mg/dL Estimated GFR > 60 (>60) mL/min BUN/Creatinine Ratio (6-22) Glucose (70-100) mg/dL Lactate 1.1 (0.7-2.1) mmol/L Calcium (8.4-10.2) mg/dL Magnesium 1.7 (1.6-2.3) mg/dL Total Bilirubin (0.2-1.3) mg/dL AST (17-59) IU/L ALT (<50) IU/L Alkaline Phosphatase (38-126) U/L Total Creatine Kinase 55 (55-170) U/L Troponin I < 0.012 (0.01-0.034) ng/mL NT-Pro-B Natriuret Pep < 20 (<125) pg/mL Total Protein (6.3-8.2) g/dL Albumin (3.5-5.0) g/dL Globulin (1.7-4.1) g/dL Albumin/Globulin Ratio (1.0-2.8) Lipase (23-300) U/L Urine Color Urine Appearance Urine pH (4.5-8.0) Ur Specific [place] (1.000-1.035) Urine Protein (Negative) Urine Glucose (UA) (Negative) g/dL Urine Ketones (NEGATIVE) Urine Occult Blood (Negative) Urine Nitrate (Negative) Urine Bilirubin (NEGATIVE) Urine Urobilinogen (0.2) E.U./dL Ur Leukocyte Esterase (NEGATIVE) Urine RBC (0-5/HPF) Urine WBC (0-5/HPF) Ur Squamous Epith Cells (0-5/HPF) Urine Bacteria (None) Ur Culture Indicated? U Opiates 300ng/mL cut (Negative) Ur Oxycodone Screen (Negative) Urine Methadone Screen (Negative) Ur Barbiturates Screen (Negative) U Tricyclic Antidepress (Negative) Ur Phencyclidine Scrn (Negative) Ur Amphetamines Screen (Negative) U Methamphetamines Scrn (Negative) Ur MDMA Scrn (Ecstasy) (Negative) U Benzodiazepines Scrn (Negative) Urine Cocaine Screen (Negative) U Marijuana (THC) Screen (Negative) 07/10/23 07/10/23 Range/Units 15:15 15:15 WBC (4.5-11.0) X10^3/uL RBC (4.5-5.9) X10^6/uL Hgb (13.5-17.5) g/dL Hct (41-53) % MCV (80-100) fL MCH (26-34) PG MCHC (30-36) % RDW (11.6-14.8) % Plt Count (150-400) X10^3/uL Neut % (Auto) (50-75) % Lymph % (Auto) (25-40) % [place] % (Auto) (3-14) % Eos % (Auto) (2-4) % Baso % (Auto) (0-2) % Neut # (Auto) (2799-3233) /uL Lymph # (Auto) (0328-0094) /uL [place] # (Auto) (0-900) /uL Eos # (Auto) (0-450) /uL Baso # (Auto) (0-100) /uL PT (10.1-12.7) SECONDS INR (0.9-1.3) APTT (26-36) SECONDS Sodium (137-145) mmol/L Potassium (3.4-5.1) mmol/L Chloride (98-107) mmol/L Carbon Dioxide (22-32) mmol/L BUN (9-20) mg/dL Creatinine (0.66-1.25) mg/dL Estimated GFR (>60) mL/min BUN/Creatinine Ratio (6-22) Glucose (70-100) mg/dL Lactate (0.7-2.1) mmol/L Calcium (8.4-10.2) mg/dL Magnesium (1.6-2.3) mg/dL Total Bilirubin (0.2-1.3) mg/dL AST (17-59) IU/L ALT (<50) IU/L Alkaline Phosphatase (38-126) U/L Total Creatine Kinase (55-170) U/L Troponin I (0.01-0.034) ng/mL NT-Pro-B Natriuret Pep (<125) pg/mL Total Protein (6.3-8.2) g/dL Albumin (3.5-5.0) g/dL Globulin (1.7-4.1) g/dL Albumin/Globulin Ratio (1.0-2.8) Lipase (23-300) U/L Urine Color Yellow Urine Appearance Clear Urine pH 8.0 (4.5-8.0) Ur Specific [place] 1.015 (1.000-1.035) Urine Protein Negative (Negative) Urine Glucose (UA) Negative (Negative) g/dL Urine Ketones Negative (NEGATIVE) Urine Occult Blood Negative (Negative) Urine Nitrate Negative (Negative) Urine Bilirubin Negative (NEGATIVE) Urine Urobilinogen 1.0 (0.2) E.U./dL Ur Leukocyte Esterase Negative (NEGATIVE) Urine RBC 0-1/hpf (0-5/HPF) Urine WBC 0-1/hpf (0-5/HPF) Ur Squamous Epith Cells 1-5 /hpf (0-5/HPF) Urine Bacteria None seen (None) Ur Culture Indicated? Cult not indicated U Opiates 300ng/mL cut Negative (Negative) Ur Oxycodone Screen Negative (Negative) Urine Methadone Screen Negative (Negative) Ur Barbiturates Screen Negative (Negative) U Tricyclic Antidepress Negative (Negative) Ur Phencyclidine Scrn Negative (Negative) Ur Amphetamines Screen Negative (Negative) U Methamphetamines Scrn Negative (Negative) Ur MDMA Scrn (Ecstasy) Negative (Negative) U Benzodiazepines Scrn Negative (Negative) Urine Cocaine Screen Negative (Negative) U Marijuana (THC) Screen Positive H (Negative) Urine Dip Bedside Urine Glucose Negative Bedside Urine Bilirubin - Negative Bedside Urine Ketone - Negative Urine Specific [place] 1.010 Bedside Urine Occult Blood - Negative Bedside Urine pH 8.0 Bedside Urine Protein - Negative Bedside Urine Urobilinogen - Negative Bedside Urine Nitrite - Negative Bedside Urine Leukocytes - Negative Esterase Point of care testing: Urine Dip Bedside Urine Glucose Negative Bedside Urine Bilirubin - Negative Bedside Urine Ketone - Negative Urine Specific [place] 1.010 Bedside Urine Occult Blood - Negative Bedside Urine pH 8.0 Bedside Urine Protein - Negative Bedside Urine Urobilinogen - Negative Bedside Urine Nitrite - Negative Bedside Urine Leukocytes - Negative Esterase Imaging Data CT scan - abdomen/pelvis: Radiologist's Impression: PROCEDURE:? CT ABDOMEN PELVIS W CON ? INDICATIONS:? Abdominal distention with abdominal pain ? TECHNIQUE:? After the administration of IV contrast, axial sections were acquired from the lung bases to the pubic symphysis.? Coronal and sagittal reformats were performed.? For radiation dose reduction, the following was used:? automated exposure control, adjustment of mA and/or kV according to patient size. ? COMPARISON:? [facility], CT, CT ABDOMEN PELVIS W CON, 08/13/2022, 20:20. ? FINDINGS:? Image quality:? This examination is limited by involuntary motion artifact.? This study is limited by body habitus.? ? Lung bases:? Unremarkable.? ? Heart:? No significant findings. ? ? ABDOMEN: Liver:? The liver is mildly prominent in size.? No focal suspicious lesion can be seen.? Within the right posterior liver, there is stable benign calcification seen, as on series 2, image 32. Gallbladder:? Unremarkable.? ? Biliary ducts:? Unremarkable.? ? Pancreas:? Unremarkable.? ? Spleen:? Unremarkable.? ? The spleen measures near the upper limits of normal for size. Adrenal Glands:? Unremarkable.? ? Kidneys and Ureters:? Unremarkable.? ? ? Stomach and Bowel:? Stomach, small bowel loops, and colon are unremarkable.? A normal appendix is noted.? Peritoneum:? Mild generalized fatty stranding can be seen along the central mesentery, which is similar to 202, yet mildly progressed.? No abnormal intraperitoneal fluid.? No free air.? ? Ventral Wall: A moderate periumbilical hernia is seen, containing fat. ? Abdominal Nodes:? No retroperitoneal or mesenteric adenopathy by size criteria.? Vessels:? Aorta and inferior vena cava are normal in size.? ? PELVIS: Pelvic Organs:? Unremarkable.? ? Bladder:? Unremarkable.? ? Pelvic Nodes: No enlarged lymph nodes.? Miscellaneous: No inguinal hernias are seen. ? ? ? Bones:? Unremarkable.? IMPRESSION:? ? No dilated loops of bowel are seen. ? Negative for ascites. ? Normal appendix. ? Mild fatty stranding can be seen along the central mesentery, which is slightly progressed compared to 2021. This is not a striking finding is commonly observed in patients with chronic inflammatory change. ? ? ? Additional findings:? Mild prominent liver size. Moderate fat containing periumbilical hernia? Chest x-ray: Radiologist's Impression: PROCEDURE:? XR CHEST 1V ? INDICATIONS:? chest pain ? TECHNIQUE:? One view of the chest was acquired.? ? COMPARISON:? [facility], , XR CHEST 1V, 08/12/2022, 12:09. ? FINDINGS:? ? Surgical changes and devices:? None.? ? Lungs and pleura:? Lungs are clear.? No pleural effusions or pneumothorax.? ? Mediastinum:? Mediastinal contours appear normal.? Heart size is normal.? ? Bones and chest wall:? No suspicious bony lesions.? Overlying soft tissues appear unremarkable.? ? ? IMPRESSION:? No acute process. ECG Data Attestation: I personally reviewed and interpreted this ECG as follows: Interpretation: Sinus rhythm Ventricular rate 93 Normal axis Normal QTC No ST T wave changes MDM Narrative Medical decision making narrative: He does have a reducible umbilical hernia. CT scan of his abdomen shows no acute pathology. He does not have ascites. Lungs are clear. Chest x-ray shows no acute pathology. His BNP is unremarkable. Patient states he does feel like he is retaining fluid. He does have some pitting edema to his lower extremities. Had a long discussion with him regarding his abdominal pain. I told him that we are most likely not going to get his pain under control because of his home fentanyl use. He expressed understanding of this. He was given a dose of Lasix. He urinated 2 times. He states that Lasix has not really worked for him on the past. He is on Bumex. Plan to be is to discharge home and have him increase his Bumex. Will have him contact his primary doctor for follow-up. Discharge Plan Departure Patient Disposition: Home Clinical Impression: Abdominal pain, Edema Instructions: Edema Activity Restrictions/Additional Instructions: I would like for you to increase your bumetanide/Bumex from 2 mg twice a day to 3 mg twice a day. A prescription for 1 mg tablets was sent to [facility] in [place]. Contact your primary doctor for a follow-up. Prescriptions: New bumetanide 1 mg tablet 1 mg PO BID Qty: 30 0RF No Action bumetanide 2 mg tablet 2 mg PO BID Qty: 180 0RF albuterol sulfate [Ventolin HFA] 90 mcg/actuation HFA aerosol inhaler 2 puff inhalation Q4-6H PRN (Reason: shortness of breath or wheezing) Qty: 18 6RF losartan 50 mg tablet 50 mg PO DAILY Qty: 90 1RF Referrals: Yarelis Gallagher DO [Primary Care Provider] - Stand Alone Forms: Patient Portal/API
[2023-07-10 15:33] LABS: UR Morphine/Opiate cutoff 300 Negative (Negative); Ur Creatinine Normal (Normal); Ur Specific Gravity Normal (Normal); Urine Amphetamines Negative (Negative); Urine Barbiturates Negative (Negative); Urine Benzodiazepines Negative (Negative); Urine Cocaine Negative (Negative); Urine MDMA Negative (Negative); Urine Methadone Negative (Negative); Urine Methamphetamines Negative (Negative); Urine Oxycodone Negative (Negative); Urine Phencyclidine Negative (Negative); Urine Tetrahydrocannabinol Positive (Negative); Urine Tricyclic Antidepressant Negative (Negative); Urine pH Normal (Normal)
[2023-07-10] MEDS: HYDROMORPHONE 1 MG INJ IV ×2 (15:44→18:20)
[2023-07-10] MEDS: FUROSEMIDE 60 MG in SODIUM CHLORIDE 0.9% 50 ML 112 MG IV (15:45)
--- NOTE | 2023-07-10 16:09 | DI.CT.S_ITS ---
PROCEDURE: CT ABDOMEN PELVIS W CON INDICATIONS: Abdominal distention with abdominal pain TECHNIQUE: After the administration of IV contrast, axial sections were acquired from the lung bases to the pubic symphysis. Coronal and sagittal reformats were performed. For radiation dose reduction, the following was used: automated exposure control, adjustment of mA and/or kV according to patient size. COMPARISON: [facility], CT, CT ABDOMEN PELVIS W CON, 08/13/2022, 20:20. FINDINGS: Image quality: This examination is limited by involuntary motion artifact. This study is limited by body habitus. Lung bases: Unremarkable. Heart: No significant findings. ABDOMEN: Liver: The liver is mildly prominent in size. No focal suspicious lesion can be seen. Within the right posterior liver, there is stable benign calcification seen, as on series 2, image 32. Gallbladder: Unremarkable. Biliary ducts: Unremarkable. Pancreas: Unremarkable. Spleen: Unremarkable. The spleen measures near the upper limits of normal for size. Adrenal Glands: Unremarkable. Kidneys and Ureters: Unremarkable. Stomach and Bowel: Stomach, small bowel loops, and colon are unremarkable. A normal appendix is noted. Peritoneum: Mild generalized fatty stranding can be seen along the central mesentery, which is similar to 202, yet mildly progressed. No abnormal intraperitoneal fluid. No free air. Ventral Wall: A moderate periumbilical hernia is seen, containing fat. Abdominal Nodes: No retroperitoneal or mesenteric adenopathy by size criteria. Vessels: Aorta and inferior vena cava are normal in size. PELVIS: Pelvic Organs: Unremarkable. Bladder: Unremarkable. Pelvic Nodes: No enlarged lymph nodes. Miscellaneous: No inguinal hernias are seen. Bones: Unremarkable. IMPRESSION: No dilated loops of bowel are seen. Negative for ascites. Normal appendix. Mild fatty stranding can be seen along the central mesentery, which is slightly progressed compared to 202. This is not a striking finding is commonly observed in patients with chronic inflammatory change. Additional findings: Mild prominent liver size. Moderate fat containing periumbilical hernia Dictated by: Rafa Alanis M.D. on 07/10/2023 at 15:41 Approved by: Rafa Alanis M.D. on 07/10/2023 at 15:44
[2023-07-10 16:16] LABS: Bacteria Urine None Seen; Culture Indicated Urine Cult Not Indicated; RBC Urine 0-1/HPF (0-5/HPF); Squamous Epithelial Cell Urine 1-5 /HPF (0-5/HPF); WBC Urine 0-1/HPF (0-5/HPF)
[2023-07-10 17:22] LABS: Lactate (Lactic Acid) 1.1 mmol/L (0.7-2.1)
[2023-07-10] MEDS: BUMETANIDE 1 MG/4 ML VIAL 2 MG IV (18:16)
== END 2023-07-10 18:35 | disposition home or self-care (01) ==
PROVIDERS: Emergency Provider Emergency Medicine; PCP Family Medicine
DX: R10.9 Unspecified abdominal pain (principal); R60.9 Edema, unspecified; R07.9 Chest pain, unspecified
CPT/HCPCS: 36415; 71045; 74177; 80053; 80305; 81001; 81003; 82550; 82565; 83605; 83690; 83735; 83880; 84484; 85025; 85610; 85730; 93005; 96365; 96375; 96376; 99284; 99285; J1170; J1940; J2405

== ENCOUNTER 2025-04-29 07:19 | Inpatient (IN) | payer OTHER, SELFPAY ==
[2021-08-13 06:12] VITALS: PULSE 98; RESP 14; O2SAT 97
[2022-08-12 16:02] VITALS: BMI 51.5
[2025-04-29] VITALS (24 sets, daily range): BP systolic 111–206; BP diastolic 54–146; PULSE 84–113; RESP 4–38; TEMP 36.7–37.3; O2SAT 77–98; BMI 54.6
--- NOTE | 2025-04-29 07:26 | ED.GENADULT ---
HPI - General Adult General Chief complaint: Extremity Problem,Nontraumatic Stated complaint: Both knees are swollen , Edema Time Seen by Provider: 04/29/25 07:22 History of Present Illness HPI narrative: 54-year-old gentle history of morbid obesity, diastolic congestive heart failure, cardiomegaly, anasarca, hypertension, depression, anxiety ,and also history of polysubstance abuse from smoking fentanyl and currently on methadone presents with 3-5 days of nonbilious nonbloody nausea vomiting but no diarrhea along with fever chills body aches and bilateral lower extremity swelling and redness burning sensation having difficulty urinating at this time despite being on Lasix only small dribbles coming out despite increase water intake. Patient denies sick contacts, chest, abdomen, back pain, sore throat, sinus congestion, constipation. Other than what is stated 14 point review of system is negative. Related Data Home Medications ?Medication ?Instructions ?Recorded ?Confirmed methdone liquid 175 mg PO .QD 10/15/24 12/20/24 naloxone 4 mg/actuation nasal spray intranasal 10/15/24 12/20/24 Previous Rx's ?Medication ?Instructions ?Recorded losartan 50 mg tablet 50 mg PO DAILY #30 tabs 08/14/24 Held on 10/15/24. Instructions: normal BP today and quit using fentanyl bumetanide 2 mg tablet 4 mg (2 x 2 mg) PO BID #360 tabs 10/15/24 albuterol sulfate 90 mcg/actuation 2 inh inhalation Q4-6H PRN 10/31/24 breath activated powder inhaler shortness of breath #1 ea DISABLED P[place] #1 ea 12/11/24 Allergies Allergy/AdvReac Type Severity Reaction Status Date / Time No Known Drug Allergies Allergy Verified 04/29/25 07:35 Review of Systems Review of Systems ROS Unobtainable: All systems reviewed & are unremarkable except as noted in HPI and below Patient History Medical History (Updated 04/29/25 @ 11:29 by Renato Doan DO) Poor personal hygiene Methadone maintenance therapy patient MARIE (dyspnea on exertion) Depression, major Generalized anxiety disorder Essential hypertension Venous (peripheral) insufficiency Stasis dermatitis SOB (shortness of breath) Opioid use disorder Congestive heart failure Cardiomegaly Recreational drug use Obesity, morbid, BMI 40.0-49.9 Recurrent low back pain Foot pain Venous stasis ulcers of both lower extremities (11/21/17) Morbid obesity with body mass index (BMI) of 40.0 to 44.9 in adult (11/21/17) Family History Mother Cancer Lung cancer Social History household members: spouse alcohol intake: former substance use type: other (fentanyl ) alcohol intake frequency: holidays/special occasions only Alcohol type: beer and hard liquor Exam Narrative Exam Narrative: GENERAL: [54] year old patient appears stated age. Well-developed patient, in mild distress. HEAD: Atraumatic. Normocephalic. EYES: Pupils equal round and reactive. Extraocular motions intact. No scleral icterus. No injection or drainage. ENT: Nose without bleeding, purulent drainage. Throat without erythema, tonsillar hypertrophy or exudate. Airway patent. NECK: Trachea midline. Non tender CARDIOVASCULAR: Tachycardic Regular rate and rhythm without murmurs, gallops, or rubs. RESPIRATORY: Clear to auscultation. Breath sounds equal bilaterally. No wheezes, rales, or rhonchi. GASTROINTESTINAL: Abdomen soft, non-tender, nondistended.+ umbilical hernia reducible EXTREMITIES: FIRM +3 edema from b/l feet to upper abdomen red/warm/ mild ttp BACK: Nontender without deformity or crepitance. No flank tenderness. NEURO: AOx3. SKIN: Maculopapular lesion bilateral lower extremity tracking to the proximal medial thigh Initial Vital Signs Initial Vital Signs: Vital Signs Blood Pressure 206/146 H 04/29/25 07:30 Course Orders Ordered: ED Orders 04/29/25 07:40 CT angio chest PE protocol Stat US periph venous low extrem bi Stat 04/29/25 07:42 XR chest 1V Stat EKG-12 Lead Stat 04/29/25 07:45 Covid-19 + FLU A/B + RSV - PCR Stat 04/29/25 08:05 Venous Blood Gas STAT 04/29/25 08:06 Complete Blood Count AUTO DIFF Stat Comprehensive Metabolic Panel Stat Lactate (Lactic Acid) Stat Lipase Stat Magnesium Stat NT-proBNP (BNP-Adult 18+) Stat PTT Partial Thromboplastin [place] Stat Prothrombin Time INR Stat Troponin & CK Cardiac Panel Stat 04/29/25 08:10 Blood Culture Stat 04/29/25 08:13 Venous Blood Gas Routine 04/29/25 08:45 Urinalysis and Microscopic Stat 04/29/25 09:17 CT abdomen pelvis wo con Stat 04/29/25 10:20 Trop I [Troponin I] Stat 04/29/25 10:28 EKG-12 Lead Stat POTASSIUM CHLORIDE IN WATER (Potassium Cl 10 Meq/100 Ml Nerissa) 10 meq in 100 mls @ 100 mls/hr IV Q1H NNAMDI Stop: 04/29/25 12:44 Last Admin: 04/29/25 10:12 Dose: 100 mls/hr Documented By: Infusion: 04/29/25 10:10 Dose: Infused Documented By: Infusion: 04/29/25 09:35 Dose: 100 mls/hr Documented By: Infusion: 04/29/25 09:25 Dose: 0 mls/hr Documented By: Admin: 04/29/25 08:58 Dose: 100 mls/hr Documented By: MICHAEL Sodium Chloride (Normal Saline 0.9%) 1,000 mls @ 1,000 mls/hr IV BOLUS PRN PRN Reason: Fluid replacement Discontinued Medications Aspirin (Aspirin 81 Mg Chew Tab) 324 mg PO NOW ONE Stop: 04/29/25 07:43 Last Admin: 04/29/25 08:38 Dose: 324 mg Documented By: BRANDEN Sodium Chloride (Normal Saline 0.9%) 500 mls @ 500 mls/hr IV BOLUS ONE Stop: 04/29/25 09:39 Last Infusion: 04/29/25 09:34 Dose: 500 mls/hr Documented By: Infusion: 04/29/25 09:25 Dose: 0 mls/hr Documented By: Admin: 04/29/25 08:58 Dose: 500 mls/hr Documented By: MICHAEL Vancomycin HCl 1,750 mg/ (Sodium Chloride) 500 mls @ 250 mls/hr IV NOW ONE Stop: 04/29/25 08:50 Last Admin: 04/29/25 09:53 Dose: 250 mls/hr Documented By: MICHAEL Piperacillin Sod/Tazobactam (Sod 4.5 gm/ Sodium Chloride) 100 mls @ 200 mls/hr IV NOW ONE Stop: 04/29/25 08:50 Last Infusion: 04/29/25 09:53 Dose: Infused Documented By: Infusion: 04/29/25 09:35 Dose: 200 mls/hr Documented By: Infusion: 04/29/25 09:26 Dose: 0 mls/hr Documented By: Admin: 04/29/25 09:08 Dose: 200 mls/hr Documented By: MICHAEL Morphine Sulfate (Morphine 4 Mg/Ml Inj) 4 mg IV NOW ONE Stop: 04/29/25 08:34 Last Admin: 04/29/25 08:38 Dose: 4 mg Documented By: BT Ondansetron HCl (Ondansetron 4 Mg/2 Ml Inj) 4 mg IV NOW ONE Stop: 04/29/25 07:41 Last Admin: 04/29/25 08:38 Dose: 4 mg Documented By: BT Vital Signs Vital signs: Vital Signs - 8 hr 04/29/25 07:30 04/29/25 07:31 04/29/25 07:35 Temperature 98.3 F Pulse Rate 110 H 113 H Respiratory Rate 20 Blood Pressure 206/146 H 177/75 H Pulse Oximetry 91 92 Oxygen Delivery Method Room Air Oxygen Flow Rate 04/29/25 07:35 04/29/25 07:35 04/29/25 08:00 Temperature Pulse Rate 103 H 102 H Respiratory Rate Blood Pressure 121/63 Pulse Oximetry 92 92 Oxygen Delivery Method Oxygen Flow Rate 04/29/25 08:26 04/29/25 08:26 04/29/25 08:30 Temperature Pulse Rate 98 H 96 H Respiratory Rate 9 L 14 Blood Pressure 116/57 L Pulse Oximetry 88 L 84 L Oxygen Delivery Method Nasal Cannula Oxygen Flow Rate 2 04/29/25 08:59 04/29/25 08:59 04/29/25 09:00 Temperature Pulse Rate 100 H Respiratory Rate 20 Blood Pressure 146/67 H 137/69 Pulse Oximetry 95 Oxygen Delivery Method Oxygen Flow Rate 04/29/25 09:00 04/29/25 09:34 04/29/25 09:35 Temperature Pulse Rate 103 H 98 H 99 H Respiratory Rate 36 H 27 H Blood Pressure Pulse Oximetry 95 96 Oxygen Delivery Method Simple Mask Oxygen Flow Rate 04/29/25 09:35 04/29/25 10:00 04/29/25 10:04 Temperature 98.5 F Pulse Rate 96 H Respiratory Rate 38 H Blood Pressure 129/78 134/65 Pulse Oximetry 97 Oxygen Delivery Method Oxygen Flow Rate 04/29/25 10:04 Temperature Pulse Rate 93 H Respiratory Rate 29 H Blood Pressure Pulse Oximetry 95 Oxygen Delivery Method Oxygen Flow Rate Medical Decision Making Lab Data 04/29/25 08:06 04/29/25 08:06 Labs: Lab Results 04/29/25 04/29/25 04/29/25 Range/Units 07:45 08:06 08:13 WBC 24.4 H (4.5-11.0) X10^3/uL RBC 4.36 L (4.5-5.9) X10^6/uL Hgb 13.3 L (13.5-17.5) g/dL Hct 38.1 L (41-53) % MCV 87.4 (80-100) fL MCH 30.4 (26-34) PG MCHC 34.8 (30-36) % RDW 15.0 H (11.6-14.8) % Plt Count 170 (150-400) X10^3/uL Neut % (Auto) Not Reportable Lymph % (Auto) Not Reportable Person % (Auto) Not Reportable Eos % (Auto) Not Reportable Baso % (Auto) Not Reportable Lymph # (Auto) Not Reportable Person # (Auto) Not Reportable Baso # (Auto) Not Reportable Total Counted 100 Seg Neutrophils % 74.0 H (38-70) % Band Neutrophils % 17.0 H (3-7) % Lymphocytes % (Manual) 4.0 L (25-45) % Monocytes % (Manual) 5.0 (2-11) % Neutrophils # (Manual) 26332 H (9765-8952) /uL RBC Morphology Normal morphology PT 17.3 H (9.4-12.5) SECONDS INR 1.5 H (0.9-1.3) APTT 32 (25.1-36.5) SECONDS VBG pH 7.51 H (7.33-7.43) VBG pCO2 45.8 (45-50) mmHg VBG pO2 35 (35-45) mmHg VBG HCO3 36 H (24-28) mmol/L VBG Total CO2 34 H (24-29) mmol/L VBG O2 Saturation 72 (70-75) % VBG Base Excess 11.5 H (0-4) mmol/L Sodium 125 L (137-145) mmol/L Potassium 2.9 L (3.4-5.1) mmol/L Chloride 78 L (98-107) mmol/L Carbon Dioxide 36 H (22-32) mmol/L BUN 14 (9-20) mg/dL Creatinine 0.80 (0.66-1.25) mg/dL Estimated GFR > 60 (>60) mL/min BUN/Creatinine Ratio 17.5 (6-22) Glucose 211 H (70-99) mg/dL Lactate 2.0 (0.7-2.1) mmol/L Calcium 8.4 (8.4-10.2) mg/dL Magnesium 1.6 (1.6-2.3) mg/dL Total Bilirubin 1.3 (0.2-1.3) mg/dL AST 60 H (17-59) IU/L ALT 46 (<50) IU/L Alkaline Phosphatase 98 (38-126) U/L Total Creatine Kinase 73 (55-170) U/L Troponin I < 0.012 (0.01-0.034) ng/mL NT-Pro-B Natriuret Pep 230 H (<125) pg/mL Total Protein 7.8 (6.3-8.2) g/dL Albumin 3.7 (3.5-5.0) g/dL Globulin 4.1 (1.7-4.1) g/dL Albumin/Globulin Ratio 0.9 L (1.0-2.8) Lipase < 10 L (23-300) U/L Urine Color Urine Appearance Urine pH (4.5-8.0) Ur Specific [place] (1.000-1.035) Urine Protein (Negative) Urine Glucose (UA) (Negative) g/dL Urine Ketones (NEGATIVE) Urine Occult Blood (Negative) Urine Nitrate (Negative) Urine Bilirubin (NEGATIVE) Urine Urobilinogen (0.2) E.U./dL Ur Leukocyte Esterase (NEGATIVE) Urine RBC (0-5/HPF) Urine WBC (0-5/HPF) Ur Squamous Epith Cells (0-5/HPF) Urine Bacteria (None) Ur Culture Indicated? Vol Urine Centrifuged SARS-CoV-2 (PCR) Negative (Negative) Influenza A (RT-PCR) Flu a negative (NEGATIVE) Influenza B (RT-PCR) Flu b negative (NEGATIVE) RSV (PCR) Negative (Negative) 04/29/25 Range/Units 08:45 WBC (4.5-11.0) X10^3/uL RBC (4.5-5.9) X10^6/uL Hgb (13.5-17.5) g/dL Hct (41-53) % MCV (80-100) fL MCH (26-34) PG MCHC (30-36) % RDW (11.6-14.8) % Plt Count (150-400) X10^3/uL Neut % (Auto) Lymph % (Auto) Person % (Auto) Eos % (Auto) Baso % (Auto) Lymph # (Auto) Person # (Auto) Baso # (Auto) Total Counted Seg Neutrophils % (38-70) % Band Neutrophils % (3-7) % Lymphocytes % (Manual) (25-45) % Monocytes % (Manual) (2-11) % Neutrophils # (Manual) (0804-5060) /uL RBC Morphology PT (9.4-12.5) SECONDS INR (0.9-1.3) APTT (25.1-36.5) SECONDS VBG pH (7.33-7.43) VBG pCO2 (45-50) mmHg VBG pO2 (35-45) mmHg VBG HCO3 (24-28) mmol/L VBG Total CO2 (24-29) mmol/L VBG O2 Saturation (70-75) % VBG Base Excess (0-4) mmol/L Sodium (137-145) mmol/L Potassium (3.4-5.1) mmol/L Chloride (98-107) mmol/L Carbon Dioxide (22-32) mmol/L BUN (9-20) mg/dL Creatinine (0.66-1.25) mg/dL Estimated GFR (>60) mL/min BUN/Creatinine Ratio (6-22) Glucose (70-99) mg/dL Lactate (0.7-2.1) mmol/L Calcium (8.4-10.2) mg/dL Magnesium (1.6-2.3) mg/dL Total Bilirubin (0.2-1.3) mg/dL AST (17-59) IU/L ALT (<50) IU/L Alkaline Phosphatase (38-126) U/L Total Creatine Kinase (55-170) U/L Troponin I (0.01-0.034) ng/mL NT-Pro-B Natriuret Pep (<125) pg/mL Total Protein (6.3-8.2) g/dL Albumin (3.5-5.0) g/dL Globulin (1.7-4.1) g/dL Albumin/Globulin Ratio (1.0-2.8) Lipase (23-300) U/L Urine Color Yellow Urine Appearance Clear Urine pH 5.5 (4.5-8.0) Ur Specific [place] 1.010 (1.000-1.035) Urine Protein 2+ H (Negative) Urine Glucose (UA) Negative (Negative) g/dL Urine Ketones Negative (NEGATIVE) Urine Occult Blood 2+ H (Negative) Urine Nitrate Negative (Negative) Urine Bilirubin Negative (NEGATIVE) Urine Urobilinogen 4.0 H (0.2) E.U./dL Ur Leukocyte Esterase Negative (NEGATIVE) Urine RBC 1-5/hpf (0-5/HPF) Urine WBC None seen (0-5/HPF) Ur Squamous Epith Cells 0-1 /hpf (0-5/HPF) Urine Bacteria None seen (None) Ur Culture Indicated? Cult not indicated Vol Urine Centrifuged 10ml (spun) SARS-CoV-2 (PCR) (Negative) Influenza A (RT-PCR) (NEGATIVE) Influenza B (RT-PCR) (NEGATIVE) RSV (PCR) (Negative) Imaging Data Chest x-ray: Radiologist's Impression: [address] [address] XRay Report Signed Patient: Amador Mason MR#: [id number] : 1970 Acct:[id number] Age/Sex: 54 / M Date of Service: 04/29/25 Loc: ED Accession Number: [id number] Procedure: XR chest 1V Ordering Provider: Renato Doan D.O. PROCEDURE: XR CHEST 1V INDICATIONS: Chest Pain TECHNIQUE: One view of the chest was acquired. COMPARISON: [facility], DANIKA, XR CHEST 1V, 07/10/2023, 14:33. FINDINGS: Surgical changes and devices: None. Lungs and pleura: Mild pulmonary vascular congestion is seen. No definite focal infiltrate. No pleural effusions or pneumothorax. Mediastinum: Mediastinal contours appear normal. Heart size is enlarged. Bones and chest wall: No suspicious bony lesions. Overlying soft tissues appear unremarkable. IMPRESSION: Cardiomegaly and mild congestion. No definite focal infiltrate. No pleural effusion or pneumothorax. CT scan - chest: Radiologist's Impression: [address] [address] [address] Scan Report Signed Patient: Amador Mason MR#: [id number] : 1970 Acct:[id number] Age/Sex: 54 / M Date of Service: 04/29/25 Loc: ED Accession Number: [id number] Procedure: CT angio chest PE protocol Ordering Provider: Renato Doan D.O. PROCEDURE: CT ANGIO CHEST PE PROTOCOL INDICATIONS: shortness of breath TECHNIQUE: After the administration of intravenous contrast, 2 mm thick sections acquired from the pulmonary apices to the posterior costophrenic angles. 3-dimensional maximum intensity projection (MIP) coronal and sagittal reformats were then acquired through the thorax. For radiation dose reduction, the following was used: automated exposure control, adjustment of mA and/or kV according to patient size. COMPARISON: [facility], CR, XR CHEST 1V, 04/29/2025, 7:45. [facility], CT, CT ANGIO CHEST PE PROTOCOL, 07/13/2022, 11:11. [facility], CT, CT ANGIO CHEST PE PROTOCOL, 04/02/2022, 9:12. FINDINGS: Image quality: Diagnostic. Pulmonary arteries: Suboptimal opacification of the pulmonary arteries that may be related to the timing of the contrast bolus or patient respiration. No filling defect is seen within the central pulmonary arteries to suggest central pulmonary embolus. The smaller segmental and subsegmental pulmonary arteries are not as well evaluated and a small pulmonary embolus could be missed. Main pulmonary artery is normal in size. Lower Neck: No enlarged lymph nodes. Thyroid: No thyroid nodules which require sonographic follow up, per consensus guidelines. Axillae: No enlarged lymph nodes. Chest Wall: Mild bilateral gynecomastia. Bones: Multilevel bridging anterior osteophytes or syndesmophytes throughout the mid to lower thoracic spine, which can be seen with ankylosing spondylitis or DISH. Lungs and Pleura: No pneumothorax or pleural effusions. No consolidation or suspicious nodules. Heart: Heart size is upper limits of normal. No pericardial effusion. Mild coronary artery calcifications. Thoracic Vessels: No aortic aneurysm. Mediastinum and Emely: Increased number of paraesophageal lymph nodes, some of which are mildly enlarged. For example, a right azygoesophageal recess lymph node measures 14 mm in short axis (5/104). Esophagus: No wall thickening. No hiatal hernia. Upper Abdomen: Liver is mildly hypoattenuating, suspicious for fatty infiltration. A coarse calcification is seen in the right hepatic lobe. Visualized upper abdomen solid organs and bowel loops appear normal. IMPRESSION: 1. No acute central pulmonary embolus. The distal segmental and subsegmental branches are not well opacified by the contrast bolus. 2. No acute abnormality identified in the chest. 3. Mildly enlarged paraesophageal lymph nodes are of uncertain etiology and may be reactive, although correlation is recommended to exclude an intra-abdominal process or lymphoma. CT scan - abdomen/pelvis: Radiologist's Impression: [address] [address] [address] Scan Report Signed Patient: Amador Mason MR#: [id number] : 1970 Acct:[id number] Age/Sex: 54 / M Date of Service: 04/29/25 Loc: ED Accession Number: [id number] Procedure: CT abdomen pelvis wo con Ordering Provider: Renato Doan D.O. PROCEDURE: CT ABDOMEN PELVIS WO CON INDICATIONS: ct chest recommendation TECHNIQUE: Axial sections were acquired from the lung bases to the pubic symphysis. Coronal and sagittal reformats were performed. For radiation dose reduction, the following was used: automated exposure control, adjustment of mA and/or kV according to patient size. COMPARISON: [facility], CT, CT ABDOMEN PELVIS W CON, 07/10/2023, 15:34. FINDINGS: Image quality: Diagnostic. Lower Chest: Lung bases are clear. Bilateral gynecomastia. Bilateral paraesophageal lymph nodes are present URINARY: Kidneys and ureters: Contrast material is seen in the renal collecting systems related to the prior CT angiogram. No hydronephrosis or hydroureter. Bladder: Contrast material opacifies the bladder. No bladder wall thickening. No intraluminal mass. ABDOMEN: Liver: No contour-deforming solid mass. Liver is hypoattenuating, consistent with diffuse fatty infiltration. A coarse calcification is seen in the right hepatic lobe. Gallbladder: Mildly distended gallbladder without radiopaque gallstones. Biliary ducts: No biliary dilation. Pancreas: No ductal dilation. Spleen: Size is within normal limits. Adrenal Glands: No adrenal nodules. Stomach and Bowel: Normal colonic caliber, without significant wall thickening. Peritoneum: No abnormal intraperitoneal fluid. No free air. Ventral Wall: Moderate periumbilical fat containing hernia. Abdominal Nodes: Mildly enlarged bilateral retroperitoneal lymph nodes. For example, a left lymph node to the left of the aortic bifurcation measures 1.5 cm in short axis diameter (2/97). Vessels: Aorta and inferior vena cava are normal in size. PELVIS: Pelvic Organs: Unremarkable. Pelvic Nodes: Enlarged bilateral inguinal lymph nodes are seen, measuring up to 2.2 cm in short axis on the right and 2.0 cm on the left (2/177). Mildly prominent bilateral external iliac and pelvic sidewall lymph nodes. Miscellaneous: No inguinal hernia. Bones: Unremarkable. IMPRESSION: 1. Mildly enlarged paraesophageal, retroperitoneal, pelvic and inguinal lymph nodes bilaterally, which are of uncertain etiology. Lymphoma is not excluded. Consider inguinal lymph node biopsy if tissue sampling is required. 2. No acute inflammatory process identified in the abdomen and pelvis. 3. Diffuse hepatic steatosis. 4. Mild colonic diverticulosis without acute diverticulitis. ECG Data Interpretation: NSR HR 98 OK 168 QRS [address]-t wave change Unchanged from 07/10/23 MDM Narrative Medical decision making narrative: Vital signs, nurse triage note, medication list, previous ER visits, and all imaging studies reviewed. Chest x-ray showed cardiomegaly and mild congestion no definite focal infiltrate no pleural effusion [place] [address], hemoglobin 13.3, INR 1.5, sodium 125 potassium 2.9 chloride 78 BUN 14 creatinine 0.8 glucose 211 magnesium 1.6 acid 2.0. CTA chest showed no acute central pulmonary embolism distal and subsegmental branches are not well opacified by the contrast bolus. No acute abnormalities identified in the chest. Mild enlarged paraesophageal lymph nodes of uncertain etiology. CT abdomen and pelvis mildly enlarged paraesophageal retroperitoneal pelvic and inguinal lymph nodes bilaterally which are of uncertain etiology. Lymphoma not excluded and to consider inguinal lymph node biopsy if tissue sampling is required. No acute inflammatory process identified in the abdomen and pelvis diffuse hepatic steatosis. Mild colonic diverticulosis without acute diverticulitis. Patient given normal saline bolus, K rider, vancomycin and Zosyn here, cultures obtained. Case discussed with Dr. Torres who has graciously accepted the patient for inpatient admission. Discharge Plan Departure Patient Disposition: Admitted As Inpatient Clinical Impression: Lymph nodes enlarged Cellulitis Qualifiers: Site of cellulitis: extremity Site of cellulitis of extremity: lower extremity Laterality: unspecified laterality Qualified Code(s): L03.119 - Cellulitis of unspecified part of limb Admit Date/Time: 04/29/25 11:25 Admit Provider: Angelo Torres
--- NOTE | 2025-04-29 07:40 | DI.CT.S_ITS ---
PROCEDURE: CT ANGIO CHEST PE PROTOCOL INDICATIONS: shortness of breath TECHNIQUE: After the administration of intravenous contrast, 2 mm thick sections acquired from the pulmonary apices to the posterior costophrenic angles. 3-dimensional maximum intensity projection (MIP) coronal and sagittal reformats were then acquired through the thorax. For radiation dose reduction, the following was used: automated exposure control, adjustment of mA and/or kV according to patient size. COMPARISON: [facility], CR, XR CHEST 1V, 04/29/2025, 7:45. [facility], CT, CT ANGIO CHEST PE PROTOCOL, 07/13/2022, 11:11. [facility], CT, CT ANGIO CHEST PE PROTOCOL, 04/02/2022, 9:12. FINDINGS: Image quality: Diagnostic. Pulmonary arteries: Suboptimal opacification of the pulmonary arteries that may be related to the timing of the contrast bolus or patient respiration. No filling defect is seen within the central pulmonary arteries to suggest central pulmonary embolus. The smaller segmental and subsegmental pulmonary arteries are not as well evaluated and a small pulmonary embolus could be missed. Main pulmonary artery is normal in size. Lower Neck: No enlarged lymph nodes. Thyroid: No thyroid nodules which require sonographic follow up, per consensus guidelines. Axillae: No enlarged lymph nodes. Chest Wall: Mild bilateral gynecomastia. Bones: Multilevel bridging anterior osteophytes or syndesmophytes throughout the mid to lower thoracic spine, which can be seen with ankylosing spondylitis or DISH. Lungs and Pleura: No pneumothorax or pleural effusions. No consolidation or suspicious nodules. Heart: Heart size is upper limits of normal. No pericardial effusion. Mild coronary artery calcifications. Thoracic Vessels: No aortic aneurysm. Mediastinum and Emely: Increased number of paraesophageal lymph nodes, some of which are mildly enlarged. For example, a right azygoesophageal recess lymph node measures 14 mm in short axis (5/104). Esophagus: No wall thickening. No hiatal hernia. Upper Abdomen: Liver is mildly hypoattenuating, suspicious for fatty infiltration. A coarse calcification is seen in the right hepatic lobe. Visualized upper abdomen solid organs and bowel loops appear normal. IMPRESSION: 1. No acute central pulmonary embolus. The distal segmental and subsegmental branches are not well opacified by the contrast bolus. 2. No acute abnormality identified in the chest. 3. Mildly enlarged paraesophageal lymph nodes are of uncertain etiology and may be reactive, although correlation is recommended to exclude an intra-abdominal process or lymphoma. Approved by: Davidson Waldrop M.D. on 04/29/2025 at 9:04
--- NOTE | 2025-04-29 07:42 | DI.RAD.S_ITS ---
PROCEDURE: XR CHEST 1V INDICATIONS: Chest Pain TECHNIQUE: One view of the chest was acquired. COMPARISON: [facility], CR, XR CHEST 1V, 07/10/2023, 14:33. FINDINGS: Surgical changes and devices: None. Lungs and pleura: Mild pulmonary vascular congestion is seen. No definite focal infiltrate. No pleural effusions or pneumothorax. Mediastinum: Mediastinal contours appear normal. Heart size is enlarged. Bones and chest wall: No suspicious bony lesions. Overlying soft tissues appear unremarkable. IMPRESSION: Cardiomegaly and mild congestion. No definite focal infiltrate. No pleural effusion or pneumothorax. Dictated by: Alexandru Jovel M.D. on 04/29/2025 at 8:11 Approved by: Alexandru Jovel M.D. on 04/29/2025 at 8:12
[2025-04-29 08:17] LABS: Base Excess VBG 11.5 mmol/L (0-4); HCO3 VBG 36 mmol/L (24-28); Oxygen Saturation VBG 72 % (70-75); PCO2 VBG 45.8 mmHg (45-50); PO2 VBG 35 mmHg (35-45); Total CO2 VBG 34 mmol/L (24-29); pH VBG 7.51 (7.33-7.43)
--- NOTE | 2025-04-29 08:22 | EKG_ITS ---
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
[2025-04-29 08:23] LABS: INR 1.5 (0.9-1.3); Prothrombin Time 17.3 SECONDS (9.4-12.5)
[2025-04-29 08:25] LABS: Hematocrit 38.1 % (41-53); Hemoglobin 13.3 g/dL (13.5-17.5); Mean Corpuscular HGB Conc 34.8 % (30-36); Mean Corpuscular Hemoglobin 30.4 PG (26-34); Mean Corpuscular Volume 87.4 fL (80-100); Platelet Count 170 X10^3/uL (150-400)
[2025-04-29 08:26] LABS: PTT Partial Thromboplastin Tim 32 SECONDS (25.1-36.5)
[2025-04-29 08:27] LABS: Influenza A - CEPHEID Flu A NEGATIVE (NEGATIVE); Influenza B - CEPHEID Flu B NEGATIVE (NEGATIVE)
[2025-04-29 08:27] LABS: Add Manual Diff / Slide Review YES
[2025-04-29 08:28] LABS: COVID-19 CEPHEID 4-PLEX PCR Negative (Negative)
[2025-04-29 08:30] LABS: Alanine Aminotransferase 46 IU/L (<50); Albumin 3.7 g/dL (3.5-5.0); Albumin Globulin Ratio 0.9 (1.0-2.8); Alkaline Phosphatase 98 U/L (38-126); Blood Urea Nitrogen 14 mg/dL (9-20); Calcium 8.4 mg/dL (8.4-10.2); Chloride 78 mmol/L (98-107); Creatine Kinase 73 U/L (55-170); Estimated Glomerular Filt Rate > 60 mL/min (>60); Globulin 4.1 g/dL (1.7-4.1); Glucose 211 mg/dL (70-99); HEMOLYSIS < 15 (0-50); Lactate (Lactic Acid) 2.0 mmol/L (0.7-2.1); Magnesium 1.6 mg/dL (1.6-2.3); Potassium 2.9 mmol/L (3.4-5.1); Sodium 125 mmol/L (137-145); Total Protein 7.8 g/dL (6.3-8.2)
[2025-04-29 08:31] LABS: Lipase < 10 U/L (23-300)
[2025-04-29 08:37] LABS: Carbon Dioxide 36 mmol/L (22-32)
[2025-04-29] MEDS: MORPHINE 4 MG/ML INJ IV ×3 (08:38→23:52)
[2025-04-29] MEDS: ONDANSETRON 4 MG/2 ML INJ IV (08:38)
[2025-04-29] MEDS: ASPIRIN 81 MG CHEW TAB 324 MG PO (08:38)
[2025-04-29 08:41] LABS: NT-proBNP (BNP-Adult 18+) 230 pg/mL (<125); Troponin I < 0.012 ng/mL (0.01-0.034)
[2025-04-29 08:42] LABS: Band Neutrophils Percent 17.0 % (3-7); Lymphocytes Percent Manual 4.0 % (25-45); Monocytes Percent Manual 5.0 % (2-11); Neutrophils Absolute Manual 22204 /uL (3000-5900); Segmented Neutrophils Percent 74.0 % (38-70); Total Cells Counted 100
[2025-04-29 08:43] LABS: RBC Morphology Normal Morphology
[2025-04-29 08:58] LABS: Appearance Urine UA CLEAR; Bilirubin Urine UA NEGATIVE (NEGATIVE); Color Urine UA YELLOW; Glucose Urine UA NEGATIVE (Negative); Ketones Urine UA NEGATIVE (NEGATIVE); Leukocyte Esterase Urine UA NEGATIVE (NEGATIVE); Nitrite Urine UA NEGATIVE (Negative); Occult Blood Urine UA 2+ (Negative); Protein Urine UA 2+ (Negative); Specific Gravity Urine UA 1.010 (1.000-1.035); Urobilinogen Urine UA 4.0 E.U./dL (0.2); pH Urine UA 5.5 (4.5-8.0)
[2025-04-29] MEDS: SODIUM CHLORIDE 0.9% 500 ML IV (08:58)
[2025-04-29] MEDS: POTASSIUM CHLORIDE IN WATER 10 MEQ/100 ML PIGGYBACK 100 MEQ IV ×4 (08:58→12:06)
[2025-04-29 09:02] LABS: Culture Indicated Urine Cult Not Indicated
[2025-04-29] MEDS: PIPERACILLIN/TAZO 4.5 GM in SODIUM CHLORIDE 0.9% 100 ML IV (09:08)
--- NOTE | 2025-04-29 09:17 | DI.CT.S_ITS ---
PROCEDURE: CT ABDOMEN PELVIS WO CON INDICATIONS: ct chest recommendation TECHNIQUE: Axial sections were acquired from the lung bases to the pubic symphysis. Coronal and sagittal reformats were performed. For radiation dose reduction, the following was used: automated exposure control, adjustment of mA and/or kV according to patient size. COMPARISON: [facility], CT, CT ABDOMEN PELVIS W CON, 07/10/2023, 15:34. FINDINGS: Image quality: Diagnostic. Lower Chest: Lung bases are clear. Bilateral gynecomastia. Bilateral paraesophageal lymph nodes are present URINARY: Kidneys and ureters: Contrast material is seen in the renal collecting systems related to the prior CT angiogram. No hydronephrosis or hydroureter. Bladder: Contrast material opacifies the bladder. No bladder wall thickening. No intraluminal mass. ABDOMEN: Liver: No contour-deforming solid mass. Liver is hypoattenuating, consistent with diffuse fatty infiltration. A coarse calcification is seen in the right hepatic lobe. Gallbladder: Mildly distended gallbladder without radiopaque gallstones. Biliary ducts: No biliary dilation. Pancreas: No ductal dilation. Spleen: Size is within normal limits. Adrenal Glands: No adrenal nodules. Stomach and Bowel: Normal colonic caliber, without significant wall thickening. Peritoneum: No abnormal intraperitoneal fluid. No free air. Ventral Wall: Moderate periumbilical fat containing hernia. Abdominal Nodes: Mildly enlarged bilateral retroperitoneal lymph nodes. For example, a left lymph node to the left of the aortic bifurcation measures 1.5 cm in short axis diameter (2/97). Vessels: Aorta and inferior vena cava are normal in size. PELVIS: Pelvic Organs: Unremarkable. Pelvic Nodes: Enlarged bilateral inguinal lymph nodes are seen, measuring up to 2.2 cm in short axis on the right and 2.0 cm on the left (2/177). Mildly prominent bilateral external iliac and pelvic sidewall lymph nodes. Miscellaneous: No inguinal hernia. Bones: Unremarkable. IMPRESSION: 1. Mildly enlarged paraesophageal, retroperitoneal, pelvic and inguinal lymph nodes bilaterally, which are of uncertain etiology. Lymphoma is not excluded. Consider inguinal lymph node biopsy if tissue sampling is required. 2. No acute inflammatory process identified in the abdomen and pelvis. 3. Diffuse hepatic steatosis. 4. Mild colonic diverticulosis without acute diverticulitis. Approved by: Davidson Waldrop M.D. on 04/29/2025 at 10:34
[2025-04-29] MEDS: VANCOMYCIN 1,750 MG in SODIUM CHLORIDE 0.9% 500 ML 250 MG IV ×2 (09:53→23:51)
--- NOTE | 2025-04-29 10:22 | PC.NURSE ---
US at bedside, lab collecting 2nd trop. Pt on simple mask 4LPM O2, breathing shallow/even/equal, A&Ox4 at this time. Call light within reach, no other needs at this time
[2025-04-29 10:50] LABS: Troponin I < 0.012 ng/mL (0.01-0.034)
--- NOTE | 2025-04-29 10:51 | EKG_ITS ---
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
--- NOTE | 2025-04-29 11:32 | PM.HP.1 ---
History of Present Illness History of Present Illness Date Patient Seen: 04/29/25 Time Patient Seen: 11:32 Chief complaint: Both knees are swollen , Edema Narrative: This is a 54-year-old male with morbid medical obesity, congestive heart failure, cardiomegaly, anasarca, hypertension, depression, anxiety and fentanyl addiction/daily methadone use who presents with 3 days of painful skin redness in the right leg up to the thigh and in the left leg up to the ankle. He has been nauseated with vomiting, spiking a fever of 101.8 with chills and burning pain in both legs. The white blood count is 24.4 with an INR of 1.5, a sodium 125 and a potassium of 2.9. He is refusing to discuss with me why he needs to go to an outpatient clinic once daily(from the hospital) for treatment but eventually with some coaxing from other staff members he is found to be on methadone 92 mg daily at the local substance abuse treatment center, which can certainly be continued here while he is inpatient. He has been treated by Dr. Lawrence for the anasarca with bumetanide without much improvements recently. A CT scan done to rule out PE and subsequent CT abdomen/pelvis shows mildly enlarged paraesophageal, retroperitoneal, pelvic and inguinal lymph nodes bilaterally. Lymphoma is not excluded and an inguinal lymph node biopsy was suggested for clarification. His cellulitis is quite florid with large patches of redness, tender skin up to the right groin and less intense but similarly appearing redness on the left side. The swelling looks chronic and not like necrotizing fasciitis at this time. [facility] Medical History (Updated 04/29/25 @ 12:19 by Angelo Torres MD) Amputated finger Poor personal hygiene Methadone maintenance therapy patient MARIE (dyspnea on exertion) Depression, major Generalized anxiety disorder Essential hypertension Venous (peripheral) insufficiency Stasis dermatitis SOB (shortness of breath) Opioid use disorder Congestive heart failure Cardiomegaly Recreational drug use Obesity, morbid, BMI 40.0-49.9 Recurrent low back pain Foot pain Venous stasis ulcers of both lower extremities (11/21/17) Morbid obesity with body mass index (BMI) of 40.0 to 44.9 in adult (11/21/17) Surgical History (Updated 04/29/25 @ 12:20 by Angelo Torres MD) Status post amputation of finger Family History Mother Cancer Lung cancer Social History household members: spouse alcohol intake: former substance use type: other (fentanyl ) Meds Home Medications and Allergies Home Medications ?Medication ?Instructions ?Recorded ?Confirmed ?Type losartan 50 mg tablet 50 mg PO DAILY #30 tabs 08/14/24 12/20/24 Rx Held on 10/15/24. Instructions: normal BP today and quit using fentanyl bumetanide 2 mg tablet 4 mg (2 x 2 mg) PO BID #360 tabs 10/15/24 12/20/24 Rx methdone liquid 175 mg PO .QD 10/15/24 12/20/24 History naloxone 4 mg/actuation nasal spray intranasal 10/15/24 12/20/24 History albuterol sulfate 90 mcg/actuation 2 inh inhalation Q4-6H PRN 10/31/24 12/20/24 Rx breath activated powder inhaler shortness of breath #1 ea DISABLED [place] #1 ea 12/11/24 12/20/24 Rx Allergies Allergy/AdvReac Type Severity Reaction Status Date / Time No Known Drug Allergies Allergy Verified 04/29/25 07:35 Review of Systems Review of Systems Narrative: Positive for leg pain and redness. Positive for nausea, vomiting, fevers, chills an aching/burning pain in his legs. Negative for coughing, shortness breast, chest pain, abdominal pain, dysuria, headaches, new allergies, sore throat. Exam Vital Signs (past 8 hours): - 04/29/25 07:30 04/29/25 07:31 04/29/25 07:35 Temperature 98.3 F Pulse Rate 110 H 113 H Respiratory Rate 20 Blood Pressure 206/146 H 177/75 H Pulse Oximetry 91 92 Oxygen Delivery Method Room Air Oxygen Flow Rate 04/29/25 07:35 04/29/25 07:35 04/29/25 08:00 Temperature Pulse Rate 103 H 102 H Respiratory Rate Blood Pressure 121/63 Pulse Oximetry 92 92 Oxygen Delivery Method Oxygen Flow Rate 04/29/25 08:26 04/29/25 08:26 04/29/25 08:30 Temperature Pulse Rate 98 H 96 H Respiratory Rate 9 L 14 Blood Pressure 116/57 L Pulse Oximetry 88 L 84 L Oxygen Delivery Method Nasal Cannula Oxygen Flow Rate 2 04/29/25 08:59 04/29/25 08:59 04/29/25 09:00 Temperature Pulse Rate 100 H Respiratory Rate 20 Blood Pressure 146/67 H 137/69 Pulse Oximetry 95 Oxygen Delivery Method Oxygen Flow Rate 04/29/25 09:00 04/29/25 09:34 04/29/25 09:35 Temperature Pulse Rate 103 H 98 H 99 H Respiratory Rate 36 H 27 H Blood Pressure Pulse Oximetry 95 96 Oxygen Delivery Method Simple Mask Oxygen Flow Rate 04/29/25 09:35 04/29/25 10:00 04/29/25 10:04 Temperature 98.5 F Pulse Rate 96 H Respiratory Rate 38 H Blood Pressure 129/78 134/65 Pulse Oximetry 97 Oxygen Delivery Method Oxygen Flow Rate 04/29/25 10:04 04/29/25 10:30 04/29/25 10:30 Temperature Pulse Rate 93 H 89 Respiratory Rate 29 H 31 H Blood Pressure 133/72 Pulse Oximetry 95 95 Oxygen Delivery Method Simple Mask Oxygen Flow Rate 4 04/29/25 11:00 04/29/25 11:00 Temperature Pulse Rate 93 H Respiratory Rate 16 Blood Pressure 128/56 L Pulse Oximetry 96 Oxygen Delivery Method Oxygen Flow Rate Oxygen Delivery Method Simple Mask Oxygen Flow Rate 4 Narrative Exam Narrative: Alert and oriented x3. Appears to be in severe distress from burning pain in his legs. Pupils are equally round reactive to light and accommodation. Extraocular muscles are intact Sclerae are pink and nonicteric No lymph nodes are felt head, neck and supraclavicular area. There is no thyromegaly JVD is less than 6 cm and no carotid bruits are heard Heart is regular rate and rhythm without murmur Lungs are clear to auscultation bilaterally Abdomen is very, very obese with a large easily reduced umbilical hernia. Skin bright red/pink discoloration of the legs against a background of chronic venous insufficiency dark discoloration. The redness extends on the right leg up to the groin in large patches. The redness on the left leg is somewhat less widespread. Neurologic exam: DTRs are symmetric. There is no tremor. Motor function is 3/5 throughout. Cranial nerves 2-12 test intact. Objective Labs 04/29/25 08:06 04/29/25 08:06 Labs: Laboratory Results - last 24 hr 04/29/25 04/29/25 04/29/25 07:45 08:06 08:13 WBC 24.4 H RBC 4.36 L Hgb 13.3 L Hct 38.1 L MCV 87.4 MCH 30.4 MCHC 34.8 RDW 15.0 H Plt Count 170 Neut % (Auto) Not Reportable Lymph % (Auto) Not Reportable [place] % (Auto) Not Reportable Eos % (Auto) Not Reportable Baso % (Auto) Not Reportable Lymph # (Auto) Not Reportable [place] # (Auto) Not Reportable Baso # (Auto) Not Reportable Total Counted 100 Seg Neutrophils % 74.0 H Band Neutrophils % 17.0 H Lymphocytes % (Manual) 4.0 L Monocytes % (Manual) 5.0 Neutrophils # (Manual) 27667 H RBC Morphology Normal morphology PT 17.3 H INR 1.5 H APTT 32 VBG pH 7.51 H VBG pCO2 45.8 VBG pO2 35 VBG HCO3 36 H VBG Total CO2 34 H VBG O2 Saturation 72 VBG Base Excess 11.5 H Sodium 125 L Potassium 2.9 L Chloride 78 L Carbon Dioxide 36 H BUN 14 Creatinine 0.80 Estimated GFR > 60 BUN/Creatinine Ratio 17.5 Glucose 211 H Lactate 2.0 Calcium 8.4 Magnesium 1.6 Total Bilirubin 1.3 AST 60 H ALT 46 Alkaline Phosphatase 98 Total Creatine Kinase 73 Troponin I < 0.012 NT-Pro-B Natriuret Pep 230 H Total Protein 7.8 Albumin 3.7 Globulin 4.1 Albumin/Globulin Ratio 0.9 L Lipase < 10 L Urine Color Urine Appearance Urine pH Ur Specific [place] Urine Protein Urine Glucose (UA) Urine Ketones Urine Occult Blood Urine Nitrate Urine Bilirubin Urine Urobilinogen Ur Leukocyte Esterase Urine RBC Urine WBC Ur Squamous Epith Cells Urine Bacteria Ur Culture Indicated? Vol Urine Centrifuged SARS-CoV-2 (PCR) Negative Influenza A (RT-PCR) Flu a negative Influenza B (RT-PCR) Flu b negative RSV (PCR) Negative 04/29/25 04/29/25 08:45 10:20 WBC RBC Hgb Hct MCV MCH MCHC RDW Plt Count Neut % (Auto) Lymph % (Auto) [place] % (Auto) Eos % (Auto) Baso % (Auto) Lymph # (Auto) [place] # (Auto) Baso # (Auto) Total Counted Seg Neutrophils % Band Neutrophils % Lymphocytes % (Manual) Monocytes % (Manual) Neutrophils # (Manual) RBC Morphology PT INR APTT VBG pH VBG pCO2 VBG pO2 VBG HCO3 VBG Total CO2 VBG O2 Saturation VBG Base Excess Sodium Potassium Chloride Carbon Dioxide BUN Creatinine Estimated GFR BUN/Creatinine Ratio Glucose Lactate Calcium Magnesium Total Bilirubin AST ALT Alkaline Phosphatase Total Creatine Kinase Troponin I < 0.012 NT-Pro-B Natriuret Pep Total Protein Albumin Globulin Albumin/Globulin Ratio Lipase Urine Color Yellow Urine Appearance Clear Urine pH 5.5 Ur Specific [place] 1.010 Urine Protein 2+ H Urine Glucose (UA) Negative Urine Ketones Negative Urine Occult Blood 2+ H Urine Nitrate Negative Urine Bilirubin Negative Urine Urobilinogen 4.0 H Ur Leukocyte Esterase Negative Urine RBC 1-5/hpf Urine WBC None seen Ur Squamous Epith Cells 0-1 /hpf Urine Bacteria None seen Ur Culture Indicated? Cult not indicated Vol Urine Centrifuged 10ml (spun) SARS-CoV-2 (PCR) Influenza A (RT-PCR) Influenza B (RT-PCR) RSV (PCR) Assessment & Plan Assessment & Plan narrative: This is a 54-year-old male with morbid medical obesity, congestive heart failure, cardiomegaly, anasarca, hypertension, depression, anxiety and fentanyl addiction/daily methadone use who presents with 3 days of painful skin redness in the right leg up to the thigh and in the left leg up to the ankle. He has been nauseated with vomiting, spiking a fever of 101.8 with chills and burning pain in both legs. The white blood count is 24.4 with an INR of 1.5, a sodium 125 and a potassium of 2.9. Bilateral lower extremity cellulitis, present on admission. Active. -consider further evaluation for necrotizing fasciitis if symptoms do not begin responding to initial treatment. Appearance is not suspicious today. -vancomycin and ceftriaxone to cover staph and strep. -IV fluid support during initial treatment phase, likely to be counterproductive with already present edema if continued. -follow WBC. On admission white blood count is 24.4. Anasarca/Lymphedema, present on admission. Active. -BNP 230. -continue home bumetanide 4 mg b.i.d. -cautious with IV fluid use Opioid use disorder, present on admission. Chronic. -continue methadone 92 mg daily per [facility] center. Hypokalemia/hyponatremia, present on admission. Active. -admitting sodium 125 with potassium 2.9. -IV potassium rider and follow -IV NS 100 mL/hr with caution regarding anasarca. Follow sodium level. Hypertension, present on admission. Chronic -continue losartan Paraesophageal and intra-abdominal mild lymph node enlargement -follow-up outpatient for possible inguinal lymph node biopsy. Lovenox for DVT prevention is backup decision maker. Time-Based Coding :: [TOTAL MINUTES] spent with patient and on the chart (including review of chart, obtaining history, exam, reviewing outside data, placing orders, documenting exam and treatment plan, and counseling patient) on [DATE].
--- NOTE | 2025-04-29 11:59 | PC.NURSE ---
Patient expressed concerns and needing to leave daily due to treatment. 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 This RN spoke with IMER Wetzel who confirmed patient gets 92mg methadone daily and has received that his daily dose today. This RN called and verbally informed Dr. Torres of this information as he is admitting provider.
[2025-04-29] MEDS: HYDROMORPHONE 1 MG INJ IV (12:17)
--- NOTE | 2025-04-29 12:37 | PC.NURSE ---
Report to Marlene ALVARADO
[2025-04-29] MEDS: SODIUM CHLORIDE 0.45% 1,000 ML 100 ML IV (13:57)
[2025-04-29] MEDS: cefTRIAXone 2,000 MG in SODIUM CHLORIDE 0.9% 100 ML 200 MG IV (13:58)
[2025-04-29] MEDS: HYDROCODONE/ACET 5/325 TABLET 2 TAB PO (15:42)
[2025-04-29] MEDS: ALBUTEROL 2.5 MG/3 ML NEB (ADULT) INH (19:01)
[2025-04-29] MEDS: ENOXAPARIN 40 MG/0.4 ML SYRINGE SUBCUT (22:08)
[2025-04-29] MEDS: BUMETANIDE 1 MG TABLET 4 MG PO (22:08)
--- NOTE | 2025-04-30 | DI.CT.S_ITS ---
PROCEDURE: CT LE RT W CON INDICATIONS: infection TECHNIQUE: After the administration of intravenous contrast, 3 mm axial sections acquired of the right lower extremity , with coronal and sagittal reformats. COMPARISON: None. FINDINGS: Image quality: Excellent. Bones: No acute fracture or dislocation. No osteomyelitis. Soft tissues: Edema involving the foot to the upper thigh. No soft tissue gas. No abscess. IMPRESSION: Cellulitis without abscess. No soft tissue gas. No CT evidence of osteomyelitis. Dictated by: Ramy Mccann M.D. on 04/30/2025 at 18:52 Approved by: Ramy Mccann M.D. on 04/30/2025 at 18:56
[2025-04-30] MEDS: HYDROMORPHONE 2 MG INJ IV ×2 (03:40→08:09)
[2025-04-30 04:50] LABS: Add Manual Diff / Slide Review NO; Hematocrit 35.2 % (41-53); Hemoglobin 12.1 g/dL (13.5-17.5); Lymphocytes Absolute Auto 1200 /uL (1100-4500); Mean Corpuscular HGB Conc 34.5 % (30-36); Mean Corpuscular Hemoglobin 30.4 PG (26-34); Mean Corpuscular Volume 88.2 fL (80-100); Platelet Count 161 X10^3/uL (150-400)
[2025-04-30 05:02] LABS: Blood Urea Nitrogen 12 mg/dL (9-20); Calcium 8.1 mg/dL (8.4-10.2); Chloride 81 mmol/L (98-107); Estimated Glomerular Filt Rate > 60 mL/min (>60); Glucose 133 mg/dL (70-99); HEMOLYSIS < 15 (0-50); Potassium 2.8 mmol/L (3.4-5.1); Sodium 128 mmol/L (137-145)
[2025-04-30 05:12] LABS: Carbon Dioxide 36 mmol/L (22-32)
[2025-04-30 08:00] VITALS: BP 127/69; PULSE 89; RESP 18; TEMP 35.8; O2SAT 94
--- NOTE | 2025-04-30 08:03 | PM.PN.1 ---
Subjective Subjective Date Patient Seen: 04/30/25 Interval history: He says his leg pain is improved. He has been heavily dependent on additional morphine overnight. This is somebody who has a history of opioid use disorder and is on methadone already. The redness on the legs has stopped worsening if not improving slightly. The white blood count has dropped from 24.4 down to 21. The hemoglobin is 12.1. The potassium is still low at 2.8. The sodium has risen from 125 up to 128. The creatinine is 0.85. The AST is 60. He is being given additional IV potassium rider. The saline infusion will be changed from 0.45 to 0.9. Labs will be followed. We will try to restrict him from additional IV opioids and stick to hydrocodone or oxycodone in addition to the methadone. He is asking for something to try for sleep stating that melatonin at high doses is not effective. We will cautiously give him an Ambien tonight to see how that goes. Combining that with opioids is of course unlikely to be safe on an outpatient basis. Strep group A is growing on culture done of area draining fluid on the leg. Exam Vital Signs (past 8 hours): Oxygen Delivery Method Room Air Oxygen Flow Rate 0 Narrative Exam Narrative: Alert and oriented. Mild distress from discomfort of leg pain, massive obesity and anasarca. Heart is regular rate and rhythm without murmur Lungs are clear to auscultation bilaterally Abdomen is soft and notable for distention with a large umbilical hernia. Extremities have decreasing edema compared to yesterday the redness distribution is the same up to both thighs. This is in a patchy distribution. Objective Labs 04/30/25 03:50 04/30/25 03:50 Labs: Laboratory Results - last 24 hr 04/29/25 04/29/25 04/29/25 07:45 08:06 08:13 WBC 24.4 H RBC 4.36 L Hgb 13.3 L Hct 38.1 L MCV 87.4 MCH 30.4 MCHC 34.8 RDW 15.0 H Plt Count 170 Neut % (Auto) Not Reportable Lymph % (Auto) Not Reportable [place] % (Auto) Not Reportable Eos % (Auto) Not Reportable Baso % (Auto) Not Reportable Neut # (Auto) Lymph # (Auto) Not Reportable [place] # (Auto) Not Reportable Eos # (Auto) Baso # (Auto) Not Reportable Total Counted 100 Seg Neutrophils % 74.0 H Band Neutrophils % 17.0 H Lymphocytes % (Manual) 4.0 L Monocytes % (Manual) 5.0 Neutrophils # (Manual) 08675 H RBC Morphology Normal morphology PT 17.3 H INR 1.5 H APTT 32 VBG pH 7.51 H VBG pCO2 45.8 VBG pO2 35 VBG HCO3 36 H VBG Total CO2 34 H VBG O2 Saturation 72 VBG Base Excess 11.5 H Sodium 125 L Potassium 2.9 L Chloride 78 L Carbon Dioxide 36 H BUN 14 Creatinine 0.80 Estimated GFR > 60 BUN/Creatinine Ratio 17.5 Glucose 211 H POC Whole Bld Glucose Lactate 2.0 Calcium 8.4 Magnesium 1.6 Total Bilirubin 1.3 AST 60 H ALT 46 Alkaline Phosphatase 98 Total Creatine Kinase 73 Troponin I < 0.012 NT-Pro-B Natriuret Pep 230 H Total Protein 7.8 Albumin 3.7 Globulin 4.1 Albumin/Globulin Ratio 0.9 L Lipase < 10 L Urine Color Urine Appearance Urine pH Ur Specific [place] Urine Protein Urine Glucose (UA) Urine Ketones Urine Occult Blood Urine Nitrate Urine Bilirubin Urine Urobilinogen Ur Leukocyte Esterase Urine RBC Urine WBC Ur Squamous Epith Cells Urine Bacteria Ur Culture Indicated? Vol Urine Centrifuged SARS-CoV-2 (PCR) Negative Influenza A (RT-PCR) Flu a negative Influenza B (RT-PCR) Flu b negative RSV (PCR) Negative 04/29/25 04/29/25 04/30/25 08:45 10:20 03:50 WBC 21.0 H RBC 3.99 L Hgb 12.1 L Hct 35.2 L MCV 88.2 MCH 30.4 MCHC 34.5 RDW 15.4 H Plt Count 161 Neut % (Auto) 88.3 H Lymph % (Auto) 5.6 L [place] % (Auto) 5.1 Eos % (Auto) 0.7 L Baso % (Auto) 0.3 Neut # (Auto) 76045 H Lymph # (Auto) 1200 [place] # (Auto) 1100 H Eos # (Auto) 100 Baso # (Auto) 100 Total Counted Seg Neutrophils % Band Neutrophils % Lymphocytes % (Manual) Monocytes % (Manual) Neutrophils # (Manual) RBC Morphology PT INR APTT VBG pH VBG pCO2 VBG pO2 VBG HCO3 VBG Total CO2 VBG O2 Saturation VBG Base Excess Sodium 128 L Potassium 2.8 L Chloride 81 L Carbon Dioxide 36 H BUN 12 Creatinine 0.85 Estimated GFR > 60 BUN/Creatinine Ratio 14.1 Glucose 133 H POC Whole Bld Glucose Lactate Calcium 8.1 L Magnesium Total Bilirubin AST ALT Alkaline Phosphatase Total Creatine Kinase Troponin I < 0.012 NT-Pro-B Natriuret Pep Total Protein Albumin Globulin Albumin/Globulin Ratio Lipase Urine Color Yellow Urine Appearance Clear Urine pH 5.5 Ur Specific [place] 1.010 Urine Protein 2+ H Urine Glucose (UA) Negative Urine Ketones Negative Urine Occult Blood 2+ H Urine Nitrate Negative Urine Bilirubin Negative Urine Urobilinogen 4.0 H Ur Leukocyte Esterase Negative Urine RBC 1-5/hpf Urine WBC None seen Ur Squamous Epith Cells 0-1 /hpf Urine Bacteria None seen Ur Culture Indicated? Cult not indicated Vol Urine Centrifuged 10ml (spun) SARS-CoV-2 (PCR) Influenza A (RT-PCR) Influenza B (RT-PCR) RSV (PCR) 04/30/25 07:54 WBC RBC Hgb Hct MCV MCH MCHC RDW Plt Count Neut % (Auto) Lymph % (Auto) [place] % (Auto) Eos % (Auto) Baso % (Auto) Neut # (Auto) Lymph # (Auto) [place] # (Auto) Eos # (Auto) Baso # (Auto) Total Counted Seg Neutrophils % Band Neutrophils % Lymphocytes % (Manual) Monocytes % (Manual) Neutrophils # (Manual) RBC Morphology PT INR APTT VBG pH VBG pCO2 VBG pO2 VBG HCO3 VBG Total CO2 VBG O2 Saturation VBG Base Excess Sodium Potassium Chloride Carbon Dioxide BUN Creatinine Estimated GFR BUN/Creatinine Ratio Glucose POC Whole Bld Glucose 198 H Lactate Calcium Magnesium Total Bilirubin AST ALT Alkaline Phosphatase Total Creatine Kinase Troponin I NT-Pro-B Natriuret Pep Total Protein Albumin Globulin Albumin/Globulin Ratio Lipase Urine Color Urine Appearance Urine pH Ur Specific [place] Urine Protein Urine Glucose (UA) Urine Ketones Urine Occult Blood Urine Nitrate Urine Bilirubin Urine Urobilinogen Ur Leukocyte Esterase Urine RBC Urine WBC Ur Squamous Epith Cells Urine Bacteria Ur Culture Indicated? Vol Urine Centrifuged SARS-CoV-2 (PCR) Influenza A (RT-PCR) Influenza B (RT-PCR) RSV (PCR) [facility] Medical History (Updated 04/29/25 @ 12:19 by Angelo Torres MD) Amputated finger Poor personal hygiene Methadone maintenance therapy patient MARIE (dyspnea on exertion) Depression, major Generalized anxiety disorder Essential hypertension Venous (peripheral) insufficiency Stasis dermatitis SOB (shortness of breath) Opioid use disorder Congestive heart failure Cardiomegaly Recreational drug use Obesity, morbid, BMI 40.0-49.9 Recurrent low back pain Foot pain Venous stasis ulcers of both lower extremities (11/21/17) Morbid obesity with body mass index (BMI) of 40.0 to 44.9 in adult (11/21/17) Surgical History (Updated 04/29/25 @ 12:20 by Angelo Torres MD) Status post amputation of finger Family History Mother Cancer Lung cancer Social History household members: spouse and friend(s) Smoking Status: Never smoker alcohol intake: current substance use type: other (fentanyl ) Assessment & Plan Assessment & Plan narrative: This is a 54-year-old male with morbid medical obesity, congestive heart failure, cardiomegaly, anasarca, hypertension, depression, anxiety and fentanyl addiction/daily methadone use who presents with 3 days of painful skin redness in the right leg up to the thigh and in the left leg up to the ankle. He has been nauseated with vomiting, spiking a fever of 101.8 with chills and burning pain in both legs. The white blood count is 24.4 with an INR of 1.5, a sodium 125 and a potassium of 2.9. Bilateral lower extremity cellulitis, present on admission. Active. - Appearance is not suspicious for necrotizing fasciitis today. -vancomycin and ceftriaxone to cover staph and strep. Leg discharge culture positive for strep A. Consider rationalization to just ceftriaxone. -IV fluid given for 1st 12 hours and then stopped. -follow WBC. On admission white blood count is 24.4. Anasarca/Lymphedema, present on admission. Active. -BNP 230. -continue home bumetanide 4 mg b.i.d. -cautious with IV fluid use Opioid use disorder, present on admission. Chronic. -continue methadone 92 mg daily per [facility]. -patient requesting high doses of IV opioids overnight. Plan to restrict to just oral oxycodone as needed. Hypokalemia/hyponatremia, present on admission. Active. -admitting sodium 125 with potassium 2.9. -IV potassium rider and follow -IV NS given initially. Consider oral fluid restriction as patient seems to have an over generous thirst urge. Hypertension, present on admission. Chronic -continue losartan Paraesophageal and intra-abdominal mild lymph node enlargement -follow-up outpatient for possible inguinal lymph node biopsy. Lovenox for DVT prevention is backup decision maker. Time-Based Coding :: [TOTAL MINUTES] spent with patient and on the chart (including review of chart, obtaining history, exam, reviewing outside data, placing orders, documenting exam and treatment plan, and counseling patient) on [DATE]. Quality VTE Deep Vein Thrombosis/Pulmonary Embolism Present on Admission: No
[2025-04-30] MEDS: ENOXAPARIN 40 MG/0.4 ML SYRINGE SUBCUT ×2 (08:10→21:27)
[2025-04-30] MEDS: BUMETANIDE 1 MG TABLET 4 MG PO ×2 (08:10→20:34)
[2025-04-30] MEDS: LOSARTAN 50 MG TABLET PO (08:30)
[2025-04-30] MEDS: METHADONE INTENSOL 10 MG/ML ORAL.CONC 92 MG PO (08:39)
[2025-04-30] MEDS: SODIUM CHLORIDE 0.45% 1,000 ML 100 ML IV (08:39)
[2025-04-30] MEDS: SODIUM CHLORIDE 0.9% 1,000 ML 84 ML IV (09:00)
[2025-04-30] MEDS: POTASSIUM CHLORIDE IN WATER 10 MEQ/100 ML PIGGYBACK 100 MEQ IV ×6 (11:16→19:26)
[2025-04-30] MEDS: VANCOMYCIN 1,750 MG in SODIUM CHLORIDE 0.9% 500 ML 250 MG IV (11:28)
--- NOTE | 2025-04-30 14:06 | PC.NURSE ---
Dr. Torres made aware of wound culture results and pt's skin issues. Pt was unhappy about his dilaudid being stopped and hydrocodone Doesnt do anything MD will review.
[2025-04-30] MEDS: OXYCODONE IR 5 MG TABLET 15 MG PO ×3 (14:57→21:10)
[2025-04-30] MEDS: cefTRIAXone 2,000 MG in SODIUM CHLORIDE 0.9% 100 ML 200 MG IV (14:57)
[2025-04-30 17:29] LABS: Blood Urea Nitrogen 16 mg/dL (9-20); Calcium 8.2 mg/dL (8.4-10.2); Chloride 81 mmol/L (98-107); Estimated Glomerular Filt Rate > 60 mL/min (>60); Glucose 104 mg/dL (70-99); HEMOLYSIS 24 (0-50); Potassium 3.1 mmol/L (3.4-5.1); Sodium 132 mmol/L (137-145)
[2025-04-30 17:36] LABS: Carbon Dioxide 38 mmol/L (22-32)
--- NOTE | 2025-04-30 18:27 | DI.CT.S_ITS ---
PROCEDURE: CT LE LT W CON INDICATIONS: Rule out necrotizing fascitis TECHNIQUE: After the administration of intravenous contrast, 3 mm axial sections acquired of the left lower extremity , with coronal and sagittal reformats. COMPARISON: None. FINDINGS: Image quality: Excellent. Bones: No acute fracture or dislocation. No CT evidence of osteomyelitis. Soft tissues: Lower leg edema consistent with cellulitis. No soft tissue gas. No abscess. No myositis. IMPRESSION: No evidence of osteomyelitis or necrotizing fasciitis. Dictated by: Ramy Mccann M.D. on 04/30/2025 at 18:56 Approved by: Ramy Mccann M.D. on 04/30/2025 at 18:59
[2025-04-30] MEDS: NYSTATIN POWDER 15GM 1 APPLIC TOP ×2 (18:37→21:28)
[2025-04-30 20:00] VITALS: BP 134/69; PULSE 87; RESP 18; TEMP 36.3; O2SAT 96
[2025-04-30] MEDS: ONDANSETRON 4 MG/2 ML INJ IV (20:34)
[2025-04-30] MEDS: VANCOMYCIN TROUGH 1 REQUEST MISC (21:30)
[2025-04-30] MEDS: ZOLPIDEM 5 MG TABLET 10 MG PO (22:14)
[2025-05-01] MEDS: OXYCODONE IR 5 MG TABLET 15 MG PO ×5 (00:02→23:21)
[2025-05-01] MEDS: VANCOMYCIN 1,000 MG in SODIUM CHLORIDE 0.9% 250 ML 250 MG IV (01:15)
[2025-05-01] MEDS: VANCOMYCIN 750 MG/150 ML PIGGYBACK 150 MG IV (05:33)
[2025-05-01 06:38] LABS: Hematocrit 35.8 % (41-53); Hemoglobin 12.2 g/dL (13.5-17.5); Mean Corpuscular HGB Conc 34.1 % (30-36); Mean Corpuscular Hemoglobin 30.1 PG (26-34); Mean Corpuscular Volume 88.4 fL (80-100); Platelet Count 184 X10^3/uL (150-400)
[2025-05-01 06:39] LABS: Add Manual Diff / Slide Review YES
[2025-05-01 06:55] LABS: Alanine Aminotransferase 80 IU/L (<50); Albumin 3.3 g/dL (3.5-5.0); Albumin Globulin Ratio 0.9 (1.0-2.8); Alkaline Phosphatase 128 U/L (38-126); Blood Urea Nitrogen 18 mg/dL (9-20); Calcium 8.1 mg/dL (8.4-10.2); Chloride 83 mmol/L (98-107); Estimated Glomerular Filt Rate > 60 mL/min (>60); Globulin 3.8 g/dL (1.7-4.1); Glucose 116 mg/dL (70-99); HEMOLYSIS < 15 (0-50); Potassium 3.3 mmol/L (3.4-5.1); Sodium 129 mmol/L (137-145); Total Protein 7.1 g/dL (6.3-8.2)
[2025-05-01 07:07] LABS: Carbon Dioxide 38 mmol/L (22-32)
[2025-05-01 07:35] LABS: Atypical Lymphocytes Percent 3.0 %; Band Neutrophils Percent 16.0 % (3-7); Basophils Percent Manual 1.0 % (0-1); Dohle Bodies 1+; Lymphocytes Percent Manual 4.0 % (25-45); Monocytes Percent Manual 4.0 % (2-11); Neutrophils Absolute Manual 18656 /uL (3000-5900); RBC Morphology Normal Morphology; Segmented Neutrophils Percent 72.0 % (38-70); Total Cells Counted 100; Toxic Granulation Present
--- NOTE | 2025-05-01 07:49 | P.PN_ITS ---
Subjective Subjective Interval history: Summary: He says his leg pain is improved. He has been heavily dependent on additional morphine overnight. This is somebody who has a history of opioid use disorder and is on methadone already. The redness on the legs has stopped worsening if not improving slightly. The white blood count has dropped from 24.4 down to 21. The hemoglobin is 12.1. The potassium is still low at 2.8. The sodium has risen from 125 up to 128. The creatinine is 0.85. The AST is 60. He is being given additional IV potassium rider. The saline infusion will be changed from 0.45 to 0.9. Labs will be followed. We will try to restrict him from additional IV opioids and stick to hydrocodone or oxycodone in addition to the methadone. He is asking for something to try for sleep stating that melatonin at high doses is not effective. We will cautiously give him an Ambien tonight to see how that goes. Combining that with opioids is of course unlikely to be safe on an outpatient basis. Strep group A is growing on culture done of area draining fluid on the leg. S: He feels that his legs are improved. There is still swollen and red, but much better. No fevers overnight, no nausea. Exam Vital Signs (past 8 hours): Oxygen Delivery Method Room Air Oxygen Flow Rate 0 Narrative Exam Narrative: NAD, alert and oriented. Fluent speech. Lungs are clear, normal rate and effort. Heart is regular, no murmur gallop or rub. Abdomen is soft, non distended. Extremities are red and swollen bilaterally. He has multiple excoriations and wounds over the lower extremities. Objective Imaging CT leg: : Radiologist's impression: LEFT: FINDINGS: Image quality: Excellent. Bones: No acute fracture or dislocation. No CT evidence of osteomyelitis. Soft tissues: Lower leg edema consistent with cellulitis. No soft tissue gas. No abscess. No myositis. IMPRESSION: No evidence of osteomyelitis or necrotizing fasciitis. RIGHT: FINDINGS: Image quality: Excellent. Bones: No acute fracture or dislocation. No osteomyelitis. Soft tissues: Edema involving the foot to the upper thigh. No soft tissue gas. No abscess. IMPRESSION: Cellulitis without abscess. No soft tissue gas. No CT evidence of osteomyelitis. Labs 05/01/25 06:20 05/01/25 06:20 Labs: Laboratory Results - last 24 hr 04/30/25 04/30/25 04/30/25 07:54 17:13 21:30 WBC RBC Hgb Hct MCV MCH MCHC RDW Plt Count Neut % (Auto) Lymph % (Auto) [place] % (Auto) Eos % (Auto) Baso % (Auto) Lymph # (Auto) [place] # (Auto) Baso # (Auto) Total Counted Seg Neutrophils % Band Neutrophils % Lymphocytes % (Manual) Atypical Lymphs % Monocytes % (Manual) Basophils % (Manual) Neutrophils # (Manual) Toxic Granulation Dohle Bodies RBC Morphology Sodium 132 L Potassium 3.1 L Chloride 81 L Carbon Dioxide 38 H BUN 16 Creatinine 0.83 Estimated GFR > 60 BUN/Creatinine Ratio 19.3 Glucose 104 H POC Whole Bld Glucose 198 H Calcium 8.2 L Total Bilirubin AST ALT Alkaline Phosphatase Total Protein Albumin Globulin Albumin/Globulin Ratio Vancomycin Trough 8.7 L 05/01/25 06:20 WBC 21.2 H RBC 4.05 L Hgb 12.2 L Hct 35.8 L MCV 88.4 MCH 30.1 MCHC 34.1 RDW 15.2 H Plt Count 184 Neut % (Auto) Not Reportable Lymph % (Auto) Not Reportable [place] % (Auto) Not Reportable Eos % (Auto) Not Reportable Baso % (Auto) Not Reportable Lymph # (Auto) Not Reportable [place] # (Auto) Not Reportable Baso # (Auto) Not Reportable Total Counted 100 Seg Neutrophils % 72.0 H Band Neutrophils % 16.0 H Lymphocytes % (Manual) 4.0 L Atypical Lymphs % 3.0 H Monocytes % (Manual) 4.0 Basophils % (Manual) 1.0 Neutrophils # (Manual) 34398 H Toxic Granulation Present H Dohle Bodies 1+ H RBC Morphology Normal morphology Sodium 129 L Potassium 3.3 L Chloride 83 L Carbon Dioxide 38 H BUN 18 Creatinine 0.97 Estimated GFR > 60 BUN/Creatinine Ratio 18.6 Glucose 116 H POC Whole Bld Glucose Calcium 8.1 L Total Bilirubin 1.1 AST 110 H ALT 80 H Alkaline Phosphatase 128 H Total Protein 7.1 Albumin 3.3 L Globulin 3.8 Albumin/Globulin Ratio 0.9 L Vancomycin Trough [facility] Medical History Amputated finger Poor personal hygiene Methadone maintenance therapy patient MARIE (dyspnea on exertion) Depression, major Generalized anxiety disorder Essential hypertension Venous (peripheral) insufficiency Stasis dermatitis SOB (shortness of breath) Opioid use disorder Congestive heart failure Cardiomegaly Recreational drug use Obesity, morbid, BMI 40.0-49.9 Recurrent low back pain Foot pain Venous stasis ulcers of both lower extremities (11/21/17) Morbid obesity with body mass index (BMI) of 40.0 to 44.9 in adult (11/21/17) Surgical History Status post amputation of finger Family History Mother Cancer Lung cancer Social History household members: spouse and friend(s) Smoking Status: Never smoker alcohol intake: current substance use type: other (fentanyl ) Assessment & Plan Assessment & Plan narrative: This is a 54-year-old male with morbid medical obesity, congestive heart failure, cardiomegaly, anasarca, hypertension, depression, anxiety and fentanyl addiction/daily methadone use who presents with 3 days of painful skin redness in the right leg up to the thigh and in the left leg up to the ankle. He has been nauseated with vomiting, spiking a fever of 101.8 with chills and burning pain in both legs. The white blood count is 24.4 with an INR of 1.5, a sodium 125 and a potassium of 2.9. 1. Bilateral lower extremity cellulitis, present on admission. Active. - Appearance is not suspicious for necrotizing fasciitis today. -vancomycin and ceftriaxone to cover staph and strep. Leg discharge culture positive for strep A. Consider rationalization to just ceftriaxone. 2. Anasarca/Lymphedema, present on admission. Active. -BNP 230. -continue home bumetanide 4 mg b.i.d. 3. Opioid use disorder, present on admission. Chronic. -continue methadone [address] [facility]. -Oral oxycodone as needed. 4. Hypokalemia/hyponatremia, present on admission. Improved. -admitting sodium 125 with potassium 2.9. -IV potassium rider and follow -IV NS given initially. Consider oral fluid restriction as patient seems to have an over generous thirst urge. 5. Hypertension, present on admission. Chronic -continue losartan 6. Paraesophageal and intra-abdominal mild lymph node enlargement -follow-up outpatient for possible inguinal lymph node biopsy. PLAN: -Continue Abx for another night, his WBC still remains at 20,000. CT scans were reassuring, however he was a significant soft tissue infection. SHERLYN: 05/02 if his legs are improved and white count is down towards 15 K. Lovenox for DVT prevention is backup decision maker. Time-Based Coding :: [TOTAL MINUTES] spent with patient and on the chart (including review of chart, obtaining history, exam, reviewing outside data, placing orders, documenting exam and treatment plan, and counseling patient) on [DATE]. Quality VTE Deep Vein Thrombosis/Pulmonary Embolism Present on Admission: No
[2025-05-01] MEDS: METHADONE INTENSOL 10 MG/ML ORAL.CONC 92 MG PO (09:27)
[2025-05-01] MEDS: BUMETANIDE 1 MG TABLET 4 MG PO ×2 (09:35→20:50)
[2025-05-01 09:37] VITALS: BP 130/68; PULSE 94
[2025-05-01] MEDS: LOSARTAN 50 MG TABLET PO (09:37)
[2025-05-01] MEDS: POTASSIUM CHLORIDE 20 MEQ TAB 40 MEQ PO ×2 (09:41→14:01)
[2025-05-01] MEDS: ENOXAPARIN 40 MG/0.4 ML SYRINGE SUBCUT ×2 (09:41→20:50)
[2025-05-01] MEDS: NYSTATIN POWDER 15GM 1 APPLIC TOP ×2 (09:43→21:00)
[2025-05-01] MEDS: cefTRIAXone 2,000 MG in SODIUM CHLORIDE 0.9% 100 ML 200 MG IV (14:01)
--- NOTE | 2025-05-01 16:27 | CM.DANOTE ---
Initial DCP Assessment Note Pt is a 54 yo male, resident of [place], receiving treatment for Bilateral lower extremity cellulitis. PCP: Valente Payer: Wilver Reviewed chart, pt discussed in multidisciplinary rounds this morning. Patient would benefit from wound care follow up. Met w/patient who reports living independently with sp in [place]. 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 Patient denies any current illicit substance use, confirms that he shows up to [facility] every morning at 0600 to get his Methadone and gets his carries for the weekend. Discussed primary care and wound care, patient reports he can get both at [facility] although usually wants to get out of there. Patient is unlikely to follow up outpatient according to this conversation. Patient denies needs from this SW team. Social work team will plan to follow clinical course closely in case any DC needs or concerns arise. 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 No Advance Directives No on File History Provided By Patient,Medical Record Prior Living House Arrangements Household Members spouse,friend(s) Independent with ADL Yes 's Is patient alert and Yes oriented? Discharge Plan Home Transportation Spouse likely to provide transport at d/c Arrangement
[2025-05-01 17:50] VITALS: BP 131/70; PULSE 97; RESP 20; TEMP 35.9; O2SAT 97
[2025-05-01 21:00] VITALS: BP 136/75; PULSE 85; RESP 18; TEMP 36.6; O2SAT 91
[2025-05-01] MEDS: ZOLPIDEM 5 MG TABLET PO (23:21)
[2025-05-02] MEDS: OXYCODONE IR 5 MG TABLET 15 MG PO ×2 (04:56→08:33)
[2025-05-02 05:41] LABS: Hematocrit 36.4 % (41-53); Hemoglobin 12.4 g/dL (13.5-17.5); Mean Corpuscular HGB Conc 34.0 % (30-36); Mean Corpuscular Hemoglobin 30.0 PG (26-34); Mean Corpuscular Volume 88.2 fL (80-100); Platelet Count 222 X10^3/uL (150-400)
[2025-05-02 05:53] LABS: Blood Urea Nitrogen 13 mg/dL (9-20); Calcium 8.1 mg/dL (8.4-10.2); Chloride 85 mmol/L (98-107); Estimated Glomerular Filt Rate > 60 mL/min (>60); Glucose 146 mg/dL (70-99); HEMOLYSIS < 15 (0-50); Potassium 3.1 mmol/L (3.4-5.1); Sodium 132 mmol/L (137-145)
[2025-05-02 06:00] LABS: Carbon Dioxide 39 mmol/L (22-32)
[2025-05-02] MEDS: BUMETANIDE 1 MG TABLET 4 MG PO (08:33)
[2025-05-02] MEDS: ENOXAPARIN 40 MG/0.4 ML SYRINGE SUBCUT (08:34)
[2025-05-02] MEDS: LOSARTAN 50 MG TABLET PO (08:34)
[2025-05-02] MEDS: METHADONE INTENSOL 10 MG/ML ORAL.CONC 92 MG PO (08:54)
[2025-05-02] MEDS: cefTRIAXone 2,000 MG in SODIUM CHLORIDE 0.9% 100 ML 200 MG IV (09:25)
[2025-05-02] MEDS: POTASSIUM CHLORIDE 20 MEQ TAB 40 MEQ PO (09:30)
[2025-05-02 09:51] VITALS: BP 139/77; PULSE 88; RESP 26; TEMP 36.3; O2SAT 91
--- NOTE | 2025-05-02 11:56 | PM.DS.1 ---
History of Present Illness History of Present Illness Chief complaint: Both knees are swollen , Edema Discharge Providers Provider Date of admission: 04/29/25 11:25 Discharge Date: 05/02/25 Primary care physician: Fredo Lawrence DO Discharge provider: Ant Huitron MD Exam Vital Signs (past 8 hours): - 05/02/25 09:51 Temperature 97.3 F L Pulse Rate 88 Respiratory Rate 26 H Blood Pressure 139/77 Pulse Oximetry 91 Oxygen Flow Rate 0 Oxygen Delivery Method Room Air Oxygen Flow Rate 0 Objective Labs 05/02/25 05:10 05/02/25 05:10 Labs: Laboratory Results - last 24 hr 05/02/25 05:10 WBC 19.0 H RBC 4.13 L Hgb 12.4 L Hct 36.4 L MCV 88.2 MCH 30.0 MCHC 34.0 RDW 15.4 H Plt Count 222 Sodium 132 L Potassium 3.1 L Chloride 85 L Carbon Dioxide 39 H BUN 13 Creatinine 0.78 Estimated GFR > 60 BUN/Creatinine Ratio 16.7 Glucose 146 H Calcium 8.1 L PFSH Medical History Amputated finger Poor personal hygiene Methadone maintenance therapy patient MARIE (dyspnea on exertion) Depression, major Generalized anxiety disorder Essential hypertension Venous (peripheral) insufficiency Stasis dermatitis SOB (shortness of breath) Opioid use disorder Congestive heart failure Cardiomegaly Recreational drug use Obesity, morbid, BMI 40.0-49.9 Recurrent low back pain Foot pain Venous stasis ulcers of both lower extremities (11/21/17) Morbid obesity with body mass index (BMI) of 40.0 to 44.9 in adult (11/21/17) Surgical History Status post amputation of finger Family History Mother Cancer Lung cancer Social History household members: spouse and friend(s) Smoking Status: Never smoker alcohol intake: current substance use type: other (fentanyl ) Discharge Plan Discharge Plan Patient Disposition: Home Provider Discharge Comment: Patient was marginally stable for discharge, he declined stain any further and would leave against medical advice if a discharge was not coordinated. Discharge orders & Medications Prescriptions: New cephalexin 500 mg capsule 500 mg PO QID Qty: 28 0RF oxycodone 5 mg tablet 5 mg PO Q8H PRN (Reason: pain) Qty: 14 0RF Continued losartan 50 mg tablet 50 mg PO DAILY Qty: 30 0RF albuterol sulfate 90 mcg/actuation aerosol powdr breath activated 2 inh inhalation Q4-6H PRN (Reason: shortness of breath) Qty: 1 12RF naloxone 4 mg/actuation spray,non-aerosol 1 spray intranasal Q3M PRN (Reason: overdose) methdone liquid 175 mg PO .QD bumetanide 2 mg tablet 4 mg PO BID Qty: 360 3RF (DME) DISABLED PARKING PERMIT See Rx Instructions .ROUTE .MEDSUPPLY Qty: 1 0RF Rx Instructions: I find this patient to be medically disabled and qualified for disabled parking as indicated, and signed, on the accompanying Disabled Parking Application for Individuals. Follow up/Referrals: Fredo Lawrence DO [Primary Care Provider, Family Practice] Discharge Health Status Multidrug resistant organism: No MDRO Diet/Activity/Treatments Diet: Regular Activity: Elevate legs as much as possible. Skin/Wound/Dressing Care Report to your healthcare provider any signs of infection, such as:: chills, fever, night sweats, increased pain, unusual drainage and unusual redness Visit Report/Discharge Packet Instructions: DI for Cellulitis -- Adult, DI for Heart Failure Stand Alone Forms: Congestive Heart Failure, Patient Portal/API, Stroke Signs & Symptoms Discharge Data Primary Care Provider: Fredo Lawrence Quality VTE Deep Vein Thrombosis/Pulmonary Embolism Present on Admission: No
--- NOTE | 2025-05-02 12:56 | PC.NURSE ---
Day shift: Paperwork signed and all questions answered. LEft unit via WC at approx [phone]. Spouse is driving him home. Encouraged to f/u with MD and to take all meds as directed. Pt has all personal belongings. Dr Huitron did talk to Pt about staying another night to get more antibiotics by IV. Pt stated today I need to get out of here. Going a little crazy.
--- NOTE | 2025-05-02 15:06 | CM.DPNOTE ---
DC Note Patient has been discharged home. Met w/patient and spouse to review discharge plan. Strongly encouraged patient to establish with primary care and wound care at [facility]; patient said that he was motivated to do follow up so I don't . Later learned that patient already has a primary care physician, Dr Fredo Lawrence. Sent a message to the transitional care nursing team requesting patient have follow up with Dr Lawrence and relayed that patient agreed to contact [facility] about establishing with wound care. Provider updated. KEATON
== END 2025-05-02 12:45 | disposition home or self-care (01) | DRG 383 ==
LOC: ED 11:25 → AC 11:26
PROVIDERS: Hospitalist; Pharmacist Pharmacist Clinician (PhC)/ Clinical Pharmacy Specialist; Admitting Provider Family Medicine; Emergency Provider Family Medicine; PCP Family Medicine; Referring Provider Family Medicine; Visit Provider Family Medicine
DX: L03.116 Cellulitis of left lower limb (principal); L03.115 Cellulitis of right lower limb; E87.1 Hypo-osmolality and hyponatremia; R60.1 Generalized edema; I89.0 Lymphedema, not elsewhere classified; F11.90 Opioid use, unspecified, uncomplicated; E87.6 Hypokalemia; I10 Essential (primary) hypertension; B95.0 Streptococcus, group A, as the cause of diseases classified elsewhere; E66.01 Morbid (severe) obesity due to excess calories; B95.61 Methicillin susceptible Staphylococcus aureus infection as the cause of diseases classified elsewhere; Z68.43 Body mass index [BMI] 50.0-59.9, adult
CPT/HCPCS: 36415; 51701; 71045; 71275; 73701; 74176; 80048; 80053; 80202; 81001; 82550; 82805; 82962; 83605; 83690; 83735; 83880; 84484; 85007; 85025; 85027; 85610; 85730; 87040; 87070; 87075; 87077; 87147; 87186; 87205; 87637; 93005; 93010; 94640; 96365; 96366; 96368; 96375; 99284; 99285; J0696; J1171; J1650; J2270; J2405; J2543; J3375; J7050; J7613; Q9967

== ENCOUNTER → 2025-05-28 06:20 | Outpatient (CLI) | payer OTHER, SELFPAY ==
[2021-08-13 06:12] VITALS: PULSE 98; RESP 14; O2SAT 97
[2025-04-29 11:27] VITALS: BMI 54.6
[2025-05-28 07:45] LABS: Add Manual Diff / Slide Review NO; Hematocrit 34.9 % (41-53); Hemoglobin 12.1 g/dL (13.5-17.5); Lymphocytes Absolute Auto 3400 /uL (1100-4500); Mean Corpuscular HGB Conc 34.6 % (30-36); Mean Corpuscular Hemoglobin 30.4 PG (26-34); Mean Corpuscular Volume 87.9 fL (80-100); Platelet Count 260 X10^3/uL (150-400)
[2025-05-28 08:07] LABS: Alanine Aminotransferase 21 IU/L (<50); Albumin 3.6 g/dL (3.5-5.0); Albumin Globulin Ratio 0.6 (1.0-2.8); Alkaline Phosphatase 106 U/L (38-126); Blood Urea Nitrogen 13 mg/dL (9-20); Calcium 8.6 mg/dL (8.4-10.2); Carbon Dioxide 33 mmol/L (22-32); Chloride 94 mmol/L (98-107); Cholesterol 125 mg/dL (140-199); Estimated Glomerular Filt Rate > 60 mL/min (>60); Globulin 6.2 g/dL (1.7-4.1); Glucose 125 mg/dL (70-99); HDL Cholesterol 21 mg/dL (40-60); Hemoglobin A1C% w Est Avg Glu 6.7 % (4.0-6.0); Potassium 3.2 mmol/L (3.4-5.1); Sodium 137 mmol/L (137-145); Total Protein 9.8 g/dL (6.3-8.2); Triglycerides 99 mg/dL (35-150)
[2025-05-28 08:40] LABS: HEMOLYSIS < 15 (0-50)
--- NOTE | 2025-05-28 14:42 | DI.ECHO.S_ITS ---
[facility] : : [address] : : [place] : : [id number] : : Phone: [phone] Echocardiogram Report + + :Name: MARIKA ABREU Study Date: 05/28/2025 Height: 72 in : :[facility] ReadingLocation: Weight: 375 lb : : Gender: Male BSA: 2.8 m2 : :: 1970 Age: 54 yrs BP: 158/97 mmHg: :Reason For Study: HYPERTENSION : :Ordering Physician: JAVAD SERRANOPerformed By: Chung Contreras : :Referring: JAVAD SERRANO : + + Interpretation Summary Technically difficult study due to large body habitus. Patient declined IV contrast. 1) Mildly increased left ventricular thickness (concentric) with normal size and normal systolic function (EF 55-60%). There are no obvious focal wall motion abnormalities noted but poor endocardial definition reduces the sensitivity for the detection of such. 2) Mildly to moderately enlarged right ventricle with normal function. 3) No significant valvular abnormalities. 4) The aortic root is mildly dilated at 4.1cm. 5) Compared to the Echo done 08/13/2022, no significant change. Procedure: A two-dimensional transthoracic echocardiogram with color flow and Doppler was performed. The study quality was technically difficult. Comparison is made with the echocardiogram of 08/13/2022. The patient was in normal sinus rhythm during the exam. Left Ventricle: The left ventricle is normal in size. There is mild concentric left ventricular hypertrophy. There is no ventricular septal defect visualized. The ejection fraction is estimated to be 55-60%. There are no obvious focal wall motion abnormalities noted but poor endocardial definition reduces the sensitivity for the detection of such. Right Ventricle: The right ventricle is mild to moderately dilated. The right ventricular systolic function is normal. Atria: The left atrial size is normal. Right atrial size is normal. There is no Doppler evidence for an interatrial shunt. Mitral Valve: There is mild mitral annular calcification. The mitral valve leaflets appear mildly thickened. There is trace mitral regurgitation. Aortic Valve: The aortic valve is not well visualized. There is no aortic valve stenosis. No aortic regurgitation is present. Tricuspid Valve: The tricuspid valve is not well visualized. No tricuspid regurgitation. Pulmonic Valve: The pulmonic valve is not well visualized. Great Vessels: The aortic root is mildly dilated. The ascending aorta is mildly enlarged. The pulmonary artery is normal size. The inferior vena cava was not visualized. Pericardium/ Pleura There is no pericardial effusion. There is no pleural effusion. MMode/2D Measurements & Calculations LVIDd: 5.0 cm LVOT diam: 2.4 cm LVIDs: 3.4 cm Ao root diam: 4.1 cm FS: 31.0 % asc Aorta Diam: 3.8 cm EPSS: 0.58 cm IVSd: 1.1 cm LVPWd: 1.2 cm LV tamez. diameter/BSA (cm/m^2): 1.8 LV sys. diameter/BSA (cm/m^2): 1.2 LA A2 area: 22.1 cm2 RA long axis: 5.0 cm LA A4 area: 21.0 cm2 RA area: 19.5 cm2 LA length (vol): 5.9 cm RA vol: 65.0 ml LA vol: 66.9 ml RA : 23.4 ml/m2 LA vol index: 24.0 ml/m2 RVD1 (basal): 4.7 cm RVD2 (mid): 4.0 cm TAPSE: 2.8 cm Doppler Measurements & Calculations Ao V2 max: 142.8 cm/sec LVOT Max Robert: 99.2 cm/sec Ao V2 mean: 111.4 cm/sec LV V1 max P.9 mmHg Ao max P.2 mmHg LV V1 VTI: 23.6 cm Ao mean P.3 mmHg TABATHA(I,D): 3.4 cm2 Ao V2 VTI: 31.8 cm TABATHA(V,D): 3.2 cm2 sev ratio: 0.74 TABATHA indexed to BSA (cm^2/m^2): 1.2 MV E max robert: 69.0 cm/sec SV(LVOT): 109.7 ml MV A max robert: 71.4 cm/sec MV E/A: 0.97 Med Peak E' Robert: 10.9 cm/sec E/E' med: 6.3 Lat Peak E' Robert: 12.3 cm/sec E/E' lat: 5.6 E/e' average: 6.0 MV dec time: 0.23 sec Reading Physician:04:25 PM
== END ==
PROVIDERS: PCP Family Medicine; Referring Provider Family Medicine; Visit Provider Family Medicine
DX: I34.81 Nonrheumatic mitral (valve) annulus calcification (principal); I77.89 Other specified disorders of arteries and arterioles; I77.810 Thoracic aortic ectasia; I11.0 Hypertensive heart disease with heart failure; I50.9 Heart failure, unspecified; R60.1 Generalized edema; Z12.5 Encounter for screening for malignant neoplasm of prostate; E11.9 Type 2 diabetes mellitus without complications; F41.1 Generalized anxiety disorder; F11.90 Opioid use, unspecified, uncomplicated; R45.89 Other symptoms and signs involving emotional state
CPT/HCPCS: 36415; 80053; 80061; 82043; 82570; 83036; 85025; 93306; G0103